=== PATIENT | male | born 1945 | race Caucasian/White ===

== ENCOUNTER 2022-07-20 19:42 | Emergency (ER) | payer MEDICARE, BC, SELFPAY ==
[2022-07-20] VITALS (23 sets, daily range): BP systolic 138–155; BP diastolic 66–116; PULSE 52–64; RESP 16; TEMP 36.7; O2SAT 92–97; BMI 25.5
--- NOTE | 2022-07-20 20:08 | CT_ITS ---
Patient: DAVID JOHNSON Facility:?[facility] Patient ID:?[id number] Site Patient ID:?[id number]. Site :?1945 Study:?CT-Head Angio W/ISOVUE 370 95CC-07/20/2022 8:40:13 PM Ordering Physician:Indio Bowser Final Report: INDICATION: Acute stroke, right arm pain. TECHNIQUE: CTA head with contrast bolus tracking and 3D MIP reconstruction. FINDINGS: There is normal opacification of the intracranial vasculature. There is no significant intracranial stenosis. There is no large vessel occlusion. No aneurysm is identified. IMPRESSION: Unremarkable head CTA. Please note that all CT scans at this facility use dose modulation, iterative reconstruction, and/or weight-based dosing when appropriate to reduce radiation dose to as low as reasonably achievable. Dictated by Geraldo Godfrey MD @ 07/21/2022 9:42:38 AM Signed by:?Geraldo Godfrey MD @07/21/2022 9:42:38 AM (Electronic Signature)
--- NOTE | 2022-07-20 20:09 | CT_ITS ---
Patient: DAVID JOHNSON Facility:?[facility] Patient ID:?[id number] Site Patient ID:?[id number]. Site :?1945 Study:?CT-Neck Angio Angio W/ISOVUE 370 95CC-07/20/2022 8:41:24 PM Ordering Physician:Indio Bowser Final Report: INDICATION: Acute stroke, right arm pain TECHNIQUE: CTA neck with contrast bolus tracking and 3D MIP reconstruction. FINDINGS: There is atherosclerotic plaque in the proximal internal carotid arteries bilaterally. There is no significant stenosis. There is no significant vertebral artery stenosis or dissection. The soft tissues of the neck are within normal limits. Degenerative changes are incidentally noted in the cervical spine. IMPRESSION: Carotid atherosclerotic disease without significant stenosis. Please note that all CT scans at this facility use dose modulation, iterative reconstruction, and/or weight-based dosing when appropriate to reduce radiation dose to as low as reasonably achievable. Dictated by Geraldo Godfrey MD @ 07/21/2022 9:44:09 AM Signed by:?Geraldo Godfrey MD @07/21/2022 9:44:09 AM (Electronic Signature)
--- NOTE | 2022-07-20 20:09 | CRLHL7_ITS ---
For Patients: As a result of the Century Cures Act, medical imaging exams and procedure reports are released immediately into your electronic medical record. You may view this report before your referring provider. If you have questions, please contact your health care provider. INDICATION: Right-sided arm pain. TECHNIQUE: CT head without contrast. COMPARISON: CT head dated 06/11/2017. FINDINGS: Cerebral parenchyma: No evidence of acute territorial infarct. No acute intraparenchymal hemorrhage. No significant mass effect/midline shift. Normal mckenzie-white matter differentiation. Extra-axial spaces: No extra-axial collection or hemorrhage. Ventricles: Unremarkable. Calvarium: Intact. Visualized paranasal sinuses/mastoid air cells: Mild mucosal thickening of the left ethmoid air cells. Posterior fossa: No cerebellar tonsillar herniation. Visualized orbits: Unremarkable. IMPRESSION: No acute intracranial abnormality. Please note that all CT scans at this facility use dose modulation, iterative reconstruction, and/or weight-based dosing when appropriate to reduce radiation dose to as low as reasonably achievable. Dictated by Bibi Agrawal MD @ 07/20/2022 9:03:16 PM (Electronically Signed)
--- NOTE | 2022-07-20 20:10 | CRLHL7_ITS ---
For Patients: As a result of the Century Cures Act, medical imaging exams and procedure reports are released immediately into your electronic medical record. You may view this report before your referring provider. If you have questions, please contact your health care provider. INDICATION: Arm pain. TECHNIQUE: Chest 1 views. COMPARISON: None. FINDINGS: Cardiovascular and mediastinum: Heart size and vasculature are normal in caliber and appearance. Lungs and pleural spaces: Lungs are clear. No sign of infiltrate or mass. No sign of pleural effusion. No pneumothorax. Bones and soft tissues: No significant findings. IMPRESSION: No acute or significant findings. Dictated by Moose Webster MD @ 07/20/2022 9:48:03 PM (Electronically Signed)
--- NOTE | 2022-07-20 20:21 | ED_ITS ---
HPI - General Adult General Chief complaint: Neuro Symptoms/Altered Deficit Stated complaint: Pain in right ear, jaw, and arm Time Seen by Provider: 07/20/22 20:03 History of Present Illness HPI narrative: Pt is a 77 year old man who was watching TV at rest tonight when he developed acute 8/10 pain in the left side of the neck with radiation down the right arm. Symptoms occured approximately 1 hour ago and resolved after 15 seconds. Pt has had no similar symptoms previously. No change in activity today. Pt had no weakness fever chills. Pt has no other recent symptoms and his NIH stroke scale is zero. Pt has taken no medications for his symptoms but did have an TN with stenting 6 years ago. Now feels perfectly fine. Related Data Home Medications Medication Instructions Recorded Confirmed Nitro 07/20/22 allopurinol 07/20/22 aspirin 07/20/22 atorvastatin 07/20/22 empagliflozin 07/20/22 lisinopril 07/20/22 metformin 07/20/22 metoprolol tartrate 07/20/22 Allergies Allergy/AdvReac Type Severity Reaction Status Date / Time No Known Drug Allergies Allergy Verified 07/20/22 19:54 Review of Systems 2 Status of ROS: Reports: 10 or more systems reviewed and unremarkable except as noted in History and below [facility] Medical History (Updated 07/20/22 @ 23:05 by Niels Caceres MD) Coronary artery disease Diabetes Hyperlipidemia Hypertension Surgical History (Updated 07/20/22 @ 20:26 by Niels Caceres MD) H/O knee surgery History of hip surgery Social History Smoking Status: Never smoker How often do you have a drink containing alcohol: monthly or less AUDIT-C Alcohol total score: 1 Non-prescribed substance use: denies use Exam Narrative: Exam Narrative: EXAM GENERAL: Patient appears comfortable and well. EYES: No scleral icterus. THYROID: no thyroid nodules or thyromegaly. LYMPH: No supraclavicular or cervical lymphadenopathy. SKIN: Visible skin seen during exam normal or with benign process only. EXT: No dependent lower extremity pedal edema. HEART: Regular rate and rhythm with no murmurs, rubs, or gallops. LUNGS: Clear to auscultation bilaterally with no crackles or wheezes. ABD: Soft, non tender, non distended. PSYCH: Good eye contact, speech is not pressured. Neurologic: Cranial nerves 2-12 grossly intact no for drip patient. Const: Vital Signs, click to edit/add: Vital Signs - 24 hr 07/20/22 19:51 07/20/22 20:51 07/20/22 20:52 Temperature 98.0 F Pulse Rate 57 L 56 L Pulse Rate [Left P ulse Oximeter] 54 L Respiratory Rate 16 Blood Pressure 152/116 H Blood Pressure [Ri ght Upper Arm] 155/70 H Pulse Oximetry 97 96 96 Oxygen Delivery Me thod Room Air 07/20/22 20:56 07/20/22 21:00 07/20/22 21:11 Temperature Pulse Rate 54 L 54 L 55 L Pulse Rate [Left P ulse Oximeter] Respiratory Rate Blood Pressure 147/66 H 138/73 Blood Pressure [Ri ght Upper Arm] Pulse Oximetry 92 97 96 Oxygen Delivery Me thod 07/20/22 21:15 07/20/22 21:16 07/20/22 21:21 Temperature Pulse Rate 64 55 L 54 L Pulse Rate [Left P ulse Oximeter] Respiratory Rate Blood Pressure 146/89 H 142/74 H Blood Pressure [Ri ght Upper Arm] Pulse Oximetry 94 96 95 Oxygen Delivery Me thod 07/20/22 21:33 07/20/22 21:46 07/20/22 21:47 Temperature Pulse Rate 52 L 52 L 55 L Pulse Rate [Left P ulse Oximeter] Respiratory Rate Blood Pressure 145/71 H Blood Pressure [Ri ght Upper Arm] Pulse Oximetry 95 95 94 Oxygen Delivery Me thod 07/20/22 22:02 07/20/22 22:03 07/20/22 22:15 Temperature Pulse Rate 56 L 56 L 54 L Pulse Rate [Left P ulse Oximeter] Respiratory Rate Blood Pressure 140/76 H Blood Pressure [Ri ght Upper Arm] Pulse Oximetry 95 95 96 Oxygen Delivery Me thod 07/20/22 22:16 Temperature Pulse Rate 56 L Pulse Rate [Left P ulse Oximeter] Respiratory Rate Blood Pressure 151/74 H Blood Pressure [Ri ght Upper Arm] Pulse Oximetry 94 Oxygen Delivery Me thod Course Course Hospital Course: Patient is in or immediately for CTA head and neck CT chest x-ray EKG troponin CBC basic metabolic panel. Patient currently asymptomatic Reevaluation(s) Reevaluation #1: Pt continues to feel fine. CT of the head, CT of the head and neck, troponin times 2, cbc, d dimer basic panel normal with the exception of hgb of 13. Time: 23:00 Vital Signs Vital signs: Initial Vital Signs Temperature 98.0 F 07/20/22 19:51 Temperature Source Temporal Artery Scan 07/20/22 19:51 Pulse Rate 54 L 07/20/22 19:51 Respiratory Rate 16 07/20/22 19:51 Blood Pressure 155/70 H 07/20/22 19:51 Blood Pressure Mean 98 07/20/22 19:51 Blood Pressure Position Sitting 07/20/22 19:51 Pulse Oximetry 97 07/20/22 19:51 Oxygen Delivery Method 07/20/22 19:51 Vital Signs Temperature 98.0 F 07/20/22 19:51 Pulse Rate 54 L 07/20/22 19:51 Respiratory Rate 16 07/20/22 19:51 Blood Pressure 155/70 H 07/20/22 19:51 Pulse Oximetry 97 07/20/22 19:51 Oxygen Delivery Method 07/20/22 19:51 Temperature 98.0 F 07/20/22 19:51 Pulse Rate 56 L 07/20/22 22:16 Respiratory Rate 16 07/20/22 19:51 Blood Pressure 151/74 H 07/20/22 22:16 Pulse Oximetry 94 07/20/22 22:16 Oxygen Delivery Method 07/20/22 19:51 Medical Decision Making MDM Narrative Medical decision making narrative: Pt has had a thorough workup for both CVA and TN. No findings and pt remains feeling quite well. Pt does take ASA 81 mg daily Differential Diagnosis Differential Diagnosis: CVA, TN, Angina, Muscle Strain, Neck Strain, Referred pain Lab Data Labs: Lab Results 07/20/22 07/20/22 07/20/22 Range/Units 20:18 20:18 20:18 WBC 3.29 L (4.50-11.00) K/uL RBC 3.73 L (4.30-5.90) m/uL Hgb 13.0 L (13.5-17.5) gm/dL Hct 37.2 (37.0-53.0) % MCV 100 (80-100) fL MCH 35 H (26-34) pg MCHC 35 (32-36) gm/dL RDW Coeff of Savanna 13.3 (11.5-15.5) % Plt Count 171 (140-440) K/uL Neut % (Auto) 51.4 (42.0-72.0) % Lymph % (Auto) 38.0 (20-44) % Owsley % (Auto) 6.4 (0.0-11.0) % Eos % (Auto) 3.3 (0.0-7.0) % Baso % (Auto) 0.9 (0.0-3.0) % Neut # (Auto) 1.70 (1.7-7.0) K/uL Lymph # (Auto) 1.30 (0.90-2.90) K/uL Owsley # (Auto) 0.20 (0.00-0.90) K/UL Eos # (Auto) 0.10 (0.00-0.50) K/uL Baso # (Auto) 0.00 (0.00-0.30) K/uL Abs Immat Gran (auto) 0.00 (0.00-0.30) K/uL D-Dimer Quant (PE/DVT) 0.42 (0.00-0.50) ug/ml Sodium 139 (135-149) mmol/L Potassium 4.0 (3.6-5.1) mmol/L Chloride 104 (96-114) mmol/L Carbon Dioxide 27 (20-32) mmol/L BUN 18 (7-30) mg/dL Creatinine 0.9 (0.5-1.5) mg/dL Estimated Creat Clear 58.76 Estimated GFR 89 ml/min Glucose 221 H (60-115) mg/dL Calcium 9.0 (8.4-10.6) mg/dL Troponin I < 0.01 L (0.01-0.04) ng/mL 07/20/22 Range/Units 22:13 WBC (4.50-11.00) K/uL RBC (4.30-5.90) m/uL Hgb (13.5-17.5) gm/dL Hct (37.0-53.0) % MCV (80-100) fL MCH (26-34) pg MCHC (32-36) gm/dL RDW Coeff of Savanna (11.5-15.5) % Plt Count (140-440) K/uL Neut % (Auto) (42.0-72.0) % Lymph % (Auto) (20-44) % Owsley % (Auto) (0.0-11.0) % Eos % (Auto) (0.0-7.0) % Baso % (Auto) (0.0-3.0) % Neut # (Auto) (1.7-7.0) K/uL Lymph # (Auto) (0.90-2.90) K/uL Owsley # (Auto) (0.00-0.90) K/UL Eos # (Auto) (0.00-0.50) K/uL Baso # (Auto) (0.00-0.30) K/uL Abs Immat Gran (auto) (0.00-0.30) K/uL D-Dimer Quant (PE/DVT) (0.00-0.50) ug/ml Sodium (135-149) mmol/L Potassium (3.6-5.1) mmol/L Chloride (96-114) mmol/L Carbon Dioxide (20-32) mmol/L BUN (7-30) mg/dL Creatinine (0.5-1.5) mg/dL Estimated Creat Clear Estimated GFR ml/min Glucose (60-115) mg/dL Calcium (8.4-10.6) mg/dL Troponin I < 0.01 L (0.01-0.04) ng/mL Discharge Plan Discharge Clinical Impression: Acute neck pain Condition: Stable Additional Instructions: Symptomatic Treatment Continue current medications Follow up with your doctor as needed Discharge Diet: Regular Prescriptions: No Action atorvastatin metoprolol tartrate allopurinol metformin empagliflozin aspirin lisinopril Nitro Follow Up/Referrals: Ijeoma Gutiérrez MD [Staff Physician] - Stand Alone Forms: [facility] Info Instructions
--- NOTE | 2022-07-20 20:23 | ED.NURSE ---
Pt to CT
[2022-07-20 20:27] LABS: Basophils Percent Auto 0.9 % (0.0-3.0); Eosinophils Percent Auto 3.3 % (0.0-7.0); Hematocrit 37.2 % (37.0-53.0); Mean Corpuscular HGB Conc 35 gm/dL (32-36); Mean Corpuscular Hemoglobin 35 pg (26-34); Mean Corpuscular Volume 100 fL (80-100); Monocytes Percent Auto 6.4 % (0.0-11.0); Neutrophils Percent Auto 51.4 % (42.0-72.0); Platelet Count* 171 K/uL (140-440); RDW Coefficient of Variation % 13.3 % (11.5-15.5); Red Blood Count 3.73 m/uL (4.30-5.90); White Blood Count* 3.29 K/uL (4.50-11.00)
[2022-07-20 20:35] LABS: Slide Review Reflex No
[2022-07-20 20:39] LABS: Chloride* 104 mmol/L (96-114); Sodium* 139 mmol/L (135-149)
[2022-07-20 20:42] LABS: Blood Urea Nitrogen* 18 mg/dL (7-30); Carbon Dioxide* 27 mmol/L (20-32); Creatinine* 0.9 mg/dL (0.5-1.5); Est. Creatinine Clearance* 58.76; Estimated Glomerular Filt Rate 89 ml/min
[2022-07-20 20:43] LABS: Glucose* 221 mg/dL (60-115)
[2022-07-20 20:44] LABS: D Dimer Quantitative* 0.42 ug/ml (0.00-0.50)
[2022-07-20 20:56] LABS: Troponin I* < 0.01 ng/mL (0.01-0.04)
--- OUTSIDE RECORDS SUMMARY | 2022-07-20 21:44 | XMS_ITS | Encounter Summary ---
:1945 Author Organization [facility] Address [address] [place] [address] Care Team Providers Name Role Phone [facility], [facility] Primary Care Provider [phone] Reason for Visit Auth/Cert Specialty Diagnoses / Procedures Referred By Contact Refer red To Contact Surgery Diagnoses Spinal stenosis Herniated disc, cervical Radiculopathy, cervical DDD (degenerative disc disease), cervical Weakness Spinal stenosis [M48.00] Herniated disc, cervical [M50.20] Radiculopathy, cervical [M54.12] [facility] DDD (degenerative disc disea se), cervical [M50.30] Weakness [R53.1] [address] Procedures Lumbar 4-5 Posterior Lumbar Instrumented Fusion With or Without Interbody Cage and With Lumbar 3-4 Laminectomy and Lumbar 4-5 [place] [address] Fax: Referral ID Status Reason Start Date Expiration Date Visits Requ ested Visits Authorized [id number] 1 1 Encounter Details Date Type Department Care Team Description 08/03/2021 - Hospital Encounter [facility] John Champion, S/P lumbar fusion 08/05/2021 [facility] (Primary Dx) [address] [place], [place] ORTHOPEDICS [address] [phone] [address] [place] [address] Social History Tobacco Use Types Packs/Day Years Used Date Never Smoker Smokeless Tobacco: Never Used Alcohol Use Standard Drinks/Week Comments No 0 (1 standard drink = 0.6 oz pure alcoho l) Sex Assigned at Date Recorded Not on file COVID-19 Exposure Response Date Recorded In the last month, have you been in contact with No / Unsure 08/03/2021 10:51 AM CDT someone who was confirmed or suspected to have Coronavirus / COVID-19? documented as of this encounter Last Filed Vital Signs Vital Sign Reading Time Taken Comments Blood Pressure 159/73 08/05/2021 7:27 AM CDT Pulse 62 08/05/2021 7:27 AM CDT Temperature 36.2 ??C (97.1 ??F) 08/05/2021 7:27 AM CDT Respiratory Rate 16 08/04/2021 4:07 PM CDT Oxygen Saturation 92% 08/05/2021 7:27 AM CDT Inhaled Oxygen Concentration - - Weight 77.1 kg (170 lb) 08/03/2021 9:57 AM CDT Height 170.2 cm (5' 7) 08/03/2021 9:57 AM CDT Body Mass Index 26.63 08/03/2021 9:57 AM CDT documented in this encounter Discharge Summaries Nikita Fuentes PA-C - 08/03/2021 9:36 AM CDT [facility] Discharge Summary Michael Johnson Age: [age] year old Date of : 1945 Date of Admission: 08/03/2021 Date of Discharge:: 08/05/2021 5:47 PM Admitting Physician: John Champion MD Discharge Physician: Nikita Fuentes PA-C Home clinic: [facility] Admission Diagnoses: Spinal stenosis [M48.00] Herniated disc, cervical [M50.20] Radiculopathy, cervical [M54.12] DDD (degenerative disc disease), cervical [M50.30] Weakness [R53.1] S/P lumbar fusion [Z98.1] Discharge Diagnosis: Patient Active Problem List Diagnosis ??? S/P lumbar fusion ??? S/P total knee arthroplasty Procedures: Procedure(s): L4-L5 TLIF Medications Prior to Admission: No medications prior to admission. Discharge Medications: Discharge Medication List as of 08/05/2021 4:35 PM START taking these medications Details calcium carbonate-vitamin D (OSCAL W/D) 500-200 MG-UNIT tablet Take 1 tablet by mouth 3 times daily (with meals), Disp-270 tablet, R-0, Local Print hydrOXYzine (ATARAX) 10 MG tablet Take 1 tablet (10 mg) by mouth every 6 hours as needed for itchingor anxiety (with pain, moderate pain), Disp-30 tablet, R-0, Local Print oxyCODONE (ROXICODONE) 5 MG tablet Take 1-2 tablets (5-10 mg) by mouth every 4 hours as needed for moderate to severe pain (Moderate to Severe), Disp-30 tablet, R-0, Local Print senna-docusate (SENOKOT-S/PERICOLACE) 8.6-50 MG tablet Take 1-2 tablets by mouth 2 times daily Take while on oral narcotics to prevent or treat constipation., Disp-30 tablet, R-0, Local PrintWhile taking narcotics CONTINUE these medications which have CHANGED Details acetaminophen (TYLENOL) 325 MG tablet Take 2 tablets (650 mg) by mouth every 4 hours as needed for other (mild pain), Disp-100 tablet, R-0, Local Print CONTINUE these medications which have NOT CHANGED Details ALLOPURINOL PO Take 300 mg by mouth every evening, Historical Ascorbic Acid (VITAMIN C PO) Take 500 mg by mouth every evening, Historical ATORVASTATIN CALCIUM PO Take 80 mg by mouth every evening, Historical Exoobjbdf-Cjdqommfkcb-Vuk D (OSTEO BI-FLEX ONE PER DAY) TABS Take 1 tablet by mouth daily, Historical CINNAMON PO Take 1,000 mg by mouth daily, Historical empagliflozin (JARDIANCE) 25 MG TABS tablet Take 12.5 mg by mouth daily, Historical Garlic 1000 MG CAPS Take 1 capsule by mouth daily, Historical lisinopril (ZESTRIL) 10 MG tablet Take 10 mg by mouth daily, Historical METFORMIN HCL PO Take 1,000 mg by mouth 2 times daily (with meals), Historical METOPROLOL TARTRATE PO Take 25 mg by mouth 2 times daily , Historical Nitroglycerin (NITROSTAT SL) Place 0.4 mg under the tongue every 5 minutes as needed for chest pain,Historical Quercetin 250 MG TABS Take 2 tablets by mouth daily, Historical vitamin D3 (CHOLECALCIFEROL) 50 mcg (2000 units) tablet Take 1 tablet by mouth daily, Historical STOP taking these medications aspirin 81 MG EC tablet Comments: Reason for Stopping: ibuprofen (ADVIL/MOTRIN) 200 MG tablet Comments: Reason for Stopping: magnesium 250 MG tablet Comments: Reason for Stopping: Misc Natural Products (NEURIVA PO) Comments: Reason for Stopping: Misc Natural Products (TART DENTON ADVANCED PO) Comments: Reason for Stopping: multivitamin, therapeutic with minerals (MULTI-VITAMIN) TABS tablet Comments: Reason for Stopping: UNABLE TO FIND Comments: Reason for Stopping: zinc gluconate 50 MG tablet Comments: Reason for Stopping: Consultations: PT, OT, Hospitalist Hospital Course: The patient's hospital course was unremarkable. He recovered as anticipated and experienced no post-operative complications. Discharge Instructions and Follow-Up: Discharge diet: Regular Discharge activity: Activity as tolerated Minimize bending, lifting, twisting. No lifting greater than 10 lbs. Remember, 1 gallon of milk is 8lbs. Discharge follow-up: Follow up with Nikita Fuentes PA-C in two weeks at [facility]. Please call [place] [phone] to schedule. Wound care: Your incision is covered with an Aquacel dressing. This is a waterproof dressing that you are able to shower with. Do not submerge your dressing in water. Do not remove dressing until you are seen in clinic for your two week post op visit. However, if you notice a significant amount of drainage on your dressing, or there is any concern for possible incision infection, remove to inspect the incision. If you do remove the dressing prior to your two week visit, please cover with simple dressing. We suggest a folded piece of gauze with a few pieces of tape to hold in place. This will allow the incision to remain protected. Please make sure to cover your dressing with plastic/waterproof dressing to keep it waterproof if you have removed the initial dressing while in the shower. We ask that you continue to waterproof it until you are seen at your two week post op appointment. Discharge Disposition: Discharged to home Attestation: I have reviewed today's vital signs, notes, medications, labs and imaging. Nikita Fuentes PA-C documented in this encounter Discharge Instructions Discharge InstructionsNikita Fuentes PA-C - 08/03/2021 3:32 PM CDT Incision Instructions Your incision is covered with an Aquacel dressing. This is a waterproof dressing that you are able to shower with. Do not submerge your dressing in water. Do not remove dressing until you are seen in clinic for your two week post op visit. However, if you notice a significant amount of drainage on your dressing, or there is any concern for possible incision infection, remove to inspect the incision. If you do remove the dressing prior to your two week visit, please cover with simple dressing. We suggest a folded piece of gauze with a few pieces of tape to hold in place. This will allow the incision to remain protected. Please make sure to cover your dressing with plastic/waterproof dressing to keep it waterproof if you have removed the initial dressing while in the shower. We ask that you continue to waterproof it until you are seen at your two week post op appointment. Activity Instructions Minimize bending, lifting, twisting. No lifting greater than 10 lbs. Remember, 1 gallon of milk is 8lbs. Please call our office at [phone] should you develop the following issues: 1.) Increased/persistent redness, bleeding, localized warmth, increased swelling, and/or drainage (yellow/clear/odorous) incision site. 2.) Increased pain not controlled with oral pain medications 3.) Persistent headache, dizziness, lightheaded 4.) Persistent constipation despite taking OTC stool softeners as directed 5.) Calf pain/swollen/hard/warm area, swelling chest pain or shortness of breath 6.) Increased/persistent numbness or tingling in arm or legs, weakness in extremities or falls 7.) Generalized feelings of illness 8.) Persistent fever, chills, sweats, Temp 101 or greater 9.) Trouble voiding, incontinence of bowel and/or bladder 10.) Too sleepy-could be amount of pain medication 11.) If unable to wake call 911 Other instructions: 1.) No heavy lifting, nothing more than 6-10lbs. Minimize your bending, lifting, and twisting. Attempt to avoid prolonged period of sitting. Follow physical therapy restrictions and exercises - slowly increase your activity. 2.) Avoid sitting or laying in one position too long, walk as tolerated, log roll 3.) Wear brace when up per physical therapy, inspect skin under brace daily and call md if sore areastarts 4.) Take an over the counter stool softener as directed while on narcotics to prevent constipation or to stay regular. Take a suppository or laxative if no bowel movement in 2 days despite taking softener Follow Up Follow up with Nikita Fuentes PA-C in two weeks at [facility]. Please call [facility] [phone] to schedule. documented in this encounter Medications at Time of Discharge Medication Sig Dispensed Refills Start Date End Date acetaminophen (TYLENOL) Take 2 tablets (650 100 tablet 0 325 MG tabletIndications: mg) by mouth every 4 S/P lumbar fusion hours as needed for other (mild pain) ALLOPURINOL PO Take 300 mg by mouth 0 every evening Ascorbic Acid (VITAMIN C Take 500 mg by mouth 0 PO) every evening ATORVASTATIN CALCIUM PO Take 80 mg by mouth 0 every evening Ikjfnnvey-Bphdyismstv-Dsf Take 1 tablet by 0 D (OSTEO BI-FLEX ONE PER mouth daily DAY) TABS calcium carbonate-vitamin Take 1 tablet by 270 tablet 0 07/13 D (OSCAL W/D) 500-200 mouth 3 times daily MG-UNIT (with meals) tabletIndications: S/P lumbar fusion CINNAMON PO Take 1,000 mg by 0 mouth daily empagliflozin (JARDIANCE) Take 12.5 mg by mouth 0 25 MG TABS tablet daily Garlic 1000 MG CAPS Take 1 capsule by 0 mouth daily hydrOXYzine (ATARAX) 10 Take 1 tablet (10 mg) 30 tablet 0 0 08/04/2021 MG tabletIndications: S/P by mouth every 6 lumbar fusion hours as needed for itching or anxiety (with pain, moderate pain) lisinopril (ZESTRIL) 10 Take 10 mg by mouth 0 MG tablet daily METFORMIN HCL PO Take 1,000 mg by 0 mouth 2 times daily (with meals) METOPROLOL TARTRATE PO Take 25 mg by mouth 2 0 times daily Nitroglycerin (NITROSTAT Place 0.4 mg under 0 SL) the tongue every 5 minutes as needed for chest pain oxyCODONE (ROXICODONE) 5 Take 1-2 tablets 30 tablet 0 08/04 MG tabletIndications: S/P (5-10 mg) by mouth lumbar fusion every 4 hours as needed for moderate to severe pain (Moderate to Severe) Quercetin 250 MG TABS Take 2 tablets by 0 mouth daily senna-docusate Take 1-2 tablets by 30 tablet 0 08/04/2021 (SENOKOT-S/PERICOLACE) mouth 2 times daily 8.6-50 MG Take while on oral tabletIndications: S/P narcotics to prevent lumbar fusion or treat constipation. vitamin D3 Take 1 tablet by 0 (CHOLECALCIFEROL) 50 mcg mouth daily (2000 units) tablet documented as of this encounter Progress Notes Mathew Santiago DO - 08/05/2021 10:37 AM CDT [facility] Hospitalist Progress Note Name: Michael Johnson Provider: Mathew Santiago DO, MPH Date of Service: 08/05/2021 Summary of Stay: Michael Johnson is a 76 year old male with a history of HTN, HLD, DM Type 2, CAD, Prostate CA, Gout, Cataract, COVID 19 (2019), Spinal Stenosis who was admitted s/p L4-5 Fusion.?? EBL 100ml.?? Internal Medicine service was asked to see for management of chronic medical problems.? Spinal Stenosis s/p??L4-5 TLIF with central laminectomy L3-L5??- POD #2. Doing well.? - will defer diet, activity, DVT ppx, and pain control to primary team. - PT/OT - Working on BM ?? CAD HTN - s/p caradiac stent x1 2015. - continue Metoprolol and Lisinopril HLD - continue Atorvastatin. 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 DM Type 2 - BS 119-228 - continue Metformin and Empagliflozin and ISS protocol ?? Gout - no recent flare. Continue Allopurinol ?? Hx Prostate Cancer - s/p radiation, in remission. ?? Chronic Anemia - hbg 12.5 at recent baseline DVT Prophylaxis: Defer to primary service Code Status: Full Code Diet: Advance Diet as Tolerated: Regular Diet Adult Discharge Instruction - Regular Diet Adult Rendon Catheter: Not present Disposition: Expected discharge in 0-1 days to home. Goals prior to discharge include BM, PT. Incidental Findings: None. Family updated today: Yes Interval History Assumed care from previous hospitalist. The history was fully reviewed. The patient reports doing well. No chest pain or shortness of breath. No nausea, vomiting, diarrhea but does have constipation. No fevers. No other specific complaints identified. -Data reviewed today: I personally reviewed all new labs and imaging results over the last 24 hours. Physical Exam Temp: 97.1 ??F (36.2 ??C) Temp src: Temporal BP: (!) 159/73 Pulse: 62 Resp: 16 SpO2: 92 % O2 Device:None (Room air) Vitals: 08/02/21 0900 08/03/21 0957 Weight: 77.6 kg (171 lb) 77.1 kg (170 lb) Vital Signs with Ranges Temp: [97.1 ??F (36.2 ??C)-98.1 ??F (36.7 ??C)] 97.1 ??F (36.2 ??C) Pulse: [57-67] 62 Resp: [16] 16 BP: (124-159)/(53-73) 159/73 SpO2: [92 %-96 %] 92 % I/O last 3 completed shifts: In: 120 [P.O.:120] Out: 940 [Urine:850; Drains:90] GENERAL: No apparent distress. Awake, alert, and fully oriented. HEENT: Normocephalic, atraumatic. Extraocular movements intact. CARDIOVASCULAR: Regular rate. PULMONARY: No respiratory distress. GASTROINTESTINAL: Non-distended. EXTREMITIES: No cyanosis or clubbing. No edema. NEUROLOGICAL: CN 2-12 grossly intact, no focal neurological deficits. DERMATOLOGICAL: No rash, ulcer, bruising, nor jaundice. Medications ??? sodium chloride 100 mL/hr at 08/04/21 0431 ??? acetaminophen 975 mg Oral Q8H ??? allopurinol 300 mg Oral QPM ??? atorvastatin 80 mg Oral QPM ??? calcium carbonate-vitamin D 1 tablet Oral TID AC ??? empagliflozin 10 mg Oral Daily ??? insulin aspart 1-7 Units Subcutaneous TID AC ??? insulin aspart 1-5 Units Subcutaneous At Bedtime ??? lisinopril 10 mg Oral Daily ??? metFORMIN 1,000 mg Oral BID w/meals ??? metoprolol tartrate 25 mg Oral BID ??? polyethylene glycol 17 g Oral Daily ??? senna-docusate 1 tablet Oral BID ??? sodium chloride (PF) 3 mL Intracatheter Q8H ??? cholecalciferol 25 mcg Oral BID Data Laboratory: Recent Labs Lab 08/05/21 0537 08/04/21 0645 HGB 12.2* 12.5* Recent Labs Lab 08/05/21 0732 08/05/21 0232 08/04/21 2206 08/04/21 0748 08/04/21 0645 GLC 155* 164* 155* < > 154* CR -- -- -- -- 0.80 GFRESTIMATED -- -- -- -- 87 < > = values in this interval not displayed. No results for input(s): CULT in the last 168 hours. Imaging: No results found for this or any previous visit (from the past 24 hour(s)). Mathew Santiago DO MPH [facility] Hospitalist Jennifer Kauffman [facility] [place] [address] 08/05/2021 Noemi Arellano PA-C - 08/05/2021 7:56 AM CDT Orthopedic Surgery 08/05/2021 POD 2 S: Patient voices no unexpected ortho complaints today. Denies chest pain or shortness of breath. Did well overnight with regard to his surgery. is very concerned about constipation due to his history of constipation after TKA a few years ago. [place] states he has not passed any gas. O: Blood pressure (!) 159/73, pulse 62, temperature 97.1 ??F (36.2 ??C), temperature source Temporal, resp. rate 16, height 1.702 m (5' 7), weight 77.1 kg (170 lb), SpO2 92 %. Lab Results Component Value Date HGB 12.2 08/05/2021 HGB 11.0 04/02/2018 No results found for: INR I/O last 3 completed shifts: In: 120 [P.O.:120] Out: 940 [Urine:850; Drains:90] Distal extremity CMSI bilaterally. Calves are negative bilaterally, both soft and nontender. The dressing is C/D/I. A: Mr. Johnson is doing well status post Procedure(s): L4 to L5 posterior lumbar interbody fusion with use of interbody cage. Gregory- Dee osteotomies L4to L5 by performing bilateral facetectomies. Posterior fusion L4 through L5. Posterior instrumentation with bilateral pedicle screw and shruthi construct spanning from L4 to L5. Revision central laminectomy of L3. Revision central laminectomy of L4. Revision central laminectomy of L5. Laminectomy lumbar posterior microscopic one level. P: Continue to mobilize. Keep aquacel in place. Drain is out. Discussed the role of stool softeners 2 in am and 2 in PM with lots of fluid, possibility of enema. Anticipate discharge to home today if is passing gas. Follow up with Dr Champion team as scheduled. Noemi Arellano PA-C [phone] Shelton Cowart RN - 08/05/2021 1:14 AM CDT Pt is alert amd oriented, lung sound clear, up with SBA gait and walker. Tolerating regular diet, -flatus, faint bowel sounds.MOM given for constipation. Pain controlled with prn Oxy and scheduled tylenol.Dressing is clean dry and intact, denies numbness and tingling. Saline lock. Voiding. Hemovac d/demetra.Plan to discharge to home today. Blood sugar monitoring. Danielle Noriega OT - 08/04/2021 3:29 PM CDT 08/04/21 1453 Quick Adds Type of Visit Initial Occupational Therapy Evaluation Living Environment People in home spouse Current Living Arrangements house Home Accessibility stairs to enter home;stairs within home Number of Stairs, Main Entrance 2 Stair Railings, Main Entrance railings safe and in good condition Number of Stairs, Within Home, Primary 5 Stair Railings, Within Home, Primary railings safe and in good condition Transportation Anticipated car, drives self;family or friend will provide Living Environment Comments Pt lives with spouse in split level house, stairs to enter/within, walk in shower w/ shower chair, standard height toilet. Self-Care Usual Activity Tolerance excellent Current Activity Tolerance good Regular Exercise Yes Activity/Exercise Type biking;walking (golfing) Exercise Amount/Frequency 3-5 times/wk Equipment Currently Used at Home none Disability/Function Fall history within last six months no Change in Functional Status Since Onset of Current Illness/Injury yes General Information Onset of Illness/Injury or Date of Surgery 08/03/21 Referring Physician Nikita Fuentes PA-C Patient/Family Therapy Goal Statement (OT) Pt's goal is to d/c home Additional Occupational Profile Info/Pertinent History of Current Problem Per chart: Pt is a 76 yearold male s/p L4-5 TLIF with central laminectomy L3-L5 Performance Patterns (Routines, Roles, Habits) Pt reports indep in all ADLs, IADls and mobility tasks with no AD at baseline. Pt is retired. Existing Precautions/Restrictions fall;spinal;lifting;brace worn when out of bed Pain Assessment Patient Currently in Pain Yes, see Vital Sign flowsheet (back pain ) Range of Motion Comprehensive Comment, General Range of Motion BUEs WFL Strength Comprehensive (MMT) Comment, General Manual Muscle Testing (MMT) Assessment [facility] WF Bed Mobility Supine-Sit [place] (Bed Mobility) contact guard Sit-Supine [place] (Bed Mobility) contact guard Transfers Transfers sit-stand transfer;toilet transfer Sit-Stand Transfer Sit-Stand [place] (Transfers) contact guard Assistive Device (Sit-Stand Transfers) walker, front-wheeled Toilet Transfer Valley Level (Toilet Transfer) contact guard Assistive Device (Toilet Transfer) walker, front-wheeled Balance Balance Comments CGA/SBA while in stance FWW level Activities of Daily Living BADL Assessment lower body dressing;upper body dressing Upper Body Dressing Assessment Valley Level (Upper Body Dressing) minimum assist (75% patient effort) Lower Body Dressing Assessment [place] Level (Lower Body Dressing) moderate assist (50% patient effort) Clinical Impression Criteria for Skilled Therapeutic Interventions Met (OT) yes;meets criteria;skilled treatment is necessary OT Diagnosis Impaired ADLs, IADLs and mobility tasks OT Problem List-Impairments impacting ADL problems related to;activity tolerance impaired;pain;post-surgical precautions ADL comments/analysis Pt below baseline level of functioning in daily tasks Assessment of Occupational Performance 5 or more Performance Deficits Identified Performance Deficits Bathing, dressing, grooming, toileting, homemaking, transfers Planned Therapy Interventions (OT) ADL retraining;IADL retraining;strengthening;transfer training Clinical Decision Making Complexity (OT) low complexity Therapy Frequency (OT) Daily Predicted Duration of Therapy 3 days Risk & Benefits of therapy have been explained evaluation/treatment results reviewed;care plan/treatment goals reviewed;risks/benefits reviewed;current/potential barriers reviewed;participants voiced agreement with care plan;participants included;patient OT Discharge Planning OT Discharge Recommendation (DC Rec) Home with assist OT Rationale for DC Rec Anticipate pt may require min A for LB dressing, supervision for bathing andassist for IADLs (homemaking, laundry, driving, etc). Spouse able to assist as needed in home environment. Total Evaluation Time (Minutes) Total Evaluation Time (Minutes) 8 Theresa Dawkins, PT - 08/04/2021 9:24 AM CDT 08/04/21 0845 Quick Adds Type of Visit Initial PT Evaluation Living Environment People in home spouse Current Living Arrangements house Home Accessibility stairs to enter home;stairs within home Number of Stairs, Main Entrance 2 Stair Railings, Main Entrance railings safe and in good condition Number of Stairs, Within Home, Primary 5 Stair Railings, Within Home, Primary railings safe and in good condition Transportation Anticipated family or friend will provide Living Environment Comments lives in split level house with bed/bath up 5 stairs, 2 [address] with rails. patient has FWW and cane at home. Hx of previous L CHIOMA and TKA, as well as previous spinal surgery Self-Care Usual Activity Tolerance excellent Current Activity Tolerance good Regular Exercise Yes Activity/Exercise Type biking;walking (golfing ) Exercise Amount/Frequency 3-5 times/wk Equipment Currently Used at Home none Activity/Exercise/Self-Care Comment independent with all self-cares, and ADLs/IADLs; supportive spouse available to help Disability/Function Fall history within last six months no General Information Onset of Illness/Injury or Date of Surgery 08/03/21 Referring Physician Nikita Fuentes PA-C Patient/Family Therapy Goals Statement (PT) return home Pertinent History of Current Problem (include personal factors and/or comorbidities that impact the POC) POD #1 s/p L4-5 TLIF with central laminectomy L3-L5 Existing Precautions/Restrictions spinal (has back brace corset, brace orders discontinued per RN ) Weight-Bearing Status - LLE (left sided sensation changes and mild weakness prior ) Cognition Orientation Status (Cognition) oriented x 4 Affect/Mental Status (Cognition) WFL Follows Commands (Cognition) WFL Pain Assessment Patient Currently in Pain Yes, see Vital Sign flowsheet (05/20 back pain ) Integumentary/Edema Integumentary/Edema Comments lumbar incision with hemovac drain, bandage intact - will keep bandage on for approx 1 month per pt Bed Mobility Comment (Bed Mobility) Mod A x 1 supine <> sit via log roll Transfers Transfer Safety Comments CGA sit <> stand with FWW Gait/Stairs (Locomotion) Valley Level (Gait) contact guard Assistive Device (Gait) walker, front-wheeled Distance in Feet (Required for LE Total Joints) 150' Sensory Examination Sensory Perception Comments partially impaired left leg sensation Clinical Impression Criteria for Skilled Therapeutic Intervention yes, treatment indicated PT Diagnosis (PT) impaired mobility Influenced by the following impairments pain, weakness, impaired balance Functional limitations due to impairments decreased activity tolerance Clinical Presentation Stable/Uncomplicated Clinical Presentation Rationale clinical judgement Clinical Decision Making (Complexity) low complexity Therapy Frequency (PT) 2x/day Predicted Duration of Therapy Intervention (days/wks) 3 days Planned Therapy Interventions (PT) balance training;bed mobility training;gait training;home exercise program;neuromuscular re-education;stair training;strengthening;transfer training Anticipated Equipment Needs at Discharge (PT) (FWW pending ) Risk & Benefits of therapy have been explained evaluation/treatment results reviewed;care plan/treatment goals reviewed;risks/benefits reviewed;current/potential barriers reviewed;participants voiced agreement with care plan;participants included;patient PT Discharge Planning PT Discharge Recommendation (DC Rec) home with assist PT Rationale for DC Rec Anticipatient with continued inpatient PT for bed mobility and gait trainingpatient will be able to safely ambulate independent and navigate 5 stairs with SBA by d/c with spouse assist at home. PT Brief overview of current status Mod A bed mob, CGA gait/transfers with FWW Total Evaluation Time Total Evaluation Time (Minutes) 10 Nikita Fuentes PA-C - 08/04/2021 7:45 AM CDT Ortho Rounding Note S: In bed, pain controlled, no LE radicular symptoms. Denies n/v/f/c, SOB, CP. No ortho concerns. O: Vital signs: Blood pressure (!) 157/80, pulse 57, temperature (!) 96.7 ??F (35.9 ??C), temperature source Temporal, resp. rate 14, height 1.702 m (5' 7), weight 77.1 kg (170 lb), SpO2 98 %. Estimated body mass index is 26.63 kg/m?? as calculated from the following: Height as of this encounter: 1.702 m (5' 7). Weight as of this encounter: 77.1 kg (170 lb). Intake/Output Summary (Last 24 hours) at 08/04/2021 0745 Last data filed at 08/04/2021 0531 Gross per 24 hour Intake 2560 ml Output 2010 ml Net 550 ml Drain intact Dressings c/d/i 5/5 motor and SPLT in BL UE and LE A: POD #1 s/p L4-5 TLIF with central laminectomy L3-L5 P: General: Doing very well this AM. No LE radicular symptoms reported. Has yet to be up with therapy. Pain: PO Act: up ad delvin, with therapy DVT: Mech only ID: routine postop abx to be completed 24 hours after surgery Dispo: Plan for discharge to home tomorrow. Appreciate Medicine consult for medical management Nikita Fuentes PA-C Riky Townsend - 08/03/2021 11:24 AM CDT SPIRITUAL HEALTH SERVICES Progress Note [facility] OR beds Pre-Surgical Visit Pt was with and mentioned that he was not in pain. This is not the first time having this surgery; pt mentioned he felt good and that his whole family was praying for him. Pt mentioned that he didn't need anything else, and I wished him well. Pt was made aware that Spiritual Health was available should be need it after the surgery. Belenatunsosa Townsend M.Div. Wood Patternmaker Apprentice Fat Pressroom Worker Associated attestation - Tashi Gonzales - 08/03/2021 2:12 PM CDT I, Tashi Gonzales, staff dip brazier have reviewed and agree with the following dip brazier student's note on 08/03/2021 at 2:12 PM. documented in this encounter H&P Notes Karen Pete MD - 08/03/2021 10:29 AM CDT I have reviewed the surgical (or preoperative) H&P that is linked to this encounter, and examined the patient. There are no significant changes Source Note - Leatha Provider - 08/01/2021 5:12 PM CDT documented in this encounter Consult Notes Grecia Bruner PA-C - 08/04/2021 7:32 AM CDTAssociated Order(s): HOSPITALIST IP CONSULT [facility] Hospitalist Consult Michael Johnson Date of : 1945 Age: [age] year old Date of Admission: 08/03/2021 PCP is Clinic, [facility] Date of Service: 08/04/2021 Referring MD & Reason for Visit: I was asked by John Champion MD, to manage chronic medical problems. Internal Medicine Physician Load Blocker: Grecia Bruner PA-C Assessment and Plan: Michael Johnson is a 76 year old male with a history of HTN, HLD, DM Type 2, CAD, Prostate CA, Gout, Cataract, COVID 19 (2019), Spinal Stenosis who was admitted s/p L4-5 Fusion.?? EBL 100ml.?? Internal Medicine service was asked to see for management of chronic medical problems.?? Spinal Stenosis s/p L4-5 TLIF with central laminectomy L3-L5 - POD #1. Doing well.? - will defer diet, activity, DVT ppx, and pain control to primary team. - PT/OT CAD HTN - s/p caradiac stent x1 2016. - continue Metoprolol and Lisinopril HLD - continue Atorvastatin. 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 DM Type 2 - BS 119-228 - continue Metformin and Empagliflozin and ISS protocol Gout - no recent flare. Continue Allopurinol Hx Prostate Cancer - s/p radiation, in remission. Chronic Anemia - hbg 12.5 at recent baseline CODE: full Diet/IVF: regular DVT ppx: scd Grecia VALERAC Internal Medicine Physician Load Blocker [facility] Pager: [phone] Chief Complaint: Back Pain HPI: History is obtained from the patient and medical record. This patient is a 76 year old male with a history of HTN, HLD, DM Type 2, CAD, Prostate CA, Gout, Cataract, COVID 19 (2019), Spinal Stenosis whowas admitted s/p L4-5 Fusion.?? EBL 100ml.?? Internal Medicine service was asked to see for management of chronic medical problems.?? Patient reports his low back pain is controlled. He denies BLE numbness or tingling. Denies chest pain, shortness of breath, abdominal pain, nausea. Tolerating po well. Planning to discharge home with family. He spends his [place] in [place]. Past Medical History: Past Medical History: Diagnosis Date ??? Coronary artery disease ??? Diabetes (H) Type 2 ??? Heart attack (H) 2015 ??? High cholesterol ??? Hypertension ??? Osteoarthritis ??? Renal stones ??? Stented coronary artery Stent x 1 Past Surgical History: Past Surgical History: Procedure Laterality Date ??? APPENDECTOMY ??? ARTHROPLASTY HIP Right ??? ARTHROPLASTY KNEE Left 03/31/2018 Procedure: ARTHROPLASTY KNEE; Left total knee arthroplasty; Surgeon: Fidel Hatfield MD; Location: [facility] OR ??? BACK SURGERY 1998 microdiscectomy ??? ENDOSCOPY ??? GERMAN FUNDOPLICATION 1994 Barretts Esophagus Social History: Social History Socioeconomic History ??? Marital status: Spouse name: Not on file ??? Number of children: Not on file ??? Years of education: Not on file ??? Highest education level: Not on file Occupational History ??? Not on file Tobacco Use ??? Smoking status: Never Smoker ??? Smokeless tobacco: Never Used Substance and Sexual Activity ??? Alcohol use: No ??? Drug use: No ??? Sexual activity: Not on file Other Topics Concern ??? Not on file Social History Narrative ??? Not on file Social Determinants of Health Financial Resource Strain: ??? Difficulty of Paying Living Expenses: Food Insecurity: ??? Worried About Running Out of Food in the Last Year: ??? Ran Out of Food in the Last Year: Transportation Needs: ??? Lack of Transportation (Medical): ??? Lack of Transportation (Non-Medical): Physical Activity: ??? Days of Exercise per Week: ??? Minutes of Exercise per Session: Stress: ??? Feeling of Stress : Social Connections: ??? Frequency of Communication with Friends and Family: ??? Frequency of Social Gatherings with Friends and Family: ??? Attends [employer] Services: ??? Active Member of Clubs or Organizations: ??? Attends Club or Organization Meetings: ??? Marital Status: Intimate Partner Violence: ??? Fear of Current or Ex-Partner: ??? Emotionally Abused: ??? Physically Abused: ??? Sexually Abused: Family History: History reviewed. No pertinent family history. Allergies: No Known Allergies Medications: Prior to Admission medications Medication Sig Last Dose Taking? Auth Provider acetaminophen (TYLENOL) 325 MG tablet Take 3 tablets (975 mg) by mouth every 8 hours More than a month at Unknown time Yes Noemi Arellano PA-C ALLOPURINOL PO Take 300 mg by mouth every evening 08/02/2021 at Unknown time Yes Reported, Patient Ascorbic Acid (VITAMIN C PO) Take 500 mg by mouth every evening Past Week at Unknown time Yes Reported, Patient aspirin 81 MG EC tablet Take 81 mg by mouth daily Past Month at Unknown time Yes Reported, Patient ATORVASTATIN CALCIUM PO Take 80 mg by mouth every evening 08/02/2021 at Unknown time Yes Reported, Patient Plqnxmdha-Whtnacyxqkz-Nto D (OSTEO BI-FLEX ONE PER DAY) TABS Take 1 tablet by mouth daily Past Monthat Unknown time Yes Reported, Patient CINNAMON PO Take 1,000 mg by mouth daily Past Week at Unknown time Yes Reported, Patient empagliflozin (JARDIANCE) 25 MG TABS tablet Take 12.5 mg by mouth daily 08/02/2021 at Unknown time Yes Reported, Patient Garlic 1000 MG CAPS Take 1 capsule by mouth daily Past Week at Unknown time Yes Reported, Patient ibuprofen (ADVIL/MOTRIN) 200 MG tablet Take 400 mg by mouth every 4 hours as needed for mild pain Past Month at Unknown time Yes Reported, Patient lisinopril (ZESTRIL) 10 MG tablet Take 10 mg by mouth daily 08/02/2021 at Unknown time Yes Reported, Patient magnesium 250 MG tablet Take 1 tablet by mouth daily Past Week at Unknown time Yes Reported, Patient METFORMIN HCL PO Take 1,000 mg by mouth 2 times daily (with meals) 08/02/2021 at Unknown time Yes Reported, Patient METOPROLOL TARTRATE PO Take 25 mg by mouth 2 times daily 08/03/2021 at Unknown time Yes Reported, Patient Misc Natural Products (NEURIVA PO) Take by mouth daily Past Week at Unknown time Yes Reported, Patient Misc Natural Products (TART DENTON ADVANCED PO) Take 1,200 mg by mouth every morning Past Week at Unknown time Yes Reported, Patient multivitamin, therapeutic with minerals (MULTI-VITAMIN) TABS tablet Take 1 tablet by mouth daily Past Week at Unknown time Yes Reported, Patient Nitroglycerin (NITROSTAT SL) Place 0.4 mg under the tongue every 5 minutes as needed for chest pain Unknown at Unknown time Yes Reported, Patient Quercetin 250 MG TABS Take 2 tablets by mouth daily Past Week at Unknown time Yes Reported, Patient UNABLE TO FIND 1 tablet by Oral or Feeding Tube route daily Beet Root Past Week at Unknown time Yes Reported, Patient vitamin D3 (CHOLECALCIFEROL) 50 mcg (2000 units) tablet Take 1 tablet by mouth daily Past Week at Unknown time Yes Reported, Patient zinc gluconate 50 MG tablet Take 50 mg by mouth daily Past Week at Unknown time Yes Reported, Patient Review of Systems: A complete ROS was performed and is negative other than what is stated in the HPI. Physical Exam: Blood pressure (!) 157/80, pulse 57, temperature (!) 96.7 ??F (35.9 ??C), temperature source Temporal, resp. rate 14, height 1.702 m (5' 7), weight 77.1 kg (170 lb), SpO2 98 %. General: Alert, interactive, NAD, sitting up in bed eating breakfast, pleasant and cooperative. HEENT: AT/NC, sclera anicteric, PERRL Chest/Resp: clear to auscultation bilaterally, no crackles or wheezes Heart/CV: regular rate and rhythm, no murmur Abdomen/GI: Soft, nontender, nondistended. +BS. No HSM or masses, no rebound or guarding. Extremities/MSK: No LE edema. Sensation intact to BLE. FROM testing not performed. Drain in place. Skin: Warm and dry Neuro: Alert & oriented x 3 Labs: ROUTINE ICU LABS (Last four results) CMP Recent Labs Lab 08/04/21 0222 08/03/21 2217 08/03/21 1716 08/03/21 1519 GLC 164* 228* 182* 172* Associated attestation - Mathew Santiago DO - 08/05/2021 7:51 AM CDT Physician Attestation I, Mathew Santiago, have reviewed and discussed with the advanced practice provider their history,physical and plan for Michael Johnson. I did not participate in a shared visit by interviewing or examining the patient and this should be billed as an advanced practice provider only visit. Mathew Santiago Date of Service (when I saw the patient): I did not personally see this patient today. documented in this encounter Miscellaneous Notes Plan of Care - Tabitha Hyde RN - 08/05/2021 2:37 PM CDT Pt a/o x4. VSS. Pain managed with PRN oxycodone. SBA. CMS intact. New Aquacel dressing applied. Enema given today with outcome of small BM. Plan to discharge home today with . Plan of Care - Brenda Geller, PT - 08/05/2021 11:49 AM CDT Physical Therapy Discharge Summary ?? Reason for therapy discharge: All goals and outcomes met, no further needs identified. ?? Progress towards therapy goal(s). See goals on Care Plan in [facility] electronic health record for goal details. Goals met ?? Therapy recommendation(s): Continue daily walking program ? Plan of Care - Jazzmine Troy OT - 08/05/2021 9:46 AM CDT Occupational Therapy Discharge Summary Reason for therapy discharge: All goals and outcomes met, no further needs identified. Progress towards therapy goal(s). See goals on Care Plan in [facility] electronic health record for goal details. Goals met Therapy recommendation(s): No further therapy is recommended. Plan of Care - Karma Carroll RN - 08/04/2021 5:35 PM CDT Pt up A1, BOOB. Voiding. Passing flatus. Would like to have a BM before discharge bc last time he was in hospital he went home and had an impaction. Please ask morning Md for enema or suppository. Painmanaged with oxy prn. VSS, RA. Plan to discharge home with spouse tomorrow. Plan of Care - Tabitha Hyde RN - 08/04/2021 4:11 PM CDT Pt a/o x4. VSS. Pain managed w/ PRN oxycodone. Assist of 1 w/ gait belt and walker. Dressing and drain clean dry and intact. Pt voided today. Continue to monitor. Plan of Care - Marcela Partida RN - 08/04/2021 4:26 AM CDT Patient vital signs are at baseline: No, Reason: Pt on 2 L via NC, O2 levels mid 90s/capno Patient able to ambulate as they were prior to admission or with assist devices provided by therapies during their stay: Yes, needs brace OOB Patient MUST void prior to discharge: No, Reason: Rendon removed at 0500, DTV Patient able to tolerate oral intake: Yes Pain has adequate pain control using Oral analgesics: Yes Pt A/O x4. Denies pain. Aquacel to back CDI. Baseline numbness to fingers and toes. NS infusing. Pt has not passed gas yet. BG at 0200 164. Plan to discharge home when medically stable. Plan of Care - Birdie Nava RN - 08/03/2021 11:46 PM CDT Patient vital signs are at baseline: No, Reason: 2L O2 Patient able to ambulate as they were prior to admission or with assist devices provided by therapies during their stay: Yes Patient MUST void prior to discharge: No, Reason: rendon Patient able to tolerate oral intake: Yes Pain has adequate pain control using Oral analgesics: Yes BP (!) 143/73 Pulse 67 Temp (!) 96.3 ??F (35.7 ??C) (Temporal) Resp 12 Ht 1.702 m (5' 7) Wt 77.1 kg (170 lb) SpO2 96% BMI 26.63 kg/m?? Orientation: A&Ox4 Resp: LS Clear, 2L/capno Cardio: bradycardia Pain: Managed with oxycodone CMS: intact Dressing: CDI Activity: A1, walker/gb/brace when OOB. Drains: hemovac Diet: tolerated regular Voiding: rendon patent Discharge Plan: TBD Op Note - John Champion MD - 08/03/2021 3:19 PM CDT Procedure Date: 08/03/2021 PREOPERATIVE DIAGNOSES: 1. Left lumbar radiculopathy in an L4 to L5 distribution. 2. Partial left leg weakness, predominantly related to ankle dorsiflexion with fatigue or weakness reported. 3. History of L3 to L5 decompression performed many years ago without specifics. 4. Central stenosis L3 to L4 as well as bilateral lateral recess stenosis at L3 to L4. 5. L4 to L5 advanced disk space collapse with bilateral severe foraminal stenosis and grade 1 degenerative spondylolisthesis. Moderate central stenosis with bilateral moderate lateral recess stenosis. 6. L4 to L5 degenerative disk disease. L3 to L4 degenerative disk disease. POSTOPERATIVE DIAGNOSES: 1. Left lumbar radiculopathy in an L4 to L5 distribution. 2. Partial left leg weakness, predominantly related to ankle dorsiflexion with fatigue or weakness reported. 3. History of L3 to L5 decompression performed many years ago without specifics. 4. Central stenosis L3 to L4 as well as bilateral lateral recess stenosis at L3 to L4. 5. L4 to L5 advanced disk space collapse with bilateral severe foraminal stenosis and grade 1 degenerative spondylolisthesis. Moderate central stenosis with bilateral moderate lateral recess stenosis. 6. L4 to L5 degenerative disk disease. L3 to L4 degenerative disk disease. PROCEDURES PERFORMED: 1. L4 to L5 posterior lumbar interbody fusion with use of interbody cage. 2. Gregory-Dee osteotomies L4 to L5 by performing bilateral facetectomies. 3. Posterior fusion L4 through L5. 4. Posterior instrumentation with bilateral pedicle screw and shruthi construct spanning from L4 to L5. 5. Revision central laminectomy of L3. 6. Revision central laminectomy of L4. 7. Revision central laminectomy of L5. 8. Local autograft bone used for both posterolateral and interbody fusion purposes. 9. Medtronic MagniFuse 1 x 5 packet, 1 packet p.o. gutter spanning from L4 to L5. 10. Fluoroscopy. 11. Microscopy. 12. In sum total, we performed revision decompression L3 to L5 along with performing an L4 to L5 transforaminal lumbar interbody fusion with bilateral L4 to L5 facetectomy (osteotomy). SURGEON: John Champion MD PEELER OPERATOR: Nikita Fuentes PA-C ANESTHESIA: General endotracheal anesthesia without complication. COMPLICATIONS: None. DRAINS: One Hemovac drain placed prior to closure. This was taken out a separate poke and tied to the skin with a nylon stitch to prevent backout. ESTIMATED BLOOD LOSS: 100 mL. FINDINGS: Full decompression L3 to L5 without complications. Solid instrumentation L4 to L5 TLIF. Counts were correct prior to closure. No apparent complication. INDICATIONS FOR PROCEDURE: Mr. Johnson is a 76-year-old male who is [facility]. He had a distant history of undergoing a lumbar decompression surgery. He was not quite sure what was done surgically; however, his incision suggested a 2-level procedure. Also, his preoperative MRI did not give any conclusive evidence of procedures; however, in hindsight, he likely hada right-sided decompression over L3 to L5 based on the scar tissue found intraoperatively. Otherwise, he presented with a longstanding history of left leg pain and dysfunction, which includedsome fatigue, weakness with ankle dorsiflexion. He did have a history of undergoing a left knee replacement with a very slow postoperative recovery. Please see clinic notes for further details. His imaging demonstrated degenerative disk disease spanning from L3 to L5. He had stenosis from L3 to L5 as well as significant disk space collapse with bilateral foraminal narrowing at L4 to L5. Furthermore, he had loss of lordosis through the L4 to L5 disk space. With that, grade 1 degenerative spondylolisthesis was present. Based on the above, we discussed the above-mentioned procedure as a possible meansto improve or alleviate his leg symptoms. He had failed conservative care over a significant amount of time including activity modifications, therapies, medications, and so forth. He was not interestedin undergoing any interventional pain management (injections). After discussing the above-mentioned procedure as well as the risks, benefits, and alternatives, he elected to proceed. He had been presented with a consent form, which was read, understood and signed.All questions answered. He was referred for preoperative H and P and COVID testing. DESCRIPTION OF PROCEDURE: On the day of the procedure, he was seen in the preop area. Questions wereanswered. Skin was marked. Consent was signed by both parties. After finding no contraindications toproceed with surgery in the preoperative anesthesia assessment, he was brought back to the operatingroom. Once in the OR, he was sedated and an ET tube was placed. Rendon catheter was placed under sterile conditions. He was then rolled prone onto a Ge table routinely. Eyes were free of compression. SCDs were in place. Shoulders and elbows were at 90 degrees, with the shoulders slightly flexed forward. The lumbar region was prepped and draped in standard fashion. Timeout was performed and IV antibiotics were administered. We had localized over his previous incision, which had been marked. This was extended somewhat proximally and distally. A midline incision was created. I dissected down through the scar tissue to the lumbar fascia, which was then split in the midline. We exposed spinous process and a lateral image was obtained. We then moved forward with that nomenclature in mind. I exposed from L2 through L5. L2 wasexposed for planned placement of our spinous process clamp for use of the O-arm. In any case, L2 to L5 exposure was completed. During this process, we encountered scar tissue from his previous lumbar decompression, which appeared to have taken place from right L3 to L5. Our planned fusion spanned onlyfrom L4 to L5, while our planned decompression spanned from L3 to L5. Therefore, we did continue ourdissection down to expose the L4 and L5 transverse processes bilaterally, with preservation of the L3 to L4 facet joint. Gelpi retractors were used for deep exposure. Spinous process clamp was placed on L2. Edenbase O-arm was brought into the room. A spin was completed and information was successfully transferred to the EasyProve system. We reentered the wound at that point. The capsules and osteophytes of L4 to L5 were removed. All bone that was taken down was saved on the back table and later processed and added to our bone graft material for interbody and posterolateral fusion purposes. We reentered the wound and we made our proposed pedicle screw transport pilot holes. This was guided by Stealth-guided drill. This was advanced into the pedicle and followed by a straight thoracic probe into thevertebral body. All cortices were intact. The bilateral gutters were then decorticated with placement of one 1 x 5 MagniFuse packet as a bone graft electric gas appliances demonstrator. We later did come back and backfill the gutters with autograft bone as well. With the bilateral gutters decorticated and bone graft placed, thiscompleted our posterior fusion as mentioned. We then moved on to our instrumentation. Using a Powerease drill, we then slowly advanced each of the pedicle screws into place without complications. Today, we used Globus CREO pedicle screws. Left L4, 6.5 x 45; right L4, 6.5 x 45; left L5, 6.5 x 40; and right L5, 7.5 x 40. These were titanium screws. We then moved on to our decompression. Leksell rongeur was used to remove the remaining spinous processes of L3 through L5. I then switched over to a high- speed bur and over a course of time, thinned the lamina. All bone shavings were collected with the suction trap device and later incorporated into our bone graft material. The lamina was thinned to expose the scar tissue on the right side and ligamentum flavum on the left side. We then switched over to Kerrisons and careful dissection and decompression was completed, with protection of the neurologic elements with cottonoids were per routine. Ultimately, we were able to perform a very nice wide decompression L3 to L5, with preservation of the brenden nt at L3 to L4 as planned (as we were not fusing the L3 to L4 level). I then continued my decompression laterally through the facet joints at the L4 to L5 level, in essence, performing a Gregory-Lauro osteotomy, with takedown of the bilateral L4 to L5 facet joints and complete decompression of the bilateral L4 to L5 foramen. With this completed, I then switched over to our planned interbody fusion at L4to L5. As I worked from the patient's left side, a D'Errico retractor was placed over the nerve sac.The nerves were protected proximally, distally and medially with cottonoids. The left L4 to L5 disk was directly visualized. I then performed a left-sided L4 to L5 annulotomy. A box type annulotomy wascreated with a 15 blade. I then entered the disk space and went through our common sequence of discectomy. I would say we used a combination as usual of pituitaries, linn and curettes to perform a full diskectomy at L4 to L5. This was taken down to the bleeding bony endplates. During this process, I was also able to proceed with trialing, assuring that our expandable interbody cage would be adequate. Following the diskectomy, we then packed bone graft material into the disk space itself and compacted this to the patient's right side. This was then followed by our final Globus Rise interbody cage10 x 30 expandable from 7-14 mm. Distractors had been in place across the pedicle screws, and I would point out that the distraction had been taken down prior to elevation of our interbody cage. The cage tapped out at its maximum torque and this completed our interbody fusion. We verified its locationwith passive planar probe. We then completed our final inspection. No complications were identified.I was able to palpate the pedicles with a Hurtado probe, and I did not identify any sort of pedicle breach. Two 45 mm lordotic rods were placed spanning from L4 to L5 with 4 end caps were applied and final tightened. We then placed the remaining bone graft material into the bilateral gutters to complete our posterolateral fusion process. Final x-rays were obtained. The wound was copiously irrigated and suctioned. A deep drain was placed onto the lumbar fascia, taken out a separate poke hole and tied to the skin with a nylon stitch to prevent backout. Counts were correct at this point with no apparent complications. This ended our procedure. We then moved on with our closure including the lumbar fascia, subcutaneous tissue and skin. The wound was cleaned and dried. Dermabond was applied. Sterile dressings were applied. Drapes were taken down and Mr. Johnson was rolled back into a supine position. He was successfully extubated and brought to the PACU in stable condition. Nikita Fuetnes PA-C, was present through the entire procedure. He was present from start to finish and was absolutely necessary. Today, we used fluoroscopy and a Medtronic O-arm. Furthermore, we used autograft, allograft (Medtronic MagniFuse), Globus CREO pedicle screws and Globus RISE interbody cage.No complications. Counts were correct prior to closure. John Champion MD MT: [id number] Name: MICHAEL JOHNSON MRN: [id number] Account: [id number] : 1945 Procedure Date: 08/03/2021 Document: [id number] Brief Op Note - John Champion MD - 08/03/2021 3:04 PM CDT [facility] Brief Operative Note Pre-operative diagnosis: L3-L5 Spinal stenosis [M48.00] L45 Degenertive Spondylolisthesis L45 left Herniated Disc Lumbar Left leg Lumbar Radiculopathy Lumbar DDD (degenerative disc disease) Left leg Weakness [R53.1] History of L3-L5 lumbar decompression in distant past Post-operative diagnosis * No post-op diagnosis entered * Same Procedure: L4-L5 Posterior Lumbar Instrumented Fusion with interbody cage L4-L5 Gregory-Stevens Osteotomy with bilateral facetectomy Revision Lumbar 3-4 laminectomies Revision lumbar L45 laminectomies Autograft Allograft Fluoro O arm Surgeon(s): Surgeon(s) and Role: * John Champion MD - Primary * Nikita Fuentes PA-C - Assisting Estimated blood loss: 100ml Specimens: * No specimens in log * Findings: No complications. 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 Auth Provider acetaminophen (TYLENOL) 325 MG tablet Take 3 tablets (975 mg) by mouth every 8 hours Yes Noemi Arellano PA-C ALLOPURINOL PO Take 300 mg by mouth every evening Yes Reported, Patient Ascorbic Acid (VITAMIN C PO) Take 500 mg by mouth every evening Yes Reported, Patient aspirin 81 MG EC tablet Take 81 mg by mouth daily Yes Reported, Patient ATORVASTATIN CALCIUM PO Take 80 mg by mouth every evening Yes Reported, Patient Ghkitqjld-Equblwzpfim-Grh D (OSTEO BI-FLEX ONE PER DAY) TABS Take 1 tablet by mouth daily Yes Reported, Patient CINNAMON PO Take 1,000 mg by mouth daily Yes Reported, Patient empagliflozin (JARDIANCE) 25 MG TABS tablet Take 12.5 mg by mouth daily Yes Reported, Patient Garlic 1000 MG CAPS Take 1 capsule by mouth daily Yes Reported, Patient ibuprofen (ADVIL/MOTRIN) 200 MG tablet Take 400 mg by mouth every 4 hours as needed for mild pain Yes Reported, Patient lisinopril (ZESTRIL) 10 MG tablet Take 10 mg by mouth daily Yes Reported, Patient magnesium 250 MG tablet Take 1 tablet by mouth daily Yes Reported, Patient METFORMIN HCL PO Take 1,000 mg by mouth 2 times daily (with meals) Yes Reported, Patient METOPROLOL TARTRATE PO Take 25 mg by mouth 2 times daily Yes Reported, Patient Misc Natural Products (NEURIVA PO) Take by mouth daily Yes Reported, Patient Misc Natural Products (TART DENTON ADVANCED PO) Take 1,200 mg by mouth every morning Yes Reported, Patient multivitamin, therapeutic with minerals (MULTI-VITAMIN) TABS tablet Take 1 tablet by mouth daily YesReported, Patient Nitroglycerin (NITROSTAT SL) Place 0.4 mg under the tongue every 5 minutes as needed for chest pain Yes Reported, Patient Quercetin 250 MG TABS Take 2 tablets by mouth daily Yes Reported, Patient UNABLE TO FIND 1 tablet by Oral or Feeding Tube route daily Beet Root Yes Reported, Patient vitamin D3 (CHOLECALCIFEROL) 50 mcg (2000 units) tablet Take 1 tablet by mouth daily Yes Reported, Patient zinc gluconate 50 MG tablet Take 50 mg by mouth daily Yes Reported, Patient documented in this encounter Plan of Treatment Not on filedocumented as of this encounter Procedures Procedure Name Priority Date/Time Associated Comments Diagnosis GLUCOSE BY METER Routine 08/05/2021 1:59 PM Resul ts for this CDT procedure are i n the results section. GLUCOSE BY METER Routine 08/05/2021 7:32 AM Resul ts for this CDT procedure are i n the results section. HEMOGLOBIN Routine 08/05/2021 5:37 AM Results f or this CDT procedure are i n the results section. GLUCOSE BY METER Routine 08/05/2021 2:32 AM Resul ts for this CDT procedure are i n the results section. GLUCOSE BY METER Routine 08/04/2021 10:06 PM Resu lts for this CDT procedure are i n the results section. GLUCOSE BY METER Routine 08/04/2021 5:12 PM Resul ts for this CDT procedure are i n the results section. GLUCOSE BY METER Routine 08/04/2021 11:58 AM Resu lts for this CDT procedure are i n the results section. GLUCOSE BY METER Routine 08/04/2021 7:48 AM Resul ts for this CDT procedure are i n the results section. HEMOGLOBIN Routine 08/04/2021 6:45 AM Results f or this CDT procedure are i n the results section. CREATININE Routine 08/04/2021 6:45 AM Results f or this CDT procedure are i n the results section. GLUCOSE Routine 08/04/2021 6:45 AM Results f or this CDT procedure are i n the results section. GLUCOSE BY METER Routine 08/04/2021 2:22 AM Resul ts for this CDT procedure are i n the results section. GLUCOSE BY METER Routine 08/03/2021 10:17 PM Resu lts for this CDT procedure are i n the results section. GLUCOSE BY METER Routine 08/03/2021 5:16 PM Resul ts for this CDT procedure are i n the results section. GLUCOSE BY METER Routine 08/03/2021 3:19 PM Resul ts for this CDT procedure are i n the results section. XR SURGERY DEMI Routine 08/03/2021 2:34 PM Result s for this FLUORO LESS THAN 5 CDT procedure are in MIN W STILLS the results section. XR SURGERY DEMI Routine 08/03/2021 12:45 PM Resul ts for this FLUORO LESS THAN 5 CDT procedure are in MIN W STILLS the results section. LAMINECTOMY, SPINE, 08/03/2021 11:08 AM Spinal s tenosis LUMBAR, 1 LEVEL, CDT Herniated disc, POSTERIOR APPROACH, cervical USING MICROSCOPE Radiculopathy, cervical DDD (degenerative disc disease), cervical Weakness Special Needs Ht 5'7.5 wt 161COVID FV 9/2 0Antisepsis day of surgery FUSION, SPINE, LUMBAR, 08/03/2021 11:08 AM CDT S geri stenosis 1 LEVEL, POSTERIOR Herniated dis c, cervical APPROACH, USING Radiculopathy, c ervical OPTICAL TRACKING DDD (degenerative disc d isease), SYSTEM cervical Weakness Special Needs Ht 5'7.5 wt 161COVID FV 9/2 0Antisepsis day of surgery TYPE AND SCREEN, ADULT STAT 08/03/2021 10:51 AM CDT Results for this procedure are in the resu lts section. HEMOGLOBIN A1C STAT 08/03/2021 10:51 AM CDT Re sults for this procedure are in the resu lts section. ABO/RH TYPE AND SCREEN STAT 08/03/2021 10:51 AM CDT Results for this procedure are in the resu lts section. GLUCOSE BY METER Routine 08/03/2021 9:58 AM CDT R esults for this procedure are in the resu lts section. LAB RESULT - HIM SCAN 07/20/2021 12:00 AM CDT EKG CARDIAC - HIM SCAN 07/20/2021 12:00 AM CDT documented in this encounter Results (ABNORMAL) Glucose by meter (08/05/2021 1:59 PM CDT) P athologist Signature GLUCOSE BY 131 (H) 70 - 99 08/05/2021 [facility] METER POCT mg/dL 2:05 PM CDT POC Specimen Anatomical Collection Method Collection Time Receive d Time (Source) Location / / Volume Laterality Blood BLOOD SPECIMEN / 08/05/2021 1:59 PM 08/05 2:05 Unknown CDT PM CDT John Champion MD LAB - BEAKER POCT Performing Organization Address City/[facility]/ZIP Code Phon [place] [address] Care Lab [address] Lab (1st floor, no room number) (ABNORMAL) Glucose by meter (08/05/2021 7:32 AM CDT) P athologist Signature GLUCOSE BY 155 (H) 70 - 99 08/05/2021 [facility] METER POCT mg/dL 7:39 AM CDT POC Specimen Anatomical Collection Method Collection Time Receive d Time (Source) Location / / Volume Laterality Blood BLOOD SPECIMEN / 08/05/2021 7:32 AM 08/05 7:39 Unknown CDT AM CDT John Champion MD LAB - BEAKER POCT Performing Organization Address City/[facility]/ZIP Code Phon [place] [address] Care Lab [address] Lab (1st floor, no room number) (ABNORMAL) Hemoglobin (08/05/2021 5:37 AM CDT) P athologist Signature Hemoglobin 12.2 (L) 13.3 - 17.7 08/05/2021 [facility] g/dL 6:17 AM CDT Specimen Anatomical Collection Method / Collection Time Recei faviola Time (Source) Location / Volume Laterality Blood STRUCTURE OF RIGHT Venipuncture / 08/05/2021 5:37 07/13 6:07 UPPER LIMB / Unknown AM CDT AM CDT Unknown Nikita Fuentes PA-C LAB - BLOOD ORDERABLES Performing Organization Address City/State/ZIP Code [place] [address] Care [address] Lab (1st floor, no room number) (ABNORMAL) Glucose by meter (08/05/2021 2:32 AM CDT) athologist Signature GLUCOSE BY 164 (H) 70 - 99 08/05/2021 [facility] METER POCT mg/dL 2:39 AM CDT POC Specimen Anatomical Collection Method Collection Time Receive d Time (Source) Location / / Volume Laterality Blood BLOOD SPECIMEN / 08/05/2021 2:32 AM 08/05 2:39 Unknown CDT AM CDT John SERRANO - BERIVERA POCT Performing Organization Address City/State/ZIP Code Phon e Number [place] [address] Care Lab [address] Lab (1st floor, no room number) (ABNORMAL) Glucose by meter (08/04/2021 10:06 PM CDT) athologist Signature GLUCOSE BY 155 (H) 70 - 99 08/04/2021 [facility] METER POCT mg/dL 10:12 PM CDT POC Specimen Anatomical Collection Method Collection Time Receive d Time (Source) Location / / Volume Laterality Blood BLOOD SPECIMEN / 08/04/2021 10:06 021 Unknown PM CDT 10:12 PM CDT John M Deal MD LAB - BEAKER POCT Performing Organization Address [facility]/ZIP Code Phon e Number [place] [address] Care Lab [address] Lab (1st floor, no room number) (ABNORMAL) Glucose by meter (08/04/2021 5:12 PM CDT) P athologist Signature GLUCOSE BY 219 (H) 70 - 99 08/04/2021 [facility] METER POCT mg/dL 5:19 PM CDT POC Specimen Anatomical Collection Method Collection Time Receive d Time (Source) Location / / Volume Laterality Blood BLOOD SPECIMEN / 08/04/2021 5:12 PM 08/04 5:19 Unknown CDT PM CDT John SERRANO - CHRIS POCT Performing Organization Address [facility]/ZIP Code Phon [place] [address] Care Lab [address] Lab (1st floor, no room number) (ABNORMAL) Glucose by meter (08/04/2021 11:58 AM CDT) P athologist Signature GLUCOSE BY 188 (H) 08/04/2021 [facility] METER POCT mg/dL 12:09 PM CDT POC Specimen Anatomical Collection Method Collection Time Receive d Time (Source) Location / / Volume Laterality Blood BLOOD SPECIMEN / 08/04/2021 11:58 08/04/2 021 Unknown AM CDT 12:09 PM CDT John SERRANO - CHRIS POCT Performing Organization Address City/[facility]/ZIP Code Phon [place] [address] Care Lab [address] Lab (1st floor, no room number) (ABNORMAL) Glucose by meter (08/04/2021 7:48 AM CDT) P athologist Signature GLUCOSE BY 119 (H) 70 - 99 08/04/2021 [facility] METER POCT mg/dL 7:54 AM CDT POC Specimen Anatomical Collection Method Collection Time Receive d Time (Source) Location / / Volume Laterality Blood BLOOD SPECIMEN / 08/04/2021 7:48 AM 08/04 7:54 Unknown CDT AM CDT John Champion MD LAB - BEAKER POCT Performing Organization Address City/[facility]/ZIP Code Phon e Number [place] [address] Care Lab [address] Lab (1st floor, no room number) Creatinine (08/04/2021 6:45 AM CDT) athologist Signature Creatinine 0.80 0.66 - 1.25 08/04/2021 [facility] mg/dL 11:37 AM CDT GFR Estimate 87 >60 08/04/2021 LABORATORY mL/min/1.73 11:37 AM CDT m2 Comment: As of May 21, 2021, eGFR is ca lculated by the CKD-EPI creatinine equation, without race adjustment. eGFR can be inf luenced by muscle mass, exercise, and diet. The reported eGFR is an estimation only and is only applicable if the renal function is stable. Specimen Anatomical Collection Method / Collection Time Recei faviola Time (Source) Location / Volume Laterality Blood STRUCTURE OF RIGHT Venipuncture / 08/04/2021 6:45 09/2 02/2021 7:16 UPPER LIMB / Unknown AM CDT AM CDT Unknown John Champion MD LAB - BLOOD ORDERABLES Performing Organization Address [facility]/ZIP Code [place] [address] Care Lab [address] Lab (1st floor, no room number) (ABNORMAL) Glucose (08/04/2021 6:45 AM CDT) P athologist Signature Glucose 154 (H) 70 - 99 08/04/2021 [facility] mg/dL 7:35 AM CDT Specimen Anatomical Collection Method / Collection Time Recei faviola Time (Source) Location / Volume Laterality Blood STRUCTURE OF RIGHT Venipuncture / 08/04/2021 6:45 09/2 02/2021 7:16 UPPER LIMB / Unknown AM CDT AM CDT Unknown John Champion MD LAB - BLOOD ORDERABLES Performing Organization Address City/[facility]/ZIP Code [place] [address] Care Lab [address] Lab (1st floor, no room number) (ABNORMAL) Hemoglobin (08/04/2021 6:45 AM CDT) athologist Signature Hemoglobin 12.5 (L) 13.3 - 17.7 08/04/2021 [facility] g/dL 7:49 AM CDT Specimen Anatomical Collection Method / Collection Time Recei faviola Time (Source) Location / Volume Laterality Blood STRUCTURE OF RIGHT Venipuncture / 08/04/2021 6:45 07/13 7:16 UPPER LIMB / Unknown AM CDT AM CDT Unknown Nikita Fuentes PA-C LAB - BLOOD ORDERABLES Performing Organization Address [facility]/ZIP Code [place] [address] Care Lab [address] Lab (1st floor, no room number) (ABNORMAL) Glucose by meter (08/04/2021 2:22 AM CDT) athologist Signature GLUCOSE BY 164 (H) 70 - 99 08/04/2021 [facility] METER POCT mg/dL 2:29 AM CDT POC Specimen Anatomical Collection Method Collection Time Receive d Time (Source) Location / / Volume Laterality Blood BLOOD SPECIMEN / 08/04/2021 2:22 AM 08/04 2:29 Unknown CDT AM CDT John Champion MD LAB - BEAKER POCT Performing Organization Address City/[facility]/ZIP Code Phon e Number [place] [address] Care Lab [address] Lab (1st floor, no room number) (ABNORMAL) Glucose by meter (08/03/2021 10:17 PM CDT) P athologist Signature GLUCOSE BY 228 (H) 70 - 99 08/03/2021 [facility] METER POCT mg/dL 10:24 PM CDT POC Specimen Anatomical Collection Method Collection Time Receive d Time (Source) Location / / Volume Laterality Blood BLOOD SPECIMEN / 08/03/2021 10:17 021 Unknown PM CDT 10:24 PM CDT John SERRANO - CHRIS POCT Performing Organization Address [facility]/ZIP Code [place] [address] Care Lab [address] Lab (1st floor, no room number) (ABNORMAL) Glucose by meter (08/03/2021 5:16 PM CDT) P athologist Signature GLUCOSE BY 182 (H) 70 - 99 08/03/2021 [facility] METER POCT mg/dL 5:23 PM CDT POC Specimen Anatomical Collection Method Collection Time Receive d Time (Source) Location / / Volume Laterality Blood BLOOD SPECIMEN / 08/03/2021 5:16 PM 08/03 5:23 Unknown CDT PM CDT John SERRANO - CHRIS POCT Performing Organization Address [facility]/ZIP Code [place] [address] Care Lab [address] Lab (1st floor, no room number) (ABNORMAL) Glucose by meter (08/03/2021 3:19 PM CDT) P athologist Signature GLUCOSE BY 172 (H) 70 - 99 08/03/2021 [facility] METER POCT mg/dL 3:26 PM CDT POC Specimen Anatomical Collection Method Collection Time Receive d Time (Source) Location / / Volume Laterality Blood BLOOD SPECIMEN / 08/03/2021 3:19 PM 08/03 3:26 Unknown CDT PM CDT John PEREZ POCT Performing Organization Address [facility]/ZIP Code [place] [address] Care Lab [address] Lab (1st floor, no room number) XR Surgery DEMI L/T 5 Min Fluoro w Stills (08/03/2021 2:34 PM CDT) Specimen (Source) Anatomical Location Collection Method / Collectio n Time Received Time / Laterality Volume Narrative RADIANT - 08/03/2021 2:35 PM CDT This exam was marked as non-reportable because it will not be read by a radiologist or a [place] non-radiologis t provider. John Champion MD [facility] DIAGNOSTIC IMAGING ORDER ANASTACIO Performing Organization Address City/State/ZIP Code Phon e Number RADIANT XR Surgery DEMI L/T 5 Min Fluoro w Stills (08/03/2021 12:45 PM CDT) Specimen (Source) Anatomical Location Collection Method / Collectio n Time Received Time / Laterality Volume Narrative RADIANT - 08/03/2021 12:47 PM CDT This exam was marked as non-reportable because it will not be read by a radiologist or a [place] non-radiologis t provider. John Champion MD [facility] DIAGNOSTIC IMAGING ORDER ANASTACIO Performing Organization Address City/[facility]/ZIP Code Phon e Number RADIANT Adult Type and Screen (08/03/2021 10:51 AM CDT) Patholo gist Method Time Signature ABO/RH(D) A POS 08/03/2021 RH BLOOD 10:45 AM BANK CDT Antibody Negative Negative 08/03/2021 RH BLOOD Screen 10:45 AM BANK CDT SPECIMEN [id number] 08/03/2021 RH BLOOD EXPIRATION 10:45 AM BANK DATE CDT Specimen Anatomical Collection Method / Collection Time Recei faviola Time (Source) Location / Volume Laterality Blood STRUCTURE OF RIGHT Venipuncture / 08/03/2021 10:51 HAND / Unknown Unknown AM CDT 10:58 AM CDT Sury Gibbs MD LAB - BLOOD BANK TEST ORDER Performing Organization Address City/State/ZIP Code Phon e Number RH BLOOD BANK [address] [place] [address] (ABNORMAL) Hemoglobin A1c (08/03/2021 10:51 AM CDT) Analysis Performed At Patho logist Time Signature Hemoglobin A1C 6.7 (H) 0.0 - 5.6 08/03/2021 [facility] % 12:02 PM CDT Comment: Normal <5.7% Prediabetes 5.7-6.4% ?? Diabetes 6.5% or higher Note: Adopted from ADA consensus guideli anurag. Specimen Anatomical Collection Method / Collection Time Recei faviola Time (Source) Location / Volume Laterality Blood STRUCTURE OF RIGHT Venipuncture / 08/03/2021 10:51 HAND / Unknown Unknown AM CDT 10:58 AM CDT Sury Gibbs MD LAB - BLOOD ORDERABLES Performing Organization Address City/State/ZIP Code [place] [address] Care Lab [address] Lab (1st floor, no room number) (ABNORMAL) Glucose by meter (08/03/2021 9:58 AM CDT) P athologist Signature GLUCOSE BY 169 (H) 70 - 99 08/03/2021 [facility] METER POCT mg/dL 10:05 AM CDT POC Specimen Anatomical Collection Method Collection Time Receive d Time (Source) Location / / Volume Laterality Blood BLOOD SPECIMEN / 08/03/2021 9:58 AM 08/03 Unknown CDT 10:05 AM CDT John Champion MD LAB - BEAKER POCT Performing Organization Address City/[facility]/ZIP Code Phon [place] [address] Care Lab [address] Lab (1st floor, no room number) LAB RESULT - HIM SCAN (07/20/2021 12:00 AM CDT) Specimen (Source) Anatomical Location Collection Method / Collectio n Time Received Time / Laterality Volume 07/20/2021 Narrative This result has an attachment that is no t available. Provider Scan [facility] NON-BEAKER LAB TESTING EKG CARDIAC - HIM SCAN (07/20/2021 12:00 AM CDT) Specimen (Source) Anatomical Location Collection Method / Collectio n Time Received Time / Laterality Volume 07/20/2021 Narrative This result has an attachment that is no t available. Provider Scan ECG ORDERABLES documented in this encounter Visit Diagnoses Diagnosis S/P lumbar fusion - Primary Arthrodesis status documented in this encounter Admitting Diagnoses Diagnosis S/P lumbar fusion Arthrodesis status documented in this encounter Administered Medications Inactive Administered Medications - up to 3 most recent administrations Medication Order MAR Action Action Date Dose Rate Site acetaminophen (TYLENOL) tablet 975 Given 08/05/2021 5:21 PM CDT 975 mg mg 975 mg, Oral, EVERY 8 HOURS, First dose on Patience 08/03/21 at 1700, For 3 days, Administer for multimodal surgical pain management. Maximum acetaminophen dose from all sources = 75 mg/kg/day not to exceed 4 grams/day. Given 08/05/2021 9:00 AM CDT 975 mg Given 08/05/2021 1:03 AM CDT 975 mg allopurinol (ZYLOPRIM) tablet 300 mg Given 08/04/2021 8:23 PM CDT 300 mg 300 mg, Oral, EVERY EVENING, First dose on Sat08/04/21 at 1999 atorvastatin (LIPITOR) tablet 80 mg Given 08/04/2021 8:26 PM CDT 80 mg 80 mg, Oral, EVERY EVENING, First dose on Sat08/04/21 at 1999 calcium carbonate-vitamin D (OSCAL w/D) Given 08/05/2021 11:36 A M CDT 1 tablet per tablet 1 tablet 1 tablet, Oral, 3 TIMES DAILY BEFORE MEALS, First dose on Patience 08/03/21 at 1700 Given 08/05/2021 9:01 AM CDT 1 tablet Given 08/04/2021 4:15 PM CDT 1 tablet ceFAZolin (ANCEF) intermittent infusion 1 g New Bag 08/04/2021 2:23 AM CDT 1 g Routine, 1 g, Intravenous, EVERY 8 HOURS, First dose on Patience 08/03/21 at 1900, For 2 doses, First post-op dose to be given 8 hours after last intra-op dose, see MAR., Indications: Perioperative Pharmacoprophylaxis New Bag 08/03/2021 6:48 PM CDT 1 g dextrose 50 % injection 25-50 mL 25-50 mL, Intravenous, EVERY 15 MIN PRN, low blood sug ar, Administer over 1-5 Minutes, Starting on Patience 08/03/21 at 1734 , Use if have IV access, BG less than 70 mg/dL and meet dose criteria below: Dose if conscious and alert (or disorientated) and NPO = 25 mL Dose if unconscious / no t alert = 50 mL Give first dose for initial blood glucose less than 70 mg/dL. If blood glucose at 15 minute recheck is less than or equal to 100 mg/dL continue to a dminister carbohydrate treatment every 15 minutes, as needed, based on blood gluco se and assessment parameters until blood glucose level is above 100 mg/dL. Vesicant. empagliflozin (JARDIANCE) tablet 10 mg Given 08/05/2021 9:13 AM CDT 10 mg 10 mg, Oral, DAILY, First dose on Sat08/04/21 at 1100, Alt to empagliflozin 12.5mg daily per SONG Bruner. Given 08/04/2021 11:59 AM CDT 10 mg fentaNYL (PF) (SUBLIMAZE) injection 25-5 0 mcg Given 08/03/2021 3:45 PM CDT 25 mcg 25-50 mcg, Intravenous, EVERY 5 MIN PRN, moderate to severe pain, Starting on Patience 08/03/21 at 1540, Up to a total of 200 mcg. Use fentaNYL (SUBLIMAZE) first, as a short acting agent for acute pain control. If insufficient, or a longer acting agent is needed, begin HYDROmorphone (DILAUDID) if ordered. Use in the following preferential sequence: 1) fentanyl (SUBLIMAZE) 2) HYDROmorphone (DILAUDID). Postop Anesthesia Phase I only. Notify Provider to assess for uncontrolled pain or analgesic side effects. Do NOT revert back to fentanyl (SUBLIMAZE) after moving to HYDROmorphone (DILAUDID)., PACU gabapentin (NEURONTIN) capsule 100 mg Given 08/03/2021 11:16 AM CDT 100 mg 100 mg, Oral, PRE-OP/PRE-PROCEDURE, Starting on Patience 08/03/21 at 1033, For 1 dose, Indications: Neuropathic Pain, Do not administer for Stage 2 spine procedures., Pre-procedure glucagon injection 1 mg 1 mg, Subcutaneous, EVERY 15 MIN PRN, low blood sugar, May repeat x 1 only, Starting on Patience 08/03/21 at 1734, May giv e SQ or IM. ONLY use glucagon IF patient has NO IV access AND is UNABLE to swallo w AND blood glucose is LESS than or EQUAL to 50 mg/dL. glucose gel 15-30 g 15-30 g, Oral, EVERY 15 MIN PRN, low blo od sugar, Starting on Patience 08/03/21 at 1734, Give first dose for initial blood glucose less than 70 mg/dL per the dosing instructions below. If blood glucose at 15 minute rechecks is still less than or equal to 100 mg/dL, continue to administ er doses per blood glucose parameters every 15 minutes, as needed, until blood glucose level is ab ove 100 mg/dL. Dosing Instructions: ~If patient is conscious a nd able to swallow and NO enteral tube For initial BG 51-69mg/dL OR 15 minute reche ck BG 51- 100 mg/dL - give 15 g For BG less than or equal to 50 mg/dL - give 30 g ~ If Enteral tube For initial BG 51-69mg/dL OR 15 minute recheck BG 51- 100 mg/dL - give apple juice 120 mL (4 oz or 15 g of CHO) via enteral tube For BG less than o r equal to 50 mg/dL - Give apple juice 240 mL (8 oz or 30 g of CHO) via enteral tub e ~Oral gel is preferable for conscious and able to swallow patient. ~IF gel unavail able or patient refuses may provide apple juice per Enteral tube dosing instructio ns. Document juice on I and O flowsheet. HYDROmorphone (DILAUDID) injection 0.2 m g 0.2 mg, Intravenous, EVERY 2 HOURS PRN, other, moderate pain (pain rating 4-6) IF patient unable to take oral pain medication or pain no t controlled with oral analgesics, Starting on Patience 08/03/21 at 1 644, Hold IV PRN opioid dose for analgesic side effects. Notify provider to assess for uncontroll ed pain or analgesic side effects. HYDROmorphone (DILAUDID) injection 0.4 m g 0.4 mg, Intravenous, EVERY 2 HOURS PRN, other, severe pain (pain rating 7-10) IF patient unable to take oral pain medication or pain no t controlled with oral analgesics, Starting on Patience 08/03/21 at 1 644, Hold IV PRN opioid dose for analgesic side effects. Notify provider to assess for uncontroll ed pain or analgesic side effects. insulin aspart (NovoLOG) injection (RAPID Given 08/05/2021 9:09 AM CDT 1 Units ACTING) 1-7 Units, Subcutaneous, 3 TIMES DAILY BEFORE MEALS, First dose on Sat08/03/21 at 1800, Correction Scale - MEDIUM INSULIN RESISTANCE DOSING Do Not give Correction Insulin if Pre-Meal BG less than 140. For Pre-Meal BG 140 - 189 give 1 unit. For Pre-Meal BG 190 - 239 give 2 units. For Pre-Meal BG 240 - 289 give 3 units. For Pre-Meal BG 290 - 339 give 4 units. For Pre-Meal BG 340- 399 give 5 units. For Pre-Meal BG 400-449 give 6 units For Pre-Meal BG greater than or equal to 450 give 7 units. To be given with prandial insulin, and based on pre-meal blood glucose. Notify provider if glucose greater than or equal to 350 mg/dL after administration of correction dose. If given at mealtime, administer within 30 minutes of start of meal Given 08/04/2021 5:30 PM CDT 2 Units Given 08/04/2021 12:03 PM CDT 1 Units insulin aspart (NovoLOG) injection (RAPID Given 08/03/2021 1 1:00 PM CDT 1 Units ACTING) 1-5 Units, Subcutaneous, AT BEDTIME, First dose on Sat08/03/21 at 2200, MEDIUM INSULIN RESISTANCE DOSING Do Not give Bedtime Correction Insulin if BG less than 200. For BG 200 - 249 give 1 units. For BG 250 - 299 give 2 units. For BG 300 - 349 give 3 units. For BG 350 -399 give 4 units. For BG greater than or equal to 400 give 5 units. Notify provider if glucose greater than or equal to 350 mg/dL after administration of correction dose. If given at mealtime, administer within 30 minutes of start of meal lisinopril (ZESTRIL) tablet 10 mg Given 08/05/2021 9:02 AM CDT 10 mg 10 mg, Oral, DAILY, First dose on Sat08/04/21 at 1000, Hold for sbp<120 Given 08/04/2021 11:59 AM CDT 10 mg magnesium hydroxide (MILK OF MAGNESIA) Given 08/05/2021 1:02 AM CDT 30 mLs suspension 30 mL 30 mL, Oral, DAILY PRN, constipation, Use if preventive measures (senna-docusate, docusate, and polyethylene glycol) are not effective., Starting on Sat08/03/21 at 1644, Shake well. Hold for loose stools. metFORMIN (GLUCOPHAGE) tablet 1,000 mg Given 08/05/2021 9:01 AM CDT 1,000 mg 1,000 mg, Oral, 2 TIMES DAILY WITH MEALS, First dose on Sat08/04/21 at 0930 Given 08/04/2021 5:30 PM CDT 1,000 mg Given 08/04/2021 10:04 AM CDT 1,000 mg metoprolol tartrate (LOPRESSOR) tablet 2 5 mg Given 08/05/2021 9:02 AM CDT 25 mg 25 mg, Oral, 2 TIMES DAILY, First dose on Sat08/04/21 at 1000, Hold for sbp<120. HR<60 Given 08/04/2021 10:04 AM CDT 25 mg naloxone (NARCAN) injection 0.2 mg 0.2 mg, Intravenous, EVERY 2 MIN PRN, op ioid reversal, Starting on Patience 08/03/21 at 1654, Administer intravenous route when available and notify provider when administered. For unintended sedation or respiratory depression if all of the below criteria are met: ~ respiratory rate LES S than or EQUAL to 8. ~SaO2 less than 92% and or/end-tidal CO2 is greater than 50. ~ the patient is receiving an opioid, has unintended sedations assessed as RASS (-3), and is cur rently not on mechanical ventilation. RASS scale moderate (-3) is movement or eye opening to voice but no eye contact. Patient Monitoring Once the patient has demonstrated a response to the naloxone, continue to monitor respiratory rate, depth, oxygen saturation and end-tidal CO2 (if available) every 15 mi nutes x 2, then every 30 minutes x 2, then every 1 hour x 1 after each naloxone dose. Consider tr ansfer to ICU if patient respiratory parameters have not improved after 4 nalox one doses. naloxone (NARCAN) injection 0.2 mg 0.2 mg, Intramuscular, EVERY 2 MIN PRN, opioid reversal, Starting on Patience 08/03/21 at 1654, Administer intramuscular if an int ravenous route is not available and notify provider when administered. For unintend ed sedation or respiratory depression if all of the below criteria are met: ~ respiratory rate LESS than or EQUAL to 8. ~SaO2 less than 92% and or/end-tidal CO2 is greater th an 50. ~ the patient is receiving an opioid, has unintended sedations assessed as RASS (-3), and is currently not on mechanical ventilation. RASS scale moderate (-3) is movement or eye opening to voice but no eye contact. Patient Monitoring Once the patient has demonstrated a response to the naloxone, continue to m onitor respiratory rate, depth, oxygen saturation and end-tidal CO2 (if availab le) every 15 minutes x 2, then every 30 minutes x 2, then every 1 hour x 1 after each naloxone dose. Consider transfer to ICU if patient respiratory parameters have not improved after 4 naloxone doses. naloxone (NARCAN) injection 0.4 mg 0.4 mg, Intravenous, EVERY 2 MIN PRN, op ioid reversal, Starting on Patience 08/03/21 at 1654, Administer intravenous route when available and notify provider when administered. For unintended sedation or respiratory depression if all of the below criteria are met: ~ respiratory rate LES S than or EQUAL to 8. ~ SaO2 less than 92% and or/end-tidal CO2 is greater than 50. ~ the patient is receiving an opioid, has unintended sedation assessed as RASS (-4 ) or (-5) and patient is currently not on mechanical ventilation. RASS scale (-4) is deep sedation with no response to voice but movement or eye opening to physical stimulation. R ASS scale (-5) is unarousable. Patient Monitoring Once the patient has demonstrated a response to the naloxone, continue to monitor respiratory rate, depth, oxygen saturation and end-tidal CO2 (if available) every 15 mi nutes x 2, then every 30 minutes x 2, then every 1 hour x 1 after each naloxone dose. Consider tr ansfer to ICU if patient respiratory parameters have not improved after 4 nalox one doses. naloxone (NARCAN) injection 0.4 mg 0.4 mg, Intramuscular, EVERY 2 MIN PRN, opioid reversal, Starting on Patience 08/03/21 at 1654, Administer intramuscular if an int ravenous route is not available and notify provider when administered. For unintend ed sedation or respiratory depression if all of the below criteria are met: ~ res piratory rate LESS than or EQUAL to 8. ~ SaO2 less than 92% and or/end-tidal CO2 is greater chioma n 50. ~ the patient is receiving an opioid, has unintended sedation assessed as RASS (-4) or (-5) and patient is currently not on mechanical ventilation. RA SS scale (-4) is deep sedation with no response to voice but movement or eye opening to physical stimulation. RASS scale (-5) is unarousa ble. Patient Monitoring Once the patient has demonstrated a response to the nalox one, continue to monitor respiratory rate, depth, oxygen saturation and end-tidal CO2 (if availab le) every 15 minutes x 2, then every 30 minutes x 2, then every 1 hour x 1 after each naloxone dose. Consider transfer to ICU if patient respiratory parameters have not improved after 4 naloxone doses. ondansetron (ZOFRAN) injection 4 mg 4 mg, Intravenous, EVERY 6 HOURS PRN, nausea, vomiting , Administer over 2-5 Minutes, Starting on Patience 08/03/21 at 1644, This is Step 1 of nausea and vomiting management. If nausea not resolved in 15 minutes, go t o Step 2 prochlorperazine (COMPAZINE). Irritant. ondansetron (ZOFRAN-ODT) ODT tab 4 mg 4 mg, Oral, EVERY 6 HOURS PRN, nausea, v omiting, Starting on Patience 08/03/21 at 1644, This is Step 1 of nausea and vomiting management. If n ausea not resolved in 15 minutes, go to Step 2 prochlorperazine (COMPAZINE). Do not push through foil backing. Peel back foil and gently remove. Place on to ngue immediately. Administration with liquid unnecessary W ith dry hands, peel back foil backing and gently remove tablet. Do not push oral d isintegrating tablet through foil backing. Administer immediately on tongue and oral disintegrati ng tablet dissolves in seconds, then swallow with saliva. Liquid not required . oxyCODONE (ROXICODONE) tablet 10 mg Given 08/05/2021 11:35 AM CDT 10 mg 10 mg, Oral, EVERY 4 HOURS PRN, severe pain, (pain rating 7-10), Starting on Patience 08/03/21 at 1644, Hold oral PRN dose for analgesic side effects. Notify provider to assess for uncontrolled pain or analgesic side effects. 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 Given 08/05/2021 7:10 AM CDT 10 mg Given 08/04/2021 8:23 PM CDT 10 mg oxyCODONE (ROXICODONE) tablet 5 mg 5 mg, Oral, EVERY 4 HOURS PRN, other, mo derate pain (pain rating 4-6), Starting on Patience 08/03/21 at 1644, Hold oral PRN dose for analgesic side effects. Notify provider to assess for uncontrolled pain or analg esic side effects. 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 polyethylene glycol (MIRALAX) Packet 17 g Given 08/05/2021 9:02 AM CDT 17 g 17 g, Oral, DAILY, First dose on Sat08/04/21 at 0800, To prevent constipation. Mixed prescribed dose in 8 ounces of water, juice or soda. Administer daily starting at 0900 on POD 1. Hold for loose stools. 1 Packet = 17 grams. Mix each gram with at least 1/2 ounce (15 mL) of water - 8 ounces for 17 g dose, 4 ounces for 8.5 g dose, 2 ounces for 4 g dose. Follow with the same volume of water. Hold for loose stools. Given 08/04/2021 8:26 AM CDT 17 g prochlorperazine (COMPAZINE) injection 5 mg 5 mg, Intravenous, EVERY 6 HOURS PRN, nausea, vomiting , Administer over 1-2 Minutes, Starting on Patience 08/03/21 at 1644, This is Step 2 of nausea and vomiting management. If nausea not resolved in 15-30 minutes, N otify provider. prochlorperazine (COMPAZINE) tablet 5 mg 5 mg, Oral, EVERY 6 HOURS PRN, nausea, v omiting, Starting on Patience 08/03/21 at 1644, This is Step 2 of nausea and vomiting ma nagement. If nausea not resolved in 15-30 minutes, Notify provider. senna-docusate (SENOKOT-S/PERICOLACE) Given 08/05/2021 9:00 AM C DT 1 tablet 8.6-50 MG per tablet 1 tablet 1 tablet, Oral, 2 TIMES DAILY, First dose on Sat08/03/21 at 2000, To prevent constipation. Hold for loose stools Hold for loose stools. Given 08/04/2021 8:23 PM CDT 1 tablet Given 08/04/2021 8:25 AM CDT 1 tablet sodium chloride (PF) 0.9% PF flush 3 mL Given 08/05/2021 10:57 AM CDT 3 mLs 3 mL, Intracatheter, EVERY 8 HOURS, First dose on Patience 08/03/21 at 1700, And Q1H PRN, to lock peripheral IV dormant line. Given 08/05/2021 1:04 AM CDT 3 mLs Given 08/04/2021 5:32 PM CDT 3 mLs sodium chloride 0.9% infusion New Bag 08/04/2021 4:31 AM CDT 100 mL/hr at 100 mL/hr, Intravenous, CONTINUOUS, Change to saline lock when PO well tolerated., Starting on Patience 08/03/21 at 1700, Until 08/05/21 at 1947 New Bag 08/03/2021 5:22 PM CDT 100 mL/hr sodium phosphate (FLEET ENEMA) 1 enema Given 08/05/2021 12:57 PM CDT 1 enema 1 enema, Rectal, ONCE PRN, constipation, Starting on 08/05/21 at 0819, For 1 dose, For children greater than or equal to 12 years Hold for loose stools unless being administered as part of a bowel prep regimen prior to a procedure. Vitamin D3 (CHOLECALCIFEROL) tablet 25 m cg Given 08/05/2021 9:02 AM CDT 25 mcg 25 mcg, Oral, 2 TIMES DAILY, First dose on Patience 08/03/21 at 2000, Note: 25 mcg = 1000 units Given 08/04/2021 8:23 PM CDT 25 mcg Given 08/04/2021 8:25 AM CDT 25 mcg documented in this encounter Active and Recently Administered Medications Times are shown in CDT. Scheduled Medication Order 08/03/2021 08/04/2021 08/05/2021 acetaminophen (TYLENOL) tablet 975 mg 1722 (Given - Provider : Birdie Nava RN) 0034 (Given - Provider: Marcela Partida RN)0824 (Given - Provider: Tabitha Hyde, BETO)1615 (Given - Provider: Karma Carroll RN) 0103 (Given - Provider: Shelton Cowart RN)0900 (Given - Provider: Tabitha Hyde RN)1721 (Given - Provider: Mohini Jack RN) 975 mg, Oral, EVERY 8 HOURS, First dose on Patience 08/03/21 at 1700, For 3 days, Administer for multimodal surgical pain management. Maximum acetaminophen dose from all sources = 75 mg/kg/day not to exceed 4 grams/day. allopurinol (ZYLOPRIM) tablet 300 mg 202 (Given - Provider: Shelton Cowart RN) 300 mg, Oral, EVERY EVENING, First dose on Sat08/04/21 at 1999 atorvastatin (LIPITOR) tablet 80 mg 2025 (Given - Provider: Shelton Cowart RN) 80 mg, Oral, EVERY EVENING, First dose on Sat08/04/21 at 1999 calcium carbonate-vitamin D (OSCAL w/D) per tablet 1 t ablet 1721 (Given - Provider: Birdie Nava RN) 0825 (Given - Provider: Tabitha michel RN)1159 (Given - Provider: Tabitha Hyde RN)1615 (Given - Provider: Karma Carroll RN) 0901 (Given - Provider: Tabitha michel RN)1136 (Given - Provider: Tabitha Hyde RN)1700 (Canceled Entry - Provider: Orders Generic Provider - Comment: Automatically canceled at discontinue of medication order) 1 tablet, Oral, 3 TIMES DAILY BEFORE MEALS, First dose on Patience at 1700 ceFAZolin (ANCEF) intermittent infusion 1 g (COMPLETED ) 1848 (New Bag - Provider: Birdie Nava RN) 0223 (New Bag - Provider: Marcela Partida RN) Routine, 1 g, Intravenous, EVERY 8 HOURS , First dose on Patience 08/03/21 at 1900, For 2 doses, First post-op dose to be given 8 hours after last intra-op dose, see MAR., Indications: Perioperative Pharmacoprophylaxis ceFAZolin Sodium (ANCEF) injection 2 g (COMPLETED) 114 0 (Given - Provider: Yelena Flores APRN CRNA) Routine, 2 g, Intravenous, PRE-OP/PRE-VT OCEDURE, Starting on Patience 08/03/21 at 1033, For 1 dose, Give first dose within 1 hour PRIOR to incision. If patient weight is greater than or equal to 120 kg increa se dose to 3 g., Indications: Perioperative Pharmacoprophyla xis, Pre-procedure empagliflozin (JARDIANCE) tablet 10 mg 1 159 (Given - Provider: Tabitha Hyde, BETO) 0913 (Given - Provider: Tabitha michel, RN) 10 mg, Oral, DAILY, First dose on Sat at 1100, Alt to empagliflozin 12.5mg daily per SONG Bruner. gabapentin (NEURONTIN) capsule 100 mg (COMPLETED) 1116 (Given - Provider: Sally Díaz, BETO) 100 mg, Oral, PRE-OP/PRE-PROCEDURE, Star ting on Sat08/03/21 at 1033, For 1 dose, Indications: Neuropathic Pain, Do not administer for Stage 2 spine procedures., Pre-procedure insulin aspart (NovoLOG) injection (RAPID ACTING) 1816 (Given - Provider: Birdie Nava RN) 0829 (Not Given - Provider: Tabitha kruse RN - Reason: Order parameters not met - Comment: BS: [phone] (Given - Provider: Tabitha Hyde RN - Comment: BS: [phone] (Given - Provider: Karma Carroll RN) 0909 (Given - Provider: Tabitha michel RN - Comment: BS: [phone] (Not Given - Provider: Tabitha Hyde RN - Reason: Other - Comment: Did not eat lunch.) 1-7 Units, Subcutaneous, 3 TIMES DAILY B EFORE MEALS, First dose on Sat08/03/21 at 1800, Correction Scale - MEDIUM INSULIN RESISTANCE DOSING Do Not give Correction Insulin if Pre-Meal BG less than 140. F 1700 (Canceled Entry - Provider: Orders Generic Provider - Comment: Automatically canceled at discontinue of medication order) or Pre-Meal BG 140 - 189 give 1 unit. Fo r Pre-Meal BG 190 - 239 give 2 units. For Pre-Meal BG 240 - 289 give 3 units. For Pre-Meal BG 290 - 339 give 4 units. For Pre-Meal BG 340- 399 give 5 units. For P re-Meal BG 400-449 give 6 units For Pre- Meal BG greater than or equal to 450 give 7 units. To be given with prandial insulin, and based on pre-meal blood glucose. Notify provider if glucose greater than or equal to 350 mg/dL after administrat ion of correction dose. If given at mealtime, administer within 30 minutes of start of meal insulin aspart (NovoLOG) injection (RAPID ACTING) 2300 (Given - Provider: Birdie Nava RN) 2229 (Not Given - Provider: Shelton Stevenson i, RN - Reason: Order parameters not met) 1-5 Units, Subcutaneous, AT BEDTIME, Fir st dose on Sat08/03/21 at 2200, MEDIUM INSULIN RESISTANCE DOSING Do Not give Bedtime Correction Insulin if BG less than 200. For BG 200 - 249 give 1 units. For BG 250 - 299 give 2 units. For BG 300 - 34 9 give 3 units. For BG 350 -399 give 4 units. For BG greater than or equal to 400 give 5 units. Notify provider if glucose greater than or equal to 350 mg/dL afte r administration of correction dose. If given at mealtime, administer within 30 minutes of start of meal lisinopril (ZESTRIL) tablet 10 mg 1005 ( Hold - Provider: Tabitha Hyde RN - Reason: Patient/family refused)1159 (Given - Provider: Tabitha Hyde RN) 0902 (Given - Provider: Tabitha michel RN) 10 mg, Oral, DAILY, First dose on Sat08/04/21 at 1000, Hold for sbp<120 metFORMIN (GLUCOPHAGE) tablet 1,000 mg 1 004 (Given - Provider: Tabitha Hyde RN)1730 (Given - Provider: Karma Carroll RN) 0901 (Given - Provider: Tabitha Hyde RN)1800 (Canceled Entry - Provider: Orders Generic Provider - Comment: Automatically canceled at discontinue of medication order) 1,000 mg, Oral, 2 TIMES DAILY WITH MEALS, First dose on 08/04 at 0930 metoprolol tartrate (LOPRESSOR) tablet 25 mg 1004 (Given - Provider: Tabitha Hyde RN)2026 (Not Given - Provider: Shelton Cowart RN - Reason: Order parameters not met) 0902 (Given - Provider: Tabitha michel, BETO) 25 mg, Oral, 2 TIMES DAILY, First dose o n Sat08/04/21 at 1000, Hold for sbp<120. HR<60 polyethylene glycol (MIRALAX) Packet 17 g 08 (Given - Provider: Tabitha Hyde, BETO) 901 (Given - Provider: Tabitha michel, RN) 17 g, Oral, DAILY, First dose on 07/13 at 0800, To prevent constipation. Mixed prescribed dose in 8 ounces of water, juice or soda. Administer daily starting at 0900 on POD 1. Hold for loose stool s. 1 Packet = 17 grams. Mix each gram wi th at least 1/2 ounce (15 mL) of water - 8 ounces for 17 g dose, 4 ounces for 8.5 g dose, 2 ounces for 4 g dose. Follow with the same volume of water. Hold for loose stools. senna-docusate (SENOKOT-S/PERICOLACE) 8.6-50 MG per ta blet 1 tablet 2128 (Given - Provider: Birdie Nava, RN) 08 (Given - Provider: Tabitha michel RN)2022 (Given - Provider: Shelton Cowart RN) 09 (Given - Provider: Tabitha Hyde RN) 1 tablet, Oral, 2 TIMES DAILY, First dos e on Patience 08/03/21 at 2000, To prevent constipation. Hold for loose stools Hold for loose stools. sodium chloride (PF) 0.9% PF flush 3 mL 1725 (Not Give n - Provider: Birdie Nava RN - Reason: IV Infusing) 0048 (Not Given - Provider: Marcela patton RN - Reason: IV Infusing)0830 (Not Given - Provider: Tabitha Hyde RN - Reason: IV Infusing)1732 (Given - Provider: Karma Carroll RN) 0104 (Given - Provider: Shelton Cowart RN)1057 (Given - Provider: Tabitha Hyde RN)1700 (Canceled Entry - Provider: Orders Generic Provider - Comment: Automatically canceled at discontinue of medication order) 3 mL, Intracatheter, EVERY 8 HOURS, Firs t dose on Patience 08/03/21 at 1700, And Q1H PRN, to lock peripheral IV dormant line. tranexamic acid 1 g in 100 mL 0.7% NaCl IV bag (premix ) (COMPLETED) 1144 (Given - Provider: Yelena Flores APRN CRNA) 1 g, Intravenous, ONCE, On Patience 08/03/21 a t 1100, For 1 dose, Prior to incision., Pre-procedure Vitamin D3 (CHOLECALCIFEROL) tablet 25 mcg 2128 (Given - Provider: Birdie Nava, BETO) 824 (Given - Provider: Tabitha michel, RN)2022 (Given - Provider: Shelton Cowart RN) 901 (Given - Provider: Tabitha michel RN) 25 mcg, Oral, 2 TIMES DAILY, First dose on Patience 08/03/21 at 2000, Note: 25 mcg = 1000 units Continuous Medication Order 08/03/2021 08/04/2021 08/05/2021 lactated ringers infusion (CANCELED) 1128 (New Bag - P rovider: Yelena Flores APRN CRNA)1227 (New Bag - Provider: Negra Phoenix APRN CRNA)1257 (Canceled Entry - Provider: Theresa Rush APRN CRNA)1512 (Anesthesia Volume Adjustment - P rovider: Theresa Rush APRN CRNA) at 25 mL/hr, Intravenous, CONTINUOUS, IF patient NOT on dialysis., Pre- procedure, Starting on Patience 08/03/21 at 1100, Until Patience 08/03/21 at 1513 sodium chloride 0.9% infusion 1722 (New Bag - Provider: Gisel Nava RN) 0431 (New Bag - Provider: Marcela Partida RN) at 100 mL/hr, Intravenous, CONTINUOUS, C hange to saline lock when PO well tolerated., Starting on Patience 08/03/21 at 1700, Until 08/05/21 at 1947 PRN Medication Order 08/03/2021 08/04/2021 08/05/2021 acetaminophen (TYLENOL) tablet 650 mg 650 mg, Oral, EVERY 4 HOURS PRN, other, For optimal non-opioid multimodal pain management to improve pain control., Starting on 08/06/21 at 0000, May give first dose 4 hours after last scheduled dose of acetaminophen (TYLENOL). Maximum luis f taminophen dose from all sources = 75 mg/kg/day not to exceed 4 grams/day. benzocaine-menthol (CHLORASEPTIC) 6-10 MG lozenge 1 lozenge 1 lozenge, Buccal, EVERY 1 HOUR PRN, sor e throat, Starting on Patience 08/03/21 at 1644, For sore throat without fever. bisacodyl (DULCOLAX) Suppository 10 mg 10 mg, Rectal, DAILY PRN, constipation, Use if Magnesium hydroxide (MILK of MAGNESIA) not effective after 24 hours. May discontinue if patient having bowel movement., Starting on Patience 08/03/21 at 1644, Hold for loose stools. bupivacaine 0.25 % - EPINEPHrine 1:200,000 (PF) inject ion (CANCELED) 1439 (Given - Provider: John Champion MD) PRN, Starting on Patience 08/03/21 at 1439, Intra-procedure dextrose 50 % injection 25-50 mL(Linked Group 1) 25-50 mL, Intravenous, EVERY 15 MIN PRN, low blood sugar, Administer over 1-5 Minutes, Starting on Patience 08/03/21 at 1734, Use if have IV access, BG less than 70 mg/dL and meet dose criteria below: Dose if conscious and alert (or disorientated) and NPO = 25 mL Dose if unconscious / not alert = 50 mL Give first dose for initial blood glucose less than 70 mg/dL. If blood glucose at 15 minute recheck is les s than or equal to 100 mg/dL continue to administer carbohydrate treatment every 15 minutes, as needed, based on blood glucose and assessment parameters until blood glucose level is above 100 mg/dL. Vesicant. fentaNYL (PF) (SUBLIMAZE) injection 25-50 mcg (CANCELE D) 1545 (Given - Provider: Rubi Choudhary RN) 25-50 mcg, Intravenous, EVERY 5 MIN PRN, moderate to severe pain, Starting on Patience 08/03/21 at 1540, Up to a total of 200 mcg. Use fentaNYL (SUBLIMAZE) first, as a short acting agent for acute pain contro l. If insufficient, or a longer acting a gent is needed, begin HYDROmorphone (DILAUDID) if ordered. Use in the following preferential sequence: 1) fentanyl (SUBLIMAZE) 2) HYDROmorphone (DILAUDID). Postop Anesthesia Phase I only. Notify Provide r to assess for uncontrolled pain or analgesic side effects. Do NOT revert back to fentanyl (SUBLIMAZE) after moving to HYDROmorphone (DILAUDID)., PACU glucagon injection 1 mg(Linked Group 1) 1 mg, Subcutaneous, EVERY 15 MIN PRN, lo w blood sugar, May repeat x 1 only, Starting on Patience 08/03/21 at 1734, May give SQ or IM. ONLY use glucagon IF patient has NO IV access AND is UNABLE to swallow AND blood glucose is LESS than or EQUAL to 50 mg/dL. glucose gel 15-30 g(Linked Group 1) 15-30 g, Oral, EVERY 15 MIN PRN, low blo od sugar, Starting on Patience 08/03/21 at 1734, Give first dose for initial blood glucose less than 70 mg/dL per the dosing instructions below. If blood glucose at 15 minute rechecks is still less than or eq ual to 100 mg/dL, continue to administer doses per blood glucose parameters every 15 minutes, as needed, until blood glucose level is above 100 mg/dL. Dosing Inst ructions: ~If patient is conscious and a ble to swallow and NO enteral tube For initial BG 51-69mg/dL OR 15 minute recheck BG 51- 100 mg/dL - give 15 g For BG less than or equal to 50 mg/dL - give 30 g ~ If Enteral tube For initial BG 51-69mg/ dL OR 15 minute recheck BG 51- 100 mg/dL - give apple juice 120 mL (4 oz or 15 g of CHO) via enteral tube For BG less than or equal to 50 mg/dL - Give apple juice 240 mL (8 oz or 30 g of CHO) via entera l tube ~Oral gel is preferable for conscious and able to swallow patient. ~IF gel unavailable or patient refuses may provide apple juice per Enteral tube dosing i nstructions. Document juice on I and O flowsheet. HYDROmorphone (DILAUDID) injection 0.2 mg(Linked Group 2) 0.2 mg, Intravenous, EVERY 2 HOURS PRN, other, moderate pain (pain rating 4-6) IF patient unable to take oral pain medication or pain not controlled with oral analgesics, Starting on Patience 08/03/21 at 1644 , Hold IV PRN opioid dose for analgesic side effects. Notify provider to assess for uncontrolled pain or analgesic side effects. HYDROmorphone (DILAUDID) injection 0.4 mg(Linked Group 2) 0.4 mg, Intravenous, EVERY 2 HOURS PRN, other, severe pain (pain rating 7-10) IF patient unable to take oral pain medication or pain not controlled with oral analgesics, Starting on Patience 08/03/21 at 1644, Hold IV PRN opioid dose for analgesic s nayely effects. Notify provider to assess for uncontrolled pain or analgesic side effects. hydrOXYzine (ATARAX) tablet 10 mg 10 mg, Oral, EVERY 6 HOURS PRN, itching, Starting on Patience 08/03/21 at 1644, Caution to be used when administering multiple PYROTECHNICIAN depressing meds within a short time frame. lidocaine (LMX4) cream Topical, EVERY 1 HOUR PRN, pain, with VA D insertion or accessing implanted port., Starting on Patience 08/03/21 at 1644, Do NOT give if patient has a history of allergy to any local anesthetic or any odalis product. Apply at least 30 minutes prior to VAD insertion or port access. In divided doses as needed for size of site for insertion with MAX Dose: 2.5 g (?? of 5 g tube) lidocaine 1 % 0.1-1 mL (CANCELED) 1132 (Given - Provid er: Yelena Flores APRN [facility]) 0.1-1 mL, Other, EVERY 1 HOUR PRN, mild pain with VAD insertion, Starting on Patience 08/03/21 at 1033, MAX dose 1 mL subcutaneous OR intradermal along the side of the vein in divided doses as needed for VAD insertion. Do NOT give if patient has a history of allergy to any local anesthetic or any odalis product. Do NOT use both lidocaine intradermal/subcutaneous injection and the lidocaine cream on the same site., Pre-procedure lidocaine 1 % 0.1-1 mL 0.1-1 mL, Other, EVERY 1 HOUR PRN, mild pain with VAD insertion., Starting on Patience 08/03/21 at 1644, Do NOT give if patient has a history of allergy to any local anesthetic or any odalis product. MAX dos e 1 mL subcutaneous OR intradermal in di vided doses as needed for VAD insertion. magnesium hydroxide (MILK OF MAGNESIA) suspension 30 mL 0102 (Given - Provider: Shelton Cowart, RN) 30 mL, Oral, DAILY PRN, constipation, Us e if preventive measures (senna- docusate, docusate, and polyethylene glycol) are not effective., Starting on Patience 08/03/21 at 1644, Shake well. Hold for loose stools. naloxone (NARCAN) injection 0.2 mg(Linked Group 3) 0.2 mg, Intravenous, EVERY 2 MIN PRN, op ioid reversal, Starting on Patience 08/03/21 at 1654, Administer intravenous route when available and notify provider when administered. For unintended sedation or resp iratory depression if all of the below c riteria are met: ~ respiratory rate LESS than or EQUAL to 8. ~SaO2 less than 92% and or/end-tidal CO2 is greater than 50. ~ the patient is receiving an opioid, breaux s unintended sedations assessed as RASS (-3), and is currently not on mechanical ventilation. RASS scale moderate (-3) is movement or eye opening to voice but no eye contact. Patient Monitoring Once the patient has demonstrated a response to the naloxone, continue to monitor respiratory rate, depth, oxygen saturation and end-tidal CO2 (if available) every 15 minutes x 2, then every 30 minutes x 2, the n every 1 hour x 1 after each naloxone d ose. Consider transfer to ICU if patient respiratory parameters have not improved after 4 naloxone doses. naloxone (NARCAN) injection 0.2 mg(Linked Group 3) 0.2 mg, Intramuscular, EVERY 2 MIN PRN, opioid reversal, Starting on Patience 08/03/21 at 1654, Administer intramuscular if an intravenous route is not available and notify provider when administered. For uni ntended sedation or respiratory depressi on if all of the below criteria are met: ~ respiratory rate LESS than or EQUAL to 8. ~SaO2 less than 92% and or/end- tidal CO2 is greater than 50. ~ the patient is receiving an opioid, has unintended sed ations assessed as RASS (-3), and is currently not on mechanical ventilation. RASS scale moderate (-3) is movement or eye opening to voice but no eye contact. Pat ient Monitoring Once the patient has dem onstrated a response to the naloxone, continue to monitor respiratory rate, depth, oxygen saturation and end-tidal CO2 (if available) every 15 minutes x 2, then e very 30 minutes x 2, then every 1 hour x 1 after each naloxone dose. Consider transfer to ICU if patient respiratory parameters have not improved after 4 naloxone doses. naloxone (NARCAN) injection 0.4 mg(Linked Group 3) 0.4 mg, Intravenous, EVERY 2 MIN PRN, op ioid reversal, Starting on Patience 08/03/21 at 1654, Administer intravenous route when available and notify provider when administered. For unintended sedation or resp iratory depression if all of the below c riteria are met: ~ respiratory rate LESS than or EQUAL to 8. ~ SaO2 less than 92% and or/end-tidal CO2 is greater than 50. ~ the patient is receiving an opioid, h as unintended sedation assessed as RASS (-4) or (-5) and patient is currently not on mechanical ventilation. RASS scale (-4) is deep sedation with no response to voice but movement or eye opening to phy sical stimulation. RASS scale (-5) is un arousable. Patient Monitoring Once the patient has demonstrated a response to the naloxone, continue to monitor respiratory rate, depth, oxygen saturation and end -tidal CO2 (if available) every 15 minut es x 2, then every 30 minutes x 2, then every 1 hour x 1 after each naloxone dose. Consider transfer to ICU if patient respiratory parameters have not improved after 4 naloxone doses. naloxone (NARCAN) injection 0.4 mg(Linked Group 3) 0.4 mg, Intramuscular, EVERY 2 MIN PRN, opioid reversal, Starting on Patience 08/03/21 at 1654, Administer intramuscular if an intravenous route is not available and notify provider when administered. For uni ntended sedation or respiratory depressi on if all of the below criteria are met: ~ respiratory rate LESS than or EQUAL to 8. ~ SaO2 less than 92% and or/end- tidal CO2 is greater than 50. ~ the patient i s receiving an opioid, has unintended se dation assessed as RASS (-4) or (-5) and patient is currently not on mechanical ventilation. RASS scale (-4) is deep sedation with no response to voice but moveme nt or eye opening to physical stimulatio n. RASS scale (-5) is unarousable. Patient Monitoring Once the patient has demonstrated a response to the naloxone, continue to monitor respiratory rate, depth, o xygen saturation and end-tidal CO2 (if a vailable) every 15 minutes x 2, then every 30 minutes x 2, then every 1 hour x 1 after each naloxone dose. Consider transfer to ICU if patient respiratory parameters have not improved after 4 naloxone doses. ondansetron (ZOFRAN) injection 4 mg(Linked Group 4) 4 mg, Intravenous, EVERY 6 HOURS PRN, na usea, vomiting, Administer over 2-5 Minutes, Starting on Patience 08/03/21 at 1644, This is Step 1 of nausea and vomiting management. If nausea not resolved in 15 minut es, go to Step 2 prochlorperazine (COMPAZINE). Irritant. ondansetron (ZOFRAN-ODT) ODT tab 4 mg(Linked Group 4) 4 mg, Oral, EVERY 6 HOURS PRN, nausea, v omiting, Starting on Patience 08/03/21 at 1644, This is Step 1 of nausea and vomiting management. If nausea not resolved in 15 minutes, go to Step 2 prochlorperazine (C OMPAZINE). Do not push through foil back ing. Peel back foil and gently remove. Place on tongue immediately. Administration with liquid unnecessary With dry hands, peel back foil backing and gently remov e tablet. Do not push oral disintegratin g tablet through foil backing. Administer immediately on tongue and oral disintegrating tablet dissolves in seconds, then swallow with saliva. Liquid not required. oxyCODONE (ROXICODONE) tablet 10 mg(Linked Group 5) 17 22 (Given - Provider: Birdie Nava RN)2128 (Given - Provider: Birdie Nava RN) 0824 (Given - Provider: Tabitha Hyde RN)161 (Given - Provider: Karma Carroll RN)202 (Given - Provider: Shelton Cowart RN) 0710 (Given - Provider: Shelton Cowart, BETO)1135 (Given - Provider: Tabitha Hyde RN) 10 mg, Oral, EVERY 4 HOURS PRN, severe p ain, (pain rating 7-10), Starting on Patience 08/03/21 at 1644, Hold oral PRN dose for analgesic side effects. Notify provider to assess for uncontrolled pain or analge sic side effects. 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 oxyCODONE (ROXICODONE) tablet 5 mg(Linked Group 5) 172 2 (See Alternative - Provider: Birdie Nava, RN)2129 (See Alternative - Provider: Birdie Nava, RN) 0824 (See Alternative - Provider: Tabitha Hyde, BETO)1615 (See Alternative - Provider: Karma Carroll, BETO)2023 (See Alternative - Provider: Shelton Cowart, BETO) 0710 (See Alternative - Provider: Shelton Cowart, BETO)1135 (See Alternative - Provider: Tabitha Hyde, BETO) 5 mg, Oral, EVERY 4 HOURS PRN, other, mo derate pain (pain rating 4-6), Starting on Patience 08/03/21 at 1644, Hold oral PRN dose for analgesic side effects. Notify provider to assess for uncontrolled pain or analgesic side effects. 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 prochlorperazine (COMPAZINE) injection 5 mg(Linked Group 6) 5 mg, Intravenous, EVERY 6 HOURS PRN, na usea, vomiting, Administer over 1-2 Minutes, Starting on Patience 08/03/21 at 1644, This is Step 2 of nausea and vomiting management. If nausea not resolved in 15-30 minutes, Notify provider. prochlorperazine (COMPAZINE) tablet 5 mg(Linked Group 6) 5 mg, Oral, EVERY 6 HOURS PRN, nausea, v omiting, Starting on Patience 08/03/21 at 1644, This is Step 2 of nausea and vomiting management. If nausea not resolved in 15-30 minutes, Notify provider. sodium chloride (PF) 0.9% PF flush 3 mL 3 mL, Intracatheter, EVERY 1 MIN PRN, li ne flush, for peripheral IV flush post IV meds, Starting on Patience 08/03/21 at 1644 sodium chloride 0.9% (bottle) irrigation (CANCELED) 14 38 (Given - Provider: John Champion MD) PRN, Starting on Patience 08/03/21 at 1438, Intra-procedure sodium phosphate (FLEET ENEMA) 1 enema (COMPLETED) 1257 (Given - Provider: Tabitha Hyde RN) 1 enema, Rectal, ONCE PRN, constipation, Starting on 08/05/21 at 0819, For 1 dose, For children greater than or equal to 12 years Hold for loose stools unless being administered as part of a bowel prep regimen prior to a procedure. thrombin 5000 units vial (CANCELED) 1438 (Given - Provider: John Champion MD) PRN, Starting on Patience 08/03/21 at 1438, Intra-procedure Linked Groups Order Group 1: glucose gel 15-30 gJump to med 15-30 g, Oral, EVERY 15 MIN PRN, low blo od sugar, Starting on Patience 08/03/21 at 1734
Give first dose for initial blood glucose less than 70 mg/dL per the dosing instructions below. If bl ood glucose at 15 minute rechecks is sti ll less than or equal to 100 mg/dL, continue to administer doses per blood glucose parameters every 15 minutes, as needed, until blood glucose level is above 100 mg/dL. Dosing Instructions:&n bsp;~If patient is conscious and able to swallow and NO enteral tube For initial BG 51-69mg/dL OR 15 minute recheck BG 51- 100 mg/dL - give 1 5 g For BG less than or equal to 50 mg/dL - give 30 g ~ If Enteral tube For initial BG 51-69mg/dL OR 15 minute recheck BG 51- 100 mg/dL - give apple juice 120 mL (4 oz or 15 g of CHO) via enteral tube For BG le ss than or equal to 50 mg/dL - Give apple juice 240 mL (8 oz or 30 g of CHO) via enteral tube ~Oral gel is preferable for conscious and able to swall ow patient. ~IF gel unavailable or patient refuses may provide apple juice per Enteral tube dosing instructions. Document juice on I and O flowsheet.
Or dextrose 50 % injection 25-50 mLJump to med 25-50 mL, Intravenous, EVERY 15 MIN PRN, low blood sugar, Administer over 1-5 Minutes, Starting on Patience 08/03/21 at 1734
Use if have IV access, BG less than 70 mg/dL and meet dose criteria below: Dose if conscious and alert (or di sorientated) and NPO = 25 mL Dose if unconscious / not alert = 50 mL Give first dose for initial blood glucose less than 70&nb sp; mg/dL. If blood gluc ose at 15 minute recheck is less than or equal to 100 mg/dL continue to administer carbohydrate treatment every 15 minutes, as needed, based on blood glucose and assessment parameters until blood glucose level is above 100 mg/dL. Vesicant.
Or glucagon injection 1 mgJump to med 1 mg, Subcutaneous, EVERY 15 MIN PRN, lo w blood sugar, May repeat x 1 only, Starting on Patience 08/03/21 at 1734
May give SQ or IM. ONLY use glucagon IF patient has NO IV access AND is UNABLE to swa llow AND blood glucose is LESS than or E QUAL to 50 mg/dL.
Group 2: HYDROmorphone (DILAUDID) injection 0.2 mgJump to med 0.2 mg, Intravenous, EVERY 2 HOURS PRN, other, moderate pain (pain rating 4-6) IF patient unable to take oral pain medication or pain not controlled with oral analgesics, Starting on Patience 08/03/21 at 1644
Hold IV PRN opioid dose for analgesi c side effects. Notify provider to assess for uncontrolled pain or analgesic side effects.
Or HYDROmorphone (DILAUDID) injection 0.4 mgJump to med 0.4 mg, Intravenous, EVERY 2 HOURS PRN, other, severe pain (pain rating 7-10) IF patient unable to take oral pain medication or pain not controlled with oral analgesics, Starting on Patience 08/03/21 at 1644& lt;br>Hold IV PRN opioid dose for analge sic side effects. Notify provider to assess for uncontrolled pain or analgesic side effects.
Group 3: naloxone (NARCAN) injection 0.2 mgJump to med 0.2 mg, Intravenous, EVERY 2 MIN PRN, op ioid reversal, Starting on Patience 08/03/21 at 1654
Administer intravenous route when available and notify provider when administered. For unintended sedation or respiratory depression if a ll of the below criteria are met: ~ respiratory rate LESS than or EQUAL to 8. ~SaO2 less than 92% and or/end- tidal CO2 is greater than 50.& nbsp;~ the patient is receiving an opioi d, has unintended sedations assessed as RASS (-3), and is currently not on mechanical ventilation. RASS scale moderate (-3) is movement or eye opening to voice but no eye contact.&nbs p; Patient Monitoring Once the patient has demonstrated a response to the naloxone, continue to monitor respiratory rate, depth, oxygen satu ration and end-tidal CO2 (if available) every 15 minutes x 2, then every 30 minutes x 2, then every 1 hour x 1 after each naloxone dose. Consider transfer to ICU if patient respirator y parameters have not improved after 4 n aloxone doses.
Or naloxone (NARCAN) injection 0.4 mgJump to med 0.4 mg, Intravenous, EVERY 2 MIN PRN, op ioid reversal, Starting on Patience 08/03/21 at 1654
Administer intravenous route when available and notify provider when administered. For unintended sedation or respiratory depression if a ll of the below criteria are met: ~ respiratory rate LESS than or EQUAL to 8. ~ SaO2 less than 92% and or/end- tidal CO2 is greater than 50.& nbsp;~ the patient is receiving an opioi d, has unintended sedation assessed as RASS (-4) or (-5) and patient is currently not on mechanical ventilation. RASS scale (-4) is deep sedati on with no response to voice but movemen t or eye opening to physical stimulation. RASS scale (-5) is unarousable. Patient Monitoring On ce the patient has demonstrated a respon se to the naloxone, continue to monitor respiratory rate, depth, oxygen saturation and end-tidal CO2 (if available) every 15 minutes x 2, then every 30 minutes x 2, then every 1 hour x 1 after each nalo xone dose. Consider transfer to ICU if patient respiratory parameters have not improved after 4 naloxone doses.
Or naloxone (NARCAN) injection 0.2 mgJump to med 0.2 mg, Intramuscular, EVERY 2 MIN PRN, opioid reversal, Starting on Patience 08/03/21 at 1654
Administer intramuscular if an intravenous route is not available and notify provider when administered. For unintended sedation or respira tory depression if all of the below criteria are met: ~ respiratory rate LESS than or EQUAL to 8. ~SaO2 less than 92% and or/end-tidal CO2 is greater than 50. ~ the patient i s receiving an opioid, has unintended sedations assessed as RASS (-3), and is currently not on mechanical ventilation. RASS scale moderate (-3) is movement or eye opening to voice but no eye contact. Patient Monitoring Once the patient has demonstrated a response to the naloxone, continue to monitor respiratory rate, depth, oxygen saturation and end-t idal CO2 (if available) every 15 minutes x 2, then every 30 minutes x 2, then every 1 hour x 1 after each naloxone dose. Consider transfer to [facility] if patient respiratory parameters hav e not improved after 4 naloxone doses.
Or naloxone (NARCAN) injection 0.4 mgJump to med 0.4 mg, Intramuscular, EVERY 2 MIN PRN, opioid reversal, Starting on Patience 08/03/21 at 1654
Administer intramuscular if an intravenous route is not available and notify provider when administered. For unintended sedation or respira tory depression if all of the below criteria are met: ~ respiratory rate LESS than or EQUAL to 8. ~ SaO2 less than 92% and or/end-tidal CO2 is greater than 50. ~ the patient i s receiving an opioid, has unintended sedation assessed as RASS (-4) or (-5) and patient is currently not on mechanical ventilation. RASS s ernestina (-4) is deep sedation with no respo nse to voice but movement or eye opening to physical stimulation. RASS scale (-5) is unarousable. Patien t Monitoring Once the patient has d emonstrated a response to the naloxone, continue to monitor respiratory rate, depth, oxygen saturation and end-tidal CO2 (if available) every 15 minutes x 2, then every 30 minutes x 2, then every 1 hour x 1 after each naloxone dose. Consider transfer to ICU if patient respiratory parameters have not improved after 4 naloxone doses.
Group 4: ondansetron (ZOFRAN-ODT) ODT tab 4 mgJump to med 4 mg, Oral, EVERY 6 HOURS PRN, nausea, v omiting, Starting on Patience 08/03/21 at 1644
This is Step 1 of nausea and vomiting management. If nausea not resolved in 15 minutes, go to Step 2 prochlorperazine (COMPAZINE). Do not push through foil backing. Peel back foil and gently remove. Place on tongue immediately. Administration with liquid unnecessary With dry hands, pee l back foil backing and gently remove ta blet. Do not push oral disintegrating tablet through foil backing. Administer immediately on tongue and oral disintegrating tablet dissolves in seconds, then swallow with saliva. Liquid not required.
Or ondansetron (ZOFRAN) injection 4 mgJump to med 4 mg, Intravenous, EVERY 6 HOURS PRN, na usea, vomiting, Administer over 2-5 Minutes, Starting on Patience 08/03/21 at 1644
This is Step 1 of nausea and vomiting management. If naus ea not resolved in 15 minutes, go to [place] p 2 prochlorperazine (COMPAZINE). Irritant.
Group 5: oxyCODONE (ROXICODONE) tablet 5 mgJump to med 5 mg, Oral, EVERY 4 HOURS PRN, other, mo derate pain (pain rating 4-6), Starting on Patience 08/03/21 at 1644
Hold oral PRN dose for analgesic side effects. Notify provider to assess for uncontrolled pain or analgesic side effects. Ho ld while on IV EVENT MARKETING REPRESENTATIVE or with regular IV opioid dosing.
Or oxyCODONE (ROXICODONE) tablet 10 mgJump to med 10 mg, Oral, EVERY 4 HOURS PRN, severe p ain, (pain rating 7-10), Starting on Patience 08/03/21 at 1644
Hold oral PRN dose for analgesic side effects. Notify provider to assess for uncontrolled pain o r analgesic side effects. Hold whi le on IV EVENT MARKETING REPRESENTATIVE or with regular IV opioid dosing.
Group 6: prochlorperazine (COMPAZINE) injection 5 mgJump to med 5 mg, Intravenous, EVERY 6 HOURS PRN, na usea, vomiting, Administer over 1-2 Minutes, Starting on Patience 08/03/21 at 1644
This is Step 2 of nausea and vomiting management. If nausea not resolved in 15-30 minutes, Notify provider.
Or prochlorperazine (COMPAZINE) tablet 5 mgJump to med 5 mg, Oral, EVERY 6 HOURS PRN, nausea, v omiting, Starting on Patience 08/03/21 at 1644
This is Step 2 of nausea and vomiting management. If nausea not resolved in 15-30 minutes, Notify provider.
documented in this encounter Care Teams Diagnostic Tech Relationship Specialty Start Date End Date [facility], [facility] PCP - General 07/06/21 [place], [place] documented as of this encounter
--- OUTSIDE RECORDS SUMMARY | 2022-07-20 21:44 | XMS_ITS | Encounter Summary ---
:1945 Author Organization [facility] Address [address] [facility] [place] [address] Care Team Providers Name Role Phone [facility], [facility] Primary Care Provider [phone] Reason for Visit Auth/Cert Specialty Diagnoses / Procedures Referred By Contact Refer red To Contact Surgery Diagnoses Spinal stenosis Herniated disc, cervical Radiculopathy, cervical DDD (degenerative disc disease), cervical Weakness Spinal stenosis [M48.00] Herniated disc, cervical [M50.20] Radiculopathy, cervical [M54.12] [facility] DDD (degenerative disc disea se), cervical [M50.30] Weakness [R53.1] [address] Procedures Lumbar 4-5 Posterior Lumbar Instrumented Fusion With or Without Interbody Cage and With Lumbar 3-4 Laminectomy and Lumbar 4-5 [place] [address] Fax: Referral ID Status Reason Start Date Expiration Date Visits Requ ested Visits Authorized [id number] 1 1 Encounter Details Date Type Department Care Team Description 08/03/2021 Surgery [facility] John Champion MD L4 to L5 posterior lumbar [facility] interbody fusion with use [address] ORTHOPEDICS of interbody cage. [place], [place] [address] Gregory-Lauro rsen osteotomies [id number] [address] [address] L4 to L5 by performing [place], [place] bilateral fac etectomies. [address] Posterior fusion L4 through L5. Pos terior (Work) instrumentation with bilateral pedicle screw and shruthi constru ct spanning from L4 to L5. Revision central laminec gagan of L3. Revision centra l laminectomy of L4. Revision centra l laminectomy of L5. Surgery Details Date/Time Status Location OR Service Patient Case Case Traum a Class Class Type Case? 08/03/21 12:00 Posted [facility] OR OR 09 Orthopedics Surgery PM Admit Panel 1 Procedure LRB Anes Op Region Wound Class Commen ts L4 to L5 posterior lumbar interbody fusion N/A General Spin e I-Clean with use of interbody cage. Gregory-Dee osteotomies L4 to L5 by performing bilateral facetectomies. Posterior fusion L4 through L5. Posterior instrumentation with bilateral pedicle screw and shruthi construct spanning from L4 to L5. Revision central laminectomy of L3. Revision central laminectomy of L4. Revision central laminectomy of L5. Laminectomy lumbar posterior microscopic General Spine I-Clean one level Surgeon Surgeon Role Service Panel John Champion MD Primary Orthopedics 1 Nikita Fuentes PA-C Assisting 1 Special Needs Ht 5'7.5 wt 161COVID FV 07/31Antisepsis day of surgery documented in this encounter Social History Tobacco Use Types Packs/Day Years [...] Sign Reading Time Taken Comments Blood Pressure 152/81 08/03/2021 4:15 PM CDT Pulse 45 08/03/2021 4:15 PM CDT Temperature 36.2 ??C (97.1 ??F) 08/03/2021 4:00 PM CDT Respiratory Rate 13 08/03/2021 4:15 PM CDT Oxygen Saturation 96% 08/03/2021 4:15 PM CDT Inhaled Oxygen Concentration - - Weight 77.1 kg (170 lb) 08/03/2021 9:57 AM CDT Height 170.2 cm (5' 7) 08/03/2021 9:57 AM CDT Body Mass Index 26.63 08/03/2021 9:57 AM CDT documented in this encounter Discharge Summaries Nikita Fuentes PA-C - 08/03/2021 9:36 AM CDT [facility] Discharge Summary Michael Johnson Age: [age] year old Date of : 1945 Date of Admission: 08/03/2021 Date of Discharge:: 08/05/2021 5:47 PM Admitting Physician: John Champion MD Discharge Physician: Nikita Fuentes PA-C Home clinic: [facility] Admission Diagnoses: Spinal stenosis [M48.00] Herniated [...] 80 mg by mouth every evening, Historical Kgdzhifjf-Caaocwibtqj-Xqr D (OSTEO BI-FLEX ONE PER DAY) TABS [...] Nikita Fuentes PA-C in two weeks at [facility]. Please call Regina [phone] to schedule. Wound care: Your incision is [...] is 8lbs. Please call our office at [phone] should you develop the following issues: 1.) [...] Nikita Fuentes PA-C in two weeks at [facility]. Please call Clif [phone] to schedule. documented in this encounter Medications [...] 80 mg by mouth 0 every evening Fznyzgdkm-Cxzjiwpqloh-Xmc Take 1 tablet by 0 D (OSTEO [...] Santiago DO - 08/05/2021 10:[address] [facility] Hospitalist Progress Note Name: Michael Johnson Provider: [...] and Lisinopril HLD - continue Atorvastatin. 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 DM [...] past 24 hour(s)). Mathew Santiago DO [facility] Hospitalist [place] [address] 08/05/2021 Noemi Arellano PA-C - 08/05/2021 7:56 AM CDT Orthopedic Surgery 08/05/2021 POD 2 S: Patient voices no unexpected ortho complaints today. Denies chest pain or shortness of breath. Did well overnight with regard to his surgery. is very concerned about constipation due to his history of constipation after TKA a few years ago. [place] states he has not passed any gas. [...] Champion team as scheduled. Noemi Arellano PA-C [phone] Shelton Cowart RN - 08/05/2021 1:14 AM [...] Comment, General Manual Muscle Testing (MMT) Assessment BUEs WFL Bed Mobility Supine-Sit Whitman (Bed Mobility) contact guard Sit-Supine Whitman (Bed Mobility) contact guard Transfers Transfers sit-stand transfer;toilet transfer Sit-Stand Transfer Sit-Stand Whitman (Transfers) contact guard Assistive Device (Sit-Stand Transfers) walker, front-wheeled Toilet Transfer Whitman Level (Toilet Transfer) contact guard Assistive Device (Toilet Transfer) walker, front-wheeled Balance Balance Comments CGA/SBA while in stance FWW level Activities of Daily Living BADL Assessment lower body dressing;upper body dressing Upper Body Dressing Assessment Whitman Level (Upper Body Dressing) minimum assist (75% patient effort) Lower Body Dressing Assessment Whitman Level (Lower Body Dressing) moderate assist (50% [...] sit <> stand with FWW Gait/Stairs (Locomotion) Whitman Level (Gait) contact guard Assistive Device (Gait) [...] should be need it after the surgery. Riky ShoreDivJitendra Housekeeping Aide Fire Safety Inspector Associated attestation - Tashi Gonzales - 08/03/2021 2:12 PM CDT Tashi Wang, staff equine dentist have reviewed and agree with the following equine dentist student's note on 08/03/2021 at 2:12 PM. documented in this encounter H&P Notes Karen Pete MD - 08/03/2021 10:29 AM CDT I have reviewed the surgical (or preoperative) H&P that is linked to this encounter, and examined the patient. There are no significant changes Source Note - Scan, Provider - 08/01/2021 5:12 PM CDT documented in this encounter Consult Notes Grecia Bruner PA-C - 08/04/2021 7:32 AM CDTAssociated Order(s): HOSPITALIST IP CONSULT [facility] Hospitalist Consult Michael Johnson Date of : 1945 Age: [age] year old Date of Admission: 08/03/2021 PCP is [facility] Date of Service: 08/04/2021 Referring MD & Reason for Visit: I was asked by John Champion MD, to manage chronic medical problems. Internal Medicine Physician Landscape Specialist: Grecia Bruner PA-C Assessment and Plan: Michael [...] and Lisinopril HLD - continue Atorvastatin. 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 DM Type 2 - BS 119-228 - continue Metformin and Empagliflozin and ISS protocol Gout - no recent flare. Continue Allopurinol Hx Prostate Cancer - s/p radiation, in remission. Chronic Anemia - hbg 12.5 at recent baseline CODE: full Diet/IVF: regular DVT ppx: scd Grecia VALERAC Internal Medicine Physician Landscape Specialist [facility] Pager: [phone] Chief Complaint: Back Pain HPI: History is obtained from the patient and medical record. This patient is a 76 year old male with a history of HTN, HLD, DM Type 2, CAD, Prostate CA, Gout, Cataract, COVID 19 (2020), Spinal Stenosis whowas admitted s/p L4-5 Fusion.?? EBL 100ml.?? Internal Medicine service was asked to see for management of chronic medical problems.?? Patient reports his low back pain is controlled. He denies BLE numbness or tingling. Denies chest pain, shortness of breath, abdominal pain, nausea. Tolerating po well. Planning to discharge home with family. He spends his [place] in [place]. Past Medical History: Past Medical History: Diagnosis Date ??? Coronary artery disease ??? Diabetes (H) Type 2 ??? Heart attack (H) 2016 ??? High cholesterol ??? Hypertension ??? Osteoarthritis ??? Renal stones ??? Stented coronary artery Stent x 1 Past Surgical History: Past Surgical History: Procedure Laterality Date ??? APPENDECTOMY ??? ARTHROPLASTY HIP Right ??? ARTHROPLASTY KNEE Left 03/31/2018 Procedure: ARTHROPLASTY KNEE; Left total knee arthroplasty; Surgeon: Fidel Hatfield MD; Location: OR ??? BACK SURGERY 1998 microdiscectomy ??? ENDOSCOPY ??? GERMAN FUNDOPLICATION 1993 Barretts Esophagus Social History: Social History Socioeconomic [...] Gatherings with Friends and Family: ??? Attends [employer] Services: ??? Active Member of Clubs or [...] 08/02/2021 at Unknown time Yes Reported, Patient Seelvypoo-Cofywgfgmsy-Kuo D (OSTEO BI-FLEX ONE PER DAY) TABS [...] 0222 08/03/21 2217 08/03/21 1716 08/03/21 1519 [facility] 164* 228* 182* 172* Associated attestation - [...] Miscellaneous Notes Plan of Care - Tabitha Hyde, RN - 08/05/2021 2:37 PM CDT Pt [...] goal(s). See [facility] for goal details. Goals met ?? Therapy recommendation(s): Continue daily walking program ? Plan of Care - Jazzmine Troy OT - 08/05/2021 9:46 AM CDT Occupational Therapy Discharge Summary Reason for therapy discharge: All goals and outcomes met, no further needs identified. Progress towards therapy goal(s). See goals on [facility] Plan [facility] for goal details. Goals [...] Posterior instrumentation with bilateral pedicle screw and shrutih construct spanning from L4 to L5. 5. [...] L5 facetectomy (osteotomy). SURGEON: John Champion MD ENGRAVING SUPERVISOR: Nikita Fuentes PA-C ANESTHESIA: General endotracheal anesthesia [...] Spinous process clamp was placed on L2. [employer] O-arm was brought into the room. A spin was completed and information was successfully transferred to the [employer] system. We reentered the wound at that point. The capsules and osteophytes of L4 to L5 were removed. All bone that was taken down was saved on the back table and later processed and added to our bone graft material for interbody and posterolateral fusion purposes. We reentered the wound and we made our proposed pedicle screw helicopter pilot holes. This was guided by Stealth-guided drill. This was advanced into the pedicle and followed by a straight thoracic probe into thevertebral body. All cortices were intact. The bilateral gutters were then decorticated with placement of one 1 x 5 MagniFuse packet as a bone graft harnessmaker. We later did come back and backfill [...] to the PACU in stable condition. Nikita Fuentes PA-C, was present through the entire procedure. He was present from start to finish and was absolutely necessary. Today, we used fluoroscopy and a Medtronic O-arm. Furthermore, we used autograft, allograft (Medtronic MagniFuse), Globus CREO pedicle screws and Globus RISE interbody cage.No complications. Counts were correct prior to closure. John Champion MD MT: [id number] Name: MICHAEL JOHNSON Account: [id number] : 1945 Procedure Date: 08/03/2021 Document: [id number] Brief Op Note - John Champion MD - 08/03/2021 3:04 PM CDT [facility] Brief Operative Note Pre-operative diagnosis: L3-L5 [...] John Champion MD Pharmacy-Admission Medication History - Carol Fox, [facility] - 07/30/2021 8:29 PM CDT PHYSICIAN PRACTICE ADMINISTRATOR meds completed by pre-admitting nurse, Shelia Lizarraga, [...] by mouth every evening Yes Reported, Patient Nfeswsxzx-Hqigrbjlwze-Wdw D (OSTEO BI-FLEX ONE PER DAY) TABS [...] LAB - BEAKER POCT Performing Organization Address City/State/ZIP Code [place] [address] Lab (1st floor, no room number) (ABNORMAL) Glucose by meter (08/05/2021 7:32 AM CDT) athologist Signature GLUCOSE BY 155 (H) 70 - 99 08/05/2021 [facility] LABORATORY METER POCT mg/dL 7:39 AM CDT POC Specimen Anatomical Collection Method Collection Time Receive d Time (Source) Location / / Volume Laterality Blood BLOOD SPECIMEN / 08/05/2021 7:32 AM 08/05 7:39 Unknown CDT AM CDT John Champion MD LAB - BEAKER POCT Performing Organization Address City/[facility]/ZIP Code [place] [address] [address] Lab (1st floor, no room number) (ABNORMAL) Hemoglobin (08/05/2021 5:37 AM CDT) athologist Signature Hemoglobin 12.2 (L) 13.3 - 17.7 08/05/2021 [facility] LABORATORY g/dL 6:17 AM CDT Specimen Anatomical Collection Method / Collection Time Recei faviola Time (Source) Location / Volume Laterality Blood STRUCTURE OF RIGHT Venipuncture / 08/05/2021 5:37 07/13 6:07 UPPER LIMB / Unknown AM CDT AM CDT Unknown Nikita Fuentes PA-C LAB - BLOOD ORDERABLES Performing Organization Address City/[facility]/ZIP Code [place] [address] Lab (1st floor, no room number) (ABNORMAL) Glucose by meter (08/05/2021 2:32 AM CDT) athologist Signature GLUCOSE BY 164 (H) 70 - 99 08/05/2021 [facility] LABORATORY METER POCT mg/dL 2:39 AM CDT POC Specimen Anatomical Collection Method Collection Time Receive d Time (Source) Location / / Volume Laterality Blood BLOOD SPECIMEN / 08/05/2021 2:32 AM 08/05 2:39 Unknown CDT AM CDT John Champion MD LAB - BEAKER POCT Performing Organization Address City/[facility]/ZIP Code Ph[place] [address] [address] Lab (1st floor, no room number) (ABNORMAL) Glucose by meter (08/04/2021 10:06 PM CDT) P athologist Signature GLUCOSE BY 155 (H) 08/04/2021 [facility] LABORATORY METER POCT mg/dL 10:12 PM CDT POC Specimen Anatomical Collection Method Collection Time Receive d Time (Source) Location / / Volume Laterality Blood BLOOD SPECIMEN / 08/04/2021 10:06 021 Unknown PM CDT 10:12 PM CDT John Champion MD LAB - BEAKER POCT Performing Organization Address City/[facility]/ZIP Code [place] [address] Lab (1st floor, no room number) (ABNORMAL) Glucose by meter (08/04/2021 5:12 PM CDT) P athologist Signature GLUCOSE BY 219 (H) 08/04/2021 [facility] LABORATORY METER POCT mg/dL 5:19 PM CDT POC Specimen Anatomical Collection Method Collection Time Receive d Time (Source) Location / / Volume Laterality Blood BLOOD SPECIMEN / 08/04/2021 5:12 PM 08/04 5:19 Unknown CDT PM CDT John Champion MD LAB - BEAKER POCT Performing Organization Address City/[facility]/ZIP Code Ph[place] [address] Lab (1st floor, no room number) (ABNORMAL) Glucose by meter (08/04/2021 11:58 AM CDT) P athologist Signature GLUCOSE BY 188 (H) 70 - 99 08/04/2021 [facility] LABORATORY METER POCT mg/dL 12:09 PM CDT POC Specimen Anatomical Collection Method Collection Time Receive d Time (Source) Location / / Volume Laterality Blood BLOOD SPECIMEN / 08/04/2021 11:58 2 021 Unknown AM CDT 12:09 PM CDT John Champion MD LAB - BEAKER POCT Performing Organization Address City/State/ZIP Code Phon e Number [facility] [place] [address] Care [address] Lab (1st floor, no room number) (ABNORMAL) Glucose by meter (08/04/2021 7:48 AM CDT) athologist Signature GLUCOSE BY 119 (H) 70 - 99 08/04/2021 [facility] LABORATORY METER POCT mg/dL 7:54 AM CDT POC Specimen Anatomical Collection Method Collection Time Receive d Time (Source) Location / / Volume Laterality Blood BLOOD SPECIMEN / 08/04/2021 7:48 AM 08/04 7:54 Unknown CDT AM CDT John Champion MD LAB - BEAKER POCT Performing Organization Address City/State/ZIP Code Phon e Number [place] [address] Lab (1st floor, no room number) Creatinine (08/04/2021 6:45 AM CDT) athologist Signature Creatinine 0.80 0.66 - 1.25 08/04/2021 LABORATORY mg/dL 11:37 AM CDT GFR Estimate [...] LAB - BLOOD ORDERABLES Performing Organization Address City/[facility]/ZIP [facility] [place] [phone] Lab (1st floor, no room number) (ABNORMAL) Glucose (08/04/2021 6:45 AM CDT) P athologist Signature Glucose 154 (H) 70 - 99 08/04/2021 [facility] LABORATORY mg/dL 7:35 AM CDT Specimen Anatomical Collection Method / Collection Time Recei faviola Time (Source) Location / Volume Laterality Blood STRUCTURE OF RIGHT Venipuncture / 08/04/2021 6:45 /2 02/2021 7:16 UPPER LIMB / Unknown AM CDT AM CDT Unknown John Champion MD LAB - BLOOD ORDERABLES Performing Organization Address City/[facility]/ZIP [place] [phone] [address] Lab (1st floor, no room number) (ABNORMAL) Hemoglobin (08/04/2021 6:45 AM CDT) P athologist Signature Hemoglobin 12.5 (L) 13.3 - 17.7 08/04/2021 [facility] LABORATORY g/dL 7:49 AM CDT Specimen Anatomical Collection Method / Collection Time Recei faviola Time (Source) Location / Volume Laterality Blood STRUCTURE OF RIGHT Venipuncture / 08/04/2021 6:45 09/2 02/2021 7:16 UPPER LIMB / Unknown AM CDT AM CDT Unknown Nikita Fuentes PA-C LAB - BLOOD ORDERABLES Performing Organization Address City/[facility]/ZIP [place] [address] Lab (1st floor, no room number) (ABNORMAL) Glucose by meter (08/04/2021 2:22 AM CDT) P athologist Signature GLUCOSE BY 164 (H) 70 - 08/04/2021 [facility] LABORATORY METER POCT mg/dL 2:29 AM CDT POC Specimen Anatomical Collection Method Collection Time Receive d Time (Source) Location / / Volume Laterality Blood BLOOD SPECIMEN / 08/04/2021 2:22 AM 08/04 2:29 Unknown CDT AM CDT John Champion MD LAB - BEAKER POCT Performing Organization Address City/[facility]/ZIP Code [place] [address] Care Lab [address] Lab (1st floor, no room number) (ABNORMAL) Glucose by meter (08/03/2021 10:17 PM CDT) P athologist Signature GLUCOSE BY 228 (H) 08/03/2021 [facility] LABORATORY METER POCT mg/dL 10:24 PM CDT POC Specimen Anatomical Collection Method Collection Time Receive d Time (Source) Location / / Volume Laterality Blood BLOOD SPECIMEN / 08/03/2021 10:17 021 Unknown PM CDT 10:24 PM CDT John Champion MD LAB - BEAKER POCT Performing Organization Address City/[facility]/ZIP Code [place] [address] Lab (1st floor, no room number) (ABNORMAL) Glucose by meter (08/03/2021 5:16 PM CDT) P athologist Signature GLUCOSE BY 182 (H) 70 08/03/2021 [facility] LABORATORY METER POCT mg/dL 5:23 PM CDT POC Specimen Anatomical Collection Method Collection Time Receive d Time (Source) Location / / Volume Laterality Blood BLOOD SPECIMEN / 08/03/2021 5:16 PM 08/03 5:23 Unknown CDT PM CDT John Champion MD LAB - BEAKER POCT Performing Organization Address [facility]/ZIP Code Phon e Number [place] [address] Lab (1st floor, no room number) [...] 08/03 3:26 Unknown CDT PM CDT John Champion MD LAB - BEAKER POCT Performing Organization Address [facility] Phon e Number [place] [address] Lab (1st floor, no room number) XR Surgery DEMI L/T 5 Min Fluoro w Stills (08/03/2021 2:34 PM CDT) Specimen (Source) Anatomical Location Collection Method / Collectio n Time Received Time / Laterality Volume Narrative [facility]IANT - 08/03/2021 2:35 PM CDT This exam was marked as non-reportable because it will not be read by a radiologist or a [facility] non-radiologis t provider. John Champion MD IMG DIAGNOSTIC IMAGING ORDER ANASTACIO Performing Organization Address [facility]/ZIP Code Phon e Number RAD[facility] XR Surgery DEMI L/T 5 Min Fluoro w Stills (08/03/2021 12:45 PM CDT) Specimen (Source) Anatomical Location Collection Method / Collectio n Time Received Time / Laterality Volume Narrative RADIANT - 08/03/2021 12:47 PM CDT This exam was marked as non-reportable because it will not be read by a radiologist or a [facility] non-radiologis t provider. John Champion MD IMG DIAGNOSTIC IMAGING ORDER ANASTACIO Performing Organization Address [facility]/ZIP Code Phon e Number RAD[facility] Adult Type and Screen (08/03/2021 10:51 AM CDT) Patholo gist Method Time Signature ABO/RH(D) A POS 08/03/2021 RH BLOOD 10:45 AM BANK CDT Antibody Negative Negative 08/03/2021 RH BLOOD Screen 10:45 AM BANK CDT SPECIMEN [id number] 08/03/2021 RH BLOOD EXPIRATION 10:45 AM BANK DATE CDT Specimen Anatomical Collection Method / Collection Time Recei faviola Time (Source) Location / Volume Laterality Blood STRUCTURE OF RIGHT Venipuncture / 08/03/2021 10:51 HAND / Unknown Unknown AM CDT 10:58 AM CDT Sury Gibbs MD LAB - BLOOD BANK TEST ORDER Performing Organization Address City/State/ZIP Code Phon e Number [facility] BLOOD BANK [address] [address] (ABNORMAL) Hemoglobin A1c (08/03/2021 10:51 AM CDT) [...] City/State/ZIP Code Phon [place] [phone] Care Lab [address] Lab (1st floor, no room number) (ABNORMAL) [...] LAB - BEAKER POCT Performing Organization Address City/State/ZIP Code Phon e Number [place] [address] Lab (1st floor, no room number) LAB RESULT - HIM SCAN (07/20/2021 12:00 AM CDT) Specimen (Source) Anatomical Location Collection Method / Collectio n Time Received Time / Laterality Volume 07/20/2021 Narrative This result has an attachment that is no t available. Provider Scan NON-BEAKER LAB TESTING EKG CARDIAC - HIM SCAN (07/20/2021 12:00 AM CDT) Specimen (Source) Anatomical Location Collection Method / Collectio n Time Received Time / Laterality Volume 07/20/2021 Narrative This result has an attachment that is no t available. Provider Scan ECG ORDERABLES documented in this encounter Visit Diagnoses Diagnosis S/P lumbar fusion - Primary Arthrodesis status Spinal stenosis Spinal stenosis, unspecified region othe r than cervical Herniated disc, cervical Displacement of cervical intervertebral disc without myelopathy Radiculopathy, cervical Brachial neuritis or radiculitis nos DDD (degenerative disc disease), cervica l Degeneration of cervical intervertebral disc Weakness Other malaise and fatigue documented in this encounter Admitting Diagnoses Diagnosis [...] EVERY EVENING, First dose on Sat08/04/21 at 2000 atorvastatin (LIPITOR) tablet 80 mg Given 08/04/2021 8:26 PM CDT 80 mg 80 mg, Oral, EVERY EVENING, First dose on Sat08/04/21 at 2000 bupivacaine 0.25 % - Given 08/03/2021 2:39 PM 30 mLs Operative Site/Surgical EPINEPHrine 1:200,000 (PF) CDT Site injection PRN, Starting on Sat08/03/21 at 1439, Intra-procedure calcium carbonate-vitamin D (OSCAL w/D) Given 08/05/2021 11:36 A M CDT 1 tablet per tablet 1 tablet 1 tablet, Oral, 3 TIMES DAILY BEFORE MEALS, First dose on Sat08/03/21 at 1700 Given 08/05/2021 9:01 AM CDT 1 tablet Given 08/04/2021 4:15 PM CDT 1 tablet dextrose 50 % injection 25-50 mL 25-50 mL, Intravenous, EVERY 15 MIN PRN, low blood sug ar, Administer over 1-5 Minutes, Starting on Sat08/03/21 at 1734 , Use if have IV [...] Given 08/04/2021 11:59 AM CDT 10 mg glucagon injection 1 mg 1 mg, Subcutaneous, EVERY 15 MIN PRN, low blood sugar, May repeat x 1 only, Starting on Sat08/03/21 at 1734, May giv e SQ or [...] t controlled with oral analgesics, Starting on Sat08/03/21 at 1 644, Hold IV PRN opioid [...] analgesic side effects. Hold while on IV PROFESSOR OF ARCHAEOLOGY or with regular IV opioid dosing. Given [...] esic side effects. Hold while on IV PROFESSOR OF ARCHAEOLOGY or with regular IV opioid dosing. polyethylene [...] First dose on Patience 08/03/21 at 2000, To prevent [...] PM CDT 3 mLs sodium chloride 0.9% Given 08/03/2021 2:38 PM 800 mLs Operative Site/Surgical (bottle) irrigation CDT Site PRN, Starting on Patience 08/03/21 at 1438, Intra-procedure sodium chloride 0.9% infusion New Bag 08/04/2021 4:31 AM CDT 100 mL/hr at 100 mL/hr, Intravenous, CONTINUOUS, Change to saline lock when PO well tolerated., Starting on Patience 08/03/21 at 1700, Until 08/05/21 at 1947 New Bag 08/03/2021 5:22 PM CDT 100 mL/hr thrombin 5000 units vial Given 08/03/2021 2:38 PM 5,000 Units Operative PRN, Starting on Patience CDT Site /Surgical Site 08/03/21 at 1438, Intra-procedure Vitamin D3 (CHOLECALCIFEROL) tablet 25 m cg [...] 08/04/2021 08/05/2021 acetaminophen (TYLENOL) tablet 975 mg 6420 (Given - Provider : Birdie Nava RN) 0034 (Given - Provider: Marcela Partida RN)0824 (Given - Provider: Tabitha Hyde RN)1615 (Given - Provider: Karma Carroll RN) 0103 (Given - Provider: Shelton Cowart RN)0900 (Given - Provider: Tabitha Hyde, BETO)1721 (Given - Provider: Mohini Jack RN) 975 [...] Tabitha michel RN)1159 (Given - Provider: Tabitha Hyde, BETO)1615 (Given - Provider: Karma Carroll RN) 0901 [...] 0 (Given - Provider: Yelena Flores APRN CONSULTING SERVICES PROJECT MANAGER) Routine, 2 g, Intravenous, PRE-OP/PRE-NE OCEDURE, Starting on Sat08/03/21 at 1033, For 1 dose, Give first dose within 1 hour PRIOR to incision. If patient weight is greater than or equal to 120 kg increa se dose to 3 g., Indications: Perioperative Pharmacoprophyla xis, Pre-procedure empagliflozin (JARDIANCE) tablet 10 mg 1 159 (Given - Provider: Tabitha Hyde RN) 0913 (Given - Provider: Tabitha michel RN) 10 mg, Oral, DAILY, First dose on Sat at 1100, Alt to empagliflozin 12.5mg daily per SONG Bruner. gabapentin (NEURONTIN) capsule 100 mg (COMPLETED) 1116 (Given - Provider: Sally Díaz RN) 100 mg, Oral, PRE-OP/PRE-PROCEDURE, Star ting on Patience 08/03/21 at 1033, For 1 [...] 2229 (Not Given - Provider: Shelton Stevenson i RN - Reason: Order parameters not met) [...] mg 1004 (Given - Provider: Tabitha Hyde RN)2025 (Not Given - Provider: Shelton Cowart RN - Reason: Order parameters not met) 09 (Given - Provider: Tabitha michel RN) 25 mg, Oral, 2 TIMES DAILY, First dose o n Sat08/04/21 at 1000, Hold for sbp<120. HR<60 polyethylene glycol (MIRALAX) Packet 17 g 08 (Given - Provider: Tabitha Hyde RN) 901 (Given - Provider: Tabitha michel RN) 17 g, Oral, DAILY, First dose [...] 1 tablet 2128 (Given - Provider: Birdie Nava RN) 08 (Given - Provider: Tabitha michel RN)2022 (Given - Provider: Shelton Cowart RN) 0900 (Given - Provider: Tabitha Hyde RN) 1 tablet, Oral, 2 TIMES DAILY, First dos e on Sat08/03/21 at 2000, To prevent constipation. [...] Tabitha Hyde RN)1700 (Canceled Entry - Provider: Maura Generic Provider - Comment: Automatically canceled at [...] 25 mcg 2128 (Given - Provider: Birdie Nava RN) 08 (Given - Provider: Tabitha michel RN)2022 (Given - Provider: Shelton Cowart RN) 09 (Given - Provider: Tabitha michel RN) 25 [...] management to improve pain control., Starting on [place] 08/06/21 at 0000, May give first dose [...] Caution to be used when administering multiple FOREIGN LANGUAGE PROFESSOR depressing meds within a short time frame. [...] (Given - Provid er: Yelena Flores APRN CRNA) 0.1-1 mL, Other, EVERY 1 HOUR PRN, [...] 30 mL 0102 (Given - Provider: Shelton Cowart RN) 30 mL, Oral, DAILY PRN, constipation, [...] (ROXICODONE) tablet 10 mg(Linked Group 5) 17 (Given - Provider: Birdie Nava RN)2128 (Given - Provider: Birdie Nava RN) 823 (Given - Provider: Tabitha Hyde RN)1614 (Given - Provider: Karma Carroll RN)2022 (Given - Provider: Shelton Cowart RN) 07 (Given - Provider: Shelton Cowart RN)1135 (Given - Provider: Tabitha Hyde, BETO) 10 mg, Oral, EVERY 4 HOURS PRN, severe p ain, (pain rating 7-10), Starting on Patience 08/03/21 at 1644, Hold oral PRN dose for analgesic side effects. Notify provider to assess for uncontrolled pain or analge sic side effects. Hold while on IV PROFESSOR OF ARCHAEOLOGY or with regular IV opioid dosing. oxyCODONE (ROXICODONE) tablet 5 mg(Linked Group 5) 172 2 (See Alternative - Provider: Birdie Nava, RN)2129 (See Alternative - Provider: Birdie Nava, RN) 0824 (See Alternative - Provider: Tabitha Hyde, BETO)1615 (See Alternative - Provider: Karma Carroll RN)2023 (See Alternative - Provider: Shelton Cowart RN) 0710 (See Alternative - Provider: Shelton Cowart, BETO)1135 (See Alternative - Provider: Tabitha Hyde, BETO) 5 mg, Oral, EVERY 4 HOURS PRN, other, mo derate pain (pain rating 4-6), Starting on Patience 08/03/21 at 1644, Hold oral PRN dose for analgesic side effects. Notify provider to assess for uncontrolled pain or analgesic side effects. Hold while on IV PROFESSOR OF ARCHAEOLOGY or with regular IV opioid dosing. prochlorperazine [...] enema (COMPLETED) 1257 (Given - Provider: Tabitha Hyde, RN) 1 enema, Rectal, ONCE PRN, constipation, [...] after each naloxone dose. Consider transfer to [facility] if patient respiratory parameters hav [...] side effects. Ho ld while on IV PROFESSOR OF ARCHAEOLOGY or with regular IV opioid dosing.
Or oxyCODONE (ROXICODONE) tablet 10 mgJump to med 10 mg, Oral, EVERY 4 HOURS PRN, severe p ain, (pain rating 7-10), Starting on Patience 08/03/21 at 1644
Hold oral PRN dose for analgesic side effects. Notify provider to assess for uncontrolled pain o r analgesic side effects. Hold whi le on IV PROFESSOR OF ARCHAEOLOGY or with regular IV opioid dosing.
Group [...] provider.
documented in this encounter Care Teams Workforce Planner Relationship Specialty Start Date End Date Clinic, [facility] PCP - General 07/06/21 [place], [place] documented as of this encounter
--- OUTSIDE RECORDS SUMMARY | 2022-07-20 21:44 | XMS_ITS | Encounter Summary ---
:1945 Author Organization [facility] Address [address] [place] [address] Care Team Providers Name Role Phone [employer], [facility] Primary Care Provider [phone] Reason for Visit Auth/Cert Specialty Diagnoses / [...] 3-4 Laminectomy and Lumbar 4-[place] [address] Fax: Referral ID Status Reason Start Date Expiration Date Visits Requ ested Visits Authorized [id number] 1 1 Encounter Details Date Type Department Care Team Description 08/03/2021 Anesthesia Event M [facility] Karen Pete MD [facility] [place] [address] [place], [place] [id number] PeriOp Services Yelena Flores, DEMOGRAPHIC ANALYST [facility] ANESTHESIA [address] [place], [place] [address] [address] [place] [address] Anesthesia Record Procedure Summary Procedure Name Responsible Anesthesia Start Anesthesia Stop Anesthesiologist Time Time L4 to L5 posterior Karen Pete MD 08/03/21 1128 08/03/21 1 516 lumbar interbody fusion with use of interbody cage. Gregory-Dee osteotomies L4 to L5 by performing bilateral facetectomies. Posterior fusion L4 through L5. Posterior instrumentation with bilateral pedicle screw and shruthi construct spanning from L4 to L5. Revision central laminectomy of L3. Revision central laminectomy of L4. Revision central laminectomy of L5. (N/A Spine) Events Date Time Event Comment 08/03/2021 1032 1103 WANT AD SUPERVISOR Ready for Procedure 1128 An Start 1128 AN REASSESS I attest that I have identified and re-evaluated the patient immediately before the induction of anesthesia and I am satisfied that t he anesthetic plan is suitable for the patient's condition and procedure. The f irst vital signs recorded are pre- inducti on. Yelena Flores APRN WANT AD SUPERVISOR 1128 An Start Data 1131 MD Present 1132 An Induction 1136 An Intubation 1136 MD Present 1247 MD Present 1433 MD Present 1512 AN Extubation All extubation c riteria met prior to removal. 1512 an stop data 1516 An Stop Electronically s igned by Theresa Rush APRN WANT AD SUPERVISOR on Jul 3:21 PM Name Total fentaNYL (SUBLIMAZE) injection 150 mcg propofol (DIPRIVAN) injection 10 mg/mL vial 810.05 mg rocuronium 10mg/mL 70 mg glycopyrrolate 0.2mg/mL 0.8 mg neostigmine 1mg/mL 4 mg dexamethasone 4mg/mL 10 mg ondansetron 2mg/mL 4 mg HYDROmorphone 1 mg ePHEDrine 50mg/mL 15 mg lidocaine 1 % 0.1-1 mL 80 mg ceFAZolin Sodium (ANCEF) injection 2 g 2 g tranexamic acid 1 g in 100 mL 0.7% NaCl IV bag (premix ) 1 g dexmedetomidine (PRECEDEX) 4 mcg/mL in sodium chloride 0.9 % 100 mL 50.24 mcg infusion lactated ringers infusion 1,600 mL Agents Name NO HELIOX O2 N2O Air Exp Sevoflurane Exp Isoflurane Exp Desflurane Exp N2O Ins Sevoflurane Ins Isoflurane Ins Desflurane O2 Auxiliary Blood No blood administrations on file. Lines, Drains, and Airways Type Details Placement Removal Incision/Surgical Site 03/31/18; 0813; Left; 03/31/18 0813 by Radha Encinas RN Incision/Surgical Site 08/03/21; 1440; Back; 08/03/21 1440 by mack on Karen Rush, drain RN Peripheral IV 08/03/21; 1108; 08/03/21 1108 by 08/05/21 1754 b y Distal, Left, Dorsal; Sally Díaz RN Spie l, Allissa, RN Lower forearm Urethral Catheter 08/03/21; 1133; No; 08/03/21 1133 by 08/04/21 0532 by Anesthesia; 16 fr Karen Rush Woltz, Hal ey A, RN RN ETT Placement Date: 08/03/21 1207 by 08/03/21 1512 b y 08/03/21; Placement Yelena Flores Wood, Sara h Ann, Time: 1207 (created DEMOGRAPHIC ANALYST WANT AD SUPERVISOR DEMOGRAPHIC ANALYST WANT AD SUPERVISOR via procedure documentation); Mask Ventilation: 1; Ease of Intubation: Easy; Technique: Direct laryngoscopy; ETT Type: Single; Tube Size: 8 mm; DL Blade Size: Zee 3; Grade View: 1; Adjucts: Stylet; Placement Person: WANT AD SUPERVISOR; Attempts: 1; Depth: 23 cm Closed/Suction Drain 08/03/21; 1430; Left; 08/03/21 1430 by 07/13 03/31 1847 by Back; Accordion; 10 Karen Rush Inpatien t, Nurse Marco PÉREZ documented in this encounter Social History Tobacco [...] / COVID-19? documented as of this encounter OR Notes Anesthesia Postprocedure Evaluation - Karen Pete MD - 08/03/2021 3:30 PM CDT Patient: Michael Summers Procedure(s): Lumbar 4-5 Posterior Lumbar Instrumented Fusion With Interbody Cage and With Lumbar 3-4 Laminectomy and Lumbar 4-5 Revision Laminectomy Diagnosis:Spinal stenosis [M48.00] Herniated disc, cervical [M50.20] Radiculopathy, cervical [M54.12] DDD (degenerative disc disease), cervical [M50.30] Weakness [R53.1] Diagnosis Additional Information: No value filed. Anesthesia Type: General Note: Disposition: Admission Postop Pain Control: Uneventful Sign Out: Well controlled pain PONV: No Neuro/Psych: Uneventful Sign Out: Acceptable/Baseline neuro status Airway/Respiratory: Uneventful Sign Out: Acceptable/Baseline resp. status CV/Hemodynamics: Uneventful Sign Out: Acceptable CV status; No obvious hypovolemia; No obvious fluid overload Other NRE: NONE DID A NON-ROUTINE EVENT OCCUR? No Last vitals: Vitals Value Taken Time BP 149/78 08/03/21 1525 Temp 97.8 ??F (36.6 ??C) 08/03/21 1514 Pulse 52 08/03/21 1528 Resp 10 08/03/21 1528 SpO2 99 % 08/03/21 1528 Vitals shown include unvalidated device data. Electronically Signed By: Karen Pete MD August 03, 2021 3:30 PM Anesthesia Procedure Notes - Yelena Flores APRN WANT AD SUPERVISOR - 08/03/2021 12:05 PM CDTAssociated Order(s): Airway Airway Procedure Start/Stop Times: 08/03/2021 11:36 AM and 08/03/2021 11:40 AM Staff - Performed By: WANT AD SUPERVISOR Consent for Airway Urgency: elective Indications and Patient Condition Indications for airway management: rajeev-procedural Mask difficulty assessment: 1 - vent by mask Final Airway Details Final airway type: endotracheal airway Successful airway: ETT - single Endotracheal Airway Details ETT size (mm): 8.0 Successful intubation technique: direct laryngoscopy DL Blade Type: Zee 3 Grade View of Cords: 1 Adjucts: stylet Position: Right Measured from: gums/teeth Secured at (cm): 23 Bite block used: Soft Post intubation assessment Placement verified by: capnometry and equal breath sounds Number of attempts at approach: 1 Secured with: plastic tape Ease of procedure: easy Dentition: Intact and Unchanged Anesthesia Preprocedure Evaluation - Karen Pete MD - 08/03/2021 10:31 AM CDT Anesthesia Pre-Procedure Evaluation Patient: Michael Summers : 1945 Preoperative Diagnosis: Spinal stenosis [M48.00] Herniated disc, cervical [M50.20] Radiculopathy, cervical [M54.12] DDD (degenerative disc disease), cervical [M50.30] Weakness [R53.1] Procedure : Procedure(s): Lumbar 4-5 Posterior Lumbar Instrumented Fusion With or Without Interbody Cage and With Lumbar 3-4 Laminectomy and Lumbar 4-5 Revision Laminectomy Past Medical History: Diagnosis Date ??? Coronary artery disease ??? Diabetes (H) Type 2 ??? Heart attack (H) 2015 ??? High cholesterol ??? Hypertension ??? Osteoarthritis ??? Renal stones ??? Stented coronary artery Stent x 1 Past Surgical History: Procedure Laterality Date ??? APPENDECTOMY ??? ARTHROPLASTY HIP Right ??? ARTHROPLASTY KNEE Left 03/31/2018 Procedure: ARTHROPLASTY KNEE; Left total knee arthroplasty; Surgeon: Fidel Hatfield MD; Location: OR ??? BACK SURGERY 1997 microdiscectomy ??? ENDOSCOPY ??? GERMAN FUNDOPLICATION 1993 [place] Esophagus No Known Allergies Social History Tobacco Use ??? Smoking status: Never Smoker ??? Smokeless tobacco: Never Used Substance Use Topics ??? Alcohol use: No Wt Readings from Last 1 Encounters: 08/03/21 77.1 kg (170 lb) Anesthesia Evaluation ROS/MED HX ENT/Pulmonary: - neg pulmonary ROS Neurologic: Cardiovascular: (+) hypertension-----CHF (EF 40-45% Echo 2018) METS/Exercise Tolerance: Hematologic: Musculoskeletal: GI/Hepatic: Renal/Genitourinary: Endo: (+) type II DM, Psychiatric/Substance Use: Infectious Disease: Malignancy: Other: Physical Exam Airway Mallampati: II TM distance: > 3 FB Neck ROM: full Respiratory Devices and Support Dental Cardiovascular cardiovascular exam normal Pulmonary pulmonary exam normal OUTSIDE LABS: CBC: Lab Results Component Value Date WBC 5.2 04/19/2006 HGB 11.0 (L) 04/02/2018 HGB 12.1 (L) 04/01/2018 HCT 44.8 04/19/2006 PLT 158 04/19/2006 BMP: Lab Results Component Value Date NA 142 04/19/2006 POTASSIUM 4.0 11/26/2015 POTASSIUM 3.9 04/19/2006 CHLORIDE 102 04/19/2006 CO2 30 04/19/2006 BUN 14 04/19/2006 CR 0.69 04/01/2018 CR 0.88 11/26/2015 GLC 169 (H) 08/03/2021 GLC 163 (H) 11/26/2015 COAGS: No results found for: PTT, INR, FIBR POC: Lab Results Component Value Date BGM 154 (H) 04/02/2018 HEPATIC: No results found for: ALBUMIN, PROTTOTAL, ALT, AST, GGT, ALKPHOS, BILITOTAL, BILIDIRECT, DIANE OTHER: Lab Results Component Value Date A1C 6.2 (H) 03/31/2018 TYSON 8.9 04/19/2006 TSH 1.61 11/25/2015 CRP 3.8 04/29/2019 SED 8 04/29/2019 Anesthesia Plan ASA Status: 3 Anesthesia Type: General. - Airway: ETT Induction: Intravenous. Maintenance: Balanced. Consents Anesthesia Plan(s) and associated risks, benefits, and realistic alternatives discussed. Questions answered and patient/customer operations representative(s) expressed understanding. - Discussed with: Patient Postoperative Care PONV prophylaxis: Ondansetron (or other 5HT-3), Dexamethasone or Solumedrol Comments: Karen Pete MD documented in this encounter Miscellaneous Notes Addendum Note - Sury Gibbs MD - 08/03/2021 3:41 PM CDT Addendum created 08/03/211540 by Sury Gibbs MD Order list changed Anesthesia Care Transfer Note - Theresa Rush APRN WANT AD SUPERVISOR - 08/03/2021 3:20 PM CDT Patient: Michael Summers Procedure(s): Lumbar 4-5 Posterior Lumbar Instrumented Fusion With Interbody Cage and With Lumbar 3-4 Laminectomy and Lumbar 4-5 Revision Laminectomy Diagnosis: Spinal stenosis [M48.00] Herniated disc, cervical [M50.20] Radiculopathy, cervical [M54.12] DDD (degenerative disc disease), cervical [M50.30] Weakness [R53.1] Diagnosis Additional Information: No value filed. Anesthesia Type: General Note: Oropharynx: oral airway in place Level of Consciousness: drowsy Oxygen Supplementation: face mask Level of Supplemental Oxygen (L/min / FiO2): 6 Independent Airway: airway patency satisfactory and stable Dentition: dentition unchanged Vital Signs Stable: post-procedure vital signs reviewed and stable Report to RN Given: handoff report given Patient transferred to: PACU Handoff Report: Identifed the Patient, Identified the Reponsible Provider, Reviewed the pertinent medical history, Discussed the surgical course, Reviewed Intra-OP anesthesia mangement and issues during anesthesia, Set expectations for post-procedure period and Allowed opportunity for questions and acknowledgement of understanding Vitals: Vitals Value Taken Time BP 146/79 08/03/21 1515 Temp 97.8 ??F (36.6 ??C) 08/03/21 1514 Pulse 45 08/03/21 1519 Resp 14 08/03/21 1519 SpO2 99 % 08/03/21 1519 Vitals shown include unvalidated device data. Electronically Signed By: Theresa Rush APRN CRNA August 03, 2021 3:20 PM documented in this encounter Plan of Treatment Not on filedocumented as of this encounter Procedures Procedure Name Priority Date/Time Associated Comments Diagnosis ANE AIRWAY ETT Routine 08/03/2021 12:05 Results f or this PERFORMABLE PM CDT procedure are i n the results section. documented in this encounter Results ANE AIRWAY ETT PERFORMABLE (08/03/2021 12:05 PM CDT) Narrative Yelena Flores APRN WANT AD SUPERVISOR - 08/03/2021 12:05 PM CDT Yelena Flores APRN CRNA ? 08/03/2021 12:07 PM Airway ? Procedure Start/Stop Times: 2020 11:36 AM and 08/03/2021 11:40 AM Staff - ? Performed By: WANT AD SUPERVISOR Consent for Airway ? Urgency: elective Indications and Patient Condition ? Indications for airway management : rajeev-procedural ? Mask difficulty assessment: 1 - v ent by mask Final Airway Details ? Final airway type: endotracheal a irway ? Successful airway: ETT - single Endotracheal Airway Details ? ETT size (mm): 8.0 ? Successful intubation technique: direct laryngoscopy ? DL Blade Type: Zee 3 ? Grade View of Cords: 1 ? Adjucts: stylet ? Position: Right ? Measured from: gums/teeth ? Secured at (cm): 23 ? Bite block used: Soft Post intubation assessment ? Placement verified by: capnometry and equal breath sounds ? Number of attempts at approach: 1 ? Secured with: plastic tape ? Ease of procedure: easy ? Dentition: Intact and Unchanged Karen Pete MD [place] [facility] documented in this encounter Visit Diagnoses Not on filedocumented in this encounter Administered Medications Inactive Administered Medications - up to 3 most recent administrations Medication Order MAR Action Action Date Dose Rate Site ceFAZolin Sodium (ANCEF) injection Given 08/03/2021 11:40 AM CDT 2 g 2 g Routine, 2 g, Intravenous, PRE-OP/PRE-PROCEDURE, Starting on [place] 08/03/21 at 1033, For 1 dose, Give first dose within 1 hour PRIOR to incision. If patient weight is greater than or equal to 120 kg increase dose to 3 g., Indications: Perioperative Pharmacoprophylaxis, Pre-procedure dexamethasone (DECADRON) injection Given 08/03/2021 11:40 AM CDT 10 mg Intravenous, PRN, Administer over 1 Minutes, Starting on [place] 08/03/21 at 1140, Anesthesia Intra-op dexmedetomidine (PRECEDEX) 4 Rate/Dose 08/03/2021 12:45 0.2 mcg/kg/h r 3.855 mcg/mL in sodium chloride Change PM CDT mL/hr 0.9 % 100 mL infusion Intravenous, CONTINUOUS PRN, Starting on [place] 08/03/21 at 1139, Anesthesia Intra-op Rate/Dose Change 08/03/2021 12:20 PM CDT 0.3 mcg/kg/hr 5.783 mL/hr New Bag 08/03/2021 11:39 AM CDT 0.2 mcg/kg/hr 3.855 mL/hr ePHEDrine injection Given 08/03/2021 1:12 PM CDT 5 mg Intravenous, PRN, Starting on [place] 08/03/21 at 1206, Anesthesia Intra-op Given 08/03/2021 12:47 PM CDT 5 mg Given 08/03/2021 12:06 PM CDT 5 mg fentaNYL (PF) (SUBLIMAZE) injection Given 08/03/2021 12:19 PM CDT 50 mcg Intravenous, PRN, Administer over 3-5 Minutes, Starting on [place] 08/03/21 at 1132, Anesthesia Intra-op Given 08/03/2021 11:32 AM CDT 100 mcg glycopyrrolate (ROBINUL) injection Given 08/03/2021 2:46 PM CDT 0.6 mg Intravenous, PRN, Administer over 1-2 Minutes, Starting on [place]ience 08/03/21 at 1202, Anesthesia Intra-op Given 08/03/2021 12:02 PM CDT 0.2 mg HYDROmorphone (DILAUDID) injection Given 08/03/2021 12:11 PM CDT 0.5 mg Intravenous, PRN, Starting on [place] 08/03/21 at 1153, Anesthesia Intra-op Given 08/03/2021 11:53 AM CDT 0.5 mg lactated ringers infusion New Bag 08/03/2021 12:27 PM CDT at 25 mL/hr, Intravenous, CONTINUOUS, IF patient NOT on dialysis., Pre-procedure, Starting on [place] 08/03/21 at 1100, Until Patience 08/03/21 at 1513 New Bag 08/03/2021 11:28 AM CDT lidocaine 1 % 0.1-1 mL Given 08/03/2021 11:32 AM CDT 80 mg 0.1-1 mL, Other, EVERY 1 HOUR PRN, [...] lidocaine cream on the same site., Pre-procedure neostigmine (PROSTIGMINE) injection Given 08/03/2021 2:46 PM CDT 4 mg Intravenous, PRN, Starting on [place] 08/03/21 at 1446, Anesthesia Intra-op ondansetron (ZOFRAN) injection Given 08/03/2021 12:48 PM CDT 4 mg Intravenous, PRN, Administer over 2-5 Minutes, Starting on [place] 08/03/21 at 1248, Anesthesia Intra-op propofol (DIPRIVAN) injection New Bag 08/03/2021 11:38 AM 50 m cg/kg/min 23.13 mL/hr 10 mg/mL vial CDT Intravenous, PRN, Starting on [place] 08/03/21 at 1132, Anesthesia Intra-op Given 08/03/2021 11:32 AM CDT 120 mg rocuronium injection Given 08/03/2021 12:16 PM CDT 20 mg Intravenous, PRN, Starting on [place] 08/03/21 at 1132, Anesthesia Intra-op Given 08/03/2021 11:32 AM CDT 50 mg tranexamic acid 1 g in 100 mL 0.7% NaCl IV bag Given 0 08/03/2021 11:44 AM CDT 1 g (premix) 1 g, Intravenous, ONCE, On [place] 08/03/21 at 1100, For 1 dose, Prior to incision., Pre-procedure documented in this encounter Care Teams Adoption Coordinator Relationship Specialty Start Date End Date [facility] PCP - General 07/06/21 [place], [place] documented as of this encounter
--- OUTSIDE RECORDS SUMMARY | 2022-07-20 21:44 | XMS_ITS | Encounter Summary ---
:1945 Author Organization [facility] Address [address] [place] [address] Care Team Providers Name Role Phone [facility] Primary Care Provider [phone] Encounter Details Date Type Department Care Team Description 08/03/2021 Travel Social History Tobacco Use Types Packs/Day Years [...] / COVID-19? documented as of this encounter Plan of Treatment Not on filedocumented as of this encounter Visit Diagnoses Not on filedocumented in this encounter Care Teams Cigar Roller Relationship Specialty Start Date End Date [facility] PCP - General 07/06/21 [place], [place] documented as of this encounter
--- OUTSIDE RECORDS SUMMARY | 2022-07-20 21:44 | XMS_ITS | Clinical Summary ---
:1945 Author Organization [place] Address [address] [facility] [place] [address] Care Team Providers Name Role Phone [facility], [facility] Primary Care Provider [phone] Allergies No known active allergies Medications Medication Sig Dispensed Refills Start Date End Date Status ATORVASTATIN CALCIUM Take 80 mg by 0 Active PO mouth every evening METOPROLOL TARTRATE PO Take 25 mg by 0 Active mouth 2 times daily ALLOPURINOL PO Take 300 mg by 0 Active mouth every evening METFORMIN HCL PO Take 1,000 mg by 0 Active mouth 2 times daily (with meals) Nitroglycerin Place 0.4 mg 0 Act anupam (NITROSTAT SL) under the tongue every 5 minutes as needed for chest pain Ascorbic Acid (VITAMIN Take 500 mg by 0 Active C PO) mouth every evening empagliflozin Take 12.5 mg by 0 Active (JARDIANCE) 25 MG TABS mouth daily tablet lisinopril (ZESTRIL) Take 10 mg by 0 Active 10 MG tablet mouth daily Garlic 1000 MG CAPS Take 1 capsule by 0 Active mouth daily CINNAMON PO Take 1,000 mg by 0 A ctive mouth daily Boswellia-Glucosamine- Take 1 tablet by 0 Active Vit D (OSTEO BI-FLEX mouth daily ONE PER DAY) TABS vitamin D3 Take 1 tablet by 0 Ac tive (CHOLECALCIFEROL) 50 mouth daily mcg (2000 units) tablet Quercetin 250 MG TABS Take 2 tablets by 0 Active mouth daily calcium Take 1 tablet by 270 tablet 0 08/04/2021 A ctive carbonate-vitamin D mouth 3 times (OSCAL W/D) 500-200 daily (with MG-UNIT meals) tabletIndications: S/P lumbar fusion senna-docusate Take 1-2 tablets 30 tablet 0 08/04/2021 Active (SENOKOT-S/PERICOLACE) by mouth 2 times 8.6-50 MG daily Take while tabletIndications: S/P on oral narcotics lumbar fusion to prevent or treat constipation. acetaminophen Take 2 tablets 100 tablet 0 08/04/2021 Active (TYLENOL) 325 MG (650 mg) by mouth tabletIndications: S/P every 4 hours as lumbar fusion needed for other (mild pain) hydrOXYzine (ATARAX) Take 1 tablet (10 30 tablet 0 08/04/2021 Active 10 MG mg) by mouth tabletIndications: S/P every 6 hours as lumbar fusion needed for itching or anxiety (with pain, moderate pain) oxyCODONE (ROXICODONE) Take 1-2 tablets 30 tablet 0 08/04/2021 Active 5 MG (5-10 mg) by tabletIndications: S/P mouth every 4 lumbar fusion hours as needed for moderate to severe pain (Moderate to Severe) Active Problems Problem Noted Date S/P lumbar fusion 08/03/2021 S/P total knee arthroplasty 03/31/2018 Social History Tobacco Use Types Packs/Day Years Used Date Never Smoker Smokeless Tobacco: Never Used Alcohol Use Standard Drinks/Week Comments No 0 (1 standard drink = 0.6 oz pure alcoho l) Sex Assigned at Date Recorded Not on file Last Filed Vital Signs Vital Sign Reading [...] Mass Index 26.63 08/03/2021 9:57 AM CDT Plan of Treatment Health Maintenance Due Date Last Done Comments ADVANCE CARE PLANNING 1945 ANNUAL REVIEW OF HM ORDERS 1945 COVID-19 Vaccine (#1) 1945 HEPATITIS C SCREENING 1964 ZOSTER IMMUNIZATION (2 of 09/24/2007 07/30/2007, 07/12/2007 3) FALL RISK ASSESSMENT 2011 MEDICARE ANNUAL WELLNESS 2011 VISIT Pneumococcal Vaccine: 65+ 08/16/2016 08/16/2015, 04/12/2015 , Years (2 - PPSV23 or PCV20) 05/05/2013, Addition al history exists DTAP/TDAP/TD IMMUNIZATION 05/28/2017 05/28/2007, 05/11/2007 , (3 - Td or Tdap) 05/17/2001 LIPID 11/26/2020 11/26/2015 PHQ-2 (once per calendar 11/11/2021 year) INFLUENZA VACCINE (#1) 2022 07/21/2020, 08/21/2019, 08/15/2017, Additional history exists HEPATITIS B IMMUNIZATION Aged Out No long er eligible based on patient 's age to complete this topic IPV IMMUNIZATION Aged Out No longer eligi ble based on patient 's age to complete this topic MENINGITIS IMMUNIZATION Aged Out No longe r eligible based on patient 's age to complete this topic Medical Devices Implanted Type Area Director Non Profit Device Shelf Model / Identifier Expiration Serial / Date Lot Graft Bone Magnifuse [id number] Bone/Tissue N/A: [employer] 06/08/2023 [id number] / Implanted: Qty: 1 on 08/03/2021 by John Champion MD at [facility] /Biologic Spine [id number] / Lumbar Bone Cement Simplex Full Dose [id number] Cement, Left: BERNICE 06/10/2020 [id number] / Implanted: Qty: 1 on 03/31/2018 by Fidel Hatfield MD at [facility] Bone Knee ORTHOPEDICS / [id number] Imp Plate Tibial Zim Nexgen Size 5 Metallic Left: [employer] 11/10/2027 [id number] / Implanted: Qty: 1 on 03/31/2018 by Fidel Hatfield MD at [facility] Hardware/An Knee / chor [id number] Imp Comp Patella Zim Nexgen 9.0x35mm Total Joint Left: [employer] 02/08/2026 [id number] / Implanted: Qty: 1 on 03/31/2018 by Fidel Hatfield MD at [facility] Component/I Knee / nsert [id number] Rise Spacer [id number], 7-14 N/A: [employer] [id number] / Implanted: Qty: 1 on 08/03/2021 by John Champion MD at [facility] Spine / Lumbar [id number] 2020 Insurance Payer Benefit Plan / Subscriber ID Effective Phone Address T ype Group Dates COMMERCIAL GENERIC [id number] 2006-Prese [phone] [place] [phone] [place] [address] MEDICARE MEDICARE FOR HB [id number] 2011-Prese [phone] ATTN CLAIMS Medicare SUPPLEMENT nt [address] [place] [address] BCBS BCBS [place] [id number] 2016-Prese [phone] [address] [place] [phone] [place] [address] Michael Summers Third Republican Self 1945 [phone] [id number] [facility] [place] (Home) [facility] [phone] [place], [place] (Work) [id number] Advance Directives For more information, please contact: [phone] Documents on File Type Date Recorded 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
--- OUTSIDE RECORDS SUMMARY | 2022-07-20 21:45 | XMS_ITS | Encounter Summary ---
:1945 Author Organization [place] Address [address] [place] [address] Care Team Providers Name Role Phone [facility], [facility] Primary Care Provider [phone] Encounter Details Date Type Department Care Team Description 07/09/2021 Orders Only [facility] John Champion MD Encounter for [facility] [address] [facility] [place], [place] [address] [id number] [address] [place] [address] Social History Tobacco Use Types Packs/Day Years Used Date Never Smoker Smokeless Tobacco: Never Used Alcohol Use Standard Drinks/Week Comments No 0 (1 standard drink = 0.6 oz pure alcoho l) Sex Assigned at Date Recorded Not on file documented as of this encounter Plan of Treatment Not on filedocumented as of this encounter Results Asymptomatic COVID-19 Virus (Coronavirus) by PCR Nose (07/31/2021 3:13 PM CDT) Analysis Performed At Patho logist Time Signature SARS CoV2 PCR Negative Negative 08/01/2021 [facility] 3:55 PM CDT LABORATORY Comment: NEGATIVE: SARS-CoV-2 (COVID-19) RNA not detected, presumed negative. Specimen Anatomical Collection Method Collection Time Receive d Time (Source) Location / / Volume Laterality Swab NASAL STRUCTURE / Non-blood 07/31/2021 3:13 PM 07/13 3:13 Unknown Collection / CDT PM CDT Unknown Narrative [facility] - 08/01/2021 3:55 PM C DT Testing was performed using the Aptima SARS-CoV-2 Assay on the [employer] Instrument System. Additional in formation about this Emergency Use Authorization (EUA) assay can be found via the Lab Guide. This test should be ordered for t he detection of SARS-CoV-2 in individuals who meet SARS-CoV-2 clinical and/or epidemiological criteria. Test performance is unknown in asymptomatic patients. This test is for in vitro diagnostic use unde r the FDA EUA for laboratories certified under CLIA to per form high complexity testing. This test has not been FDA cleared or ap proved. A negative result does not rule out the presence of PCR in hibitors in the specimen or target RNA in concentration below the li [place] of detection for the assay. The possibility of a false negati ve should be considered if the patient's recent exposure or clinica l presentation suggests COVID-19. This test was validated by the [facility] Infectious Diseases Diagnostic [facility]. This lab oratory is certified under the Clinical Laboratory Improvement Amen dments of 1987 (CLIA-88) as qualified to perform high complexity lab oratory testing. John Champion MD LAB - MICRO GENERAL ORDERABL ES Performing Organization Address City/State/ZIP Code Phon e Number [facility] [place] [id number] Diag. Lab [address] [facility] [facility] Infectious [place], [place] [phone] Diseases Diagnostic [id number], [facility] Lab ([facility]) [address] [facility] documented in this encounter Visit Diagnoses Diagnosis Encounter for screening for other viral diseases documented in this encounter Care Teams Tube Splicer Relationship Specialty Start Date End Date Clinic, [facility] PCP - General 07/06/21 [place], [place] documented as of this encounter
--- OUTSIDE RECORDS SUMMARY | 2022-07-20 21:45 | XMS_ITS | Encounter Summary ---
:1945 Author Organization [facility] Address [address] [facility] [place] [address] Care Team Providers Name Role Phone Dk Baird Primary Care Provider Reason for Referral Rehab Therapy Physical Therapy Specialty Diagnoses / Procedures Referred By Contact Refer red To Contact Noemi Arellano PA-C [facility] [address] [place] [address] Referral ID Status Reason Start Date Expiration Date Visits Requ ested Visits Authorized Reason for Visit Auth/Cert Specialty Diagnoses / Procedures Referred By Contact Refer red To Contact Surgery Diagnoses DJD Rh Periop Services Procedures ARTHROPLASTY KNEE [address] [place], [place] [phone] Fax: Referral ID Status Reason Start Date Expiration Date Visits Requ ested Visits Authorized [id number] 1 1 Encounter Details Date Type Department Care Team Description 03/31/2018 - Hospital Encounter [facility] Ion Baig atus post total 04/02/2018 [facility] Ortho Spine MD Yan left knee [address] [facility] replacement [place], [place] ORTHOPEDICS (Primary Dx) [phone] [phone] [address] [place] [phone] Social History Tobacco Use Types Packs/Day Years Used Date Never Smoker Smokeless Tobacco: Never Used Alcohol Use Standard Drinks/Week Comments No 0 (1 standard drink = 0.6 oz pure alcoho l) Sex Assigned at Date Recorded Not on file documented as of this encounter Last Filed Vital Signs Vital Sign Reading Time Taken Comments Blood Pressure 165/71 04/02/2018 9:45 AM CDT Pulse 62 04/01/2018 11:53 PM CDT Temperature 36.8 ??C (98.2 ??F) 04/02/2018 7:38 AM CDT Respiratory Rate 18 04/02/2018 4:48 AM CDT Oxygen Saturation 96% 04/01/2018 3:00 PM CDT Inhaled Oxygen Concentration - - Weight 83.9 kg (185 lb) 03/31/2018 5:40 AM CDT Height 170.2 cm (5' 7) 03/31/2018 5:40 AM CDT Body Mass Index 28.98 03/31/2018 5:40 AM CDT documented in this encounter Discharge Summaries Noemi Arellano PA-C - 04/02/2018 6:48 AM CDT Diagnosis: left DJD knee Procedure: left Cemented total knee replacement Surgeon: Ion Baig MD Patient underwent total knee replacement without complication. Patient had typical transient post-opanemia. Patient's hospital stay included physical therapy and DVT prophylaxis. After discussion withpatient regarding no history of DVT and current high mobility, patient is discharged with ASA for home DVT pphx. Patient will follow -up in the office 10-14days post-op for wound check. Please refer tochart for any other specifics of this hospital stay. Noemi Arellano PA-C documented in this encounter Discharge Instructions Discharge InstructionsTeagan Moore RN - 04/02/2018 12:14 PM CDT Return to clinic in 10-14 days. Call [phone] to schedule or if you experience any problems before your scheduled appointment. 1. Do exercises at home as instructed by therapist twice a day. Continue outpatient therapy as ordered by your doctor. 2. Ice knee after exercises and therapy. 3. Examine dressing daily for problems. 4. May shower, can get dressing wet, no soaking (no bathtubs, pools or hot tubs) 5. Notify your dentist or physician of your implant so you can get antibiotics before any dental work or before any invasive procedure (ie: colonoscopy) 6. Remove anti-embolism stockings (Luis Enrique hose) at bedtime and wear during the day. Aquacel dressing: DO NOT CHANGE DRESSING DAILY. Leave this dressing on until follow-up appointment with Orthopedic Surgeon. Dressing is waterproof, can shower with it on, pat dry when done. No soaking such as in tub baths, pools or hot tubs While on narcotic pain medication, to prevent constipation: 1. Drink plenty of water to keep well hydrated 2. May take over the counter Colace or Senna (follow instructions on label) Call your physician if: ([phone]) 1. Persistent fever greater than 101 degrees with body chills or excessive sweating. 2. Increased/persistent redness, localized warmth, tenderness, drainage or swelling at dressing site. Greater than 50% drainage on dressing. 3. Persistent pain not controlled with oral pain medications, ice and rest. 4. No bowel movement in 3 days (may use Milk of Magnesia or other over the counter remedy). 5. Chest pain, shortness of breath, and/or calf pain with excessive swelling. 6. Generalized feeling of illness such as nausea/vomiting and/or lightheaded/dizziness . 7. Any other questions or concerns related to your surgery/recovery. Thank you for allowing [facility] to participate in your cares!! documented in this encounter Medications at Time of Discharge Medication Sig Dispensed Refills Start Date End Date ALLOPURINOL PO Take 300 mg by mouth 0 every evening Ascorbic Acid (VITAMIN Take 500 mg by mouth 0 C PO) every evening ATORVASTATIN CALCIUM PO Take 80 mg by mouth 0 every evening METFORMIN HCL PO Take 1,000 mg by 0 mouth 2 times daily (with meals) METOPROLOL TARTRATE PO Take 25 mg by mouth 2 [address] 0.4 mg under 0 (NITROSTAT SL) the tongue every 5 minutes as needed for chest pain aspirin 325 MG EC Take 1 tablet (325 60 tablet 0 04/02/2018 05/03/2018 tabletIndications: mg) by mouth 2 times Status post total left daily knee replacement acetaminophen (TYLENOL) Take 3 tablets (975 200 tablet 0 08/04/2021 325 MG mg) by mouth every 8 tabletIndications: hours Status post total left knee replacement GABAPENTIN PO Take 300 mg by mouth 0 0 07/21/2021 2 times daily as needed GLIPIZIDE PO Take 5 mg by mouth 2 0 times daily (before meals) Misc Natural Products Take 1,200 mg by 0 08/04/2021 (TART DENTON ADVANCED mouth every morning PO) multivitamin, Take 1 tablet by 0 08/04 therapeutic with mouth daily minerals (MULTI-VITAMIN) TABS tablet naproxen (NAPROSYN) 500 Take 1 tablet (500 60 tablet 1 03/1207/21/2021 MG tabletIndications: mg) by mouth 2 times Status post total left daily (with meals) knee replacement Aspirin is to be taken a minimum of 2 hours prior to taking Naproxen. oxyCODONE IR 1 tab po q 4 hrs prn pain scale 3-6, 60 tablet 0 04/02/2018 07/21/2021 (ROXICODONE) 5 MG 2 tabs po q 4hrs prn pain scale 7-10 tabletIndications: Status post total left knee replacement senna-docusate Take 1-2 tablets by 60 tablet 1 04/02/2018 0 07/21/2021 (SENOKOT-S;PERICOLACE) mouth 2 times daily 8.6-50 MG per as needed for tabletIndications: constipation Status post total left knee replacement documented as of this encounter Progress Notes Theresa Martin, OT - 04/02/2018 8:41 AM CDT 04/02/18 0750 Quick Adds Type of Visit Initial Occupational Therapy Evaluation Living Environment Lives With spouse Living Arrangements house (split level home) Number of Stairs to Enter Home 2 Number of Stairs Within Home 5 Transportation Available car;family or friend will provide Living Environment Comment pt lives with in split level home, plans to spend most time on one floor Self-Care Usual Activity Tolerance good Current Activity Tolerance moderate Regular Exercise (tennis and pickle ball) Equipment Currently Used at Home none Activity/Exercise/Self-Care Comment pt has shower chair and RTS w/arms from prior R hip surgery ~20 yrs ago Functional Level Prior Ambulation 0-->independent Transferring 0-->independent Toileting 0-->independent (standard height toilet) Bathing 0-->independent (walk-in shower, handheld showerhead, shower chair) Dressing 0-->independent Fall history within last six months yes Number of times patient has fallen within last six months 1 Prior Functional Level Comment independent at baseline, had recently used shower chair in shower prior to surgery General Information Onset of Illness/Injury or Date of Surgery - Date 03/31/18 Referring Physician Liu BOWEN Patient/Family Goals Statement return home Additional Occupational Profile Info/Pertinent History of Current Problem POD#2 L TKA, no KI needed;PMHx R CHIOMA ~20yrs ago Precautions/Limitations fall precautions Weight-Bearing Status - LLE weight-bearing as tolerated Cognitive Status Examination Orientation orientation to person, place and time Level of Consciousness alert Able to Follow Commands WNL/WFL Personal Safety (Cognitive) WNL/WFL Cognitive Comment appropriate cognition throughout session Pain Assessment Patient Currently in Pain Yes, see Vital Sign flowsheet Mobility Bed Mobility Comments SBA Transfer Skills Transfer Comments walker, SBA Transfer Skill: Bed to Chair/Chair to Bed Level of [place]: Bed to Chair stand-by assist Physical Assist/Nonphysical Assist: Bed to Chair verbal cues Weight-Bearing Restrictions weight-bearing as tolerated Assistive Device - Transfer Skill Bed to Chair Chair to Bed Rehab Eval standard walker Transfer Skill: Sit to Stand Level of [place]: Sit/Stand stand-by assist Physical Assist/Nonphysical Assist: Sit/Stand verbal cues Transfer Skill: Sit to Stand weight-bearing as tolerated Assistive Device for Transfer: Sit/Stand standard walker Balance Balance Comments impaired post-op, using walker currently Lower Body Dressing Level of [place]: Dress Lower Body minimum assist (75% patients effort) Physical Assist/Nonphysical Assist: Dress Lower Body verbal cues Toileting Level of [place]: Toilet stand-by assist Physical Assist/Nonphysical Assist: Toilet verbal cues Grooming Level of [place]: Grooming stand-by assist Physical Assist/Nonphysical Assist: Grooming verbal cues Instrumental Activities of Daily Living (IADL) Previous Responsibilities medication management;finances;driving IADL Comments pt and share IADLs, pt has no concerns with being able to assist him as needed during recovery Activities of Daily Living Analysis Impairments Contributing to Impaired Activities of Daily Living balance impaired;pain;strength decreased General Therapy Interventions Planned Therapy Interventions ADL retraining;IADL retraining;transfer training Clinical Impression Criteria for Skilled Therapeutic Interventions Met yes, treatment indicated OT Diagnosis impaired ability to manage ADL/IADLs independently Influenced by the following impairments post-op pain, fatigue, impaired balance and strength Assessment of Occupational Performance 1-3 Performance Deficits Identified Performance Deficits impaired ability to manage bathing, dressing, and standing self cares Clinical Decision Making (Complexity) Low complexity Therapy Frequency (one time eval/treat) Predicted Duration of Therapy Intervention (days/wks) 1 day Anticipated Discharge Disposition Home with Assist Risks and Benefits of Treatment have been explained. Yes Patient, Family & other staff in agreement with plan of care Yes Clinical Impression Comments pt demonstrates ability to benefit from skilled OT services to improve level of safety and independence [facility] TM 6 Clicks ?? 2016, Trustees of [facility], under license to [email or web address]. All rights reserved. 6 Clicks Short Forms Daily Activity Inpatient Short Form [facility]??? 6 Clicks Daily Activity Inpatient Short Form 1. Putting on and taking off regular lower body clothing? 3 - A Little 2. Bathing (including washing, rinsing, drying)? 3 - A Little 3. Toileting, which includes using toilet, bedpan or urinal? 4 - None 4. Putting on and taking off regular upper body clothing? 4 - None 5. Taking care of personal grooming such as brushing teeth? 4 - None 6. Eating meals? 4 - None Daily Activity Raw Score (Score out of 24.Lower scores equate to lower levels of function) 22 Total Evaluation Time Total Evaluation Time (Minutes) 8 IST Yao Elmore MD - 04/02/2018 7:55 AM CDT [facility] Hospitalist consult progress Note Yao Elmore MD 04/02/18 Reason for Stay (Diagnosis): Total knee arthroplasty Assessment and Plan: Summary of Stay: Michael Johnson is a 72 year old male with medical history including hypertension, CAD, gout, type 2 diabetes and osteoarthritis who was hospitalized for left total knee arthroplasty by Dr. Baig on 03/31. He is doing well postoperatively I have asked that he follow his blood pressure moving forward. ?? 1. DJD s/p left total knee arthroplasty on 03/31: The patient is doing well, currently has well controlled pain and is hemodynamically stable. Will defer diet, activity, DVT prophylaxis, and pain control to the primary team. Continue physical and occupational therapy. Social work consulted for possibleplacement needs. Continue incentive spirometry and check hemoglobin to evaluate for surgical blood loss and potential need for transfusion. ?? 2. Hypertension: Resume metoprolol. He is intermittently been somewhat hypertensive though this may be in part related to the stress of surgery/postop pain. He and his note he hasn't really been hypertensive in the past and his metoprolol is more for CAD as below. Monitor, may need to consider inc reasing metoprolol but I suspect his current intermittently high bp is more related to the stress/pain of surgery and recovery. I have relayed my concerns to he and his and they plan to follow-up closely in clinic to recheck blood pressure when he is not in pain. He denies any cardiopulmonary complaints at this time. ?? 3. Type 2 diabetes: Resume glipizide and metformin, will also have medium scale sliding scale insulin available while here. A1c is just 6.2 indicating excellent control. ?? 4. Gout: No current sign of a flare. Resume allopurinol ?? 5. Hx of CAD w/ GREGORIA placed in [place] in 11/2015. Resume BB, statin. Resume ASA. No recent anginal symptoms or cardiopulmonary complaints. --it appears to be on an increased dose of aspirin for DVT prophylaxis following surgery, discussed that he should go back to his usual dosing of aspirin once he is done with increased dose. ?? # Pain Assessment: Per primary surgical team Interval History (Subjective): No acute events Somewhat hypertensive, discussed management as above He is hoping to discharge home this evening which should be okay pending blood pressure control and progress with therapy looks quite well today, no confusion. He denies any cardiopulmonary complaints I did update his at the bedside as well. Physical Exam: Last Vital Signs: BP 179/79 (BP Location: Right arm) Pulse 62 Temp 98.2 ??F (36.8 ??C) (Oral) Resp 18 Ht 1.702m (5' 7) Wt 83.9 kg (185 lb) SpO2 96% BMI 28.98 kg/m2 Intake/Output Summary (Last 24 hours) at 04/02/18 0757 Last data filed at 04/02/18 0443 Gross per 24 hour Intake 360 ml Output 1225 ml Net -865 ml General: Alert, awake, no acute distress. HEENT: NC/AT, eyes anicteric, external occular movements intact, face symmetric. Dentition WNL, MM moist. Cardiac: RRR, S1, S2. No murmurs appreciated. Pulmonary: Normal chest rise, normal work of breathing. Lungs CTA BL Abdomen: soft, non-tender, non-distended. Bowel Sounds Present. No guarding. Extremities: no deformities. Warm, well perfused. Skin: no rashes or lesions noted. Warm and Dry. Neuro: No focal deficits noted. Speech clear. Coordination and strength grossly normal. Psych: Appropriate affect. Medications: All current medications were reviewed with changes reflected in problem list. Data: All new lab and imaging data was reviewed. Labs: Recent Labs Lab 04/01/18 0703 CR 0.69 GFRESTIMATED >90 GFRESTBLACK >90 Recent Labs Lab 04/02/18 0626 HGB 11.0* Imaging: Recent Results (from the past 48 hour(s)) XR Knee Port Left 1/2 Views Narrative XR KNEE PORT LT 1/2 VW 03/31/2018 9:25 AM HISTORY: Knee replacement. COMPARISON: None. Impression IMPRESSION: 2 views of the left knee show a knee arthroplasty in place. Hardware appears well seated. A surgical drain is in place. MD Yao RUBIN MD. Noemi Arellano PA-C - 04/02/2018 6:42 AM CDT Orthopedic Surgery 04/02/2018 POD 2 S: Patient voices no unexpected ortho complaints today. Denies chest pain or shortness of breath. Wants to go home this julia. O: Blood pressure 175/77, pulse 62, temperature 98.7 ??F (37.1 ??C), temperature source Oral, resp. rate 18, height 1.702 m (5' 7), weight 83.9 kg (185 lb), SpO2 96 %. Lab Results Component Value Date HGB 11.0 04/02/2018 No results found for: INR I/O last 3 completed shifts: In: 1220 [P.O.:360; I.V.:860] Out: 1255 [Urine:1225; Drains:30] Distal extremity CMSI bilaterally. Calves are negative bilaterally, both soft and nontender. The dressing is C/D/I. A: Mr. Johnson is doing well status post Procedure(s): ARTHROPLASTY KNEE. P: Continue physical therapy. Continue DVT pphx with ASA due to high mobility and low risk factors for DVT. Anticipate discharge to home later today. Noemi Arellano PA-C [phone] Noemi Arellano PA-C - 04/01/2018 6:40 AM CDT Orthopedic Surgery 04/01/2018 POD 1 S: Patient voices no unexpected ortho complaints today. Denies chest pain or shortness of breath. Had a lot of pain over night. O: Blood pressure 148/75, temperature 97.7 ??F (36.5 ??C), temperature source Oral, resp. rate 13, height 1.702 m (5' 7), weight 83.9 kg (185 lb), SpO2 95 %. Lab Results Component Value Date HGB 16.5 04/19/2006 No results found for: INR I/O last 3 completed shifts: In: 3252 [P.O.:540; I.V.:2712] Out: 1170 [Urine:1015; Drains:150; Blood:5] Distal extremity CMSI bilaterally. Calves are negative bilaterally, both soft and nontender. The dressing is C/D/I. Justin wrap removed. A: Mr. Johnson is doing well status post Procedure(s): ARTHROPLASTY KNEE. P: Continue physical therapy. Continue DVT pphx with ASA due to high mobility and low risk factors for DVT. Anticipate discharge to home on POD 2 julia or pOD 3 am. Noemi Arellano PA-C [phone] Calixto Cierra Aryan, PT - 03/31/2018 9:42 PM CDT 03/31/182025 Quick Adds Type of Visit Initial PT Evaluation Living Environment Lives With spouse Living Arrangements house Number of Stairs to Enter Home 2 Number of Stairs Within Home 5 Living Environment Comment split level home; can stay on one level once up or down. spouse will be around to help Self-Care Usual Activity Tolerance good Current Activity Tolerance fair Activity/Exercise/Self-Care Comment was limited with activity prior to surgery due to knee pain. Functional Level Prior Ambulation 0-->independent Transferring 0-->independent Toileting 0-->independent Bathing 0-->independent Dressing 0-->independent Eating 0-->independent Communication 0-->understands/communicates without difficulty Swallowing 0-->swallows foods/liquids without difficulty Cognition 0 - no cognition issues reported Fall history within last six months yes Number of times patient has fallen within last six months 1 Prior Functional Level Comment in at baseline prior to admit. General Information Onset of Illness/Injury or Date of Surgery - Date 03/31/[address] Jayy Baig Patient/Family Goals Statement to go home or Pertinent History of Current Problem (include personal factors and/or comorbidities that impact the POC) s/p L TKA Weight-Bearing Status - LLE weight-bearing as tolerated General Observations in bed on arrival Cognitive Status Examination Level of Consciousness alert Follows Commands and Answers Questions 100% of the time Pain Assessment Patient Currently in Pain Yes, see Vital Sign flowsheet Range of Motion (ROM) ROM Comment knee flex to 35-40 degrees; ext lacking less than 10 degrees Strength Strength Comments fair quad set; indep with SLR with slight lag after 5+ reps. Bed Mobility Bed Mobility Comments Raul with bed mobility Transfer Skills Transfer Comments Raul with sit to stand Gait Gait Comments amb 5' forward/back with ww and Raul; no buckling noted Balance Balance Comments SBA sitting EOB; standing with CGA and Raul General Therapy Interventions Planned Therapy Interventions bed mobility training;gait training;ROM;strengthening;stretching;transfer training;home program guidelines Clinical Impression Criteria for Skilled Therapeutic Intervention yes, treatment indicated PT Diagnosis s/p L TKA Influenced by the following impairments decreased strength and ROM; pain Functional limitations due to impairments decreased indep with mobility Clinical Presentation Stable/Uncomplicated Clinical Presentation Rationale based on status with mobility Clinical Decision Making (Complexity) Moderate complexity Therapy Frequency` 2 times/day Predicted Duration of Therapy Intervention (days/wks) 3 days Anticipated Equipment Needs at Discharge (has ww, crutches and cane) Anticipated Discharge Disposition Home with Outpatient Therapy Risk & Benefits of therapy have been explained Yes Patient, Family & other staff in agreement with plan of care Yes [facility] TM 6 Clicks ?? 2016, Trustees of [facility], under license to [email or web address]. All rights reserved. 6 Clicks Short Forms Basic Mobility Inpatient Short Form [facility]??? 6 Clicks V.2 Basic Mobility Inpatient Short Form 1. Turning from your back to your side while in a flat bed without using bedrails? 3 - A Little 2. Moving from lying on your back to sitting on the side of a flat bed without using bedrails? 3 - ALittle 3. Moving to and from a bed to a chair (including a wheelchair)? 3 - A Little 4. Standing up from a chair using your arms (e.g., wheelchair, or bedside chair)? 3 - A Little 5. To walk in hospital room? 3 - A Little 6. Climbing 3-5 steps with a railing? 3 - A Little Basic Mobility Raw Score (Score out of 24.Lower scores equate to lower levels of function) 18 Total Evaluation Time Total Evaluation Time (Minutes) 15 Adriana Lanier RN - 03/31/2018 11:08 AM CDT Pt arrived from surgery to room 625 at around 1030am, Pt is alert and oriented, surgery side dressing is intact, no bleeding noticed. Pt VS stable except Heart rate which is on low 40s. Hospitalised paged for low heart rate.Pt denies pain.Pt feet feels numb and can hardly move them. Unable to lift either leg off bed. Unable to dorsi or planter flexion. Capnography on. Bed alarm on. Rendon. Hemovac. Lungs clear. Orientated to room . documented in this encounter Consult Notes Yao Elmore MD - 04/01/2018 8:18 AM CDTAssociated Order(s): HOSPITALIST IP CONSULT [facility] Hospitalist Consult Note Name: Michael Johnson Date of : 1945 Age: [age] year old Date of admission: 03/31/2018 Primary care provider: Dk Baird Requesting Physician: Dr. Baig Reason for consult: Post-operative medical management Assessment and Plan: Michael Johnson is a 72 year old male with medical history including hypertension, CAD, gout, type 2 diabetes and osteoarthritis who was hospitalized for left total knee arthroplasty by Dr. Baig on 03/31. 1. DJD s/p left total knee arthroplasty on 03/31: The patient is doing well, currently has well controlled pain and is hemodynamically stable. Will defer diet, activity, DVT prophylaxis, and pain control to the primary team. Continue physical and occupational therapy. Social work consulted for possibleplacement needs. Continue incentive spirometry and check hemoglobin to evaluate for surgical blood loss and potential need for transfusion. 2. Hypertension: Resume metoprolol, hold parameters added. He is intermittently been somewhat hypertensive so will have IV hydralazine available as well though this may be in part related to the stressof surgery/postop pain. 3. Type 2 diabetes: Resume glipizide and metformin, will also have medium scale sliding scale insulin available. A1c is just 6.2 indicating excellent control. If he has prolonged nausea or vomiting develop I would hold his metformin and glipizide. He is somewhat hyperglycemic now however, so should beokay to continue these. 4. Gout: No current sign of a flare. Resume allopurinol 5. Hx of CAD w/ GREGORIA placed in [place] in 11/2015. Resume BB, statin. Resume ASA. No recent anginal symptoms or cardiopulmonary complaints. Thank you for the consultation, we will continue to follow along during the hospitalization. Please page with any questions or concerns. History of Present Illness: Michael Johnson is a 72 year old male with medical history including hypertension, CAD, gout, type 2 diabetes and osteoarthritis who was hospitalized for left total knee arthroplasty by Dr. Baig on 03/31. He overall feels well. The patient had no complications related to the procedure and has had an unremarkable post-operativecourse to this point. Currently pain is adequately controlled at rest but worse when working w/ PT. No nausea, vomiting, diarrhea or constipation. No fevers, chills, diaphoresis. No chest pain, palpitations, dyspnea. Tolerating oral intake. No excessive somnolence and patient is fully alert and oriented. The patient has no other complaints at this time. Left knee drain in place. Past Medical History: Past Medical History: Diagnosis Date ??? Diabetes (H) Type 2 ??? High cholesterol ??? Hypertension ??? Osteoarthritis Past Surgical History: Past Surgical History: Procedure Laterality Date ??? APPENDECTOMY ??? ARTHROPLASTY HIP Right ??? ENDOSCOPY Social History: Social History Substance Use Topics ??? Smoking status: Never Smoker ??? Smokeless tobacco: Never Used ??? Alcohol use No Family History: Family history was fully reviewed and non-contributory in this case. Allergies: No Known Allergies Medications: Prior to Admission medications Medication Sig Last Dose Taking? Auth Provider ALLOPURINOL PO Take 300 mg by mouth every evening 03/30/2018 at Unknown time Yes Reported, Patient Ascorbic Acid (VITAMIN C PO) Take 500 mg by mouth every evening 03/29/2018 Yes Reported, Patient ASPIRIN PO Take 81 mg by mouth daily 03/24/2018 Yes Reported, Patient ATORVASTATIN CALCIUM PO Take 80 mg by mouth every evening 03/30/2018 at Unknown time Yes Reported, Patient GABAPENTIN PO Take 300 mg by mouth 2 times daily as needed 03/29/2018 Yes Reported, Patient GLIPIZIDE PO Take 5 mg by mouth 2 times daily (before meals) 03/30/2018 at pm Yes Reported, Patient METFORMIN HCL PO Take 1,000 mg by mouth 2 times daily (with meals) 03/28/2018 Yes Reported, Patient METOPROLOL TARTRATE PO Take 12.5 mg by mouth 2 times daily 03/31/2018 at Unknown time Yes Reported, Patient Misc [...] 5 minutes as needed for chest pain never used Yes Reported, Patient Current hospital administered medication list (MAR) also reviewed. Review of Systems: A comprehensive greater than 10 system review of systems was carried out. Pertinent positives and negatives are noted above. Otherwise negative for contributory info. Physical Exam: Blood pressure 160/69, temperature 98.8 ??F (37.1 ??C), resp. rate 17, height 1.702 m (5' 7), weight 83.9 kg (185 lb), SpO2 96 %. Exam: GENERAL: No apparent distress. Awake, alert, and fully oriented. HEENT: Normocephalic, atraumatic. Extraocular movements intact. CARDIOVASCULAR: Regular rate and rhythm without murmurs or rubs. No S3. PULMONARY: Clear bilaterally. ABDOMINAL: Soft, non-tender, non-distended. Bowel sounds normoactive. No hepatosplenomegaly. EXTREMITIES: left knee wrapped, drain in place w/ sanguinous output. No cyanosis or clubbing. No edema. NEUROLOGICAL: CN 2-12 grossly intact, no focal neurological deficits. DERMATOLOGICAL: No rash, ulcer, ecchymoses, jaundice. Data: Imaging: Reviewed. EKG/Telemetry: Reviewed. Labs: Reviewed. Recent Labs Lab 04/01/18 0703 HGB 12.1* Lab Results Component Value Date NA 142 04/19/2006 Lab Results Component Value Date CHLORIDE 102 04/19/2006 Lab Results Component Value Date BUN 14 04/19/2006 Lab Results Component Value Date POTASSIUM 3.9 04/19/2006 Lab Results Component Value Date CO2 30 04/19/2006 Lab Results Component Value Date CR 0.69 04/01/2018 CR 1.05 04/19/2006 Yao Elmore MD [facility] Hospitalist April 01, 2018 documented in this encounter Miscellaneous Notes Plan of Care - Theresa Martin OT - 04/02/2018 2:30 PM CDT Problem: Patient Care Overview Goal: Plan of Care/Patient Progress Review OT: Evaluation and treatment completed POD#2 L TKA, no KI needed during session; pt doing well, anticipating discharge home today Supervisor Money Room OT Patient plan for discharge: home with assist Current status: Pt reports having AE of or director and sock aid at home that he used after a previous hip surgery ~20 yrs ago; pt able to review and use AE to don sock, SBA; required Min A to tie laces onshoe; pt completed sit<>stand transfers and functional mobility in room with FWW, SBA; pt receptive to recommendations for safety with FWW at toilet for both standing and sitting tasks; pt demonstrated safety and able to complete transfer with comfort height toilet, FWW, SBA, simulated home set up as pt has RTS to improve ease of task at home; pt receptive to shower transfer instructions, able to follow demo and cues in order to complete transfer with FWW, grab bar, shower chair, CGA and FWW st abilization; pt in agreement to recommendations for supervision/assist at home as well as additional practice with home set-up prior to completing bathing task Barriers to return to prior living situation: none anticipated Recommendations for discharge: home with assist for IADLs/ADLs as needed; pt has a or director and sock aid at home from previous hip surgery Rationale for recommendations: pt able to demonstrate safety with ADLs Entered by: Theresa Martin 04/02/2018 3:08 PM Occupational Therapy Discharge Summary Reason for therapy discharge: Discharged to home. All goals and outcomes met, no further needs identified. Progress towards therapy goal(s). See goals on Care Plan in [facility] electronic health record for goal details. Goals met Therapy recommendation(s): No further therapy is recommended. Plan of Care - Shelton Cowart RN - 04/02/2018 1:40 PM CDT Problem: Patient Care Overview Goal: Plan of Care/Patient Progress Review Outcome: Adequate for Discharge Date Met: 04/02/18 Pt is being discharged to home with spouse. All assessments within normal limits. Passed therapy. Plan of Care - Araceli Winters PTA - 04/02/2018 11:37 AM CDT Problem: Patient Care Overview Goal: Plan of Care/Patient Progress Review Supervisor Money Room PT Patient plan for discharge: home after PM session Current status: stairs with S as needed for home will need SEC will buy himself. Gait with walker to150'x2 Barriers to return to prior living situation: none Recommendations for discharge: PT- Per plan established by the Physical Therapist, the discharge recommendation is home with OP PT Rationale for recommendations: will met goals after PM session Entered by: Araceli Winters 04/02/2018 11:36 AM PT- goals are met currently recommend to PT for discharge bought SEC for use on stairs. Associated attestation - Eileen Pulido PT - 04/02/2018 2:13 PM CDT Physical Therapy Discharge Summary Reason for therapy discharge: Discharged to home. Progress towards therapy goal(s). See goals on Care Plan in Epic electronic health record for goal details. Goals met Therapy recommendation(s): Continued therapy is recommended. Rationale/Recommendations: OPPT to maximize outcomes. Note: Pt not seen by documenting PT on this date. Information obtained from chart review and discussion with SOLAR DESIGN ENGINEER. Plan of Care - Liz Pan RN - 04/02/2018 6:55 AM CDT Problem: Patient Care Overview Goal: Plan of Care/Patient Progress Review A/Ox4, Vss: stable, up with x1,gbelt and walker, Justin wrap on per pt. Request. cms intact, drsg: c/d/i.PO pain meds managing pain, voiding in good amts, plans to dc to home today. Plan of Care - Zaida Godoy RN - 04/01/2018 9:54 PM CDT Problem: Knee Arthroplasty (Total, Partial) (Adult) Goal: Signs and Symptoms of Listed Potential Problems Will be Absent, Minimized or Managed (Knee Arthroplasty) Signs and symptoms of listed potential problems will be absent, minimized or managed by discharge/transition of care (reference Knee Arthroplasty (Total, Partial) (Adult) CPG). A&Ox4. VSS ex elevated BP (baseline HTN). A1 with gb and walker. Voiding ok. Tolerating a regular diet ok. Dressing CDI. Passing gas. Blood sugars monitored. Taking oxy 10mg for pain management which is effective with sched tylenol. Plan to D/C home Sat/. Plan of Care - Nisha Huang, PT - 04/01/2018 3:08 PM CDT Problem: Patient Care Overview Goal: Plan of Care/Patient Progress Review Supervisor Money Room PT Patient plan for discharge: Home with OP PT POD#2 pm if able Current status: Pain L knee and L ankle 7/10 down to 5/10. Pt still not able to SLR or SAQ due to pain, but no knee buckling , so no KI needed. Min A with transfers, walking with his std walker 150' with CGA, reciprocal gait pattern. Barriers to return to prior living situation: none, will try stairs tomorrow. Recommendations for discharge: home with OP PT Rationale for recommendations: skilled PT needed for progressing ROM and strength in OP setting upondc. Entered by: Nisha Huang 04/01/2018 3:05 PM Plan of Care - Shelton Cowart RN - 04/01/2018 3:01 PM CDT Problem: Patient Care Overview Goal: Plan of Care/Patient Progress Review Pt VSS, alert and oriented. Pt complain of ankle pain as much as knee pain. Pt received iv dilaudid for break through pain. Voiding post rendon. Hemovac removed. Pt glucose was high 232, hospitalists restarted his metformin. Pt plans to go home at discharge. Plan of Care - Shelton Cowart RN - 04/01/2018 1:45 PM CDT Problem: Knee Arthroplasty (Total, Partial) (Adult) Goal: Signs and Symptoms of Listed Potential Problems Will be Absent, Minimized or Managed (Knee Arthroplasty) Signs and symptoms of listed potential problems will be absent, minimized or managed by discharge/transition of care (reference Knee Arthroplasty (Total, Partial) (Adult) CPG). Outcome: Improving VSS, PT alert and oriented,Pt pain controlled with poain medication and ice irvero, got up twice to sit on the chair Plan of Care - Nisha Huang, PT - 04/01/2018 10:04 AM CDT Problem: Patient Care Overview Goal: Plan of Care/Patient Progress Review Supervisor Money Room PT Patient plan for discharge: Home w/ spouse OP PT Current status: Pain high last night, little sleep per pt report. Pain this am 7/10 L knee and ankleis sore feels sprained after surgery. Pt cannot SLR indep this am, appears more due to pain inhibited than true weakness. ROM to approx 35-40, pain limited. gil ex, min A at most bed mob. CGA/cues transfers, no signs of buckling with stability assessment in standing, ambulated in room approx 35' with fww, no buckling noted. Up to chair x 1 hr as gil, ice and elevation LLE. Barriers to return to prior living situation: none, will practice stairs, do not anticipate any difficulties Recommendations for discharge: Home w/OP PT. Pt has a std walker Rationale for recommendations: Pt moving as expected POD#1, motivated, good support system. OP PT for advancement of knee ROM/strength will be neededed Entered by: Nisha Hunag 04/01/2018 10:00 AM Plan of Care - Liz Pan RN - 04/01/2018 7:27 AM CDT Problem: Patient Care Overview Goal: Plan of Care/Patient Progress Review A/Ox4, vss: stable, c/o: intolerable pain r/t Justin wrap, justin-wrap removed with relief. CMS intact, Drsg: intact. Hemovac patent. PO pain meds managing pain, rendon d/c'd, due to void. Passing flatus. Nursing continue to monitor. Plan of Care - Kesha Fermin RN - 03/31/2018 9:37 PM CDT Problem: Patient Care Overview Goal: Plan of Care/Patient Progress Review Outcome: Improving Pt A&O. VS stable; bradycardic (upper 50's), states this is baseline. Afebrile. 2L O2. Capnography on. PO pain meds managing pain. CMS: L leg tingling, improving throughout shift. Dressing CDI; acewrap on. Up w/ A1, gait belt, and walker. Rendon patent and draining; hemovac in place. Tolerating regular diet. Will continue to monitor. Plan of Care - Cierra De Luna, PT - 03/31/2018 8:26 PM CDT Problem: Patient Care Overview Goal: Plan of Care/Patient Progress Review PT eval complete. INdep with SLR, no KI needed. Pain 6/10 at rest, increases with mobility. Vitals stable during session. Knee flex to approx 35-40 degrees. Encouraged pt to work on knee flex/heel slides as able while laying in bed. Also educ on knee flex stretches while sitting EOB. Supervisor Money Room PT Patient plan for discharge: home with OP PT; with . Current status: Raul with bed mobility, sit to stand,amb in room with ww. No buckling noted. Barriers to return to prior living situation: stairs with railing (split level). Pt is able to stay on one level with needed once up or dn. Recommendations for discharge: Home with OP PT. Pt has a ww, cane and crutches. Rationale for recommendations: Anticipate pt will progress well with mobility. Entered by: Cierra De Luna 03/31/2018 8:24 PM ACP (Advance Care Planning) - Dk Butcher - 03/31/2018 1:45 PM CDT [facility] Progress Note [facility] Ortho 6th floor Received and reviewed ACP documents from pt. Copies made and forwarded to HIM to be validated and scanned into EMR. Silviano Perera. Staff Readiness Paraprofessional Pager #[phone] Plan of Care - Sheltno Cowart, RN - 03/31/2018 1:08 PM CDT Problem: Knee Arthroplasty (Total, Partial) (Adult) Goal: Signs and Symptoms of Listed Potential Problems Will be Absent, Minimized or Managed (Knee Arthroplasty) Signs and symptoms of listed potential problems will be absent, minimized or managed by discharge/transition of care (reference Knee Arthroplasty (Total, Partial) (Adult) CPG). Outcome: No Change Pt following plan of care. Still has numbness to his bilateral legs.Able to lift right leg off bed now. Moderate strength now bilateral ankles. HR remains 45-50. Ate light lunch. Denies pain. Planning to go home with at d/c. Op Note - Ion Baig MD - 03/31/2018 8:34 AM CDT Procedure Date: 03/31/2018 DATE OF PROCEDURE: 03/31/2018 PREOPERATIVE DIAGNOSIS: Osteoarthritis, left knee. POSTOPERATIVE DIAGNOSIS: Osteoarthritis, left knee. PROCEDURE PERFORMED: Left total knee arthroplasty. SURGEON: Ion Baig MD JITNEY DRIVER: Noemi Arellano PA-C ANESTHESIA: Spinal with adductor canal block. ESTIMATED BLOOD LOSS: 25 mL. TOURNIQUET TIME: Approximately 70 minutes. COMPLICATIONS: None. DESCRIPTION OF PROCEDURE: The patient was taken to the operating room where after successful administration of spinal anesthetic, adductor canal block, antibiotic prophylaxis, tranexamic acid and sterile prep and drape, the leg was exsanguinated and an anterior incision was made followed by medial arthrotomy with a moderate anteromedial soft tissue release. An intramedullary 5-degree guide was used with anterior referencing at 3 degrees of external rotation which did appear to match the epicondylar axis and a box cut was made for PCL substitution. Retractors were carefully placed about the proximaltibia and a cut was made perpendicular to the mechanical axis of the tibia, removing approximately 2mm of medial bone. Tibial rotation was matched to the femur and within the medial third of the tibial tubercle. Posterior osteophytes were removed under direct vision, and with the knee in hyperflexiona capsular injection was performed for postoperative pain control, carefully protecting the neurovascular structures. Ten millimeters was resected from the undersurface of a 27 mm patella and sized appropriately. After copious lavage and drying, single stage simplex cementing was performed for a Zenaida NexGen cruciate substituting size G femur, size 5 tibia, 10 mm polyethylene insert, and a 35 mm patellar button. There was excellent stability with no laxity at 0, 30 or 90 degrees. There was easy gravity flexion. There was full extension with no recurvatum. Copious antibiotic and Betadine irrigation was performed followed by layered closure over a deep drain. There were no complications. ION BAIG MD MT: CC Name: MICHAEL JOHNSON MRN: [id number] Account: [id number] : 1945 Procedure Date: 03/31/2018 Document: [id number] Brief Op Note - Ion Baig MD - 03/31/2018 6:51 AM CDT [facility] Brief Operative Note Pre-operative diagnosis: DJD Post-operative diagnosis same Procedure: Procedure(s): Left total knee arthroplasty Spinal with adductor block - Wound Class: I-Clean Surgeon(s): Surgeon(s) and Role: * Ion Baig MD - Primary Estimated blood loss: * No values recorded between 03/31/2018 12:00 AM and 03/31/2018 6:51 AM * Specimens: * No specimens in log * Findings: No anticipated complications Pharmacy-Admission Medication History - Tabitha Babb RPH - 03/26/2018 9:17 PM CDT Medication reconciliation interview completed by pre-admitting nurse Shelia Lizarraga, reviewed by pharmacy. No further clarifications needed. Prior to Admission medications Medication Sig Last Dose Taking? Auth Provider ALLOPURINOL PO Take 300 mg by mouth every evening Yes Reported, Patient Ascorbic Acid (VITAMIN C PO) Take 500 mg by mouth every evening Yes Reported, Patient ASPIRIN PO Take 81 mg by mouth daily Yes Reported, Patient ATORVASTATIN CALCIUM PO Take 80 mg by mouth every evening Yes Reported, Patient GABAPENTIN PO Take 300 mg by mouth 2 times daily as needed Yes Reported, Patient GLIPIZIDE PO Take 5 mg by mouth 2 times daily (before meals) Yes Reported, Patient METFORMIN HCL PO Take 1,000 mg by mouth 2 times daily (with meals) Yes Reported, Patient METOPROLOL TARTRATE PO Take 12.5 mg by mouth 2 times daily Yes Reported, Patient Misc Natural Products (TART DENTON ADVANCED PO) Take 1,200 mg by mouth every morning Yes Reported, Patient multivitamin, therapeutic with minerals (MULTI-VITAMIN) TABS tablet Take 1 tablet by mouth daily YesReported, Patient Nitroglycerin (NITROSTAT SL) Place 0.4 mg under the tongue every 5 minutes as needed for chest pain Yes Reported, Patient documented in this encounter Plan of Treatment Scheduled Referrals Name Type Priority Associated Diagnoses Order S chedule Physical Therapy Referral Routine Status post total left O rdered: 04/02/2018 Referral knee replacement documented as of this encounter Procedures Procedure Name Priority Date/Time Associated Diagnosis Comme nts GLUCOSE BY METER Routine 04/02/2018 11:46 Status post total Re sults for this AM CDT left knee procedure are i n replacement the results section. GLUCOSE BY METER Routine 04/02/2018 7:26 AM Status post total Results for this CDT left knee procedure are i n replacement the results section. HEMOGLOBIN Routine 04/02/2018 6:26 AM Results f or this CDT procedure are i n the results section. GLUCOSE BY METER Routine 04/02/2018 1:56 AM Resul ts for this CDT procedure are i n the results section. GLUCOSE BY METER Routine 04/01/2018 9:48 PM Resul ts for this CDT procedure are i n the results section. GLUCOSE BY METER Routine 04/01/2018 3:27 PM Resul ts for this CDT procedure are i n the results section. GLUCOSE BY METER Routine 04/01/2018 12:14 Results for this PM CDT procedure are i n the results section. HEMOGLOBIN Routine 04/01/2018 7:03 AM Results f or this CDT procedure are i n the results section. CREATININE Routine 04/01/2018 7:03 AM Results f or this CDT procedure are i n the results section. GLUCOSE BY METER Routine 04/01/2018 1:49 AM Resul ts for this CDT procedure are i n the results section. GLUCOSE BY METER Routine 03/31/2018 9:29 PM Resul ts for this CDT procedure are i n the results section. GLUCOSE BY METER Routine 03/31/2018 5:18 PM Resul ts for this CDT procedure are i n the results section. HEMOGLOBIN A1C Routine 03/31/2018 11:14 Results f or this AM CDT procedure are i n the results section. XR KNEE PORT LEFT STAT 03/31/2018 9:25 AM Resu lts for this 1/2 VIEWS CDT procedure are i n the results section. GLUCOSE BY METER Routine 03/31/2018 8:58 AM Resul ts for this CDT procedure are i n the results section. ARTHROPLASTY, KNEE, 03/31/2018 7:06 AM DJD TOTAL CDT Special Needs # stated. Nasal sc reen at [facility] on 03/17/18. Joint class on 03/20/18.BMI 28.78 GLUCOSE BY METER Routine 03/31/2018 5:46 AM CDT R esults for this procedure are in the resu lts section. LAB RESULT - HIM SCAN 03/17/2018 12:00 AM CDT EKG CARDIAC - HIM SCAN 03/17/2018 12:00 AM CDT EKG CARDIAC - HIM SCAN 11/25/2015 12:00 AM HEAD OF HISTORY ECHO CARDIAC - HIM SCAN 11/25/2015 12:00 AM HEAD OF HISTORY documented in this encounter Results (ABNORMAL) Glucose by meter (04/02/2018 11:46 AM CDT) P athologist Signature Glucose 154 (H) 70 - 99 04/02/2018 POINT OF CARE mg/dL 12:01 PM CDT TEST, GLUCOSE Specimen Anatomical Collection Method Collection Time Receive d Time (Source) Location / / Volume Laterality 04/02/2018 11:46 04/02/2018 AM CDT 12:01 PM CDT Ion Baig MD LAB - BEAKER POCT Performing Organization Address City/State/ZIP Code Phon e Number F[facility] POINT OF CARE TEST, GLUCOSE POINT OF CARE TEST, GLUCOSE (ABNORMAL) Glucose by meter (04/02/2018 7:26 AM CDT) P athologist Signature Glucose 156 (H) 70 - 99 04/02/2018 POINT OF CARE mg/dL 7:47 AM CDT TEST, GLUCOSE Specimen Anatomical Collection Method Collection Time Receive d Time (Source) Location / / Volume Laterality 04/02/2018 7:26 AM 8 7:47 CDT AM CDT Ion SERRANO - BEAKER POCT Performing Organization Address City/State/ZIP Code Phon e Number [facility] POINT OF CARE TEST, GLUCOSE POINT OF CARE TEST, GLUCOSE (ABNORMAL) Hemoglobin (04/02/2018 6:26 AM CDT) P athologist Signature Hemoglobin 11.0 (L) 13.3 - 17.7 04/02/2018 [place] g/dL 6:42 AM CDT [facility] Specimen Anatomical Collection Method Collection Time Receive d Time (Source) Location / / Volume Laterality Blood specimen 04/02/2018 6:26 AM 018 6:27 (specimen) CDT AM CDT Ion Baig MD LAB - BLOOD ORDERABLES Performing Organization Address City/[facility]/ZIP Code Phon e Number M [facility] [address] [place], [place] [address] [facility] [address] [place], [place] [address] [address] [phone] (ABNORMAL) Glucose by meter (04/02/2018 1:56 AM CDT) P athologist Signature Glucose 164 (H) 70 - 99 04/02/2018 POINT OF CARE mg/dL 2:08 AM CDT TEST, GLUCOSE Specimen Anatomical Collection Method Collection Time Receive d Time (Source) Location / / Volume Laterality 04/02/2018 1:56 AM 8 2:08 CDT AM CDT Ion Baig MD LAB - [place] POCT Performing Organization Address City/State/ZIP Code Phon e Number F[facility] POINT OF CARE TEST, GLUCOSE POINT OF CARE TEST, GLUCOSE (ABNORMAL) Glucose by meter (04/01/2018 9:48 PM CDT) athologist Signature Glucose 178 (H) 70 - 99 04/01/2018 POINT OF CARE mg/dL 10:02 PM CDT TEST, GLUCOSE Specimen Anatomical Collection Method Collection Time Receive d Time (Source) Location / / Volume Laterality 04/01/2018 9:48 PM 8 CDT 10:02 PM CDT Ion SERRANO - [employer] POCT Performing Organization Address City/[facility]/ZIP Code Phon e Number [facility] POINT OF CARE TEST, GLUCOSE POINT OF CARE TEST, GLUCOSE (ABNORMAL) Glucose by meter (04/01/2018 3:27 PM CDT) athologist Signature Glucose 167 (H) 70 - 99 04/01/2018 POINT OF CARE mg/dL 3:46 PM CDT TEST, GLUCOSE Specimen Anatomical Collection Method Collection Time Receive d Time (Source) Location / / Volume Laterality 04/01/2018 3:27 PM 8 3:46 CDT PM CDT Ion Baig MD LAB - [employer] POCT Performing Organization Address City/[facility]/ZIP Code Phon e Number FV POINT OF CARE TEST, GLUCOSE POINT OF CARE TEST, GLUCOSE (ABNORMAL) Glucose by meter (04/01/2018 12:14 PM CDT) athologist Signature Glucose 232 (H) 70 - 99 04/01/2018 POINT OF CARE mg/dL 12:45 PM CDT TEST, GLUCOSE Specimen Anatomical Collection Method Collection Time Receive d Time (Source) Location / / Volume Laterality 04/01/2018 12:14 04/01/2018 PM CDT 12:45 PM CDT Ion Baig MD LAB - BEAKER POCT Performing Organization Address City/State/ZIP Code Phon e Number FV POINT OF CARE TEST, GLUCOSE POINT OF CARE TEST, GLUCOSE Creatinine (04/01/2018 7:03 AM CDT) P athologist Signature Creatinine 0.69 0.66 - 1.25 04/01/2018 [place] mg/dL 8:06 AM [facility] GFR Estimate >90 >60 04/01/2018 [place] mL/min/1.7m 8:[address] Comment: Non GFR Calc GFR Estimate If >90 >60 mL/min/1.7m2 04/01/2018 8:[address] [facility] Comment: GFR Calc Specimen Anatomical Collection Method Collection Time Receive d Time (Source) Location / / Volume Laterality Blood specimen 04/01/2018 7:03 AM 018 7:04 (specimen) CDT AM CDT Ion Baig MD LAB - BLOOD ORDERABLES Performing Organization Address City/State/ZIP Code Phon e Number [facility] [address] [phone] [facility] [address] [address], [place] [phone] (ABNORMAL) Hemoglobin (04/01/2018 7:03 AM CDT) athologist Signature Hemoglobin 12.1 (L) 13.3 - 17.7 04/01/2018 [place] g/dL 7:38 AM [facility] Specimen Anatomical Collection Method Collection Time Receive d Time (Source) Location / / Volume Laterality Blood specimen 04/01/2018 7:03 AM 018 7:04 (specimen) CDT AM CDT Ion Baig MD LAB - BLOOD ORDERABLES Performing Organization Address City/State/ZIP Code Phon e Number M [facility] [address] [place], [place] [address] [facility] [address] [phone] (ABNORMAL) Glucose by meter (04/01/2018 1:49 AM CDT) athologist Signature Glucose 165 (H) 70 - 99 04/01/2018 [facility] mg/dL 2:02 AM CDT TEST, GLUCOSE Specimen Anatomical Collection Method Collection Time Receive d Time (Source) Location / / Volume Laterality 04/01/2018 1:49 AM 8 2:02 CDT AM CDT Ion SERRANO - CHRIS POCT Performing Organization Address City/State/ZIP Code Phon e Number FV POINT OF CARE TEST, GLUCOSE POINT OF CARE TEST, GLUCOSE (ABNORMAL) Glucose by meter (03/31/2018 9:29 PM CDT) athologist Signature Glucose 194 (H) 70 - 99 03/31/2018 POINT [facility] CARE mg/dL 9:44 PM CDT TEST, GLUCOSE Specimen Anatomical Collection Method Collection Time Receive d Time (Source) Location / / Volume Laterality 03/31/2018 9:29 PM 8 9:43 CDT PM CDT Ion SERRANO - CHRIS POCT Performing Organization Address City/State/ZIP Code Phon e Number FV POINT OF CARE TEST, GLUCOSE POINT OF CARE TEST, GLUCOSE (ABNORMAL) Glucose by meter (03/31/2018 5:18 PM CDT) athologist Signature Glucose 163 (H) 70 - 99 03/31/2018 POINT OF CARE mg/dL 5:37 PM CDT TEST, GLUCOSE Specimen Anatomical Collection Method Collection Time Receive d Time (Source) Location / / Volume Laterality 03/31/2018 5:18 PM 8 5:37 CDT PM CDT Ion SERRANO - CHRIS POCT Performing Organization Address City/State/ZIP Code Phon e Number FV POINT OF CARE TEST, GLUCOSE POINT OF CARE TEST, GLUCOSE (ABNORMAL) Hemoglobin A1c (03/31/2018 11:14 AM CDT) athologist Signature Hemoglobin A1C 6.2 (H) 0 - 5.6 % 03/31/2018 [place] 2:03 PM CDT [facility] Comment: Normal <5.7% Prediabetes 5.7-6.4% ??Diab etes 6.5% or higher - adopted from ADA consensus guidelines. Specimen Anatomical Collection Method Collection Time Receive d Time (Source) Location / / Volume Laterality Blood specimen 03/31/2018 11:14 8 (specimen) AM CDT 11:15 AM CDT Mai Hodge PA-C LAB - BLOOD ORDERABLES Performing Organization Address City/State/ZIP Code Phon e Number M [place] [address] [address] [place], [place] [address] [facility] [address] [phone] XR Knee Port Left 1/2 Views (03/31/2018 9:25 AM CDT) Anatomical Region Laterality Modality Left Knee Left Digital Radiography Specimen (Source) Anatomical Location Collection Method / Collectio n Time Received Time / Laterality Volume Impressions 03/31/2018 9:27 AM CDT IMPRESSION: 2 views of the left knee show a knee arthroplasty in place. Hardware appears well seated. A s urgical drain is in place. TRISTIAN CORONADO MD Narrative 03/31/2018 9:27 AM CDT XR KNEE PORT LT 1/2 VW 03/31/2018 9:25 AM HISTORY: Knee replacement. COMPARISON: None. Procedure Note Tristian Coronado MD - 03/31/2018For matting of this note might be different from the original. XR KNEE PORT LT 1/2 VW 03/31/2018 9:25 AM HISTORY: Knee replacement. COMPARISON: None. IMPRESSION: 2 views of the left knee keith w a knee arthroplasty in place. Hardware appears well seated. A s urgical drain is in place. TRISTIAN CORONADO MD Ion Baig MD IMG DIAGNOSTIC IMAGING ORDER ANASTACIO (ABNORMAL) Glucose by meter (03/31/2018 8:58 AM CDT) P athologist Signature Glucose 148 (H) 70 - 99 03/31/2018 [facility]ARE mg/dL 9:10 AM CDT TEST, GLUCOSE Specimen Anatomical Collection Method Collection Time Receive d Time (Source) Location / / Volume Laterality 03/31/2018 8:58 AM 8 9:10 CDT AM CDT Ion Baig MD LAB - BEAKER POCT Performing Organization Address City/State/ZIP Code Phon e Number FV POINT OF CARE TEST, GLUCOSE POINT OF CARE TEST, GLUCOSE (ABNORMAL) Glucose by meter (03/31/2018 5:46 AM CDT) P athologist Signature Glucose 167 (H) 70 - 99 03/31/2018 [facility] CARE mg/dL 10:38 PM CDT TEST, GLUCOSE Specimen Anatomical Collection Method Collection Time Receive d Time (Source) Location / / Volume Laterality 03/31/2018 5:46 AM 8 CDT 10:38 PM CDT Ion Baig MD LAB - BEAKER POCT Performing Organization Address City/State/ZIP Code Phon e Number FV POINT OF CARE TEST, GLUCOSE POINT OF CARE TEST, GLUCOSE LAB RESULT - HIM SCAN (03/17/2018 12:00 AM CDT) Specimen (Source) Anatomical Location Collection Method / Collectio n Time Received Time / Laterality Volume 03/17/2018 Narrative This result has an attachment that is no t available. Provider Outside MH NON-BEAKER LAB TESTING EKG CARDIAC - HIM SCAN (03/17/2018 12:00 AM CDT) Specimen (Source) Anatomical Location Collection Method / Collectio n Time Received Time / Laterality Volume 03/17/2018 Narrative This result has an attachment that is no t available. Provider Outside ECG ORDERABLES ECHO CARDIAC - HIM SCAN (11/25/2015 12:00 AM HEAD OF [place]ORY) Specimen (Source) Anatomical Location Collection Method / Collectio n Time Received Time / Laterality Volume 11/25/2015 Narrative This result has an attachment that is no t available. Provider Outside CV ECHO ORDERABLES EKG CARDIAC - HIM SCAN (11/25/2015 12:00 AM HEAD OF HISTORY) Specimen (Source) Anatomical Location Collection Method / Collectio n Time Received Time / Laterality Volume 11/25/2015 Narrative This result has an attachment that is no t available. Provider Outside ECG ORDERABLES documented in this encounter Visit Diagnoses Diagnosis Status post total left knee replacement - Primary documented in this encounter Administered Medications Inactive Administered Medications - up to 3 most recent administrations Medication Order MAR Action Action Date Dose Rate Site acetaminophen (TYLENOL) tablet 975 Given 04/02/2018 1:03 PM CDT 975 mg mg 975 mg, Oral, EVERY 8 HOURS, First dose on Sat03/31/18 at 1400, For 3 days, Do not use if patient has an active opioid/acetaminophen combined analgesic product ordered for pain. Maximum acetaminophen dose from all sources = 75 mg/kg/day not to exceed 4 grams/day., Post-procedure Given 04/02/2018 5:31 AM CDT 975 mg Given 04/01/2018 9:49 PM CDT 975 mg allopurinol (ZYLOPRIM) tablet 300 mg Given 04/01/2018 8:06 PM CDT 300 mg 300 mg, Oral, EVERY EVENING, First dose on Sat03/31/18 at 2000 Given 03/31/2018 8:32 PM CDT 300 mg aspirin EC tablet 325 mg Given 04/02/2018 8:52 AM CDT 325 mg 325 mg, Oral, 2 TIMES DAILY, First dose on Sat04/01/18 at 0800, Post-procedure Given 04/01/2018 8:07 PM CDT 325 mg Given 04/01/2018 8:31 AM CDT 325 mg atorvastatin (LIPITOR) tablet 80 mg Given 04/01/2018 8:06 PM CDT 80 mg 80 mg, Oral, EVERY EVENING, First dose on Sat03/31/18 at 2000 Given 03/31/2018 8:32 PM CDT 80 mg ceFAZolin (ANCEF) intermittent infusion 2 g in Given 0 03/31/2018 10:52 PM CDT 2 g 100 mL dextrose PRE-MIX Routine, 2 g, Intravenous, EVERY 8 HOURS, First dose on Sat03/31/18 at 1500, For 2 doses, First post-op dose due 8 hours after intra-op dose, see eMAR. , Indications: Perioperative Pharmacoprophylaxis, Post-procedure Given 03/31/2018 2:42 PM CDT 2 g celecoxib (celeBREX) capsule 200 mg Given 04/02/2018 8:50 AM CDT 200 mg 200 mg, Oral, DAILY, First dose on Sat04/01/18 at 0800, For 3 days, Post-procedure Given 04/01/2018 8:30 AM CDT 200 mg celecoxib (celeBREX) capsule 400 mg Given 03/31/2018 6:04 AM CDT 400 mg 400 mg, Oral, ONCE, On Sat03/31/18 at 0600, For 1 dose, Pre-procedure dextrose 50 % injection 25-50 mL 25-50 mL, Intravenous, EVERY 15 MIN PRN, low blood sug ar, Administer over 1-5 Minutes, Starting on Sat03/31/18 at 1103 , Use if have IV access, BG less than 70 mg/dL and meet dose criteria below: Dose if conscious and alert (or disorientated) and NPO = 25 mL Dose if unconscious / no t alert = 50 mL Vesicant. For ordered doses up to 25 g, give IV Push undiluted. Give each 5g over 1 minute. diphenhydrAMINE (BENADRYL) injection 12. 5 mg 12.5 mg, Intravenous, EVERY 6 HOURS PRN, itching, Only give if patient unable to take PO., Administer over 1-2 Minutes, S tarting on Sat03/31/18 at 1043, Caution to be used when administering multiple MAPPING SPECIALIST depressing meds within a short time frame. For ordered doses up to 50 mg, give IV Push undiluted. Give each 25mg over a minimum of 1 minute. Extend in non-emergency, Post-pro cedure diphenhydrAMINE (BENADRYL) solution 12.5 mg 12.5 mg, Oral, EVERY 6 HOURS PRN, itchin g, Starting on Sat03/31/18 at 1043, Caution to be used when administering multiple MAPPING SPECIALIST depressing meds within a short time frame., Post-procedure ferrous gluconate (FERGON) tablet 324 mg Given 04/02/2018 8:51 AM CDT 324 mg 324 mg, Oral, DAILY, First dose on Sat03/31/18 at 1045, DO NOT CRUSH. Absorbed best on an empty stomach. If stomach upset occurs, can take with meals., Post-procedure Given 04/01/2018 8:30 AM CDT 324 mg glipiZIDE (GLUCOTROL) tablet 5 mg Given 04/02/2018 7:49 AM CDT 5 mg 5 mg, Oral, 2 TIMES DAILY BEFORE MEALS, First dose on Sat04/01/18 at 0830 Given 04/01/2018 3:40 PM CDT 5 mg Given 04/01/2018 8:35 AM CDT 5 mg glucagon injection 1 mg 1 mg, Subcutaneous, EVERY 15 MIN PRN, low blood sugar, May repeat x 1 only, Starting on Sat03/31/18 at 1103, May giv e SQ or IM. ONLY use glucagon IF patient has NO IV access AND is UNABLE to swallo w AND blood glucose is LESS than or EQUAL to 50 mg/dL. If ordered IV, give IV Push over 1 minute . Reconstitute with 1mL sterile water. glucose gel 15-30 g 15-30 g, Oral, EVERY 15 MIN PRN, low blo od sugar, Starting on Sat03/31/18 at 1103, Give 15 g for BG 51 to 69 mg/dL IF patie nt is conscious and able to swallow. Give 30 g for BG less than or equal to 50 mg/dL IF patient is conscious and able to swallow. Do NOT give glucose gel via enteral tube. IF patient has enteral tube: give apple juice 120 mL (4 oz or 15 g of CHO) via ente ral tube for BG 51 to 69 mg/dL. Give apple juice 240 mL (8 oz or 30 g of CHO) via enteral tube for BG less than or equal to 50 mg/dL. ~Oral gel is preferable for conscious and able to swallow patient. ~IF gel unavailable or patient refuses may provide apple juice 120 mL (4 oz or 15 g of CHO). Document juice on I and O fl owsheet. hydrALAZINE (APRESOLINE) injection 10 mg 10 mg, Intravenous, EVERY 4 HOURS PRN, high blood pres sure, give for SBP > 180, Starting on Sat04/01/18 at 0823, For ordered doses up to 40 mg, give IV Push undiluted over 1 minute. HYDROmorphone (PF) (DILAUDID) injection Given 04/01/2018 1:34 PM CDT 0.5 mg 0.3-0.5 mg 0.3-0.5 mg, Intravenous, EVERY 2 HOURS PRN, other, pain control or improvement in physical function. Hold dose for analgesic side effects., Starting on Sat03/31/18 at 1043, Start at the lowest dose. May adjust dose by 0.1 mg every 2 hours as needed. Notify provider to assess for uncontrolled pain or analgesic side effects. Hold while on IV FOOD SAFETY COORDINATOR or with regular IV opioid dosing. For ordered doses up to 4 mg give IV Push undiluted. Administer each 2mg over 2-5 minutes., Post-procedure Given 04/01/2018 3:37 AM CDT 0.5 mg hydrOXYzine (ATARAX) tablet 25 mg Given 04/01/2018 9:59 AM CDT 25 mg 25 mg, Oral, EVERY 6 HOURS PRN, other, adjuvant pain, Starting on Sat04/01/18 at 0641 hydrOXYzine (ATARAX) tablet 50 mg 50 mg, Oral, EVERY 6 HOURS PRN, other, a djuvant pain, Starting on Sat04/01/18 at 0641 insulin aspart (NovoLOG) inj (RAPID ACTI NG) Given 04/02/2018 11:58 AM CDT 1 Units 1-7 Units, Subcutaneous, 3 TIMES DAILY BEFORE MEALS, First dose on Sat03/31/18 at 1200, Correction Scale - MEDIUM INSULIN RESISTANCE DOSING [...] of correction dose. If given at mealtime, must be administered 5 min before meal or immediately after. Given 04/02/2018 7:43 AM CDT 1 Units Given 04/01/2018 3:32 PM CDT 1 Units insulin aspart (NovoLOG) inj (RAPID ACTI NG) 1-5 Units, Subcutaneous, AT BEDTIME, First dose on Sat03/31/18 at 2200, MEDIUM INSULIN RESISTANCE DOSING Do Not give Be dtime Correction Insulin if BG less than 200. For BG 200 - 249 give 1 units. For BG 250 - 299 give 2 units. For BG 300 - 349 give 3 units. For BG 350 -399 give 4 units. For BG gre ater than or equal to 400 give 5 units. Notify provider if glucose greater than or equal to 350 mg/dL after administration of correction dose. If gi tavo at mealtime, must be administered 5 min before meal or immediately after. lactated ringers infusion Rate/Dose Verify 04/01/2018 7:34 AM CDT 100 mL/hr at 100 mL/hr, Intravenous, CONTINUOUS, Change to saline lock when PO well tolerated., Post-procedure, Starting on Sat03/31/18 at 1045, Until Sat04/02/18 at 0750 New Bag 03/31/2018 9:44 PM CDT 100 mL/hr New Bag 03/31/2018 11:05 AM CDT 100 mL/hr metFORMIN (GLUCOPHAGE) tablet 1,000 mg Given 04/02/2018 8:52 AM CDT 1,000 mg 1,000 mg, Oral, 2 TIMES DAILY WITH MEALS, First dose on Sat03/31/18 at 1800 Given 04/01/2018 8:06 PM CDT 1,000 mg Given 04/01/2018 8:31 AM CDT 1,000 mg metoprolol tartrate (LOPRESSOR) half-tab Given 04/02/2018 8:52 A M CDT 12.5 mg 12.5 mg 12.5 mg, Oral, 2 TIMES DAILY, First dose on Sat03/31/18 at 2000, Hold for HR <45 Given 04/01/2018 8:07 PM CDT 12.5 mg Given 04/01/2018 8:31 AM CDT 12.5 mg ondansetron (ZOFRAN) injection 4 mg 4 mg, Intravenous, EVERY 6 HOURS PRN, nausea, vomiting , Administer over 2-5 Minutes, Starting on Sat03/31/18 at 1043, This is Step 1 of nausea and vomiting management. If nausea not resolved in 15 minutes, go t o Step 2 prochlorperazine (COMPAZINE). Irritant. For ordered doses up to 4 mg, give IV Push undiluted over 2-5 minutes., Post-procedure ondansetron (ZOFRAN-ODT) ODT tab 4 mg 4 mg, Oral, EVERY 6 HOURS PRN, nausea, v omiting, Starting on Sat03/31/18 at 1043, This is Step 1 of nausea and vomiting management. If n ausea not resolved in 15 minutes, go to Step 2 prochlorperazine (COMPAZINE). Do not push through foil backing. Peel back foil and gently remove. Place on to ngue immediately. Administration with liquid unnecessary W ith dry hands, peel back foil backing and gently remove tablet; do not push oral d isintegrating tablet through foil backing; administer immediately on tongue and oral disintegrati ng tablet dissolves in seconds; then swallow with saliva; liquid not required ., Post-procedure oxyCODONE (OxyCONTIN) 12 hr tablet 10 mg Given 03/31/2018 6:04 AM CDT 10 mg 10 mg, Oral, ONCE, On Sat03/31/18 at 0600, For 1 dose, DO NOT CRUSH., Pre-procedure oxyCODONE IR (ROXICODONE) tablet 5-10 mg Given 04/02/2018 1:03 PM CDT 10 mg 5-10 mg, Oral, EVERY 4 HOURS PRN, other, pain control or improvement in physical function. Hold dose for analgesic side effects., Starting on Sat03/31/18 at 1043, Start with the lowest dose. May adjust dose by 5 mg every 4 hours as needed. Notify provider to assess for uncontrolled pain or analgesic side effects. Hold while on FOOD SAFETY COORDINATOR or with regular IV opioid dosing. Maximum total is 60 mg in 24 hours., Post-procedure Given 04/02/2018 8:52 AM CDT 10 mg Given 04/02/2018 4:48 AM CDT 5 mg prochlorperazine (COMPAZINE) injection 5 mg 5 mg, Intravenous, EVERY 6 HOURS PRN, nausea, vomiting , Administer over 1-2 Minutes, Starting on Sat03/31/18 at 1043, This is Step 2 of nausea and vomiting management. If nausea not resolved in 15 minutes, give metoclopramide (REGLAN) if ordered (step 3 of nausea and vomiting m anagement) For ordered doses up to 10 mg, give IV Push undiluted. Each 5mg over 1 minute., Post- procedure prochlorperazine (COMPAZINE) tablet 5 mg 5 mg, Oral, EVERY 6 HOURS PRN, nausea, v omiting, Starting on Sat03/31/18 at 1043, This is Step 2 of nausea and vomiting management. If n ausea not resolved in 15 minutes, give metoclopramide (REGLAN) if ordered (step 3 of nausea and vomiting management), Post-procedure senna-docusate (SENOKOT-S;PERICOLACE) Given 04/02/2018 8:56 AM C DT 1 tablet 8.6-50 MG per tablet 1 tablet 1 tablet, Oral, 2 TIMES DAILY, First dose on Sat03/31/18 at 2000, If no bowel movement in 24 hours, increase to 2 tablets PO. Hold for loose stools., Post-procedure Given 04/01/2018 8:06 PM CDT 1 tablet Given 04/01/2018 8:30 AM CDT 1 tablet senna-docusate (SENOKOT-S;PERICOLACE) 8. 6-50 MG per tablet 2 tablet 2 tablet, Oral, 2 TIMES DAILY, First dos e on Sat03/31/18 at 2000, Hold for loose stools., Post-procedure documented in this encounter Active and Recently Administered Medications Times are shown in CDT. Scheduled Medication Order 03/31/2018 04/01/2018 04/02/2018 acetaminophen (TYLENOL) tablet 975 mg 1332 (Given - Pr ovider: Shelton Cowart RN)2126 (Given - Provider: Ade Alexander LPN) 0530 (Given - Provider: Liz Pan RN)1333 (Given - Provider: Shelton Cowart RN)2149 (Given - Provider: Zaida Godoy RN) 0531 (Given - Provider: Liz Pan RN)1303 (Given - Provider: Teagan Moore RN) 975 mg, Oral, EVERY 8 HOURS, First dose on Sat03/31/18 at 1400, For 3 days, Do not use if patient has an active opioid/acetaminophen combined analgesic product ordered for pain. Maximum acetaminophen do se from all sources = 75 mg/kg/day not to exceed 4 grams/day., P ost-procedure allopurinol (ZYLOPRIM) tablet 300 mg 2031 (Given - Pro vider: Kesha Fermin RN) 2005 (Given - Provider: Zaida Godoy RN) 300 mg, Oral, EVERY EVENING, First dose on Sat03/31/18 at 2000 aspirin EC tablet 325 mg 31 (Given - P rovider: Shelton Cowart RN)2006 (Given - Provider: Zaida Godoy RN) 08 (Given - Provider: Jayy Jack) 325 mg, Oral, 2 TIMES DAILY, First dose on Sat04/01/18 at 08 00, Post-procedure atorvastatin (LIPITOR) tablet 80 mg 2031 (Given - Provider: Kesha Fermin, BETO) 2005 (Given - Provider: Zaida Godoy RN) 80 mg, Oral, EVERY EVENING, First dose on Sat03/31/18 at 2000 ceFAZolin (ANCEF) intermittent infusion 2 g in 100 mL dextrose PRE-MIX (COMPLETED) 07 (Given - Provider: Theresa Rush, ELIZABET VEST FRONT PRESSER) Routine, 2 g, Intravenous, PRE-OP/PRE-PA OCEDURE, Starting Sat03/31/18 at 0546, For 1 dose, Give first dose within 1 hour PRIOR to incision. If patient weight is greater than or equal to 120 kg increase dose to 3 g., Indications: Perioperative Pharmacoprophylaxis, Pr e-procedure ceFAZolin (ANCEF) intermittent infusion 2 g in 100 mL dextrose PRE-MIX (COMPLETED) 144 (Given - Provider: Jayy Jack)2251 (Given - Provider: Kesha Fermin RN) Routine, 2 g, Intravenous, EVERY 8 HOURS , First dose on Sat03/31/18 at 1500, For 2 doses, First post-op dose due 8 hours after intra-op dose, see eMAR. , Indications: Perioperative Pharmacoprophylaxis, Post-procedure celecoxib (celeBREX) capsule 200 mg 0830 (Given - Provider: Shelton Cowart RN) 0850 (Given - Provider: Shelton Cowart RN) 200 mg, Oral, DAILY, First dose on Sat at 0800, For 3 days, Post-procedure celecoxib (celeBREX) capsule 400 mg (COMPLETED) 06 ( Given - Provider: Milly Montalvo, BETO) 400 mg, Oral, ONCE, Sat03/31/18 at 0600, For 1 dose, Pre-procedu re ferrous gluconate (FERGON) tablet 324 mg 1133 (Not Giv en - Provider: Adriana Lanier RN - Reason: Other - Comment: no food yet) 0830 (Given - Provider: Shelton Cowart RN) 0851 (Given - Provider: Jayy Jack N) 324 mg, Oral, DAILY, First dose on Sat at 1045, DO NOT CRUSH. Absorbed best on an empty stomach. If stomach upset occurs, can take with meals., Post-procedure glipiZIDE (GLUCOTROL) tablet 5 mg 0835 ( Given - Provider: Shelton Cowart RN)1540 (Given - Provider: Zaida Godoy, BETO) 0749 (Given - Provider: Shelton Cowart RN) 5 mg, Oral, 2 TIMES DAILY BEFORE MEALS, First dose on Sat 8 at 0830 insulin aspart (NovoLOG) inj (RAPID ACTING) 1258 (Not Given - Provider: Adriana Lanier RN - Reason: Other - Comment: just had 2 jellos. will recheck prior to supper)1720 (Given - Provider: Kesha Fermin RN - Comment: BS 163) 0835 (Not Given - Provider: Shelton Cowart RN - Reason: Other - Comment: ate before b/s was checked)1217 (Given - Provider: Shelton Cowart RN)1532 (Given - Provider: Zaida Godoy RN - Comment: 167) 0743 (Given - Provider: Shelton Cowart RN)1158 (Given - Provider: Shelton Cowart RN) 1-7 Units, Subcutaneous, 3 TIMES DAILY B EFORE MEALS, First dose on Sat03/31/18 at 1200, Correction Scale - MEDIUM INSULIN RESISTANCE DOSING Do Not give Correction Insulin if Pre-Meal BG less than 140. F or Pre-Meal BG 140 - 189 give [...] of correction dose. If given at mealtime, must be administered 5 min before meal or immediately after. insulin aspart (NovoLOG) inj (RAPID ACTING) 2129 (Not Given - Provider: Ade Alexander LPN - Reason: Order parameters not met) 2147 (Not Given - Provider: Zaida Godoy RN - Reason: Order parameters not met - Comment: 178) 1-5 Units, Subcutaneous, AT BEDTIME, Fir st dose on Sat03/31/18 at 2200, MEDIUM INSULIN RESISTANCE DOSING Do [...] of correction dose. If given at mealtime, must be administered 5 min before meal or immediately after. metFORMIN (GLUCOPHAGE) tablet 1,000 mg 1718 (Given - P rovider: Kesha Fermin RN) 0831 (Given - Provider: Jayy Jack)2005 (Given - Provider: Zaida Godoy RN) 0852 (Given - Provider: Jayy Jack) 1,000 mg, Oral, 2 TIMES DAILY WITH MEALS, First dose on 03/31 at 1800 metoprolol tartrate (LOPRESSOR) half-tab 12.5 mg 2031 (Given - Provider: Kesha Fermin RN) 0831 (Given - Provider: Jayy Jack)2006 (Given - Provider: Zaida Godoy RN) 0852 (Given - Provider: Jayy Jack) 12.5 mg, Oral, 2 TIMES DAILY, First dose on Sat03/31/18 at 2000, Hold for HR <45 oxyCODONE (OxyCONTIN) 12 hr tablet 10 mg (COMPLETED) 0 604 (Given - Provider: Milly Montalvo RN) 10 mg, Oral, ONCE, Sat03/31/18 at 0600, For 1 dose, DO NOT CRUSH., Pre-procedure senna-docusate (SENOKOT-S;PERICOLACE) 8. 6-50 MG per tablet 1 tablet(Linked Group 1) 2032 (Given - Provider: Kesha Fermin RN) 0830 (Give n - Provider: Shelton Cowart RN)2005 (Given - Provider: Zaida Godoy, BETO) 0856 (Given - Provider: Shelton Cowart RN) 1 tablet, Oral, 2 TIMES DAILY, First dos e on 03/31/18 at 2000, If no bowel movement in 24 hours, increase to 2 tablets PO. Hold for loose stools., Post-procedure senna-docusate (SENOKOT-S;PERICOLACE) 8. 6-50 MG per tablet 2 tablet(Linked Group 1) 2032 (See Alternative - Provider: Kesha Fermin RN) 0830 (See Alternative - Provider: Shelton Cowart RN)2005 (See Alternative - Provider: Zaida Godoy RN) 0856 (See Alternative - Provider: Shelton Cowart RN) 2 tablet, Oral, 2 TIMES DAILY, First dos e on Sat03/31/18 at 2000, Hold for loose stools., Post-procedure tranexamic acid (CYKLOKAPRON) infusion 1 g (COMPLETED) 07 (Given - Provider: Theresa Rush APRN VEST FRONT PRESSER) 1 g, Intravenous, ONCE, Sat03/31/18 at 0600, For 1 dose, Pre-pro cedure tranexamic acid (CYKLOKAPRON) infusion 1 g (COMPLETED) 08 (Given - Provider: Theresa Rush APRN VEST FRONT PRESSER) 1 g, Intravenous, ONCE, Sat03/31/18 at 0 600, For 1 dose, Send to pre op area to be given just prior to antibiotic., Pre-procedure Continuous Medication Order 03/31/2018 04/01/2018 04/02/2018 bacitracin 100,000 Units, gentamicin (GA RAMYCIN) 200 mg, ceFAZolin (ANCEF) 2 g in sodium chloride 0.9% (bag) 2,000 mL Bag for irrigation (CANCELED) 0200 (Canceled Entry - Provider: Orders Generic Provider - Comment: Automatically canceled at discontinue of medication order)0805 (Given - Provider: Ion Baig MD) Irrigation, CONTINUOUS, Starting 03/12 at 0200, *For Irrigation use ONLY*., Intra-procedure lactated ringers infusion (CANCELED) 0714 (New Bag - P david: Theresa Rush APRN VEST FRONT PRESSER)0810 (New Bag - Provider: Theresa Rush APRN CRNA)0846 (Anesthesia Volume Adjustment - Provider: Theresa Rush APRN CRNA) at 25 mL/hr, Intravenous, CONTINUOUS, IF patient NOT on dialysis., Pre- procedure, Starting 03/31/18 at 0600, Until 03/31/18 at 0850 lactated ringers infusion (CANCELED) 1105 (New Bag - P rovider: Shelton Cowart RN)2144 (New Bag - Provider: Kesha Fermin RN) 0734 (Rate/Dose Verify - Provider: Teagan Moore RN) at 100 mL/hr, Intravenous, CONTINUOUS, C hange to saline lock when PO well tolerated., Post-procedure, Starting 03/31/18 at 1045, Until 04/02/18 at 0750 PRN Medication Order 03/31/2018 04/01/2018 04/02/2018 acetaminophen (TYLENOL) tablet 650 mg 650 mg, Oral, EVERY 4 HOURS PRN, other, multimodal surgical pain management along with NSAIDS and opioid medication as indicated based on pain control and physical function., Starting Patience 04/03/18 at 000 0, May give first dose 4 hours after las t scheduled dose of acetaminophen. Maximum acetaminophen dose from all sources = 75 mg/kg/day not to exceed 4 grams/day., Post-procedure benzocaine-menthol (CHLORASEPTIC) 6-10 MG lozenge 1-2 lozenge 1-2 lozenge, Buccal, EVERY 1 HOUR PRN, s ore throat, sore throat without fever, Starting 03/31/18 at 1043, Post-procedure bupivacaine 0.25% w/EPI 1:200,000 (29mL) + ketorolac 3 0 mg (1mL) (CANCELED) 0748 (Given - Provider: Ion Baig MD) PRN, Starting 03/31/18 at 0748, Intra-procedure dextrose 50 % injection 25-50 mL(Linked Group 2) 25-50 mL, Intravenous, EVERY 15 MIN PRN, low blood sugar, Administer over 1-5 Minutes, Starting 03/31/18 at 1103, Use if have IV access, BG less than 70 mg/dL and meet dose criteria below: Dose if co nscious and alert (or disorientated) and NPO = 25 mL Dose if unconscious / not alert = 50 mL Vesicant. For ordered doses up to 25 g, give IV Push undiluted. Give each 5g over 1 minute. diphenhydrAMINE (BENADRYL) injection 12.5 mg(Linked Group 3) 12.5 mg, Intravenous, EVERY 6 HOURS PRN, itching, Only give if patient unable to take PO., Administer over 1-2 Minutes, Starting 03/31/18 at 1043, Caution to be used when administering multiple MAPPING SPECIALIST d epressing meds within a short time frame . For ordered doses up to 50 mg, give IV Push undiluted. Give each 25mg over a minimum of 1 minute. Extend in non- emergency, Post-procedure diphenhydrAMINE (BENADRYL) solution 12.5 mg(Linked Group 3) 12.5 mg, Oral, EVERY 6 HOURS PRN, itchin g, Starting 03/31/18 at 1043, Caution to be used when administering multiple MAPPING SPECIALIST depressing meds within a short time frame., Post-procedure gabapentin (NEURONTIN) capsule 300 mg 300 mg, Oral, 2 TIMES DAILY PRN, Starting 03/31/18 at 1100, r adicular pain glucagon injection 1 mg(Linked Group 2) 1 mg, Subcutaneous, EVERY 15 MIN PRN, lo w blood sugar, May repeat x 1 only, Starting 03/31/18 at 1103, May give SQ or IM. ONLY use glucagon IF patient has NO IV access AND is UNABLE to swallow AND bl ood glucose is LESS than or EQUAL to 50 mg/dL. If ordered IV, give IV Push over 1 minute. Reconstitute with 1mL sterile water. glucose gel 15-30 g(Linked Group 2) 15-30 g, Oral, EVERY 15 MIN PRN, low blo od sugar, Starting 03/31/18 at 1103, Give 15 g for BG 51 to 69 mg/dL IF patient is conscious and able to swallow. Give 30 g for BG less than or equal to 50 mg/ dL IF patient is conscious and able to s wallow. Do NOT give glucose gel via enteral tube. IF patient has enteral tube: give apple juice 120 mL (4 oz or 15 g of CHO) via enteral tube for BG 51 to 69 mg/d L. Give apple juice 240 mL (8 oz or 30 g of CHO) via enteral tube for BG less than or equal to 50 mg/dL. ~Oral gel is preferable for conscious and able to swallow patient. ~IF gel unavailable or patient refuses may provide apple juice 120 mL (4 oz or 15 g of CHO). Document juice on I and O flowsheet. hydrALAZINE (APRESOLINE) injection 10 mg 10 mg, Intravenous, EVERY 4 HOURS PRN, h igh blood pressure, give for SBP > 180, Starting Sat04/01/18 at 0823, For ordered doses up to 40 mg, give IV Push undiluted over 1 minute. HYDROmorphone (PF) (DILAUDID) injection 0.3-0.5 mg 0337 (Given - Provider: Liz Pan RN)1334 (Given - Provider: Shelton Cowart RN) 0.3-0.5 mg, Intravenous, EVERY 2 HOURS P RN, other, pain control or improvement in physical function. Hold dose for analgesic side effects., Starting Sat03/31/18 at 1043, Start at the lowest dose. May ad just dose by 0.1 mg every 2 hours as nee ded. Notify provider to assess for uncontrolled pain or analgesic side effects. Hold while on IV FOOD SAFETY COORDINATOR or with regular IV opioid dosing. For ordered doses up to 4 m g give IV Push undiluted. Administer each 2mg over 2-5 minutes., Post-procedure hydrOXYzine (ATARAX) tablet 25 mg(Linked Group 4) 0959 (Given - Provider: Shelton Cowart RN) 25 mg, Oral, EVERY 6 HOURS PRN, other, a djuvant pain, Starting Sat04/01/18 at 0641 hydrOXYzine (ATARAX) tablet 50 mg(Linked Group 4) 0959 (See Alternative - Provider: Shelton Cowart RN) 50 mg, Oral, EVERY 6 HOURS PRN, other, a djuvant pain, Starting Sat04/01/18 at 0641 melatonin tablet 3-5 mg 3-5 mg, Oral, AT BEDTIME PRN, sleep, Sta rting Sat04/01/18 at 2000, POD 1. Do not give unless at least 6 hours of uninterrupted sleep is expected., Post-procedure naloxone (NARCAN) injection 0.1-0.4 mg 0.1-0.4 mg, Intravenous, EVERY 2 MIN PRN , opioid reversal, Starting 03/31/18 at 1043, For respiratory rate LESS than or EQUAL to 8. Partial reversal dose: 0.1 mg titrated q 2 minutes for Analgesia Si de Effects Monitoring Sedation Level of 3 (frequently drowsy, arousable, drifts to sleep during conversation).Full reversal dose: 0.4 mg bolus for Analgesia Side Effects Monitoring Sedation Level of 4 ( somnolent, minimal or no response to sti mulation). For ordered doses up to 2mg give IVP. Give each 0.4mg over 15 seconds in emergency situations. For non- emergent situations further dilute in 9mL of NS to facilitate titration of response., Post-procedure ondansetron (ZOFRAN) injection 4 mg(Linked Group 5) 4 mg, Intravenous, EVERY 6 HOURS PRN, na usea, vomiting, Administer over 2-5 Minutes, Starting 03/31/18 at 1043, This is Step 1 of nausea and vomiting management. If nausea not resolved in 15 minutes, go to Step 2 prochlorperazine (COMPAZIN E). Irritant. For ordered doses up to 4 mg, give IV Push undiluted over 2-5 minutes., Post-procedure ondansetron (ZOFRAN-ODT) ODT tab 4 mg(Linked Group 5) 4 mg, Oral, EVERY 6 HOURS PRN, nausea, v omiting, Starting 03/31/18 at 1043, This is Step 1 of nausea and vomiting management. If nausea not resolved in 15 minutes, go to Step 2 prochlorperazine (COMP AZINE). Do not push through foil backing . Peel back foil and gently remove. Place on tongue immediately. Administration with liquid unnecessary With dry hands, peel back foil backing and gently remove t ablet; do not push oral disintegrating t ablet through foil backing; administer immediately on tongue and oral disintegrating tablet dissolves in seconds; then swallow with saliva; liquid not required., Post-procedure oxyCODONE IR (ROXICODONE) tablet 5-10 mg 1824 (Given - Provider: Kesha Fermin RN)2032 (Given - Provider: Kesha Fermin RN) 0048 (Given - Provider: Liz Pan, BETO)0829 (Given - Provider: Shelton Cowart, BETO)1135 (Given - Provider: Shelton Cowart RN)1540 (Given - Provider: Zaida Godoy, RN)2006 (Given - Provider: Zaida Godoy, RN) 0448 (Given - Provider: Liz Pan , BETO)0852 (Given - Provider: Shelton Cowart RN)1303 (Given - Provider: Teagan Moore RN) 5-10 mg, Oral, EVERY 4 HOURS PRN, other, pain control or improvement in physical function. Hold dose for analgesic side effects., Starting 03/31/18 at 1043, Start with the lowest dose. May adjust dos e by 5 mg every 4 hours as needed. Notif y provider to assess for uncontrolled pain or analgesic side effects. Hold while on FOOD SAFETY COORDINATOR or with regular IV opioid dosing. Maximum total is 60 mg in 24 hours., Post-procedure povidone-iodine (BETADINE) 10% soln 7 mL + 0.9% NaCl 2 50 mL (CANCELED) 0805 (Given - Provider: Ion Baig MD) PRN, Starting 03/31/18 at 0805, Intra-procedure prochlorperazine (COMPAZINE) injection 5 mg(Linked Group 6) 5 mg, Intravenous, EVERY 6 HOURS PRN, na usea, vomiting, Administer over 1-2 Minutes, Starting 03/31/18 at 1043, This is Step 2 of nausea and vomiting management. If nausea not resolved in 15 minutes, give metoclopramide (REGLAN) if ordered (step 3 of nausea and vomiting management) For ordered doses up to 10 mg, give IV Push undiluted. Each 5mg over 1 minute., Post-procedure prochlorperazine (COMPAZINE) tablet 5 mg(Linked Group 6) 5 mg, Oral, EVERY 6 HOURS PRN, nausea, v omiting, Starting 03/31/18 at 1043, This is Step 2 of nausea and vomiting management. If nausea not resolved in 15 minutes, give metoclopramide (REGLAN) if ord ered (step 3 of nausea and vomiting management), Post-procedure Linked Groups Order Group 1: senna-docusate (SENOKOT-S;PERICOLACE) 8.6-50 MG per tablet 1 tabletJump to med 1 tablet, Oral, 2 TIMES DAILY, First dos e on Sat03/31/18 at 2000
If no bowel movement in 24 hours, increase to 2 tablets PO. Hold for loose stools.
Post-procedure Or senna-docusate (SENOKOT-S;PERICOLACE) 8.6-50 MG per tablet 2 tabletJump to med 2 tablet, Oral, 2 TIMES DAILY, First dos e on 03/31/18 at 2000
Hold for loose stools.
Post-procedure Group 2: glucose gel 15-30 gJump to med 15-30 g, Oral, EVERY 15 MIN PRN, low blo od sugar, Starting Sat03/31/18 at 1103
Give 15 g for BG 51 to 69 mg/dL IF patient is conscious and able to swallow. Give 30 g for BG less than or equal t o 50 mg/dL IF patient is conscious and a ble to swallow. Do NOT give glucose gel via enteral tube. IF patient has enteral tube: give apple juice 120 mL (4 oz or 15 g of CHO) via entera l tube for BG 51 to 69 mg/dL. &nbsp ;Give apple juice 240 mL (8 oz or 30 g of CHO) via enteral tube for BG less than or equal to 50 mg/dL. ~Oral gel is preferable for cons cious and able to swallow patient. &nbsp ;~IF gel unavailable or patient refuses may provide apple juice 120 mL (4 oz or 15 g of CHO). Document juice on I and O flowsheet.
Or dextrose 50 % injection 25-50 mLJump to med 25-50 mL, Intravenous, EVERY 15 MIN PRN, low blood sugar, Administer over 1-5 Minutes, Starting Sat03/31/18 at 1103
Use if have IV access, BG less than 70 mg/dL and meet dose criteria below:&am p;nbsp;Dose if conscious and alert (or d isorientated) and NPO = 25 mL Dose if unconscious / not alert = 50 mL Vesicant. For ordered doses up to 25 g, give IV Push undiluted. Give each 5g over 1 minute.
Or glucagon injection 1 mgJump to med 1 mg, Subcutaneous, EVERY 15 MIN PRN, lo w blood sugar, May repeat x 1 only, Starting 03/31/18 at 1103
May give SQ or IM. ONLY use glucagon IF patient has NO IV access AND is UNABLE to swallo w AND blood glucose is LESS than or EQUA L to 50 mg/dL. If ordered IV, give IV Push over 1 minute. Reconstitute with 1mL sterile water.
Group 3: diphenhydrAMINE (BENADRYL) solution 12.5 mgJump to med 12.5 mg, Oral, EVERY 6 HOURS PRN, itchin g, Starting 03/31/18 at 1043
Caution to be used when administering multiple MAPPING SPECIALIST depressing meds within a short time frame.
Post-procedure Or diphenhydrAMINE (BENADRYL) injection 12.5 mgJump to med 12.5 mg, Intravenous, EVERY 6 HOURS PRN, itching, Only give if patient unable to take PO., Administer over 1-2 Minutes, Starting 03/31/18 at 1043
Caution to be used when administering multip le MAPPING SPECIALIST depressing meds within a short ti me frame. For ordered doses up to 50 mg, give IV Push undiluted. Give each 25mg over a minimum of 1 minute. Extend in non-emergency
Post-procedure Group 4: hydrOXYzine (ATARAX) tablet 25 mgJump to med 25 mg, Oral, EVERY 6 HOURS PRN, other, a djuvant pain, Starting 04/01/18 at 0641 Or hydrOXYzine (ATARAX) tablet 50 mgJump to med 50 mg, Oral, EVERY 6 HOURS PRN, other, a djuvant pain, Starting Sat04/01/18 at 0641 Group 5: ondansetron (ZOFRAN-ODT) ODT tab 4 mgJump to med 4 mg, Oral, EVERY 6 HOURS PRN, nausea, v omiting, Starting 5/21/18 at 1043
This is Step 1 of nausea and vomiting management. If nausea not resolved in 15 minutes, go to St ep 2 prochlorperazine (COMPAZINE). Do no t push through foil backing. Peel back foil and gently remove. Place on tongue immediately. Administration with liquid unnecessary With dry hands, peel b ack foil backing and gently remove table t; do not push oral disintegrating tablet through foil backing; administer immediately on tongue and oral disintegrating tablet dissolves in seconds; then swallow with saliva; liquid not required.
Po st-procedure Or ondansetron (ZOFRAN) injection 4 mgJump to med 4 mg, Intravenous, EVERY 6 HOURS PRN, na usea, vomiting, Administer over 2-5 Minutes, Starting 03/31/18 at 1043
This is Step 1 of nausea and vomiting management. If nausea not resolved in 15 minutes, go to Step 2 prochlorperazine (COMPAZINE). Irritant. For ordered doses up to 4 mg, give IV Push undiluted over 2-5 minutes.
Post-procedure Group 6: prochlorperazine (COMPAZINE) injection 5 mgJump to med 5 mg, Intravenous, EVERY 6 HOURS PRN, na usea, vomiting, Administer over 1-2 Minutes, Starting 03/31/18 at 1043
This is Step 2 of nausea and vomiting management. If nausea not resol faviola in 15 minutes, give metoclopramide ( REGLAN) if ordered (step 3 of nausea and vomiting management) For ordered doses up to 10 mg, give IV Push undiluted. Each 5mg over 1 minute.
Post-procedure Or prochlorperazine (COMPAZINE) tablet 5 mgJump to med 5 mg, Oral, EVERY 6 HOURS PRN, nausea, v omiting, Starting 03/31/18 at 1043
This is Step 2 of nausea and vomiting management. If nausea not resolved in 15 minutes, give metocloprami de (REGLAN) if ordered (step 3 of nausea and vomiting management)
Post-procedure documented in this encounter Care Teams Hereditary Cancer Program Coordinator Relationship Specialty Start Date End Date Dk Baird PCP - General Internal Medicine 03/25/18 07/05/[address] [place] [address] documented as of this encounter
--- OUTSIDE RECORDS SUMMARY | 2022-07-20 21:45 | XMS_ITS | Encounter Summary ---
:1945 Author Organization [facility] Address [address] [place] [address] Care Team Providers Name Role Phone Dk Baird Primary Care Provider Reason for Visit Reason Onset Date Comments Medication Question 08/29/2019 Encounter Details Date Type Department Care Team Description 08/29/2019 Telephone [facility] Nurse Danial Rodriguez, Medication Question Advisors RN [address] [place] [address] Social History Tobacco Use Types Packs/Day Years Used Date Never Smoker Smokeless Tobacco: Never Used Alcohol Use Standard Drinks/Week Comments No 0 (1 standard drink = 0.6 oz pure alcoho l) Sex Assigned at Date Recorded Not on file documented as of this encounter Miscellaneous Notes Telephone Encounter - Josy Rodriguez RN - 08/29/2019 2:53 PM CDT Patient's calling regarding upcoming colonoscopy And when to stop his metformin. Advised to call PCP on Friday 08/31 when open. No triage was needed. Josy Rodriguez RN [facility] documented in this encounter Plan of Treatment Not on filedocumented as of this encounter Visit Diagnoses Not on filedocumented in this encounter Care Teams Residential Child Care Counselor Relationship Specialty Start Date End Date Dk Baird PCP - General Internal Medicine 03/25/18 07/05/[address] [id number] documented as of this encounter
--- OUTSIDE RECORDS SUMMARY | 2022-07-20 21:45 | XMS_ITS | Encounter Summary ---
:1945 Author Organization [place] Address [address] [facility] [place] [address] Care Team Providers Name Role Phone Brie Dk Bo Primary Care Provider Reason for Visit Auth/Cert Specialty Diagnoses / Procedures Referred By Contact Refer red To Contact Surgery Diagnoses DJD Rh Periop Services Procedures ARTHROPLASTY KNEE [address] [place], [place] [address] Fax: Referral ID Status Reason Start Date Expiration Date Visits Requ ested Visits Authorized [id number] 1 1 Encounter Details Date Type Department Care Team Description 03/31/2018 Anesthesia Event [facility] Mario Mario PeriOp Services MD Alirio [address] [place] [address] ANESTH [place] [id number] [place], [place] [address] (Wo rk) Anesthesia Record Procedure Summary Procedure Name Responsible Anesthesia Start Anesthesia Stop Anesthesiologist Time Time Left total knee Patt Mario MD 03/31/18 0714 8 0853 arthroplasty (Left Knee) Events Date Time Event Comment 03/31/2018 0650 Non-OR Block Start Patt armas 0700 Non-OR Block Stop Patt alonso 0714 An Start 0715 Present 0716 An Start Data 0716 An Induction 0718 MD Present 0729 An Tourn Inflated 0730 AN INCISION 0800 MD Present 0841 Present 0845 An Tourn Deflated 0849 an stop data 0853 An Stop Electronically s igned by Theresa Rush on March 31, 2018 8:54 AM Name Total midazolam 1mg/mL 4 mg fentaNYL (SUBLIMAZE) injection 100 mcg propofol infusion (mcg/kg/min) 279.39 mg ropivacaine 0.75% 20 mL lidocaine 2% with EPINEPHrine 1:200,000 10 mL bupivacaine 0.5% PF 12.5 mg ceFAZolin (ANCEF) intermittent infusion 2 g in 100 mL dextrose PRE-MIX 2 g tranexamic acid (CYKLOKAPRON) infusion 1 g 1 g tranexamic acid (CYKLOKAPRON) infusion 1 g 1 g lactated ringers infusion 1,400 mL Agents Name NO HELIOX O2 N2O Air Exp Sevoflurane Exp Isoflurane Exp Desflurane Exp N2O O2 Delivery Device Ins Sevoflurane Ins Isoflurane Ins Desflurane O2 Auxiliary Blood No blood administrations on file. Lines, Drains, and Airways Type Details Placement Removal Incision/Surgical Site 03/31/18; 0813; Left; 03/31/18 0813 by Knee Radha Gregory RN Peripheral IV 03/31/18; 0625; 18 G; 03/31/18 0625 by 04/02/18 1145 by Left; Lower forearm; Patt Mario Obwog i, Shelton Dsouza, RN Alcohol; Injectable; MD Tolerated well Urethral Catheter 03/31/18; 0735; No; 03/31/18 0735 by 04/01/18 0633 by Anesthesia; 16 fr Radha Gregory RN Ts[place], Kals ang Closed/Suction Drain 03/31/18; 0800; 1; 03/31/18 0800 by 8 1205 by Left; Knee; Accordion; Radha Gregory RN Obwogi, Duke O, RN 10 Y[place]ut documented in this encounter Social History Tobacco Use Types Packs/Day Years Used Date Never Smoker Smokeless Tobacco: Never Used Alcohol Use Standard Drinks/Week Comments No 0 (1 standard drink = 0.6 oz pure alcoho l) Sex Assigned at Date Recorded Not on file documented as of this encounter OR Notes Anesthesia Postprocedure Evaluation - Patt Mario MD - 03/31/2018 11:39 AM CDT Patient: Michael Summers Procedure(s): LEFT TOTAL KNEE WITH PREMA INSTRUMENTATION - Wound Class: I-Clean Diagnosis:DJD Diagnosis Additional Information: ? DATE OF PROCEDURE: 03/31/2018 ? PREOPERATIVE DIAGNOSIS: Osteoarthritis, left knee. ? POSTOPERATIVE DIAGNOSIS: Osteoarthritis, left knee. ? PROCEDURE PERFORMED: Left total knee arthroplasty. ? Anesthesia Type: Spinal Note: Anesthesia Post Evaluation Patient location during evaluation: PACU Patient participation: Able to participate in evaluation but full recovery from regional anesthesia has not yet ocurrred but is anticipated to occur within 48 hours Level of consciousness: awake Pain management: adequate Airway patency: patent Cardiovascular status: acceptable Respiratory status: acceptable Hydration status: euvolemic PONV: controlled Anesthetic complications: None Last vitals: Vitals: 03/31/18 1030 03/31/18 1059 03/31/18 1131 BP: 134/77 141/79 143/75 Resp: 16 16 15 Temp: 97.7 ??F (36.5 ??C) SpO2: 98% 97% 98% Electronically Signed By: Patt Mario MD March 31, 2018 11:39 AM Anesthesia Procedure Notes - Patt Mario MD - 03/31/2018 7:10 AM CDT Associated Order(s): ANE SPINAL BLOCK FORM Peripheral nerve/Neuraxial procedure note : intrathecal Pre-Procedure Performed by PATT MARIO Referred by JOVANNI Location: pre-op Pre-Anesthestic Checklist: patient identified, IV checked, site marked, risks and benefits discussed, informed consent, monitors and equipment checked, pre-op evaluation, at physician/surgeon's requestand post-op pain management Timeout Correct Patient: Yes Correct Procedure: Yes Correct Site: Yes Correct Laterality: Yes Correct Position: Yes Site Marked: Yes . Procedure Documentation ASA 3 . Procedure: Intrathecal. Insertion Site:L2-3 Patient Prep;mask, sterile gloves, povidone-iodine 7.5% surgical scrub, patient draped. . Needle: Imelda tip Spinal Needle (gauge): 25 Spinal/LP Needle Length (inches): 3 # of attempts: 1 and # of redirects: Introducer used Introducer: 20 G . Assessment/Narrative Paresthesias: No. . . 0.5 mL of clear CSF fluid removed . Anesthesia Procedure Notes - Patt Mario MD - 03/31/2018 7:09 AM CDT Associated Order(s): ANE PERIPHERAL/PARAVETEBRAL BLOCK Peripheral nerve/Neuraxial procedure note : Saphenous (Adductor approach) Pre-Procedure Performed by PATT MARIO Referred by JOVANNI Location: pre-op Pre-Anesthestic Checklist: patient identified, IV checked, site marked, risks and benefits discussed, informed consent, monitors and equipment checked, pre-op evaluation, at physician/surgeon's requestand post-op pain management Timeout Correct Patient: Yes Correct Procedure: Yes Correct Site: Yes Correct Laterality: Yes Correct Position: Yes Site Marked: Yes . Procedure Documentation . Procedure: left Saphenous (Adductor approach). Ultrasound used to identify targeted nerve, plexus, or vascular marker and placed a needle adjacentto it., Ultrasound was used to visualize the spread of the anesthetic in close proximity to the above stated nerve. Patient Prep;mask, sterile gloves, povidone-iodine 7.5% surgical scrub. . Needle: insulated, short bevel Needle Gauge: 20. Needle Length (Inches) 2 Insertion Method: Single Shot. Assessment/Narrative Paresthesias: No. Injection made incrementally with aspirations every 5 mL.. The placement was negative for: blood aspirated, painful injection and site bleeding. Bolus given via needle.. Secured via. Complications: none. Test dose of mL at. Test dose negative for signs of intravascular, subdural or intrathecal injection. Comments: The surgeon has given a verbal order transferring care of this patient to me for the performance of a regional analgesia block for post-op pain control. It is requested of me because I am uniquely trained and qualified to perform this block and the surgeon is neither trained nor qualified to perform this procedure. Anesthesia Preprocedure Evaluation - Patt Mario MD - 03/31/2018 6:22 AM CDT Anesthesia Evaluation . ROS/MED HX ENT/Pulmonary: (-) tobacco use, sleep apnea and Other pulmonary disease Neurologic: (-) Multiple Sclerosis, Other neuro hx and Neuropathy Cardiovascular: (+) Dyslipidemia, hypertension----. : . . . :. valvular problems/murmurs type: MR mild:. Previous cardiac testing Echodate:2016results:EF 40-45%, mild MRdate: results: date: results: date: results: (-) CAD, CHF, arrhythmias and pulmonary hypertension METS/Exercise Tolerance: Hematologic: (-) anemia Musculoskeletal: (+) arthritis, , , - GI/Hepatic: (-) GERD, hiatal hernia and hepatitis Renal/Genitourinary: (-) renal disease Endo: (+) type II DM Not using insulin - not using insulin pump . (-) Type I DM, thyroid disease, chronic steroid usage, other endocrine disorder and obesity Psychiatric: (-) psychiatric history Infectious Disease: - neg infectious disease ROS Malignancy: - no malignancy Other: - neg other ROS Physical Exam Airway Mallampati: II TM distance: >3 FB Neck ROM: full Dental Cardiovascular Rhythm and rate: regular and normal (-) no murmur Pulmonary breath sounds clear to auscultation Other findings: No lab results found. No lab results found. Anesthesia Plan History & Physical Review History and physical reviewed and following examination; no interval change. ASA Status: 3 . NPO Status: > 8 hours Plan for Spinal with Propofol induction. PONV prophylaxis: Ondansetron (or other 5HT-3) Postoperative Care Postoperative pain management: IV analgesics and Oral pain medications. Consents Anesthetic plan, risks, benefits and alternatives discussed with: Patient. Use of blood products discussed: Yes. Use of blood products discussed with Patient. Consented to blood products. . . documented in this encounter Miscellaneous Notes Anesthesia Care Transfer Note - Theresa Rush APRN SALAD CHEF - 03/31/2018 8:53 AM CDT Patient: Michael Summers Procedure(s): LEFT TOTAL KNEE WITH PREMA INSTRUMENTATION - Wound Class: I-Clean Diagnosis: DJD Diagnosis Additional Information: No value filed. Anesthesia Type: Spinal Note: Airway :Room Air Patient transferred to:PACU Comments: VSS. Spontaneously breathing room air. Report given to RN.Handoff Report: Identifed the Patient, Identified the Reponsible Provider, Reviewed the pertinent medical history, Discussed the surgical course, Reviewed Intra-OP anesthesia mangement and issues during anesthesia, Set expectations for post- procedure period and Allowed opportunity for questions and acknowledgement of understanding Vitals: (Last set prior to Anesthesia Care Transfer) SALAD CHEF VITALS 03/31/2018 0819 - 03/31/2018 0853 03/31/2018 Pulse: 60 SpO2: 98 % Electronically Signed By: Theresa Rush APRN CRNA March 31, 2018 8:53 AM documented in this encounter Plan of Treatment Not on filedocumented as of this encounter Procedures Procedure Name Priority Date/Time Associated Diagnosis Comme nts ANE Routine 03/31/2018 8:47 AM CDT PERIPHERAL/PARAVETEBRAL BLOCK Procedure Note - Kecia Mario MD - 03/31/2018 7:09 AM CDTThis note is in progress. Formatting of this note migh t be different from the original. Peripheral nerve/Neuraxial p rocedure note : Saphenous (Adductor approach) Pre-Procedure Performed by PATT MARIO Referred by JOVANNI Location: pre-op Pre-Anesthestic Checklist: p atient identified, IV checked, site marked, risks and benefits discussed, informed consent, monitors and equipment checked, pre-op evaluation, at physician/surgeon's request and post-op pain management Timeout Correct Patient: Yes Correct Procedure: Yes Correct Site: Yes Correct Laterality: Yes Correct Position: Yes Site Marked: Yes . Procedure Documentation . Procedure: left Saphenous (A dductor approach). Ultrasound used to identify targeted nerve, plexus, or vascular marker and placed a needle adjacent to it., Ultrasound was used to visualize the spread of the anesthetic in close proximity to the above stated nerve. Patient Prep;mask, sterile g loves, povidone-iodine 7.5% surgical scrub. . Needle: insulated, short bevel Needle Gauge: 20. Needle Length (Inches) 2 Insertion Method: Single Shot. Assessment/Narrative Paresthesias: No. Injection made incrementally with aspirations every 5 mL.. The placement was negative for: blood aspirated, painful injection and site bleeding. Bolus given via needle.. Secured via. Complications: none. Test do se of mL at. Test dose negative for signs of intravascular, subdural or intrathecal injection. Comments: The surgeon has given a verbal order transferring care of this patient to me for the performance of a regional an algesia block for post-op pain control. It is requested of me because I am uniquely trained and qualified to perform this block and the surgeon is neither trained nor qualified to perform this procedure. ANE SPINAL BLOCK FORM Routine 03/31/2018 7:11 AM CDT Procedure Note - Kecia Mario MD - 03/31/2018 7:10 AM CDTThis note is in progress. Formatting of this note migh t be different from the original. Peripheral nerve/Neuraxial p rocedure note : intrathecal Pre-Procedure Performed by PATT MARIO Referred by JOVANNI Location: pre-op Pre-Anesthestic Checklist: p atient identified, IV checked, site marked, risks and benefits discussed, informed consent, monitors and equipment checked, pre-op evaluation, at physician/surgeon's request and post-op pain management Timeout Correct Patient: Yes Correct Procedure: Yes Correct Site: Yes Correct Laterality: Yes Correct Position: Yes Site Marked: Yes . Procedure Documentation ASA 3 . Procedure: Intrathecal. Inse rtion Site:L2-3 Patient Prep;mask, sterile g loves, povidone-iodine 7.5% surgical scrub, patient draped. . Needle: Imelda tip Spinal Needle (gauge): 25 Spinal/LP Needle Length (inches): 3 # of attempts: 1 and # of redirects: Introducer used Introducer: 20 G . Assessment/Narrative Paresthesias: No. . . 0.5 mL of clear CSF fluid removed . documented in this encounter Visit Diagnoses Not on filedocumented in this encounter Administered Medications Inactive Administered Medications - up to 3 most recent administrations Medication Order MAR Action Action Date Dose Rate Site bupivacaine 0.5% PF Given 03/31/2018 7:10 AM CDT 12.5 mg PRN, Starting on Sat03/31/18 at 0710, Anesthesia Intra-op ceFAZolin (ANCEF) intermittent infusion 2 g in Given 018 7:20 AM CDT 2 g 100 mL dextrose PRE-MIX Routine, 2 g, Intravenous, PRE-OP/PRE-PROCEDURE, Starting on Sat03/31/18 at 0546, For 1 dose, Give first dose within 1 hour PRIOR to incision. If patient weight is greater than or equal to 120 kg increase dose to 3 g., Indications: Perioperative Pharmacoprophylaxis, Pre-procedure fentaNYL (PF) (SUBLIMAZE) injection Given 03/31/2018 6:50 AM CDT 100 mcg PRN, moderate to severe pain, Administer over 3-5 Minutes, Starting on Sat03/31/18 at 0650, Anesthesia Intra-op lactated ringers infusion New Bag 03/31/2018 8:10 AM CDT at 25 mL/hr, Intravenous, CONTINUOUS, IF patient NOT on dialysis., Pre-procedure, Starting on Sat03/31/18 at 0600, Until Sat03/31/18 at 0850 New Bag 03/31/2018 7:14 AM CDT lidocaine 2%-EPINEPHrine 1:200,000 injec tion Given 03/31/2018 6:55 AM CDT 10 mLs PRN, Starting on Sat03/31/18 at 0655, Anesthesia Intra-op midazolam (VERSED) injection Given 03/31/2018 7:20 AM CDT 2 mg Administer over 2 Minutes, PRN, anxiety, Starting on Sat03/31/18 at 0650, Anesthesia Intra-op Given 03/31/2018 6:50 AM CDT 2 mg propofol (DIPRIVAN) infusion Rate/Dose 03/31/2018 7:25 40 mcg/kg/min 20.1 mL/hr Intravenous, CONTINUOUS PRN, Change AM CDT Starting on Sat03/31/18 at 0720, Anesthesia Intra-op New Bag 03/31/2018 7:20 AM CDT 50 mcg/kg/min 25.2 mL/hr ropivacaine (NAROPIN) injection Given 03/31/2018 6:55 AM CDT 20 mLs PRN, Starting on Sat03/31/18 at 0655, Anesthesia Intra-op tranexamic acid (CYKLOKAPRON) infusion 1 g Given 03/31/2018 7:28 AM CDT 1 g 1 g, Intravenous, ONCE, On Sat03/31/18 at 0600, For 1 dose, Pre-procedure tranexamic acid (CYKLOKAPRON) infusion 1 g Given 03/31/2018 8:42 AM CDT 1 g 1 g, Intravenous, ONCE, On 03/31/18 at 0600, For 1 dose, Send to pre op area to be given just prior to antibiotic., Pre-procedure documented in this encounter Care Teams Retread Supervisor Relationship Specialty Start Date End Date Dk Baird PCP - General Internal Medicine 03/25/18 07/05/[address] [address] documented as of this encounter
--- OUTSIDE RECORDS SUMMARY | 2022-07-20 21:45 | XMS_ITS | Encounter Summary ---
:1945 Author Organization [facility] Address [address] [place] [address] Care Team Providers Name Role Phone Dk Baird Primary Care Provider Reason for Visit Auth/Cert Specialty Diagnoses / Procedures Referred By Contact Refer red To Contact Surgery Diagnoses DJD Rh Periop Services Procedures ARTHROPLASTY KNEE [address], [place] [phone] Fax: Referral ID Status Reason Start Date Expiration Date Visits Requ ested Visits Authorized [id number] 1 1 Encounter Details Date Type Department Care Team Description 03/31/2018 Surgery [facility] Ion Baig Left tot al knee [facility] Heredia MD arthroplasty [address] [place], [place] ORTHOPEDICS [phone] [place] [address] [place] [phone] (Wo rk) Surgery Details Date/Time Status Location OR Service Patient Case Case Traum a Class Class Type Case? 03/31/18 7:10 Posted OR OR 02 Orthopedics Surgery AM Admit Panel 1 Procedure LRB Anes Op Region Wound Class Commen ts Left total knee Left Spinal Knee I-Clean Left tota l knee arthroplasty arthroplasty Surgeon Surgeon Role Service Panel Ion Baig MD Primary Orthopedics 1 Noemi Arellano PA-C Test Eng Authorizat ion 1 Special Needs # stated. Nasal screen at [facility] on 03/17/18. Joint class on 03/20/18.BMI 28.78 documented in this encounter Social History Tobacco Use Types Packs/Day Years Used Date Never Smoker Smokeless Tobacco: Never Used Alcohol Use Standard Drinks/Week Comments No 0 (1 standard drink = 0.6 oz pure alcoho l) Sex Assigned at Date Recorded Not on file documented as of this encounter Last Filed Vital Signs Vital Sign Reading Time Taken Comments Blood Pressure 125/76 03/31/2018 9:00 AM CDT Pulse - - Temperature 36.6 ??C (97.9 ??F) 03/31/2018 8:50 AM CDT Respiratory Rate 10 03/31/2018 9:00 AM CDT Oxygen Saturation 96% 03/31/2018 9:00 AM CDT Inhaled Oxygen Concentration - - [...] Return to clinic in 10-14 days. Call [phone] to schedule or if you experience any [...] instructions on label) Call your physician if: ([phone]) 1. Persistent fever greater than 101 degrees [...] to your surgery/recovery. Thank you for allowing [facility] to participate in your cares!! documented in [...] Bed to Chair/Chair to Bed Level of Haakon: Bed to Chair stand-by assist Physical Assist/Nonphysical Assist: Bed to Chair verbal cues Weight-Bearing Restrictions weight-bearing as tolerated Assistive Device - Transfer Skill Bed to Chair Chair to Bed Rehab Eval standard walker Transfer Skill: Sit to Stand Level of Haakon: Sit/Stand stand-by assist Physical Assist/Nonphysical Assist: Sit/Stand verbal cues Transfer Skill: Sit to Stand weight-bearing as tolerated Assistive Device for Transfer: Sit/Stand standard walker Balance Balance Comments impaired post-op, using walker currently Lower Body Dressing Level of Haakon: Dress Lower Body minimum assist (75% patients effort) Physical Assist/Nonphysical Assist: Dress Lower Body verbal cues Toileting Level of Haakon: Toilet stand-by assist Physical Assist/Nonphysical Assist: Toilet verbal cues Grooming Level of Haakon: Grooming stand-by assist Physical Assist/Nonphysical Assist: Grooming [...] to improve level of safety and independence [facility] TM 6 Clicks ?? 2016, Trustees of [facility], under license to [employer]. All rights reserved. 6 Clicks Short Forms Daily Activity Inpatient Short Form [facility]??? 6 Clicks Daily Activity Inpatient Short Form [...] Evaluation Time Total Evaluation Time (Minutes) 8 Yao Elmore MD - 04/02/2018 7:55 AM CDT [facility] Hospitalist consult progress Note Yao Elmore MD [...] Hx of CAD w/ GREGORIA placed in [place] in 11/2015. Resume BB, statin. Resume ASA. [...] Intake/Output Summary (Last 24 hours) at 04/02/18 0752 Last data filed at 04/02/18 0443 Gross [...] to home later today. Noemi Arellano PA-C [phone] Noemi Arellano PA-C - 04/01/2018 6:40 AM [...] or pOD 3 am. Noemi Arellano PA-C [phone] Calixto, Cierra L, PT - 03/31/2018 9:42 PM CDT 03/31/182025 [...] in agreement with plan of care Yes [facility] TM 6 Clicks ?? 2016, Trustees of [facility], under license to [employer]. All rights reserved. 6 Clicks Short Forms Basic Mobility Inpatient Short Form [facility]??? 6 Clicks V.2 Basic Mobility Inpatient Short [...] 8:18 AM CDTAssociated Order(s): HOSPITALIST IP CONSULT [facility] Hospitalist Consult Note Name: Michael Johnson Date [...] Hx of CAD w/ GREGORIA placed in [place] in 11/2015. Resume BB, statin. Resume ASA. [...] 04/01/2018 CR 1.05 04/19/2006 Yao Elmore MD [facility] Hospitalist April 01, 2018 documented in this encounter Miscellaneous Notes Plan of Care - Theresa Martin, OT - 04/02/2018 2:30 PM CDT Problem: Patient Care Overview Goal: Plan of Care/Patient Progress Review OT: Evaluation and treatment completed POD#2 L TKA, no KI needed during session; pt doing well, anticipating discharge home today Geoscience Professor OT Patient plan for discharge: home with assist Current status: Pt reports having AE of recruiter account manager and sock aid at home that he [...] for IADLs/ADLs as needed; pt has a recruiter account manager and sock aid at home from previous hip surgery Rationale for recommendations: pt able to demonstrate safety with ADLs Entered by: Theresa Martin 04/02/2018 3:08 PM Occupational Therapy Discharge Summary Reason for therapy discharge: Discharged to home. All goals and outcomes met, no further needs identified. Progress towards therapy goal(s). See goals on Care Plan in [facility] electronic health record for goal details. [...] Overview Goal: Plan of Care/Patient Progress Review Geoscience Professor PT Patient plan for discharge: home after [...] obtained from chart review and discussion with TRIPE FINISHER. Plan of Care - Liz Pan RN [...] Overview Goal: Plan of Care/Patient Progress Review Geoscience Professor PT Patient plan for discharge: Home with [...] pain controlled with poain medication and ice rivero, got up twice to sit on the chair Plan of Care - Nisha Huang, PT - 04/01/2018 10:04 AM CDT Problem: Patient Care Overview Goal: Plan of Care/Patient Progress Review Geoscience Professor PT Patient plan for discharge: Home w/ [...] ROM/strength will be neededed Entered by: Nisha Huang 04/01/2018 10:00 AM Plan of Care - [...] on knee flex stretches while sitting EOB. Geoscience Professor PT Patient plan for discharge: home with [...] Dk Butcher - 03/31/2018 1:45 PM CDT [facility] Progress Note [facility] Ortho 6th floor Received and reviewed ACP documents from pt. Copies made and forwarded to HIM to be validated and scanned into EMR. Silviano Perera. Staff Director Export Pager #[phone] Plan of Care - Shelton Cowart RN - 03/31/2018 1:08 PM CDT Problem: [...] total knee arthroplasty. SURGEON: Ion Baig MD REPACKER: Noemi Arellano PA-C ANESTHESIA: Spinal with adductor [...] BAIG MD MT: CC Name: MICHAEL JOHNSON Account: [id number] : 1945 Procedure Date: 03/31/2018 Document: [id number] Brief Op Note - Ion Baig MD - 03/31/2018 6:51 AM CDT [facility] Brief Operative Note Pre-operative diagnosis: DJD [...] Needs # stated. Nasal sc reen at [facility] on 03/17/18. Joint class on 03/20/18.BMI 28.78 GLUCOSE BY METER Routine 03/31/2018 5:46 AM CDT R esults for this procedure are in the resu lts section. LAB RESULT - HIM SCAN 03/17/2018 12:00 AM CDT EKG CARDIAC - HIM SCAN 03/17/2018 12:00 AM CDT EKG CARDIAC - HIM SCAN 11/25/2015 12:00 AM SECURITY SERVICES MANAGER ECHO CARDIAC - HIM SCAN 11/25/2015 12:00 AM SECURITY SERVICES MANAGER documented in this encounter Results (ABNORMAL) Glucose by meter (04/02/2018 11:46 AM CDT) P athologist Signature Glucose 154 (H) 70 - 99 04/02/2018 POINT OF CARE mg/dL 12:01 PM CDT TEST, GLUCOSE Specimen Anatomical Collection Method Collection Time Receive d Time (Source) Location / / Volume Laterality 04/02/2018 11:46 04/02/2018 AM CDT 12:01 PM CDT Ion SERRANO - BEAKER POCT Performing Organization Address City/[facility]/ZIP Code Phon e Number FV POINT OF [...] SERRANO - BEAKER POCT Performing Organization Address City/[facility]/ZIP Code Phon e Number FV POINT OF CARE TEST, GLUCOSE POINT OF CARE TEST, GLUCOSE (ABNORMAL) Hemoglobin (04/02/2018 6:26 AM CDT) P athologist Signature Hemoglobin 11.0 (L) 13.3 - 17.7 04/02/2018 [facility] g/dL 6:42 AM CDT [facility] Specimen Anatomical Collection Method Collection Time Receive d Time (Source) Location / / Volume Laterality Blood specimen 04/02/2018 6:26 AM 018 6:27 (specimen) CDT AM CDT Ion Baig MD LAB - BLOOD ORDERABLES Performing Organization Address City/[facility]/ZIP [facility] Phon e Number [facility] [address] [place], [place] [address] [facility] [address] [place] [address] [facility] [phone] (ABNORMAL) Glucose by meter (04/02/2018 1:56 AM CDT) P athologist Signature Glucose 164 (H) 70 - 99 04/02/2018 POINT OF CARE mg/dL 2:08 AM CDT TEST, GLUCOSE Specimen Anatomical Collection Method Collection Time Receive d Time (Source) Location / / Volume Laterality 04/02/2018 1:56 AM 8 2:08 CDT AM CDT Ion Baig MD LAB - [place] POCT Performing Organization Address City/State/ZIP Code Phon e Number FV POINT OF CARE TEST, GLUCOSE POINT OF CARE TEST, GLUCOSE (ABNORMAL) Glucose by meter (04/01/2018 9:48 PM CDT) P athologist Signature Glucose 178 (H) 70 - 99 04/01/2018 POINT OF CARE mg/dL 10:02 PM CDT TEST, GLUCOSE Specimen Anatomical Collection Method Collection Time Receive d Time (Source) Location / / Volume Laterality 04/01/2018 9:48 PM 8 CDT 10:02 PM CDT Ion SERRANO - [facility] POCT Performing Organization Address City/State/ZIP Code Phon e Number FV POINT OF CARE TEST, GLUCOSE POINT OF CARE TEST, GLUCOSE (ABNORMAL) Glucose by meter (04/01/2018 3:27 PM CDT) P athologist Signature Glucose 167 (H) 70 - 99 04/01/2018 POINT OF CARE mg/dL 3:46 PM CDT TEST, GLUCOSE Specimen Anatomical Collection Method Collection Time Receive d Time (Source) Location / / Volume Laterality 04/01/2018 3:27 PM 8 3:46 CDT PM CDT Ion Baig MD LAB - [facility] POCT Performing Organization Address City/State/ZIP Code Phon e Number FV POINT OF CARE TEST, GLUCOSE POINT OF CARE TEST, GLUCOSE (ABNORMAL) Glucose by meter (04/01/2018 12:14 PM CDT) P athologist Signature Glucose 232 (H) 70 - [...] TEST, GLUCOSE Creatinine (04/01/2018 7:03 AM CDT) athologist Signature Creatinine 0.69 0.66 - 1.25 04/01/2018 [place] mg/dL 8:06 AM [facility] GFR Estimate >90 >60 04/01/2018 [place] mL/min/1.7m 8:[address] Comment: Non GFR Calc GFR Estimate If >90 >60 mL/min/1.7m2 04/01/2018 8:06 A [facility] Comment: GFR Calc Specimen Anatomical Collection Method Collection Time Receive d Time (Source) Location / / Volume Laterality Blood specimen 04/01/2018 7:03 AM 018 7:04 (specimen) CDT AM CDT Ion Baig MD LAB - BLOOD ORDERABLES Performing Organization Address City/State/ZIP Code Phon e Number [facility] [address] [phone] [facility] [address] [id number], [facility] [phone] (ABNORMAL) Hemoglobin (04/01/2018 7:03 AM CDT) athologist Signature Hemoglobin 12.1 (L) 13.3 - 17.7 04/01/2018 [place] g/dL 7:38 AM [facility] Specimen Anatomical Collection Method Collection Time Receive d Time (Source) Location / / Volume Laterality Blood specimen 04/01/2018 7:03 AM 018 7:04 (specimen) CDT AM CDT Ion Baig MD LAB - BLOOD ORDERABLES Performing Organization Address City/State/ZIP Code Phon e Number [facility] [address] [place], [place] [address] [facility] [address] [place] [id number] [facility] [phone] (ABNORMAL) Glucose by meter (04/01/2018 1:49 AM CDT) athologist Signature Glucose 165 (H) 70 - 99 04/01/2018 POINT OF CARE mg/dL 2:02 AM CDT TEST, GLUCOSE Specimen Anatomical Collection Method Collection Time Receive d Time (Source) Location / / Volume Laterality 04/01/2018 1:49 AM 8 2:02 CDT AM CDT Ion SERRANO - [place] POCT Performing Organization Address [...] PM 8 5:37 CDT PM CDT Ion Baig MD LAB - [place]IVER[place] POCT Performing Organization Address City/State/ZIP Code Phon e Number FV POINT OF CARE TEST, GLUCOSE POINT OF CARE TEST, GLUCOSE (ABNORMAL) Hemoglobin A1c (03/31/2018 11:14 AM CDT) athologist Signature Hemoglobin A1C 6.2 (H) 0 - 5.6 % 03/31/2018 [place] 2:03 PM CDT [facility] Comment: Normal <5.7% Prediabetes 5.7-6.4% ??Diab etes 6.5% or higher - adopted from ADA consensus guidelines. Specimen Anatomical Collection Method Collection Time Receive d Time (Source) Location / / Volume Laterality Blood specimen 03/31/2018 11:14 8 (specimen) AM CDT 11:15 AM CDT Mai Hodge PA-C LAB - BLOOD ORDERABLES Performing Organization Address City/State/ZIP Code Phon e Number [place] [address] [place], [place] [address] [facility] [address] [place], [place] [address] [phone] XR Knee Port Left 1/2 Views (03/31/2018 [...] CARDIAC - HIM SCAN (11/25/2015 12:00 AM SECURITY SERVICES MANAGER) Specimen (Source) Anatomical Location Collection Method / Collectio n Time Received Time / Laterality Volume 11/25/2015 Narrative This result has an attachment that is no t available. Provider Outside CV ECHO ORDERABLES EKG CARDIAC - HIM SCAN (11/25/2015 12:00 AM SECURITY SERVICES MANAGER) Specimen (Source) Anatomical Location Collection Method / Collectio n Time Received Time / Laterality Volume 11/25/2015 Narrative This result has an attachment that is no t available. Provider Outside ECG ORDERABLES documented in this encounter Visit Diagnoses Not [...] Given 03/31/2018 8:32 PM CDT 80 mg bacitracin 100,000 Units, Given 03/31/2018 8:05 1,250 mLs Operative gentamicin (GARAMYCIN) 200 mg, AM CDT Site/Surgical Site ceFAZolin (ANCEF) 2 g in sodium chloride 0.9% (bag) 2,000 mL Bag for irrigation Irrigation, CONTINUOUS, Starting on Sat03/31/18 at 0200, *For Irrigation use ONLY*., Intra-procedure bupivacaine 0.25% w/EPI Given 03/31/2018 7:48 AM 31 ml given Operative 1:200,000 (29mL) + CDT Site/S urgical Site ketorolac 30 mg (1mL) PRN, Starting on Sat03/31/18 at 0748, Intra-procedure celecoxib (celeBREX) capsule 200 mg Given 04/02/2018 8:50 AM CDT 200 mg 200 mg, Oral, DAILY, First dose on Sat04/01/18 at 0800, For 3 days, Post-procedure Given 04/01/2018 8:30 AM CDT 200 mg dextrose 50 % injection 25-50 mL 25-50 [...] Caution to be used when administering multiple BOILER TENDER depressing meds within a short time frame. For ordered doses up to 50 mg, give IV Push undiluted. Give each 25mg over a minimum of 1 minute. Extend in non-emergency, Post-pro cedure diphenhydrAMINE (BENADRYL) solution 12.5 mg 12.5 mg, Oral, EVERY 6 HOURS PRN, itchin g, Starting on Sat03/31/18 at 1043, Caution to be used when administering multiple BOILER TENDER depressing meds within a short time frame., [...] analgesic side effects. Hold while on IV HAND KNITTER or with regular IV opioid dosing. For [...] immediately after. metFORMIN (GLUCOPHAGE) tablet 1,000 mg Given 04/02/2018 [...] saliva; liquid not required ., Post-procedure oxyCODONE IR (ROXICODONE) tablet 5-10 mg Given [...] or analgesic side effects. Hold while on HAND KNITTER or with regular IV opioid dosing. Maximum total is 60 mg in 24 hours., Post-procedure Given 04/02/2018 8:52 AM CDT 10 mg Given 04/02/2018 4:48 AM CDT 5 mg povidone-iodine Given 03/31/2018 8:05 AM 200 ml given Operative (BETADINE) 10% soln 7 mL CDT Site/Surgical Site + 0.9% NaCl 250 mL PRN, Starting on Sat03/31/18 at 0805, Intra-procedure prochlorperazine (COMPAZINE) injection 5 mg 5 mg, [...] Pan RN)1333 (Given - Provider: Shelton Cowart RN)214 (Given - Provider: Zaida Godoy RN) 0531 (Given - Provider: Liz Pan , BETO)1303 (Given - Provider: Teagan Moore RN) 975 [...] at 2000 aspirin EC tablet 325 mg 830 (Given - P rovider: Shelton Cowart RN)2006 (Given - Provider: Zaida Godoy RN) 08 (Given - Provider: Jayy Jack) 325 mg, Oral, 2 TIMES DAILY, First dose on Sat04/01/18 at 08 00, Post-procedure atorvastatin (LIPITOR) tablet 80 mg 2031 (Given - Provider: Kesha Fermin RN) 2005 (Given - Provider: Zaida Godoy RN) 80 mg, Oral, EVERY EVENING, First dose on Sat03/31/18 at 2000 ceFAZolin (ANCEF) intermittent infusion 2 g in 100 mL dextrose PRE-MIX (COMPLETED) 0720 (Given - Provider: Theresa Rush APRN CRNA) Routine, 2 g, Intravenous, PRE-OP/PRE-HI OCEDURE, Starting Sat03/31/18 at 0546, For 1 dose, Give first dose within 1 hour PRIOR to incision. If patient weight is greater than or equal to 120 kg increase dose to 3 g., Indications: Perioperative Pharmacoprophylaxis, Pr e-procedure ceFAZolin (ANCEF) intermittent infusion 2 g in 100 mL dextrose PRE-MIX (COMPLETED) 1442 (Given - Provider: Jayy Jack)2252 (Given - Provider: Kesha Fermin RN) Routine, [...] Post-procedure celecoxib (celeBREX) capsule 400 mg (COMPLETED) 0604 ( Given - Provider: Milly Montalvo RN) 400 mg, Oral, ONCE, Sat03/31/18 at 0600, For 1 dose, Pre-procedu re ferrous gluconate (FERGON) tablet 324 mg 1133 (Not Giv en - Provider: Adriana Lanier RN - Reason: Other - Comment: no food yet) 0830 (Given - Provider: Shelton Cowart RN) 0851 (Given - Provider: Jayy Jack) 324 mg, Oral, DAILY, First dose on Sat at 1045, DO NOT CRUSH. Absorbed best on an empty stomach. If stomach upset occurs, can take with meals., Post-procedure glipiZIDE (GLUCOTROL) tablet 5 mg 0835 ( Given - Provider: Shelton Cowart RN)1540 (Given - Provider: Zaida Godoy RN) 0749 (Given - Provider: Shelton Cowart RN) [...] b/s was checked)1217 (Given - Provider: Shelton Cowart, RN)1532 (Given - Provider: Zaida Godoy RN [...] Provider: Jayy Jack)2005 (Given - Provider: Zaida Godoy, BETO) 0852 (Given - Provider: Jayy Jack) 1,000 mg, Oral, 2 TIMES DAILY WITH MEALS, First dose on 03/31 at 1800 metoprolol tartrate (LOPRESSOR) half-tab 12.5 mg 2031 (Given - Provider: Kesha Fermin RN) 08 (Given - Provider: Jayy Jack)2006 (Given - [...] 2032 (Given - Provider: Kesha Fermin RN) 08 (Give n - Provider: Shelton Cowart RN)2005 (Given - Provider: Zaida Godoy RN) 0856 (Given - Provider: Shelton Cowart RN) 1 tablet, Oral, 2 TIMES DAILY, First dos e on Sat03/31/18 at 2000, If no bowel movement in 24 hours, increase to 2 tablets PO. Hold for loose stools., Post-procedure senna-docusate (SENOKOT-S;PERICOLACE) 8. 6-50 MG per tablet 2 tablet(Linked Group 1) 2032 (See Alternative - Provider: Kesha Fermin RN) 08 (See Alternative - Provider: Shelton Cowart, BETO)2005 (See Alternative - Provider: Zaida Godoy, BETO) 0856 (See Alternative - Provider: Shelton Cowart, BETO) 2 tablet, Oral, 2 TIMES DAILY, First dos e on Sat03/31/18 at 2000, Hold for loose stools., Post-procedure tranexamic acid (CYKLOKAPRON) infusion 1 g (COMPLETED) 727 (Given - Provider: Theresa Rush APRN CRNA) 1 g, Intravenous, ONCE, Sat03/31/18 at 0600, For 1 dose, Pre-pro cedure tranexamic acid (CYKLOKAPRON) infusion 1 g (COMPLETED) 08 (Given - Provider: Theresa Rush APRN CRNA) 1 g, Intravenous, ONCE, Sat03/31/18 at 0 [...] infusion (CANCELED) 0714 (New Bag - P rovider: Theresa Rush APRN CRNA)0810 (New Bag - Provider: Theresa Rush APRN CRNA)0846 (Anesthesia Volume Adjustment - Provider: Theresa Rush APRN CRNA) at 25 mL/hr, Intravenous, CONTINUOUS, IF patient NOT on dialysis., Pre- procedure, Starting Sat03/31/18 at 0600, Until Sat03/31/18 at 0850 lactated ringers infusion (CANCELED) 1105 (New Bag - P rovider: Shelton Cowart, RN)2144 (New Bag - Provider: Kesha Fermin [...] Caution to be used when administering multiple BOILER TENDER d epressing meds within a short time frame . For ordered doses up to 50 mg, give IV Push undiluted. Give each 25mg over a minimum of 1 minute. Extend in non- emergency, Post-procedure diphenhydrAMINE (BENADRYL) solution 12.5 mg(Linked Group 3) 12.5 mg, Oral, EVERY 6 HOURS PRN, itchin g, Starting 03/31/18 at 1043, Caution to be used when administering multiple BOILER TENDER depressing meds within a short time frame., [...] analgesic side effects. Hold while on IV HAND KNITTER or with regular IV opioid dosing. For [...] 2 MIN PRN , opioid reversal, Starting Sat03/31/18 at 1043, For respiratory rate LESS than [...] Post-procedure oxyCODONE IR (ROXICODONE) tablet 5-10 mg 1825 (Given - Provider: Kesha Fermin RN)203 (Given - Provider: Kesha Fermin RN) 0048 (Given - Provider: Liz Pan RN)0829 (Given - Provider: Shelton Cowart RN)1135 (Given - Provider: Shelton Cowart RN)1540 (Given - Provider: Zaida Godoy, BETO)2006 (Given - Provider: Zaida Godoy RN) 0448 (Given - Provider: Liz Pan RN)0852 (Given - Provider: Shelton Cowart, RN)1303 (Given - Provider: Teagan Moore, BETO) 5-10 mg, Oral, EVERY 4 HOURS PRN, other, pain control or improvement in physical function. Hold dose for analgesic side effects., Starting Sat03/31/18 at 1043, Start with the lowest dose. May adjust dos e by 5 mg every 4 hours as needed. Notif y provider to assess for uncontrolled pain or analgesic side effects. Hold while on HAND KNITTER or with regular IV opioid dosing. Maximum total is 60 mg in 24 hours., Post-procedure povidone-iodine (BETADINE) 10% soln 7 mL + 0.9% NaCl 2 50 mL (CANCELED) 0805 (Given - Provider: Ion Baig MD) PRN, Starting Sat03/31/18 at 0805, Intra-procedure prochlorperazine (COMPAZINE) injection 5 [...] First dos e on Sat03/31/18 at 2000
Hold for loose stools.
Post-procedure [...] sugar, May repeat x 1 only, Starting Sat03/31/18 at 1103
May give SQ or IM. [...]
Caution to be used when administering multiple BOILER TENDER depressing meds within a short time frame.
Post-procedure Or diphenhydrAMINE (BENADRYL) injection 12.5 mgJump to med 12.5 mg, Intravenous, EVERY 6 HOURS PRN, itching, Only give if patient unable to take PO., Administer over 1-2 Minutes, Starting 03/31/18 at 1043
Caution to be used when administering multip le BOILER TENDER depressing meds within a short ti me frame. For ordered doses up to 50 mg, give IV Push undiluted. Give each 25mg over a minimum of 1 minute. Extend in non-emergency
Post-procedure Group 4: hydrOXYzine (ATARAX) tablet 25 mgJump to med 25 mg, Oral, EVERY 6 HOURS PRN, other, a djuvant pain, Starting Tu04/01/18 at 0641 Or hydrOXYzine (ATARAX) tablet 50 [...]
Post-procedure documented in this encounter Care Teams Airplane Refueler Relationship Specialty Start Date End Date Dk Baird PCP - General Internal Medicine 03/25/18 07/05/[address] [address] documented as of this encounter
--- OUTSIDE RECORDS SUMMARY | 2022-07-20 21:45 | XMS_ITS | Clinical Summary ---
:1945 Author Organization [employer] [facility] [place] [address] Care Team Providers Name Role Phone Dk Baird MD Primary Care Provider [phone] Allergies No known active allergies Medications Medication Sig Dispensed Refills Start Date End Date Status atorvastatin (LIPITOR) Take 80 mg by 0 Active 80 mg tablet mouth once daily. metoprolol tartrate Take 12.5 mg by 0 Active 12.5 mg as half tablet mouth 2 times daily. aspirin (ECOTRIN) 81 mg Take 81 mg by 0 Active enteric coated tablet mouth once daily with a meal. allopurinol (ZYLOPRIM) Take 300 mg by 0 Active 300 mg tablet mouth once daily. metFORMIN (FORTAMET) Take 1,000 mg by 0 Active 1,000 mg mouth 2 times Controlled-Release daily. tablet glipiZIDE (GLUCOTROL) 5 Take 5 mg by 0 Active mg tablet mouth 2 times daily before meals. gabapentin (NEURONTIN) Take 300 mg by 0 Active 300 mg capsule mouth [address] 0.4 mg 0 Act anupam (NITROSTAT) 0.4 mg under the tongue sublingual tablet every 5 minutes if needed for Chest Pain. acetaminophen/diphenhyd Take by mouth. 0 Active ramine (TYLENOL PM ORAL) Active Problems Not on file Social History Tobacco Use Types Packs/Day Years Used Date Never Smoker Smokeless Tobacco: Never Used Alcohol Use Standard Drinks/Week Comments Yes 0 (1 standard drink = 0.6 oz pure alcoho l) twice a month Sex Assigned at Date Recorded Not on file Obstetrics History Last Filed Vital Signs Vital Sign Reading Time Taken Comments Blood Pressure 119/69 05/28/2018 2:30 PM CDT Pulse 85 05/28/2018 2:30 PM CDT Temperature 36.7 ??C (98 ??F) 05/28/2018 1:06 PM CDT Respiratory Rate 23 05/28/2018 2:30 PM CDT Oxygen Saturation 97% 05/28/2018 2:30 PM CDT Inhaled Oxygen Concentration - - Weight 80.3 kg (177 lb 0.5 oz) 05/28/2018 1:06 PM CDT Height 170.2 cm (5' 7) 05/28/2018 1:06 PM CDT Body Mass Index 27.73 05/28/2018 1:06 PM CDT Plan of Treatment Health Maintenance Due Date Last Done Comments COVID-19 vaccine series (#1) 1945 Tdap 1957 Depression screening for age 12+ 1958 BMI (ht and wt on same day) for age 18+ 1964 Hepatitis C screening for age 18-79 1964 Tetanus booster 1966 Zoster (shingles) series for age 50+ (1 of 2) 1996 Pneumococcal series for age 65+ (1 - PCV) 2011 Influenza for age 65+ 07/12/2022 Results Not on filefrom Last 3 Months Insurance Payer Benefit Plan / Subscriber ID Effective Dates Phone Addre ss Type Group MEDICARE PART B MEDICARE PART B [id number] 2011-Presen ATTN: CLAIMS - HB USE ONLY HB ONLY t [address] [place] [address] [place] BL[employer] [place]OSS [id number] 2016-Presen [address] [address] [place], [place] [id number] [employer] BL[place] [id number] 2016-Presen [address] [address] [place] [address], [place] ONLY [id number] Care Teams Reiki Practitioner Relationship Specialty Start Date End Date Dk Baird MD PCP - General Internal Medicine 07/09/17
--- OUTSIDE RECORDS SUMMARY | 2022-07-20 21:45 | XMS_ITS | Encounter Summary ---
:1945 Author Organization [place] Address [facility] [place] [address] Care Team Providers Name Role Phone Unavailable Primary Care Provider Unavailable Encounter Details Date Type Department Care Team Description 04/19/2006 Hospital Laboratory [facility] Social History Tobacco Use Types Packs/Day Years Used Date Never Assessed Sex Assigned at Date Recorded Not on file documented as of this encounter Plan of Treatment Not on filedocumented as of this encounter Procedures Procedure Name Priority Date/Time Associated Diagnosis Comme nts HCL UA MICRO IF Routine 04/19/2006 10:03 AM Resul ts for this POSITIVE CDT procedure are i n the results section. CL AFF MICRO Routine 04/19/2006 10:03 AM Results for this EXAM-URINE CDT procedure are i n the results section. CL AFF CBC WITH Routine 04/19/2006 8:39 AM Result s for this PLATELETS, DIFF CDT procedure ar e in the results section. HCL BASIC METABOLIC Routine 04/19/2006 8:39 AM Re sults for this PANEL CDT procedure are i n the results section. documented in this encounter Results (ABNORMAL) Hospital - MICRO EXAM-URINE (04/19/2006 10:03 AM CDT) P athologist Signature WBC Urine 2-5 (A) 0 - 2 /HPF [facility] RBC Urine O - 2 0 - 2 /HPF [facility] Squamous EPI Few FEW /LPF [facility] Specimen Anatomical Collection Method Collection Time Receive d Time (Source) Location / / Volume Laterality 04/19/2006 10:03 04/19/2006 AM CDT 10:06 AM CDT Provider Abstract LABORATORY Performing Organization Address City/State/ZIP Code Phon e Number M [facility] [address] [place] [address] [facility] (ABNORMAL) Hospital - UA MICRO IF POSITIVE (04/19/2006 10:03 AM CDT) Component Value Ref Test Analysis Performed At Patholo gist Range Method Time Signature Color Urine Yellow [facility] Appearance Urine Clear [facility] Glucose Urine 250 (A) NEG [place] mg/dL [facility] Bilirubin Urine Negative NEG [facility] Ketones Urine Negative NEG [place] mg/dL [facility] Specific [place] >1.030 1.003 - [place] Urine 1.035 [facility] Blood Urine Trace (A) NEG [facility] pH Urine 5.5 5.0 - [place] 7.0 pH [facility] Protein Albumin Trace (A) NEG [place] Urine mg/dL [facility] Urobilinogen 0.2 0.2 - [place] Urine 1.0 [facility] EU/dL [facility] Nitrite Urine Negative NEG [facility] Leukocyte Negative NEG [place] Esterase Urine [facility] Source Unspecified [place] Urine [facility] Specimen Anatomical Collection Method Collection Time Receive d Time (Source) Location / / Volume Laterality 04/19/2006 10:03 04/19/2006 AM CDT 10:06 AM CDT Provider Abstract LABORATORY Performing Organization Address City/State/ZIP Code Phon e Number M [place] [id number] [facility] JASMIN Goss [address] [facility] (ABNORMAL) Hospital - A.M.A. BASIC METABOLIC PANEL (04/19/2006 8:39 AM CDT) P athologist Signature Sodium 142 133 - 144 [place] mmol/L [facility] Potassium 3.9 3.4 - 5.3 [place] mmol/L [facility] Chloride 102 94 - 109 [place] mmol/L [facility] Carbon Dioxide 30 20 - 32 [place] mmol/L [facility] Anion Gap 9.4 6 - 17 [place] mmol/L [facility] Glucose 210 (H) 60 - 110 [place] mg/dL [facility] Urea Nitrogen 14 7 - 30 [place] mg/dL [facility] Creatinine 1.05 0.80 - [place] 1.50 mg/dL [facility] GFR Estimate 77 >60 [place] mL/min/1.[address] LAB GFR Estimate If >90 >60 [facility] mL/min/1.[address] LAB Calcium 8.9 8.5 - 10.4 [place] mg/dL [facility] Specimen Anatomical Collection Method Collection Time Receive d Time (Source) Location / / Volume Laterality 04/19/2006 8:39 AM 6 8:40 CDT AM CDT Provider Abstract LABORATORY Performing Organization Address City/State/ZIP Code Phon e Number M [facility] [address] [place] [address] CENTER [facility] (ABNORMAL) [facility] - CBC WITH PLATELETS, DIFF (04/19/2006 8:39 AM CDT) P athologist Signature WBC 5.2 4.0 - 11.0 [place] 10e9/L [facility] RBC Count 4.89 4.4 - 5.9 [place] 10e12/L [facility] Hemoglobin 16.5 13.3 - 17.7 [place] g/dL [facility] Hematocrit 44.8 40.0 - 53.0 [facility] MCV 92 78 - 100 fl [facility] MCH 33.8 (H) 26.5 - 33.0 [facility] LAB MCHC 36.9 (H) 32.0 - 36.0 [place] g/dL [facility] Comment: Results confirmed by repeat laurie t RDW 11.0 10.0 - 15.0 % [facility] Platelet Count 158 150 - 450 10e9/L [facility] Diff Method Automated Method [facility] % Neutrophils 44 40 - 75 % [facility] % Lymphocytes 43 20 - 48 % [facility] % Monocytes 9 0 - 12 % [facility] % Eosinophils 3 0 - 6 % [facility] % Basophils 1 0 - 2 % [facility] Absolute Neutrophil 2.3 1.6 - 8.3 10e9/L [facility] Absolute Lymphocytes 2.2 0.8 - 5.3 10e9/L [facility] Absolute Monocytes 0.4 0.0 - 1.3 10e9/L [facility] Absolute Eosinophils 0.1 0.0 - 0.7 10e9/L [facility] Absolute Basophils 0.1 0.0 - 0.2 10e9/L [facility] Specimen Anatomical Collection Method Collection Time Receive d Time (Source) Location / / Volume Laterality 04/19/2006 8:39 AM 6 8:40 CDT AM CDT Provider Abstract LABORATORY Performing Organization Address City/State/ZIP Code Phon e Number [place] [id number] [facility] JASMIN Goss [address] CENTER [facility] documented in this encounter Visit Diagnoses Not on filedocumented in this encounter
--- OUTSIDE RECORDS SUMMARY | 2022-07-20 21:45 | XMS_ITS | Encounter Summary ---
:1945 Author Organization [place] Address [address] [facility] [place] [address] Care Team Providers Name Role Phone [facility] Primary Care Provider Encounter Details Date Type Department Care Team Description 07/21/2021 Travel Social History Tobacco Use Types Packs/Day Years Used Date Never Smoker Smokeless Tobacco: Never Used Alcohol Use Standard Drinks/Week Comments No 0 (1 standard drink = 0.6 oz pure alcoho l) Sex Assigned at Date Recorded Not on file COVID-19 Exposure Response Date Recorded In the last month, have you been in contact with No / Unsure 07/21/2021 3:16 PM CDT someone who was confirmed or suspected to have Coronavirus / COVID-19? documented as of this encounter Plan of Treatment Not on filedocumented as of this encounter Visit Diagnoses Not on filedocumented in this encounter Care Teams Master Planner Relationship Specialty Start Date End Date [facility] PCP - General 07/06/21 [place], [place] documented as of this encounter
--- OUTSIDE RECORDS SUMMARY | 2022-07-20 21:45 | XMS_ITS | Encounter Summary ---
:1945 Author Organization [place] Address [address] [place] [address] Care Team Providers Name Role Phone Dk Baird Primary Care Provider Encounter Details Date Type Department Care Team Description 04/29/2019 Travel Social History Tobacco Use Types Packs/Day [...] on filedocumented in this encounter Care Teams Accounting Systems Analyst Relationship Specialty Start Date End Date Dk Baird PCP - General Internal Medicine 03/25/18 07/05/[address] [address] documented as of this encounter
--- OUTSIDE RECORDS SUMMARY | 2022-07-20 21:45 | XMS_ITS | Encounter Summary ---
:1945 Author Organization [place] Address [address] [facility] [place] [address] Care Team Providers Name Role Phone [facility] Primary Care Provider [phone] Reason for Visit Auth/Cert Specialty Diagnoses / Procedures Referred By Contact Refer red To Contact Surgery Diagnoses Spinal stenosis Herniated disc, cervical Radiculopathy, cervical DDD (degenerative disc disease), cervical Weakness Spinal stenosis [M48.00] Herniated disc, cervical [M50.20] Radiculopathy, cervical [M54.12] [facility] DDD (degenerative disc disea se), cervical [M50.30] Weakness [R53.1] [address] Procedures Lumbar 4-5 Posterior Lumbar Instrumented Fusion With or Without Interbody Cage and With Lumbar 3-4 Laminectomy and Lumbar 4-5 [place] [address] Fax: Referral ID Status Reason Start Date Expiration Date Visits Requ ested Visits Authorized [id number] 1 1 Encounter Details Date Type Department Care Team Description 07/31/2021 Lab [facility] Dali Champion MD Encounter for screening [facility] for other viral diseases [address] ORTHOPEDICS [place], [place] [address] [facility] [id number] [address] [place], [place] [address] (Wo rk) Social History Tobacco Use Types Packs/Day Years [...] Name Priority Date/Time Associated Diagnosis Comme nts COVID-19 VIRUS Routine 07/31/2021 3:13 PM Encounter for Result s for this (CORONAVIRUS) BY CDT screening for other proc edure are in PCR viral diseases the results section. documented in this encounter Results Asymptomatic COVID-19 Virus (Coronavirus) [...] using the Aptima SARS-CoV-2 Assay on the [employer] Instrument System. Additional in formation about this [...] COVID-19. This test was validated by the [facility]. This lab oratory is certified under the Clinical Laboratory Improvement Amen dments of 1987 (CLIA-88) as qualified to perform high complexity lab oratory testing. John Champion MD LAB - MICRO GENERAL ORDERABL ES Performing Organization Address City/State/ZIP Code Phon e Number [facility] [place] [place] [address] Diag. Lab [address] [facility], [address] [facility] Infectious [place], [place] [phone] Diseases Diagnostic [phone], [facility] Lab (IDDL) [address] [facility], [address] documented in this encounter Visit Diagnoses Diagnosis Encounter for screening for other viral diseases documented in this encounter Care Teams Senior Manager Mmcoe Relationship Specialty Start Date End Date Clinic, [facility] PCP - General 07/06/21 [place], [place] documented as of this encounter
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
--- OUTSIDE RECORDS SUMMARY | 2022-07-20 21:45 | XMS_ITS | Encounter Summary ---
:1945 Author Organization [place] Address [address] [place] [address] Care Team Providers Name Role Phone Dk Baird Primary Care Provider Encounter Details Date Type Department Care Team Description 04/29/[address] [facility] Fidel Hatfield S/ P total knee arthroplasty (Primary Dx); [facility] MD Yan Knee pain [address] [place], [place] OR[place]EDICS [address] [phone] [place] [address] [place] [address] Social History Tobacco Use Types Packs/Day Years Used Date Never Smoker Smokeless Tobacco: Never Used Alcohol Use Standard Drinks/Week Comments No 0 (1 standard drink = 0.6 oz pure alcoho l) Sex Assigned at Date Recorded Not on file documented as of this encounter Medications at Time of Discharge [...] 5 minutes as needed for chest pain acetaminophen (TYLENOL) Take 3 tablets ([phone] [...] knee replacement documented as of this encounter Plan of Treatment Not on filedocumented as of this encounter Procedures Procedure Name Priority Date/Time Associated Comments Diagnosis ERYTHROCYTE Routine 04/29/2019 9:43 AM S/P total knee Results for this SEDIMENTATION RATE CDT arthroplasty procedure are in AUTO Knee pain the results section. CRP INFLAMMATION Routine 04/29/2019 9:43 AM S/P total knee Res ults for this CDT arthroplasty procedure are in Knee pain the results section. documented in this encounter Results ESR: Erythrocyte sedimentation rate (04/29/2019 9:43 AM CDT) P athologist Signature Sed Rate 8 0 - 20 mm/h 04/29/2019 [facility] 9:54 AM CDT HOSPITAL Specimen Anatomical Collection Method Collection Time Receive d Time (Source) Location / / Volume Laterality Blood specimen 04/29/2019 9:43 AM 019 9:44 (specimen) CDT AM CDT Fidel Hatfield MD LAB - BLOOD ORDERABLES Performing Organization Address City/[facility]/ZIP [facility] Phon e Number M [facility] [address] [place], [place] [address] [facility] [address] [place], [place] [address], [facility] [phone] CRP inflammation (04/29/2019 9:43 AM CDT) P athologist Signature CRP Inflammation 3.8 0.0 - 8.0 04/29/2019 [place] mg/L 10:06 AM CDT [facility] Specimen Anatomical Collection Method Collection Time Receive d Time (Source) Location / / Volume Laterality Blood specimen 04/29/2019 9:43 AM 019 9:44 (specimen) CDT AM CDT Fidel Hatfield MD LAB - BLOOD ORDERABLES Performing Organization Address [facility]/ZIP [facility] Phon e Number M [facility] [address], [place] [address] [facility] [address] [place], [place] [address], [facility] [phone] documented in this encounter Visit Diagnoses Diagnosis S/P total knee arthroplasty - Primary Knee joint replacement by other means Knee pain Pain in joint, lower leg documented in this encounter Care Teams Transmission Line Engineer Relationship Specialty Start Date End Date Dk Baird PCP - General Internal Medicine 03/25/18 07/05/[address] [address] documented as of this encounter
--- OUTSIDE RECORDS SUMMARY | 2022-07-20 21:45 | XMS_ITS | Continuity of Care Document ---
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 It does not include entries that were removed or entered in error. 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 (ICD-9-CM HCS 607.84) Prostate mass Active Condition [facility] Sciatica Active Condition [facility] Type 2 diabetes Active Condition [place] [facility] mellitus (SNOM[place] [facility] HCS 65332893) Diagnosis: ICD-10-CM Active Diagnosis [facility] E11.8 Type 2 diabetes mellitus with unspecified complicationswith Provider Comments: Type 2 diabetes mellitus (SCT 27375779) Diagnosis: ICD-10-CM Active Diagnosis [place] [facility], Z01.01 Encounter for [facility] exam of eyes and vision w abnormal findingswith Provider Comments: Eye/Vision Exam w/ Abnormal Findings Diagnosis: ICD-10-CM Active Diagnosis [facility] Z01.00 Encounter for [facility] exam of eyes and vision w/o abnormal findingswith Provider Comments: Encounter for Examination of Eyes and Vision without Abnormal Findings Diagnosis: ICD-10-CM Active Diagnosis [facility] M54.32 Sciatica, left sidewith Provider Comments: Sciatica (SCT [id number]) Diagnosis: ICD-10-CM Active Diagnosis [facility] Z00.8 Encounter for other general examinationwith Provider Comments: Encounter for other General Examination Diagnosis: ICD-10-CM Active Diagnosis [facility] M54.2 Cervicalgiawith Provider Comments: Cervicalgia Diagnosis: ICD-10-CM Active Diagnosis [facility] Z71.89 Other specified counselingwith Provider Comments: Other specified Counseling Diagnosis: ICD-10-CM Active Diagnosis [facility] H61.23 Impacted HCS cerumen, bilateralwith Provider Comments: Impacted cerumen, bilateral Diagnosis: ICD-10-CM Active Diagnosis [facility] 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 Medications provided include 1) outpatient medications from the last 15 months, and 2) patient-reported medications. Medication Details Route Status Patient Prescription Prescription Last Ordering Order Source Instructions Expires Number Dispense Provider Date Date ACETAMINOPH TAKE ONE ACTIVE JOSETTE, 08/15/ [place] EN 325MG TABLET NICK L 2020 E [facility] TAB EVERY 4 HOURS NEEDED ALLOPURINOL TAKE ONE ORALLY ACTIVE 09/12/2022 [id number] JOSETTE, 09/11/ [place] 300MG TAB TABLET 2 NICK L 2020 E [facility] C BY MOUTH EVERY DAY FOR GOUT PREVENTI ON ALLOPURINOL TAKE ONE ORALLY DISCONT 07/22/2021 [id number] MITHANI,S 08/11/ [place] 300MG TAB TABLET INUE 1 2019 E [facility] BY MOUTH EVERY DAY FOR GOUT PREVENTI ON ASCORBIC TAKE ONE ORALLY ACTIVE JOSETTE, 08/01/ [place] ACID 500MG TABLET NICK L 2017 E [facility] TAB BY MOUTH EVERY DAY ASPIRIN TAB TAKE 81 ORALLY ACTIVE JOSETTE, 08/01/ [place] MG BY NICK L 2017 E [facility] MOUTH EVERY DAY ATORVASTATI TAKE ONE ORALLY ACTIVE 10/25/2022 [id number] JOSETTE, 10/25/ [place] N CA 80MG TABLET 2 NICK L 2020 E [facility] C TAB BY MOUTH EVERY EVENING FOR CHOLESTE ROL ATORVASTATI TAKE ONE ORALLY DISCONT 07/22/2021 [id number] MITHANI,S 09/04/ [place] N CA 80MG TABLET INUE 1 2019 E [facility] TAB BY MOUTH EVERY EVENING FOR CHOLESTE ROL EMPAGLIFLOZ TAKE ORALLY ACTIVE 07/19/2023 [id number] JOSSELIN ELL, 07/28/ [place] IN 25MG TAB ONE-HALF 2 NICK L 2021 E [facility] TABLET BY MOUTH EVERY DAY FOR DIABETES . EMPAGLIFLOZ TAKE ORALLY DISCONT 07/25/2022 [id number] M HENRY, 07/24/ [place] IN 25MG TAB ONE-HALF INUED 2 NICK L 2020 E [facility] TABLET BY MOUTH EVERY DAY FOR DIABETES . GARLIC OIL TAKE 1 ORALLY ACTIVE JOSETTE, 07/27/ [place] CAP,ORAL TAB BY NICK L 2018 E [facility] MOUTH EVERY DAY HYDROXYZINE TAKE ONE ORALLY ACTIVE JOSETTE, 08/15 / [place] HCL 10MG TABLET NICK L 2020 E [facility] TAB BY MOUTH EVERY 6 HOURS NEEDED LISINOPRIL TAKE ORALLY ACTIVE 09/12/2022 [id number] GUERDA LL, 09/11/ [place] 20MG TAB ONE-HALF 2 NICK L 2020 E [facility] TABLET BY MOUTH EVERY DAY FOR BLOOD PRESSURE LISINOPRIL TAKE ORALLY DISCONT 07/22/2021 [id number] MITHA ASHUTOSH,S 08/15/ [place] 20MG TAB ONE-HALF INUE 1 BANDAR A 2019 E [facility] TABLET BY MOUTH EVERY DAY FOR BLOOD PRESSURE METFORMIN TAKE ONE ORALLY ACTIVE 05/10/2023 [id number] ID TCHELL, 05/09/ [place] HCL 1000MG TABLET 2 NICK L 2021 E [facility] TAB BY MOUTH TWICE A DAY TO DECREASE BLOOD SUGAR METFORMIN TAKE ONE ORALLY DISCONT 04/25/2022 [id number] S TINO,ZULLY 04/26/ [place] HCL 1000MG TABLET INUED 2 [place] M 2020 E [facility] TAB BY MOUTH TWICE A DAY TO DECREASE BLOOD SUGAR METOPROLOL TAKE ORALLY ACTIVE 04/19/2023 [id number] MITCHE LL, 04/19/ [place] TARTRATE ONE-HALF 2 NICK L 2021 E [facility] 50MG TAB TABLET BY MOUTH TWICE A DAY FOR BLOOD PRESSURE METOPROLOL TAKE ORALLY DISCONT 03/01/2022 [id number] JOSSELIN ELL, 03/01/ [place] TARTRATE ONE-HALF INUED 2 NICK L 2020 E CB [facility] 50MG TAB TABLET BY MOUTH TWICE A DAY FOR BLOOD PRESSURE MULTIVITAMI TAKE ONE ORALLY ACTIVE JOSETTE, 07/27 / [place] N/MINERALS TABLET NICK L 2018 E [facility] SENIOR BY MOUTH FORMULA TAB EVERY DAY NITROGLYCER DISSOLVE SUBLIN ACTIVE 09/13/2022 [id number] M ITCHELL, 09/14/ [place] IN 0.4MG ONE GUAL 1 NICK L 2020 E [facility] TAB,SUBLING TABLET UAL UNDER THE TONGUE EVERY 5 MINUTES FOR UP TO 3 DOSES IF NEEDED FOR CHEST PAIN OXYCODONE TAKE ONE ORALLY 09/14/2021 [id number] ID TCHELL, 08/15/ [place] HCL 5MG TAB TABLET 1 NICK L 2020 E C [facility]OC BY MOUTH EVERY 6 HOURS NEEDED FOR PAIN OXYCODONE TAKE ONE ACTIVE JOSETTE, [facility] 5MG TAB TABLET NICK L 2020 E C [facility]OC TART [place] TAKE ONE ORALLY ACTIVE JOSETTE, 08/01 / [place] JUICE TABLET NICK L 2017 E [facility] LIQUID,ORAL BY MOUTH EVERY DAY Immunizations Combined list of available immunizations from the Department of Defense and Veterans Affairs facilities. 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 [facility] 2 complet OTTO OPE RECOMBINANT 2020 ed E [facility] INFLUENZA, complet [place] INJECTABLE, 2019 ed E [facility] QUADRIVALENT, PRESERVATIVE FREE [facility] 1 complet [place] OPE RECOMBINANT 2019 ed E [facility] TD (ADULT), 2 complet Mas sBiolo [facility] LF TETANUS 2016 ed gics E C BOC TOXOID, lot:[id number] PRESERVATIVE exp:9-2 7- FREE, 19 ADSORBED INFLUENZA, complet [place] HIGH DOSE 2015 ed CLIN IC SEASONAL INFLUENZA, complet [place] HIGH DOSE 2014 ed E CB [facility] SEASONAL PNEUMOCOCCAL complet wyet h [facility] CONJUGATE PCV 2014 ed pharm E [facility] 13 INFLUENZA, complet [place] [facility] PNEUMOCOCCAL, complet Daria ck; [place] UNSPECIFIED 2012 ed [id number]; [place] [facility] 05/02/20 1 [facility] 4 INFLUENZA, complet [place] U[facility]PECIFIED 2010 ed [facility] PNEUMOCOCCAL, complet [place] U[place]PECIFIED 2006 ed [facility] [place]IVE [place] [facility] [place]AP [place] 2006 ed [place] [facility] Results Combined list of recent chemistry, hematology and other laboratory results from Department of Defense and Veterans Affairs, ranging from 15 months to all on record, depending upon the facility. Order Results Value Reference Date Interpretation Specimen Commen ts Source Name Range HEMOGLOBI HEMOGLOBIN 7.7 4.0 - 6.0 06/11 H Specimen Type: BLOOD [place] N A1C A1C/HEMOGLO /2021 No comment e ntered. CBOC BIN.TOTAL Ordering Prov ider: EFFIE DIAMOND IN BLOOD Report Release d Date/Time: March 14, 2022 10:42 AM Reporting Lab: [facility] [address] [place] [address] Performing Lab: [facility] [address] [place] [address] HEMOGLOBI HEMOGLOBIN 7.8 4.0 - 6.0 03/07 H Specimen Type: BLOOD [place] N A1C A1C/HEMOGLO /2021 No comment e ntered. [facility] BIN.TOTAL Ordering Prov ider: EFFIE DIAMOND IN BLOOD Report Release d Date/Time: Oct 25, 2021 10:48 AM Reporting Lab: [facility] [address] [place] [address] Performing Lab: [facility] [address] [place] [address] TSH THYROTROPIN 1.20 0.35 - 09/20 Specimen Typ e: PLASMA [facility] W/REFLEX [UNITS/VOLU 4.94 No comment entered. CB[facility] TO FREE ME] IN Ordering Provid er: NICK FINCH T4 SERUM OR Report Release d Date/Time: Jul 20, 2021 11:31 AM PLASMA Reporting Lab: [facility] [address] [place] [address] Performing Lab: [facility] [address] [place] [address] LIPID CHOLESTEROL 99 <199 - 199 09/20 Specimen Type: PLASMA [place] PANEL,NON [MASS/VOLUM /2020 No comment entered. [facility] -FASTING E] IN SERUM Ordering P rovider: NICK FINCH L OR PLASMA Report Releas ed Date/Time: Jul 20, 2021 11:31 AM Reporting Lab: [facility] [place] [address] Performing Lab: [facility] [address] [place] [address] LIPID CHOLESTEROL 32 40 11/10 L Specimen Typ e: PLASMA [place] PANEL,NON IN HDL /2020 No comment ent ered. [facility] -FASTING [MASS/VOLUM Ordering P rovider: NICK FINCH E] IN SERUM Report Rele ased Date/Time: Jul 20, 2021 11:31 AM OR PLASMA Reporting Lab : [facility] [place] [address] Performing Lab: [facility] [place] [address] LIPID CHOLESTEROL 33 <99 - 99 09/20 Specimen Ty pe: PLASMA [place] PANEL,NON IN LDL /2020 No comment ent ered. [facility] -FASTING [MASS/VOLUM Ordering P rovider: NICK FINCH E] IN SERUM Report Rele ased Date/Time: Jul 20, 2021 11:31 AM OR PLASMA Reporting Lab : [facility] BY [place] [address] CALCULATION Performing Lab: [facility] [place] [address] LIPID CHOLESTEROL 34 <29 - 29 11/10 H Specimen Ty pe: PLASMA [place] PANEL,NON IN VLDL /2020 No comment ent ered. CB[facility] -FASTING [MASS/VOLUM Ordering P rovider: NICK FINCH E] IN SERUM Report Rele ased Date/Time: Jul 20, 2021 11:31 AM OR PLASMA Reporting Lab : [facility] BY [place] [address] CALCULATION Performing Lab: [facility] [place] [address] LIPID CHOLESTEROL 67 <129 - 129 11 Specimen Type: PLASMA [place] PANEL,NON NON HDL /2020 No comment ent ered. [facility] -FASTING [MASS/VOLUM Ordering P rovider: NICK FINCH E] IN SERUM Report Rele ased Date/Time: Jul 20, 2021 11:31 AM OR PLASMA Reporting Lab : [facility] [address] [place] [place] [address] Performing Lab: [facility] [address] [place] [address] LIPID TRIGLYCERID 170 <149 - 149 11/10 H Specimen Type: PLASMA [place] PANEL,NON E /2020 No comment ent ered. CB[facility] -FASTING [MASS/VOLUM Ordering P rovider: NICK FINCH] IN SERUM Report Rele ased Date/Time: Jul 20, 2021 11:31 AM OR PLASMA Reporting Lab : [facility] [address] [place] [address] Performing Lab: [facility] [address] [place] [address] HEMOGLOBI HEMOGLOBIN 6.9 4.0 - 6.0 11/10 H Specimen Type: BLOOD [place] N A1C A1C/HEMOGLO /2020 No comment e ntered. CB[facility] BIN.TOTAL Ordering Prov ider: EFFIE DIAMOND IN BLOOD Report Release d Date/Time: May 29, 2021 03:15 PM Reporting Lab: [facility] [place] [address] Performing Lab: [facility] [place] [address] MICROALBU CREATININE 50.7 58.0 - 11/10 L Specimen Ty pe: URINE [place] MIN/CREAT [MASS/VOLUM 161.0 /2020 No comment entered. CBOC ININE E] IN URINE Ordering Pr ovider: EFFIE DIAMOND RATIO Report Released Date/Time: May 29, 2021 03:15 PM URINE Reporting Lab: [facility] [place] [address] Performing Lab: [facility] [place] [address] MICROALBU MICROALBUMI 55.6 <29.9 - 11/10 H Specimen T ype: URINE [place] MIN/CREAT N/CREATININ 29.9 No comment entered. CBOC ININE E [MASS Ordering Provid er: EFFIE DIAMOND RATIO RATIO] IN Report Releas ed Date/Time: May 29, 2021 03:15 PM URINE URINE Reporting Lab: [facility] [address] [place] [address] Performing Lab: [facility] [place] [address] MICROALBU MICROALBUMI 28.2 <29.9 - / Specimen T ype: URINE [place] MIN/CREAT N 29.9 No comment ent ered. CBOC ININE [MASS/VOLUM Ordering Pr ovider: EFFIE DIAMOND RATIO E] IN URINE Report Rele ased Date/Time: May 29, 2021 03:15 PM URINE Reporting Lab: [facility] [address] [facility] [address] Performing Lab: [facility] [address] [place] [facility] [address] BASIC CREATININE 0.9 0.7 - 1.2 07/20 Specimen Ty pe: PLASMA [place] METABOLIC [MASS/VOLUM /2020 No comment entered. [facility] PANEL+MG E] IN SERUM Ordering P rovider: NICK FINCH OR PLASMA Report Releas ed Date/Time: Jul 20, 2021 11:18 AM Reporting Lab: [facility] [address] [place] [facility] [address] Performing Lab: [facility] [address] [place] [facility] [address] BASIC UREA 14 8 - 26 07/20 Specimen Type: P LASMA [place] METABOLIC NITROGEN /2020 No comment en tered. CB[facility] PANEL+MG [MASS/VOLUM Ordering P rovider: NICK FINCH E] IN SERUM Report Rele ased Date/Time: Jul 20, 2021 11:18 AM OR PLASMA Reporting Lab : [facility] [address] [place] [facility] [address] Performing Lab: [facility] [address] [place] [facility] [address] BASIC GLUCOSE 154 74 - 100 07/20 H Specimen Type: PLASMA [place] METABOLIC [MASS/VOLUM /2020 No comment entered. [facility] PANEL+MG E] IN SERUM Ordering P rovider: NICK FINCH OR PLASMA Report Releas ed Date/Time: Jul 20, 2021 11:18 AM Reporting Lab: [facility] [place] [address] Performing Lab: [facility] [address] [place] [facility] [address] BASIC SODIUM 142 136 - 145 07/20 Specimen Type: PLASMA [place] METABOLIC [MOLES/VOLU /2020 No comment entered. [facility] PANEL+MG ME] IN Ordering Provi paolo: NICK FINCH SERUM OR Report Release d Date/Time: Jul 20, 2021 11:18 AM PLASMA Reporting Lab: [facility] [place] [address] Performing Lab: [facility] [place] [address] BASIC POTASSIUM 4.3 3.5 - 5.1 07/20 Specimen Typ e: PLASMA [place] METABOLIC [MOLES/VOLU /2020 No comment entered. [facility] PANEL+MG ME] IN Ordering Provi paolo: NICK FINCH SERUM OR Report Release d Date/Time: Jul 20, 2021 11:18 AM PLASMA Reporting Lab: [facility] [place] [address] Performing Lab: [facility] [place] [address] BASIC CHLORIDE 105 98 - 107 07/20 Specimen Type: PLASMA [place] METABOLIC [MOLES/VOLU No comment entered. [facility] PANEL+MG ME] IN Ordering Provi paolo: NICK FINCH SERUM OR Report Release d Date/Time: Jul 20, 2021 11:18 AM PLASMA Reporting Lab: [facility] [place] [address] Performing Lab: [facility] [place] [address] BASIC CARBON 25 22 - 29 07/20 Specimen Type: P LASMA [place] METABOLIC DIOXIDE, /2020 No comment en tered. CBOC PANEL+MG TOTAL Ordering Provi paolo: NICK FINCH [MOLES/VOLU Report Rele ased Date/Time: Jul 20, 2021 11:18 AM ME] IN Reporting Lab: [facility] OR [address] [place] [facility] [address] PLASMA Performing Lab: [facility] [address] [place] [facility] [address] BASIC CALCIUM 9.2 8.4 - 10.2 07/20 Specimen Type : PLASMA [place] METABOLIC [MASS/VOLUM /2020 No comment entered. CB[facility] PANEL+MG E] IN SERUM Ordering P rovider: NICK FINCH OR PLASMA Report Releas ed Date/Time: Jul 20, 2021 11:18 AM Reporting Lab: [facility] [place] [address] Performing Lab: [facility] [address] [place] [address] BASIC MAGNESIUM 2.0 1.6 - 2.6 07/20 Specimen Typ e: PLASMA [place] METABOLIC [MASS/VOLUM /2020 No comment entered. CB[facility] PANEL+MG E] IN SERUM Ordering P rovider: NICK FINCH OR PLASMA Report Releas ed Date/Time: Jul 20, 2021 11:18 AM Reporting Lab: [facility] [place] [address] Performing Lab: [facility] [place] [address] BASIC ANION GAP 12 5 - 15 07/20 Specimen Type: PLASMA [place] METABOLIC IN SERUM OR /2020 No comment entered. [facility] PANEL+MG PLASMA Ordering Provi paolo: NICK FINCH Report Released Date/Time: Jul 20, 2021 11:18 AM Reporting Lab: [facility] [address] [place] [facility] [address] Performing Lab: [facility] [place] [address] BASIC GLOMERULAR 82 60 07/20 Specimen Type : PLASMA [place] METABOLIC FILTRATION /2020 No comment entered. CB[facility] PANEL+MG RATE/1.73 Ordering Pro vider: NICK FINCH SQ Report Released Date/Time: Jul 20, 2021 11:18 AM M.PREDICTED Reporting L ab: [facility] [[address] [place] [address] RATE/AREA] Performing L ab: [facility] HCS IN SERUM, [address] [facility] [address] PLASMA OR BLOOD BY CREATININE- BASED FORMULA (CKD-EPI) CBC & LEUKOCYTES 4.74 4.0 - 11.0 07/20 Specimen T ype: BLOOD [place] DIFF [#/VOLUME] /2020 Comment: Aut omated Differential Performed [facility] IN BLOOD BY Ordering Pr ovider: NIKC FINCH AUTOMATED Report Releas ed Date/Time: Jul 20, 2021 11:18 AM COUNT Reporting Lab: [facility] [place] [address] Performing Lab: [facility] [address] [place] [facility] [address] CBC & ERYTHROCYTE 4.41 4.6 - 6.2 07/20 L Specimen T ype: BLOOD [place] DIFF S /2020 Comment: Automa luc Differential Performed CB[facility] [#/VOLUME] Ordering Pro vider: NICK FINCH IN BLOOD BY Report Rele ased Date/Time: Jul 20, 2021 11:18 AM AUTOMATED Reporting Lab : [facility] COUNT [place] [address] Performing Lab: [facility] [address] [place] [facility] [address] CBC & HEMOGLOBIN 14.4 13.5 - 07/20 Specimen Type : BLOOD [place] DIFF [MASS/VOLUM 17.9 /2020 Comment: Au tomated Differential Performed CB[facility] E] IN BLOOD Ordering Pr ovider: NICK FINCH Report Released Date/Time: Jul 20, 2021 11:18 AM Reporting Lab: [facility] [place] [address] Performing Lab: [facility] [address] [place] [facility] [address] CBC & HEMATOCRIT 43.1 41 - 54 07/20 Specimen Type : BLOOD [place] DIFF [VOLUME /2020 Comment: Automa luc Differential Performed [facility] FRACTION] Ordering Prov ider: NICK FINCH OF BLOOD BY Report Rele ased Date/Time: Jul 20, 2021 11:18 AM AUTOMATED Reporting Lab : [facility] [place] [address] Performing Lab: [facility] [place] [address] CBC & MCV 97.7 80 - 100 07/20 Specimen Type: BLOOD [place] DIFF [ENTITIC /2020 Comment: Autom ated Differential Performed [facility] VOLUME] BY Ordering Pro vider: NICK FINCH AUTOMATED Report Releas ed Date/Time: Jul 20, 2021 11:18 AM COUNT Reporting Lab: [facility] [address] [place] [facility] [address] Performing Lab: [facility] [address] [place] [facility] [address] CBC & MCH 32.7 27 - 33 07/20 Specimen Type: B LOOD [place] DIFF [ENTITIC /2020 Comment: Autom ated Differential Performed [facility] MASS] BY Ordering Provi paolo: NICK FINCH AUTOMATED Report Releas ed Date/Time: Jul 20, 2021 11:18 AM COUNT Reporting Lab: [facility] [address] [place] [facility] [address] Performing Lab: [facility] [address] [place] [facility] [address] CBC & MCHC 33.4 32.0 - 07/20 Specimen Type: B LOOD [place] DIFF [MASS/VOLUM 37.5 /2020 Comment: Au tomated Differential Performed [facility] E] BY Ordering Provid er: NICK FINCH AUTOMATED Report Releas ed Date/Time: Jul 20, 2021 11:18 AM COUNT Reporting Lab: [facility] [address] [place] [facility] [address] Performing Lab: [facility] [address] [place] [facility] [address] CBC & PLATELETS 166 150 - 400 07/20 Specimen Typ e: BLOOD [place] DIFF [#/VOLUME] /2020 Comment: Aut omated Differential Performed [facility] IN BLOOD BY Ordering Pr ovider: NICK FINCH AUTOMATED Report Releas ed Date/Time: Jul 20, 2021 11:18 AM COUNT Reporting Lab: [facility] [address] [place] [facility] [address] Performing Lab: [facility] [address] [place] [facility] [address] CBC & PLATELET 11.5 7.4 - 10.4 07/20 H Specimen Typ e: BLOOD [place] DIFF MEAN VOLUME /2020 Comment: Au tomated Differential Performed [facility]OC [ENTITIC Ordering Provi paolo: NICK FINCH VOLUME] IN Report Relea sed Date/Time: Jul 20, 2021 11:18 AM BLOOD BY Reporting Lab: [facility] AUTOMATED [address] [facility] [address] COUNT Performing Lab: [facility] [address] [place] [facility] [address] CBC & NEUTROPHILS 55.5 07/20 Specimen Typ e: BLOOD [place] DIFF /100 /2020 Comment: Automa luc Differential Performed [facility] LEUKOCYTES Ordering Pro vider: NICK FINCH IN BLOOD BY Report Rele ased Date/Time: Jul 20, 2021 11:18 AM MANUAL Reporting Lab: [facility] [place] [address] Performing Lab: [facility] [address] [place] [facility] [address] CBC & LYMPHOCYTES 30.8 07/20 Specimen Typ e: BLOOD [place] DIFF /100 /2020 Comment: Automa luc Differential Performed [facility] LEUKOCYTES Ordering Pro vider: JOSEFINA FINCHECCA L IN BLOOD BY Report Rele ased Date/Time: Jul 20, 2021 11:18 AM MANUAL Reporting Lab: [facility] [place] [address] Performing Lab: [facility] [address] [place] [facility] [id number] CBC & MONOCYTES/1 8.9 07/20 Specimen Typ e: BLOOD [place] DIFF Comment: Automa luc Differential Performed [facility] LEUKOCYTES Ordering Pro vider: JOSETTENICK L IN BLOOD BY Report Rele ased Date/Time: Jul 20, 2021 11:18 AM AUTOMATED Reporting Lab : [facility] [address] [place] [facility] [address] Performing Lab: [facility] [address] [place] [facility] [address] CBC & EOSINOPHILS 3.6 07/20 Specimen Typ e: BLOOD [place] DIFF / Comment: Automa luc Differential Performed [facility] LEUKOCYTES Ordering Pro vider: JOSEFINA FINCHECCA L IN BLOOD BY Report Rele ased Date/Time: Jul 20, 2021 11:18 AM AUTOMATED Reporting Lab : [facility] [address] [place] [facility] [address] Performing Lab: [facility] [address] [place] [facility] [address] CBC & BASOPHILS/1 0.8 07/20 Specimen Typ e: BLOOD [place] DIFF Comment: Automa luc Differential Performed [facility] LEUKOCYTES Ordering Pro vider: JOSEFINA FINCHECCA L IN BLOOD BY Report Rele ased Date/Time: Jul 20, 2021 11:18 AM MANUAL Reporting Lab: [facility] [address] [place] [facility] [address] Performing Lab: [facility] [address] [place] [facility] [address] CBC & ERYTHROCYTE 12.8 11.5 - 07/20 Specimen Typ e: BLOOD [place] DIFF DISTRIBUTIO 14.5 Comment: Au tomated Differential Performed [facility] N WIDTH Ordering Provid er: NICK FINCH L [RATIO] BY Report Parker sed Date/Time: Jul 20, 2021 11:18 AM AUTOMATED Reporting Lab : [facility] [address] [place] [facility] [address] Performing Lab: [facility] [address] [place] [facility] [address] CBC & LYMPHOCYTES 1.46 1.0 - 4.0 07/20 Specimen T ype: BLOOD [place] DIFF [#/VOLUME] /2020 Comment: Aut omated Differential Performed [facility] IN BLOOD BY Ordering Pr ovider: NICK FINCH AUTOMATED Report Releas ed Date/Time: Jul 20, 2021 11:18 AM COUNT Reporting Lab: [facility] [address] [place] [facility] [address] Performing Lab: [facility] [address] [place] [facility] [address] CBC & MONOCYTES 0.42 0.1 - 1.0 07/20 Specimen Typ e: BLOOD [place] DIFF [#/VOLUME] /2020 Comment: Aut omated Differential Performed [facility] IN BLOOD BY Ordering Pr ovider: NICK FINCH AUTOMATED Report Releas ed Date/Time: Jul 20, 2021 11:18 AM COUNT Reporting Lab: [facility] [address] [place] [facility] [address] Performing Lab: [facility] [address] [place] [facility] [address] CBC & NEUTROPHILS 2.63 2.0 - 7.7 07/20 Specimen T ype: BLOOD [place] DIFF [#/VOLUME] /2020 Comment: Aut omated Differential Performed [facility] IN BLOOD BY Ordering Pr ovider: NICK FINCH AUTOMATED Report Releas ed Date/Time: Jul 20, 2021 11:18 AM COUNT Reporting Lab: [facility] [address] [place] [facility] [address] Performing Lab: [facility] [address] [place] [facility] [address] CBC & EOSINOPHILS 0.17 0 - 0.5 07/20 Specimen Typ e: BLOOD [place] DIFF [#/VOLUME] /2020 Comment: Aut omated Differential Performed [facility] IN BLOOD BY Ordering Pr ovider: NICK FINCH AUTOMATED Report Releas ed Date/Time: Jul 20, 2021 11:18 AM COUNT Reporting Lab: [facility] [address] [place] [facility] [address] Performing Lab: [facility] [address] [place] [facility] [address] CBC & BASOPHILS 0.04 0 - 0.2 07/20 Specimen Type: BLOOD [place] DIFF [#/VOLUME] /2020 Comment: Aut omated Differential Performed [facility] IN BLOOD BY Ordering Pr ovider: NICK FINCH AUTOMATED Report Releas ed Date/Time: Jul 20, 2021 11:18 AM COUNT Reporting Lab: [facility] [place] [address] Performing Lab: [facility] [address] [place] [address] CBC & IG(META,MYE 0.4 07/20 Specimen Typ e: BLOOD [place] DIFF LO,PRO) /2020 Comment: Automa luc Differential Performed [facility] Ordering Provid er: NICK FINCH Report Released Date/Time: Jul 20, 2021 11:18 AM Reporting Lab: [facility] [address] [place] [facility] [address] Performing Lab : [facility] [address] [place] [facility] [address] CBC & IMMATURE 0.02 0 - 0.1 07/20 Specimen Type: BLOOD [place] DIFF GRANULOCYTE /2020 Comment: Au tomated Differential Performed [facility] S Ordering Provid er: NICK FINCH [PRESENCE] Report Relea sed Date/Time: Jul 20, 2021 11:18 AM IN BLOOD BY Reporting L ab: [facility] AUTOMATED [address] [facility] [address] COUNT Performing Lab: [facility] [address] [place] [facility] [address] HEMOGLOBI HEMOGLOBIN 7.3 4.0 - 6.0 07/16 H Specimen Type: BLOOD [place] N A1C A1C/HEMOGLO /2020 No comment e ntered. CBOC BIN.TOTAL Ordering Prov ider: EFFIE DIAMOND IN BLOOD Report Release d Date/Time: April 06, 2021 09:19 AM Reporting Lab: [facility] [address] [place] [facility] [address] Performing Lab: [facility] [address] [place] [facility] [address] POC HGB HEMOGLOBIN 7.7 4.00 - 04/12 H Specimen Type : BLOOD [place] A1C A1C/HEMOGLO 6.00 /2020 No comment e ntered. CBOC BIN.TOTAL Ordering Prov ider: CHARITO SAEED IN BLOOD Report Release d Date/Time: Feb 20, 2021 12:04 PM Reporting Lab: [facility] [address] [place] [address] [place] [address] Performing Lab: [place] [facility] [address] [place] [address] Vital Signs Combined list of inpatient and outpatient Vital Signs from Department of Defense and Veterans Affairs, ranging from 12 months to all on record, depending upon the facility. Vital Sign Value Date Comments Source SYSTOLIC BLOOD PRESSURE 144 08/15/2021 11:19:00 [place] [facility] DIASTOLIC BLOOD PRESSURE 79 08/15/2021 11:19:00 [place] [facility] PULSE OXIMETRY 98% 08/15/2021 11:19:00 [facility] WEIGHT 159.3 08/15/2021 11:19:00 [place] [facility] BMI 24kg/m2 08/15/2021 11:19:00 [place] [facility] PAIN 6 08/15/2021 11:19:00 [place] [facility] HEIGHT 67.8 08/15/2021 11:19:00 [place] [facility] TEMPERATURE 98 08/15/2021 11:19:00 [place] [facility] PULSE 53 08/15/2021 11:19:00 [place] [facility] RESPIRATION 14 08/15/2021 11:19:00 [place] [facility] SYSTOLIC BLOOD PRESSURE 123 07/20/2021 10:42:56 [place] [facility] DIASTOLIC BLOOD PRESSURE 76 07/20/2021 10:42:56 [place] [facility] PULSE OXIMETRY 97% 07/20/2021 10:42:56 [facility] WEIGHT 160.9 07/20/2021 10:42:56 [place] [facility] BMI 25kg/m2 07/20/2021 10:42:56 [facility] [facility] PAIN 0 07/20/2021 10:42:56 [place] [facility] HEIGHT 67.5 07/20/2021 10:42:56 [place] [facility] TEMPERATURE 97.9 07/20/2021 10:42:56 [facility] [facility] PULSE 46 07/20/2021 10:42:56 [facility] [facility] RESPIRATION 14 07/20/2021 10:42:56 [facility] Encounters Combined list of: 1) Encounters from Department of Veterans Affairs facilities going back up to the last 18 months. 2) Encounters from the Department of Defense facilities going back up to 280 months. Location Location Encounter Encounter Reason Attending ADM DC Stat us Disposition Source Details Type Number For Provider Date Date Visit Outpatient 75862-4. Jayy FINCH 01/20 [place] Encounter [id number] [facility] [place] [facility] IMMUNIZATI 29418-6.61 Diagnos DARLIN, 02/20 [place] AD[place] [id number] is: CHARITO VALDO E CBOC 58 ICD-10- CM Z23 Encount er for immuniz ation<b r/>with Provide r Comment s: Encount er for any immuniz ation OFFICE O/P 84628-3.61 Diagnos TAMMYALEX 02/22 [place] NEW MOD [id number] is: CUAUHTEMOC S [facility] V A 45-59 MIN ICD-10- HCS CM E11.39 Type 2 diabete s w oth diabeti c ophthal sommer complic ation<b r/>with Provide r Comment s: Type 2 diabete s w oth diabeti c ophthal sommer complic ation OFFICE O/P 05587-4.61 Diagnos MAYRA HELTON 02/22 [place] EST [id number] is: KEV [facility] [place] MINIMAL ICD-10- HCS PROB CM H61.23 Impacte d esau fox al
with Provide r Comment s: Impacte d esau fox al HC PRO 10749-4.61 Diagnos SHERRY DIAMOND 02/24 [place] PHONE CALL [id number] is: ANTOINETTE E C BOC 21-30 MIN 58 ICD-10- CM E11.8 Type 2 diabete s mellitu s with unspeci fied complic ations< br/>wit h Provide r Comment s: Type 2 diabete s mellitu s (SCT [id number] 6) Outpatient 00902-2.61 03/08 [place] Encounter [id number] /2021 [facility] [place] [facility] HC PRO 37399-4.61 Diagnos SHERRY DIAMOND 04/06 [place] PHONE CALL [id number] is: ANTOINETTE E C BOC 21-30 MIN 63 ICD-10- CM E11.8 Type 2 diabete s mellitu s with unspeci fied complic ations< br/>wit h Provide r Comment s: Type 2 diabete s mellitu s (SCT [id number] 6) Outpatient 53417-4.61 04/07 [place] En[place] [id number] [facility] [place] 28649-6.61 Diagnos JUSTINE ANGELES 04/11 [place] PHONE CALL [id number] is: E E CB OC 11-20 MIN 47 ICD-10- CM 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
with Provide r Comment s: Cervica lgia THERAPEUTI 55744-4.61 Diagnos VALENTE,BURAK 04/21 [place] [id number] is: MONIK E [facility]OC EXERCISES 29 ICD-10- CM M54.2 Cervica lgia
with Provide r Comment s: Cervica lgia THERAPEUTI 73461-8.61 Diagnos VALENTE,BURAK 05/05 [place] [id number] is: MONIK E CBOC EXERCISES 77 ICD-10- CM M54.2 Cervica lgia
with Provide r Comment s: Cervica lgia THERAPEUTI 26048-3.61 Diagnos VALENTE,BURAK 05/26 [place] [id number] is: MONIK E [facility] EXERCISES 07 ICD-10- CM M54.2 Cervica lgia
with Provide r Comment s: Cervica lgia HC PRO 50897-8.61 Diagnos ZULLY DIAMONDI 05/29 [place] PHONE CALL [id number] is: ANTOINETTE E C BOC 11-20 MIN 05 ICD-10- CM E11.8 Type 2 diabete s mellitu s with unspeci fied complic ations< br/>wit h Provide r Comment s: Type 2 diabete s mellitu s (SCT [id number] 6) Outpatient 55755-5.61 05/30 [place] [id number] [facility]P 18376-0.61 Diagnos JOSETTE,R 07/20 [place] EST MOD [id number] is: EBECCA L /2020 E CB OC 30-39 MIN 68 ICD-10- CM Z00.8 Encount er for other general examina tion
with Provide r Comment s: Encount er for other General Examina tion Outpatient 38105-8.61 08/03 [place] Encounter [id number] [facility] OFFICE O/P 09530-4. Diagnos JOSETTE,R 08/15 [place] EST LOW [id number] is: EBECCA L /2020 E CB OC 20-29 MIN 96 ICD-10- CM M54.32 Sciatic a, left side
with Provide r Comment s: Sciatic a (SCT [id number] 5) HC PRO 22349-3.61 Diagnos AVILA, 08/16 [place] PHONE CALL [id number] is: AALIYAH N E C BOC 11-20 MIN 52 ICD-10- CM E11.8 Type 2 diabete s mellitu s with unspeci fied complic ations< br/>wit h Provide r Comment s: Type 2 diabete s mellitu s (SCT [id number] 6) Outpatient 09729-7.61 08/16 [place] Encounter [id number] [facility] Outpatient 35580-7.61 09/11 [place] Encounter [id number] [facility] Outpatient 86527-0.61 09/22 [place] Encounter [id number] /2020 [facility] HC PRO 34742-5.61 Diagnos DARA,WHI 10/25 [place] PHONE CALL [id number] is: ANTOINETTE M E C BOC 5-10 MIN 16 ICD-10- CM E11.8 Type 2 diabete s mellitu s with unspeci fied complic ations< br/>wit h Provide r Comment s: Type 2 diabete s mellitu s ([facility] [id number] 6) IMG RTA 82513-4.61 Diagnos Bo GIMENEZ 03/08 [place] DETCJ/MNTR [id number] is: SHAQ [facility] [place] DS STAFF ICD-10- HCS CM Z01.00 Encount er for exam of eyes and vision w/o abnorma l finding s
w ith Provide r Comment s: Encount er for Examina tion of Eyes and Vision without Abnorma l Finding s Outpatient 50112-1.63 Diagnos CORRIGANDELILAH 03/08 [place] En[place] [id number] is: NDRA NWIH S, 4 ICD-10- [place] CM DIVISIO Z01.01 N Encount er for exam of eyes and vision w abnorma l finding s
w ith Provide r Comment s: Eye/Vis ion Exam w/ Abnorma l Finding s HC PRO 14864-0.61 Diagnos DARA,[facility] 03/14 [place] PHONE CALL [id number] is: ANTOINETTE E C BOC 11-20 MIN 39 ICD-10- CM E11.8 Type 2 diabete s mellitu s with unspeci fied complic ations< br/>wit h Provide r Comment s: Type 2 diabete s mellitu s ([facility] [id number] 6) HC PRO 02592-9.61 Diagnos DARA,[facility] 06/13 [place] PHONE CALL [id number] is: ANTOINETTE E C BOC 11-20 MIN 91 ICD-10- CM E11.8 Type 2 diabete s mellitu s with unspeci fied complic ations< br/>wit h Provide r Comment s: Type 2 diabete s mellitu s ([facility] [id number] 6) Social History Combined list of available smoking, tobacco, and other social history from Department of Defense andVeterans Affairs facilities. Social History Type Response Date Comment Source Tobacco smoking status [facility] [place] [facility] History of tobacco use VA-TOBACCO NEVER USED 07/21/2020 [facility] History of tobacco use VA-TOBACCO NEVER USED 06/29/2019 [facility] History of tobacco use LIFETIME NON-TOBACCO 07/16/2018 [facility] USER History of tobacco use LIFETIME NON-TOBACCO 07/10/2017 [facility] USER History of tobacco use LIFETIME NON-TOBACCO 09/12/2016 [facility] USER History of tobacco use LIFETIME NON-TOBACCO 08/16/2015 [facility] USER History of tobacco use LIFETIME NON-TOBACCO 05/10/2014 [facility] USER History of tobacco use LIFETIME NON-TOBACCO 03/18/2012 [facility] USER Plan of Care List of future care activities from Department of [facility] facilities. Additional future care activities may be listed in the Assessment and Plan section. Date/Time Care Activity Care Activity Detail Facility 09/04/2022 AMBULATORY - NONE AMBULATORY - NONE [facility] Advance Directives List of completed, amended, or rescinded Advance Directives on record at Department of Veterans [facility] facilities. An actual copy of the Directive is not included. Date Advance Directive Provider Source 08/03/2019 ADVANCE DIRECTIVE DISCUSSION CASEY JACOBS 08/03/2019 ADVANCE DIRECTIVE CASEY JACOBS [facility]
--- OUTSIDE RECORDS SUMMARY | 2022-07-20 21:46 | XMS_ITS | Encounter Summary ---
:1945 Author Organization [facility] Address [address] [place] [address] Support Name Relationship Address Phone SHANEKA JOHNSON Unavailable [address] [phone] [place] [address] SHANEKA JOHNSON Unavailable [address] [place] [address] [phone] [place] [address] SHANEKA JOHNSON Unavailable [address] [place] [address] Insurance Providers: All historical and current Section Date Range: From patient's date of to the date document was created.This section includes the names of all active insurance providers for the patient. Insurance Type of Plan Start of End of Group Member Insurance Policy P atient's Provider Coverage Name Policy Policy Number ID Provider's [place]'s Relationship Coverage Coverage Telephone Name to Policy Number [place] M[place] Nov 11, [id number] ALLISON JOHNSON P ATIENT [facility] (WNR) ADVANTAGE (WNR) 2017 [id number] [phone] LE 1 [place] Nov [id number], [id number] [phone] ALLISON JOHNSON PATIENT [facility] (WNR) ADVANTAGE (WNR) 2016 3 [id number] LE 1 Selected Encounter This section includes the information on record at PA for the Encounter. Date/Time Encounter Type Encounter Description Reason Provider Source Sep 11, 2021 04:32 Outpatient Encounter TELEPHONE TRIAGE PM IHE Encounter Template Text not used by PA Plan of Treatment: Future Appointments (+ 6 months) and Future Tests (+/- 45 days) The Plan of Treatment section includes future care activities for the patient from all VA treatmentfacilities. This section includes future appointments and future orders which are active, pending orscheduled.Future Appointments This section includes appointments that were scheduled to occur 6 months from the date of the Encounter, up to a maximum of 20 appointments. The data comes from all PA treatment facilities. Appointment Date/Time Appointment Type Appointment Facili ty Name Sep 20, 2021 01:15 PM AMBULATORY - NONE [facility] Oct 25, 2021 10:30 AM AMBULATORY - NONE [facility] Mar 07, 2022 10:00 AM AMBULATORY - NONE [facility] Mar 08, 2022 01:00 PM AMBULATORY - NONE [facility] Lab Results: +/- 30 days of the encounter This section includes the Chemistry and Hematology Lab Results on record with PA for the patient. Radiology Reports and Pathology Reports are provided separately, in subsequent sections.Lab Results This section contains the Chemistry/Hematology Results that were resulted 30 days before or 30 daysafter the date of the Encounter. Date/Time Source Result Type Result - Unit Interpretation Reference Range Comment Sep 20, 2021 01:14 [facility] TSH W/REFLEX TO FREE Specime n Type: PLASMA PM T4 No comment enter ed. Ordering Provid er: NICK FINCH Report Released Date/Time: Jul 20, 2021 11:31 AM Reporting Lab: [facility] [address] [facility] [address] Performing Lab: [facility] [address] [facility] [address] TSH 1.20 0.35-4.94 Sep 20, 2021 01:14 [facility] LIPID PANEL,NON-FASTING Spec imen Type: PLASMA PM No comment enter ed. Ordering Provid er: NICK FINCH Report Released Date/Time: Jul 20, 2021 11:31 AM Reporting Lab: [facility] [address] [facility] [address] Performing Lab: [facility] [address] [facility] [address] CHOLESTEROL 99 <199 .HDL 32 L >40 LDL CALCULATION 33 <99 VLDL CALCULATION 34 H <29 NON HDL CHOLESTEROL 67 <129 TRIG(NON FASTING) 170 H <149 Sep 20, 2021 01:14 PM [facility] HEMOGLOBIN A1C Specimen Type: BLOOD No comment enter ed. Ordering Provid er: EFFIE DIAMOND Report Released Date/Time: May 29, 2021 03:15 PM Reporting Lab: [facility] [address] [facility] [address] Performing Lab: [facility] [address] [facility] [address] HEMOGLOBIN A1C 6.9 H 4.0-6.0 Sep 20, 2021 [place] MICROALBUMIN/CREATININE RATIO S pecimen Type: URINE 01:14 PM URINE No comment enter ed. Ordering Provid er: EFFIE DIAMOND Report Released Date/Time: May 29, 2021 03:15 PM Reporting Lab: [facility] [address] [facility] [address] Performing Lab: [facility] [address] [facility] [address] CREATININE,UR RANDOM 50.7 L 58.0-161. 0 ALB/CREAT RATIO,UR 55.6 H <29.9 MICROALBUMIN,UR 28.2 <29.9 Social History: Smoking Status (Most current) and Tobacco Use (All prior to encounter date) This section includes the most current, and the historical, smoking and tobacco-related health factors from the PA facility where the Encounter took place.Current Smoking Status This section includes the most current smoking, or tobacco-related health factor, from the PA facility where the Encounter took place. Date/Time Current Smoking Status Comment Facility March 18, 2012 08:35 AM LIFETIME NON-TOBACCO USER [facility] Advance Directives: All historical and current Section Date Range: From patient's date of to the date document was created. This section includes ALL of a patient's completed or amended PA Advance and Rescinded Directives. The entries below indicate that a directive exists for the patient, but an actual copy is not included with this document. The data comes from all PA facilities. Date Advance Directives Provider Source Aug 03, 2019 ADVANCE DIRECTIVE DISCUSSION CASEY JACOBS Aug 03, 2019 ADVANCE DIRECT[address]OBS [facility] Encounter Notes: All associated encounter notes This section contains the clinical notes associated to the Encounter. Date/Time Encounter Note(s) Provider Source Sep 11, 2021 04:32 PM REPORT OF CONTACT: JENNIFER MACIAS [facility] LOCAL TITLE: PATIENT CONTACT NOTE - PHARMACY STANDARD TITLE: REPORT OF CONTACT DATE OF NOTE: SEP 11, 2021@16:32 ENTRY DATE: SEP 11, 2021@16:32:11 AUTHOR: JENNIFER MACIAS EXP COSIGNER: URGENCY: STATUS: COMPLETED PATIENT CONTACT NOTE - PHARMACY Has ADDENDA Patient Contact Date & Time of Contact: Sep@16:32 Type of Contact: Telephone Reason for Contact: Renewal of medication(s) Medications requested:Nitroglycerin sublingual T ab 0.4mg Comments:[place] is requesti ng new Prescription for Rx. if approapriate send the prescription to [facility] to mail the Rx or conta ct the at [phone]. /es/ JENNIFER MACIAS MEDICAL POLICY SPECIALIST Signed: 09/11/2021 16:34 Receipt Acknowledged By: 09/12/2021 08:31 /adi/ NICK FINCH PHYSICIAN 09/12/2021 ADDENDUM STATUS: COMPLETED ordered. /adi/ NICK FINCH PHYSICIAN Signed: 09/12/2021 08:31
--- OUTSIDE RECORDS SUMMARY | 2022-07-20 21:46 | XMS_ITS | Encounter Summary ---
:1945 Author Organization Department [facility] Address [address] [place] [id number] Support Name Relationship Address Phone SHANEKA JOHNSON Unavailable [address] [phone] [place] [address] SHANEKA JOHNSON Unavailable [phone] TRL [phone] [place] [address] SHANEKA JOHNSON Unavailable [address] [place] [address] Insurance Providers: All historical and current Section [...] [place] M[place] Nov 11, [id number] ALLISON JOHNSON P ATIENT [facility] (WNR) ADVANTAGE (WNR) 2017 3 [id number] [phone] LE 1 [place] Nov 11, [id number] [phone] ALLISON JOHNSON PATIENT [facility] (WNR) ADVANTAGE (WNR) 2016 3 [id number] 2 LE 1 Selected Encounter This section includes the information on record at [place] for the Encounter. Date/Time Encounter Type Encounter Reason Provider Source Description Mar 08, 2022 Outpatient OPHTHALMOLOGY ICD-10-CM BAN CORRIGAN 01:59 PM Encounter Z01.01 A C Encounter for exam of eyes and vision w abnormal findings with Provider Comments: Eye/Vision Exam w/ Abnormal Findings IHE Encounter Template Text not used by [facility] Assessments - Encounter Diagnoses This section includes the primary and secondary diagnoses documented for the Encounter. 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[facility], 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 Mar 08, 2022 SECONDARY Hypertensive NATHALIE CORRIGAN [facility], 02:00 PM retinopathy, C FALSE PASS DIVISION bilateral Mar 08, 2022 SECONDARY Preglaucoma, NATHALIE CORRIGAN [place] [facility], 02:00 PM unspecified, C FALSE PASS DIVISION bilateral Mar 08, 2022 SECONDARY Type 2 diab with N[place]ALIE [place]RIGAN [place] [facility], 02:00 PM mild nonp rtnop C FALSE PASS DIVISI ON without mclr edema, l eye Mar 08, 2022 SECONDARY Type 2 diab with NATHALIE CORRIGAN [facility], 02:00 PM mild nonp rtnop C FALSE PASS DIVISI ON without mclr edema, r eye Plan of Treatment: Future Appointments (+ 6 months) and Future Tests (+/- 45 days) The Plan of Treatment section includes future care activities for the patient from all [place] treatmentfacilities. This section includes future appointments and future orders which are active, pending orscheduled.Future Appointments This section includes appointments that were scheduled to occur 6 months from the date of the Encounter, up to a maximum of 20 appointments. The data comes from all [place] treatment facilities. Appointment Date/Time Appointment Type Appointment Facili ty Name March 14, 2022 10:30 AM AMBULATORY - NONE [facility] Jun 11, 2022 10:00 AM AMBULATORY - NONE [facility] Jun 13, 2022 10:30 AM AMBULATORY - NONE [facility] Sep 04, 2022 09:00 AM AMBULATORY - NONE [facility] Sep 05, 2022 10:00 AM AMBULATORY - NONE [facility] Sep 06, 2022 01:40 PM AMBULATORY - SURGERY [facility] Sep 06, 2022 02:00 PM AMBULATORY - SURGERY [facility] Lab Results: +/- 30 days of the encounter This section includes the Chemistry and Hematology Lab Results on record with [place] for the patient. Radiology Reports and Pathology Reports are provided separately, in subsequent sections.Lab Results This section contains the Chemistry/Hematology Results that were resulted 30 days before or 30 daysafter the date of the Encounter. Date/Time Source Result Type Result - Unit Interpretation Reference Range Comment Mar 07, 2022 09:53 AM [facility]RE[facility] CHEEK HEMOGLOBIN A1C Specimen Type: BLOOD No comment enter ed. Ordering Provid er: EFFIE DIAMOND Report Released Date/Time: Oct 25, 2021 10:48 AM Reporting Lab: [facility] [id number] Performing Lab: [facility] [address] [place] [facility] [id number] HEMOGLOBIN A1C 7.8 H 4.0-6.0 Advance Directives: All historical and current Section Date Range: From patient's date of to the date document was created. This section includes ALL of a patient's completed or amended [place] Advance and Rescinded Directives. The entries below indicate that a directive exists for the patient, but an actual copy is not included with this document. The data comes from all [place] facilities. Date Advance Directives Provider Source Aug 03, 2019 ADVANCE DIRECTIVE DISCUSSION CASEY JACOBS Aug 03, 2019 ADVANCE DIRECTIVE CASEY JACOBS [facility] Encounter Notes: All associated encounter notes This section contains the clinical notes associated to the Encounter. Date/Time Encounter Note(s) Provider Source Mar 08, 2022 01:59 PM OPHTHALMOLOGY ATTENDING NOTE: SOLE CORRIGAN RA [facility] FALSE PASS LOCAL TITLE: OPHTHALMOLOGY ATTENDING NOTE DIVISION STANDARD TITLE: OPHTHALMOLOGY ATTENDING NOTE DATE OF NOTE: MAR 08, 2022@13:59 ENTRY DATE: MAR 08, 2022@13:59:36 AUTHOR: NATHALIE CORRIGAN EXP COSIGNER: URGENCY: STATUS: COMPLETED See [place] notes for this date available in [facility]. /es/ NATHALIE CORRIGAN Supervisor Grounds Signed: 03/08/2022 14:00
--- OUTSIDE RECORDS SUMMARY | 2022-07-20 21:46 | XMS_ITS | Encounter Summary ---
:1945 Author Organization Department [facility] Address [address] [place] [address] Support Name Relationship Address Phone SHANEKA JOHNSON Unavailable [phone] [phone] [place] [address] SHANEKA JOHNSON Unavailable [address] TRL [phone] [place] [address] SHANEKA JOHNOSN Unavailable [address] [place] [address] Insurance Providers: All historical and current Section [...] [place] MED[place] M[place] Nov 11, [id number] ALLISON JOHNSON P ATIENT [facility] (WNR) ADVANTAGE (WNR) 2017 3 [id number] [phone] LE 1 [place] Nov 11, [id number] [phone] ALLISON JOHNSON PATIENT [facility] (WNR) ADVANTAGE (WNR) 2016 3 [id number] 2 LE 1 Selected Encounter This section includes the information on record at [place] for the Encounter. Date/Time Encounter Type Encounter Reason Provider Source Description Oct 25, 2021 PRO PHONE TELEPHONE PRIMARY ICD-10-CM E11.8 ZULLY DIAMOND 10:30 AM CALL 5-10 MIN CARE Type 2 diabetes Y M mellitus with unspecified complications with Provider Comments: Type 2 diabetes mellitus ([facility] [id number]) IHE Encounter Template Text not used by [facility] Assessments - Encounter Diagnoses This section includes the primary and secondary diagnoses documented for the Encounter. Date/Time Primary/Secondary Diagnosis Name Provider Source Diagnosis Oct 25, 2021 PRIMARY Type 2 diabetes EFFIE DIAMOND [facility] 10:30 AM mellitus with M unspecified complications Plan of Treatment: Future Appointments (+ 6 months) and Future Tests (+/- 45 days) The Plan of Treatment section includes future care activities for the patient from all [place] treatmentfacilities. This section includes future appointments and future orders which are active, pending orscheduled.Future Appointments This section includes appointments that were scheduled to occur 6 months from the date of the Encounter, up to a maximum of 20 appointments. The data comes from all [place] treatment facilities. Appointment Date/Time Appointment Type Appointment Facili ty Name Mar 07, 2022 10:00 AM AMBULATORY - NONE [facility] Mar 08, 2022 01:00 PM AMB[facility]ATORY - NONE [facility] March 14, 2022 10:30 AM AMBULATORY - NONE [facility] Social History: Smoking Status (Most current) and Tobacco Use (All prior to encounter date) This section includes the most current, and the historical, smoking and tobacco-related health factors from the [place] facility where the Encounter took place.Current Smoking Status This section includes the most current smoking, or tobacco-related health factor, from the [facility] facility where the Encounter took place. Date/Time Current Smoking Status Comment Facility Jul 20, 2021 10:30 AM VA-TOBACCO NEVER USED [facility] Tobacco Use History This section includes a history of the smoking, or tobacco- related health factors, that were collected on or before the date of the Encounter. The data comes from the [place] facility where the Encounter took place. Date/Time Smoking Status/Tobacco Use Comment [facility] Jul 21, 2020 11:00 AM VA-TOBACCO NEVER USED [facility] Jun 29, 2019 09:53 AM VA-TOBACCO NEVER USED [facility] Jul 16, 2018 04:07 PM LIFETIME NON-TOBACCO USER [facility] Jul 10, 2017 01:42 PM LIFETIME NON-TOBACCO USER [facility] Sep 12, 2016 05:13 AM LIFETIME NON-TOBACCO USER [facility] Aug 16, 2015 06:50 AM LIFETIME NON-TOBACCO USER [facility] May 10, 2014 03:19 PM LIFETIME NON-TOBACCO USER [facility] Advance Directives: All historical and current Section Date Range: From patient's date of to the date document was created. This section includes ALL of a patient's completed or amended [place] Advance and Rescinded Directives. The entries below indicate that a directive exists for the patient, but an actual copy is not included with this document. The data comes from all [place] facilities. Date Advance Directives Provider Source Aug 03, 2019 ADVANCE DIRECTIVE DISCUSSION CASEY JACOBS Aug 03, 2019 ADVANCE DIRECTIVE CASEY JACOBS [facility] Encounter Notes: All associated encounter notes This section contains the clinical notes associated to the Encounter. Date/Time Encounter Note(s) Provider Source Oct 25, 2021 09:30 AM PHARMACY NOTE: EFFIE DIAMOND LOCAL TITLE: PHARMACOTHERAPY-CLINICAL PHARMACY NOTE STANDARD TITLE: PHARMACY NOTE DATE OF NOTE: OCT 25, 2021@09:30 ENTRY DATE: OCT 25, 2021@08:29:11 AUTHOR: EFFIE DIAMOND EXP COSIGNER: URGENCY: STATUS: COMPLETED DAVID JOHNSON is a 76 YO MALE followed by MARTHA [facility] for medication management, contacted by phone. 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 PMH significant for HTN and H LD. Last assessed by [facility]PS on 08/16/2021, at which time no medication changes w ere made. SUBJECTIVE: answers the phone wi th no acute complaints. States he is doing well. Has been checking every other day or so and is seein g readings in the 130-140's. Notes he is in [place] until mid- February. Doesn't have his BG meter with him and isn't in the best place to chat for a long time today. ROS: (-) hypoglycemia symptoms (-) hyperglycemia symptoms SMBG Readings: no objective readings to report Adherence to medications: DENIES missed or extra doses Past medication trials: - metformin IR; diarrhea (previously, now naina ating) - metformin SA; constipation OBJECTIVE: ALLERGIES/ADR: Patient has answered NKA MEDICATION RECONCILIATION: Active and Recently Outpatient Medicatio ns (excluding Supplies): Active Outpatient Medications Status 1) ALLOPURINOL 300MG TAB TAKE ONE TABLET BY MOUT H EVERY ACTIVE DAY FOR GOUT PREVENTION * 2) EMPAGLIFLOZIN 25MG TAB TAKE ONE-HALF TABLET BY MOUTH ACTIVE EVERY DAY FOR DIABETES. - confirms dose 3) LISINOPRIL 20MG TAB TAKE ONE-HALF TABLET BY M OUTH ACTIVE EVERY DAY FOR BLOOD PRESSURE * 4) METFORMIN HCL 1000MG TAB TAKE ONE TABLET BY MOUTH ACTIVE TWICE A DAY TO DECREASE BLOOD SUGAR - confirms dose 5) METOPROLOL TARTRATE 50MG TAB TAKE ONE-HALF TA BLET BY ACTIVE MOUTH TWICE A DAY FOR BLOOD PRESSURE 6) NITROGLYCERIN 0.4MG SL TAB DISSOLVE ONE TABLE T UNDER ACTIVE THE TONGUE EVERY 5 MINUTES FOR UP TO 3 DOSES IF NEEDED FOR CHEST PAIN Pending Outpatient Medications Status 1) ATORVASTATIN CALCIUM 80MG TAB TAKE ONE TABLET BY PENDING MOUTH EVERY EVENING FOR CHOLESTEROL Active Non-VA Medications Status 1) Non-VA ACETAMINOPHEN 325MG TAB 325MG EVERY 4 HOURS ACTIVE NEEDED 2) Non-VA ASCORBIC ACID 500MG TAB 500MG MOUTH EV JOO DAY ACTIVE 3) Non-VA ASPIRIN TAB 81 MG MOUTH EVERY DAY ACTI VE 4) Non-VA GARLIC OIL CAP,ORAL 1 TAB MOUTH EVERY DAY ACTIVE 5) Non-VA HYDROXYZINE HCL 10MG TAB 10MG MOUTH EV JOO 6 ACTIVE HOURS NEEDED 6) Non-VA MULTIVITAMIN/MINERALS SENIOR FORMULA T AB 1 ACTIVE TABLET MOUTH EVERY DAY 7) Non-VA OXYCODONE 5MG TAB 5MG ACTIVE 8) Non-VA TART DENTON JUICE LIQUID,ORAL 1 TABLET 1200MG ACTIVE MOUTH EVERY DAY LABS: Basic Metabolic Panel: SODIUM 142 (07/20/21) POTASSIUM 4.3 (07/20/21) CREATININE 0.9 (07/20/21) UREA NITROGEN 14 (07/20/21) GLUCOSE 154 H (07/20/21) CO2 25 (07/20/21) CHLORIDE 105 (07/20/21) ESTIMATED GFR(eGFR) >60 (07/20/21) MAGNESIUM 2.0 (07/20/21) Creatinine & eGFR trends: Collection DT Specimen Test Name Result Units Re f Range 07/20/2021 11:29 PLASMA CREATININE 0.9 mg/dL 0.7 - 1.2 08/17/2020 12:41 PLASMA CREATININE 1.0 mg/dL 0.7 - 1.2 07/21/2020 11:55 PLASMA CREATININE 0.9 mg/dL 0.7 - 1.2 07/20/2021 11:29 PLASMA ESTIMATED GFR(eGF >60 Re f: >=60 08/17/2020 12:41 PLASMA ESTIMATED GFR(eGF >60 Re f: >=60 07/21/2020 11:55 PLASMA ESTIMATED GFR(eGF >60 Re f: >=60 A1c: Collection DT Spec HGBA1C POCA1C 09/20/2021 13:14 BLOOD 6.9 H 05/26/2021 13:08 BLOOD 7.3 H 02/20/2021 12:03 BLOOD 7.7 H Albumin/Creat Ratio: Collection DT Specimen Test Name Result Units Re f Range 09/20/2021 13:14 URINE ALB/CREAT RATIO,U 55.6 H mg/g creat Ref: <=29.9 07/27/2019 11:09 URINE ALB/CREAT RATIO,U 71.6 H mg/g creat Ref: <=29.9 CBC: Collection DT Spec WBC HGB HCT PLT MCV NEUT LYMP HS 07/20/2021 11:29 BLOOD 4.74 14.4 43.1 166 97.7 5 5.5 30.8 ASSESSMENT: # DM (goal A1c <7% (FBG 80-130, PPG <180) given age and mild microvascular complications [nephropathy & retinopathy] per VA /DoD guidelines); most recent A1c has improved and is at goal. Sub jectively SMBGs appear to be at/very near goal. Tolerating current regimen we ll with good adherence and no hypoglycemia. Most recent renal indices are adeq uate to continue optimal metformin dose and empagliflozin without change. No changes warranted at this time. Will assess A1c again to ensure stability prior to referring care back to PCP. PLAN: # DM: - CONTINUE empagliflozin 12.5 mg daily - CONTINUE metformin 1000 mg BID - RENEW test strips # Disease-Specific Med Rec: completed today # Labs: repeat A1c prior to next appt - Educated vet on indication/risks/benefits of n ew/changed medication. - Education provided on therapeutic nonpharmacol ogic management to achieve goals. - verbalized underst anding to all plans discussed today. Questions were answered to vet's satisfaction. Time spent: 10 minutes RTC: - [facility] on 03/07/2022 at 10 am for A1c - EMAK PACT PHONE PHARM 1 on 03/08/2022 at 1030 a m for DM follow-up /adi/ EFFIE DIAMOND CLINICAL LABOR RELATIONS CONSULTANT Signed: 10/25/2021 10:49
--- OUTSIDE RECORDS SUMMARY | 2022-07-20 21:46 | XMS_ITS | Encounter Summary ---
:1945 Author Organization [facility] rs Address [address] [place] [address] Support Name Relationship Address Phone SHANEKA JOHNSON Unavailable [address] [phone] [place] [address] SHANEKA JOHNSON Unavailable [address] [place] T[address] [phone] [place] [address] SHANEKA JOHNSON Unavailable [address] [place] [address] Insurance Providers: All historical and current Section [...] [place] M[place] Nov 11, [id number] ALLISON JOHNSON P ATIENT [facility] (WNR) ADVANTAGE (WNR) 2017 3 [id number] [phone] LE 1 [place] Nov 11, [id number] [phone] ALLISON JOHNSON PATIENT [facility] (WNR) ADVANTAGE (WNR) 2016 3 [id number] 2 LE 1 Selected Encounter This section includes the information on record at [place] for the Encounter. Date/Time Encounter Type Encounter Reason Provider Source Description March 14, 2022 HC PRO PHONE TELEPHONE PRIMARY ICD-10-CM E11.8 ZULLY DIAMOND 10:30 AM CALL 11-20 MIN CARE Type 2 diabetes Y M mellitus with unspecified complications with Provider Comments: Type 2 diabetes mellitus ([facility] [id number]) IHE Encounter Template Text not used by [facility] Assessments - Encounter Diagnoses This section includes the primary and secondary diagnoses documented for the Encounter. Date/Time Primary/Secondary Diagnosis Name Provider Source Diagnosis March 14, 2022 PRIMARY Type 2 diabetes EFFIE DIAMOND [facility] 10:30 AM mellitus with M unspecified complications Plan of Treatment: Future Appointments (+ 6 months) and Future Tests (+/- 45 days) The Plan of Treatment section includes future care activities for the patient [facility] [place] [facility] This section includes future appointments and future orders which are active, pending orscheduled.Future Appointments This section includes appointments that were scheduled to occur 6 months from the date of the Encounter, up to a maximum of 20 appointments. The data comes from all [place] treatment facilities. Appointment Date/Time Appointment Type Appointment Facili ty Name Jun 11, 2022 10:00 AM AMBULATORY - NONE [facility] Jun 13, 2022 10:30 AM AMBULATORY - NONE [facility] Sep 04, 2022 09:00 AM AMBULATORY - NONE [facility] Sep 05, 2022 10:00 AM AMBULATORY - NONE [facility] Sep 06, 2022 01:40 PM AMBULATORY - SURGERY [facility] Sep 06, 2022 02:00 PM AMBULATORY - SURGERY [facility] Lab Results: +/- 30 days of the encounter This section includes the Chemistry and Hematology Lab Results on record with [place] for the patient. Radiology Reports and Pathology Reports are provided separately, in subsequent sections.Lab Results This section contains the Chemistry/Hematology Results that were resulted 30 days before or 30 daysafter the date of the Encounter. Date/Time Source Result Type Result - Unit Interpretation Reference Range Comment Mar 07, 2022 09:53 AM [facility] HEMOGLOBIN A1C Specimen Type: BLOOD No comment enter ed. Ordering Provid er: EFFIE DIAMOND Report Released Date/Time: Oct 25, 2021 10:48 AM Reporting Lab: [facility] [place] [address] [facility] [address] Performing Lab: [facility] [address] [facility] [address] HEMOGLOBIN A1C 7.8 H 4.0-6.0 Social History: Smoking Status (Most current) and Tobacco Use (All prior to encounter date) This section includes the most current, and the historical, smoking and tobacco-related health factors from the [place] facility where the Encounter took place.Current Smoking Status This section includes the most current smoking, or tobacco-related health factor, from the [place] facility where the Encounter took place. Date/Time Current Smoking Status Comment Facility Jul 20, 2021 10:30 AM VA-TOBACCO NEVER USED [facility] Tobacco Use History This section includes a history of the smoking, or tobacco- related health factors, that were collected on or before the date of the Encounter. The data comes from the [place] facility where the Encounter took place. Date/Time Smoking Status/Tobacco Use Comment [facility] Jul 21, 2020 11:00 AM VA-TOBACCO NEVER USED [facility] Jun 29, 2019 09:53 AM VA-TOBACCO NEVER USED [facility] Jul 16, 2018 04:07 PM LIFETIME NON-TOBACCO USER [facility] Jul 10, 2017 01:42 PM LIFETIME NON-TOBACCO USER [facility] Sep 12, 2016 05:13 AM LIFETIME NON-TOBACCO USER [facility] Aug 16, 2015 06:50 AM LIFETIME NON-TOBACCO USER [facility] May 10, 2014 03:19 PM LIFETIME NON-TOBACCO USER [facility] Advance Directives: All historical and current Section Date Range: From patient's date of to the date document was created. This section includes ALL of a patient's completed or amended [facility] Advance and Rescinded Directives. The entries below indicate that a directive exists for the patient, but an actual copy is not included with this document. The data comes from all [place] facilities. Date Advance Directives Provider Source Aug 03, 2019 ADVANCE DIRECTIVE DISCUSSION CASEY JACOBS [facility] Aug 03, 2019 ADVANCE DIRECTIVE CASEY JACOBS [facility] Encounter Notes: All associated encounter notes This section contains the clinical notes associated to the Encounter. Date/Time Encounter Note(s) Provider Source March 14, 2022 10:30 AM PHARMACY NOTE: EFFIE DIAMOND CB LOCAL TITLE: PHARMACOTHERAPY-CLINICAL PHARMACY NOTE STANDARD TITLE: PHARMACY NOTE DATE OF NOTE: MARCH 14, 2022@10:30 ENTRY DATE: MARCH 14, 2022@08:45:42 AUTHOR: EFFIE DIAMOND EXP COSIGNER: URGENCY: STATUS: COMPLETED DAVID JOHNSON is a 76 YO MALE followed by PA CT CPS for medication management, contacted by phone. 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 PMH signi ficant for HTN and HLD. Last assessed by PACT CPS on 10/25/2021, at which time no medication changes were made. SUBJECTIVE: answers the phone wi th no acute complaints. States he is doing well and is enjoying the weather by r aking the yard right now. Was eating out more while in [place] and has had more soft drinks lately. Had a back operation in July and knee replaced 2.5 years ago but both have limite d his exercise capabilities. Patient goals: work on my d iet and exercise before I have to take another med Lifestyle: * updated 03/14/2022 * Diet: * 2 meals a day typically * Breakfast: boiled egg + Dominican muffin today Lunch: crispy chicken salad at [employer] yest erday (once a week) Evening meal: homemade soups or hamburger + mus hrooms/onions w/o bun or steak + 1/2 baked potato Snacks: occ. candy bar Dessert: occ. ice cream Beverages: diet Dr. Goetz, regular soda while out to eat, water, low sugar juice Exercise: biking and walking as able (bad knee) ROS: (-) hypoglycemia symptoms (-) hyperglycemia symptoms SMBG Readings: no objective readings Adherence to medications: DENIES missed or extra doses Past medication trials: - metformin IR; diarrhea (previously, now naina ating) - metformin SA; constipation OBJECTIVE: ALLERGIES/ADR: Patient has answered NKA MEDICATION RECONCILIATION: Active and Recently Outpatient Medicatio ns (excluding Supplies): Active Outpatient Medications Status 1) ACCU-CHEK GUIDE (GLUCOSE) TEST STRIP 1 STRIP FOR ACTIVE TESTING TOPICALLY TWICE WEEKLY TO CHECK BLOOD SUGAR--USE WITHIN 3 MINUTES OF REMOVING FROM CONTAINER TEST AT DIFFERENT TIMES OF THE DAY OR DIRECTED 2) ALLOPURINOL 300MG TAB TAKE ONE TABLET BY MOUT H EVERY ACTIVE DAY FOR GOUT PREVENTION 3) ATORVASTATIN CALCIUM 80MG TAB TAKE ONE TABLET BY ACTIVE MOUTH EVERY EVENING FOR CHOLESTEROL * 4) EMPAGLIFLOZIN 25MG TAB TAKE ONE-HALF TABLET BY MOUTH ACTIVE EVERY DAY FOR DIABETES. - confirms dose 5) LISINOPRIL 20MG TAB TAKE ONE-HALF TABLET BY M OUTH ACTIVE EVERY DAY FOR BLOOD PRESSURE * 6) METFORMIN HCL 1000MG TAB TAKE ONE TABLET BY MOUTH ACTIVE TWICE A DAY TO DECREASE BLOOD SUGAR - confirms dose 7) NITROGLYCERIN 0.4MG SL TAB DISSOLVE ONE TABLE T UNDER ACTIVE THE TONGUE EVERY 5 MINUTES FOR UP TO 3 DOSES IF NEEDED FOR CHEST PAIN Inactive Outpatient Medications Status 1) METOPROLOL TARTRATE 50MG TAB TAKE ONE-HALF TA BLET BY MOUTH TWICE A DAY FOR BLOOD PRESSURE Active Non-VA Medications Status 1) Non-VA ACETAMINOPHEN [...] (07/20/21) CO2 25 (07/20/21) CHLORIDE 105 (07/20/21) EGFR (06/14) 07/20/21 @ 1129 82 CREATININE EGFR (CKD-EPI) - NONE FOUND - 5Y MAGNESIUM 2.0 (07/20/21) Creatinine & eGFR trends: [...] >=60 A1c: Collection DT Spec HGBA1C POCA1C 03/07/2022 09:53 BLOOD 7.8 H 09/20/2021 13:14 BLOOD 6.9 H 05/26/2021 13:08 BLOOD 7.3 H Albumin/Creat Ratio: Collection DT Specimen Test [...] per VA /DoD guidelines); most recent A1c is above goa l. No SMBGs to assess. Anticipate elevations are due to dietary indiscretions and reduced exe rcise. Tolerating current regimen with good adherence and no hypoglycemia. Most recent renal function is adequate to continue optimal metformin d ose and empagliflozin without change. Consideration made to initiate additional therapy though Veter an's preference is to work on lifestyle modifications prior to additional medi cations, at this time; appropriate to do so. PLAN: # DM: - CONTINUE empagliflozin 12.5 mg daily - CONTINUE metformin SA 1000 mg BID # Disease-Specific Med Rec: completed today # Labs: repeat A1c in 3 months - Educated vet on indication/risks/benefits of n ew/changed medication. - Education provided on therapeutic nonpharmacol ogic management to achieve goals. - Vet advised of recent labs. - verbalized underst anding to all plans discussed today. Questions were answered to vet's satisfaction. Time spent: 18 minutes RTC: - [facility] on 06/11/2022 at 10 am for A1c - K PACT PHONE PHARM 1 on 06/13/2022 at 10am fo nick DM follow-up /adi/ EFFIE DIAMOND CLINICAL TUB TENDER Signed: 03/14/2022 10:43
--- OUTSIDE RECORDS SUMMARY | 2022-07-20 21:46 | XMS_ITS | Encounter Summary ---
:1945 Author Organization [facility] Address [address] [place] [address] Support Name Relationship Address Phone SHANEKA JOHNSON Unavailable [address] [phone] [place] [address] SHANEKA JOHNSON Unavailable [phone] [phone] [place] [address] SHANEKA JOHNSON Unavailable [phone] [place] [address] Insurance Providers: All historical and current Section [...] [place] Nov 11, [id number] ALLISON JOHNSON P ATIENT [facility] (WNR) ADVANTAGE (WNR) 2017 3 [id number] [phone] LE 1 [place] Nov 11, [id number] [phone] ALLISON JOHNSON PATIENT [facility] (WNR) ADVANTAGE (WNR) 2016 3 [id number] 2 LE 1 Selected Encounter This section includes the information on record at [place] for the Encounter. Date/Time Encounter Type Encounter Description Reason Provider Source Sep 22, 2021 09:22 Outpatient Encounter PRIMARY CARE/MEDICINE AM IHE Encounter Template Text not used by [place] Plan of Treatment: Future Appointments (+ 6 months) and Future Tests (+/- 45 days) The Plan of Treatment section includes future care activities for the patient from all [place] treatmentfacilities. This section includes future appointments and future orders which are active, pending orscheduled.Future Appointments This section includes appointments that were scheduled to occur 6 months from the date of the Encounter, up to a maximum of 20 appointments. The data comes from all [place] treatment facilities. Appointment Date/Time Appointment Type Appointment Nancy stahl Name Oct 25, 2021 10:30 AM AMBULATORY - NONE [facility] Mar 07, 2022 10:00 AM AMBULATORY - NONE [facility] Mar 08, 2022 01:00 PM AMBULATORY - NONE [facility] March 14, 2022 10:30 AM AMBULATORY - NONE [facility] Lab Results: +/- 30 days of the encounter This section includes the Chemistry and Hematology Lab Results on record with [place] for the patient. Radiology Reports and Pathology Reports are provided separately, in subsequent sections.Lab Results This section contains the Chemistry/Hematology Results that were resulted 30 days before or 30 daysafter the date of the Encounter. Date/Time Source Result Type Result - Unit Interpretation Reference Range Comment Sep 20, 2021 01:14 [facility] TSH W/REFLEX TO FREE Specime n Type: PLASMA PM T4 No comment enter ed. Ordering Provid er: NICK FINCH Report Released Date/Time: Jul 20, 2021 11:31 AM Reporting Lab: [facility] [address] [facility] [address] Performing Lab: [facility] [address] [facility] [address] TSH 1.20 0.35-4.94 Sep 20, 2021 01:14 [facility] LIPID PANEL,NON-FASTING Spec imen Type: PLASMA PM No comment enter ed. Ordering Provid er: NICK FINCH Report Released Date/Time: Jul 20, 2021 11:31 AM Reporting Lab: [facility] [address] [facility] [address] Performing Lab: [facility] [address] [facility] [address] CHOLESTEROL 99 <199 .HDL 32 L >40 LDL CALCULATION 33 <99 VLDL CALCULATION 34 H <29 NON HDL CHOLESTEROL 67 <129 TRIG(NON FASTING) 170 H <149 Sep 20, 2021 01:14 PM [facility] HEMOGLOBIN A1C Specimen Type: BLOOD No comment enter ed. Ordering Provid er: EFFIE DIAMOND Report Released Date/Time: May 29, 2021 03:15 PM Reporting Lab: [facility] [address] [facility] [address] Performing Lab: [facility] [address] [facility] [address] HEMOGLOBIN A1C 6.9 H 4.0-6.0 Sep 20, 2021 NASREEN CHEEK MICROALBUMIN/CREATININE RATIO S pecimen Type: URINE 01:14 PM URINE No comment enter ed. Ordering Provid er: EFFIE DIAMOND Report Released Date/Time: May 29, 2021 03:15 PM Reporting Lab: [facility] [address] [facility] [address] Performing Lab: [facility] [address] [facility] [address] CREATININE,UR RANDOM 50.7 L 58.0-161. 0 ALB/CREAT RATIO,UR 55.6 H <29.9 MICROALBUMIN,UR 28.2 <29.9 Social History: Smoking Status (Most current) and Tobacco Use (All prior to encounter date) This section includes the most current, and the historical, smoking and tobacco-related health factors from the [place] facility where the Encounter took place.Current Smoking Status This section includes the most current smoking, or tobacco-related health factor, from the [place] facility where the Encounter took place. Date/Time Current Smoking Status Comment Facility March 18, 2012 08:35 AM LIFETIME NON-TOBACCO USER [facility] Advance Directives: All historical and current Section Date Range: From patient's date of to the date document was created. This section includes ALL of a patient's completed or amended [place] Advance and Rescinded Directives. The entries below indicate that a directive exists for the patient, but an actual copy is not included with this document. The data comes from all [place] facilities. Date Advance Directives Provider Source Aug 03, 2019 ADVANCE DIRECTIVE DISCUSSION CASEY JACOBS Aug 03, 2019 ADVANCE DIRECTIVE CASEY JACOBS CB Encounter Notes: All associated encounter notes This section contains the clinical notes associated to the Encounter. Date/Time Encounter Note(s) Provider Source Sep 22, 2021 09:22 AM LETTERS: NICK FINCH LOCAL TITLE: FOLLOW UP RESULTS LETTER STANDARD TITLE: LETTERS DATE OF NOTE: SEP 22, 2021@09:22 ENTRY DATE: SEP 22, 2021@09:22:22 AUTHOR: NICK FINCH EXP COSIGNER: URGENCY: STATUS: COMPLETED [facility] [address] [place] [address] Sep DAVID JOHNSON [phone] [facility] [id number] Dear : I am writing to inform you of the results of laurie mclean that you had done recently at the [facility]. - Cholesterol Tests (HDL = good and LDL = bad ) CHOLESTEROL 99 (09/20/21) (prefer less than 200 ) HDL 32 L (09/20/21) (prefer more than 39) LDL CALCULATION 33 (09/20/21) (prefer less than 100) MEASURED LDL____ (prefer less than 100) TRIGLYCERIDE____ (prefer less than 150) - Hemoglobin A1C (normal 4.0-6.0) Collection DT Spec HGBA1C POCA1C 09/20/2021 13:14 BLOOD 6.9 H 05/26/2021 13:08 BLOOD 7.3 H 02/20/2021 12:03 BLOOD 7.7 H - Thyroid Function: TSH 1.20 (09/20/21) (normal 0.3-5.0) Your hgb a1vc has come down. Everything else loo ks good. If you have any further questions or problems, otilia quiroz contact our nursing staff or provider at the following number: . Sincerely, NICK FINCH PHYSICIAN
--- OUTSIDE RECORDS SUMMARY | 2022-07-20 21:46 | XMS_ITS | Encounter Summary ---
:1945 Author Organization Department of [facility] rs Address [address] [place] [address] Support Name Relationship Address Phone SHANEKA JOHNSON Unavailable [phone] [place] [address] SHANEKA JOHNSON Unavailable [address] [place] [address] SHANEKA JOHNSON Unavailable [phone] [facility] [phone] [place] [address] Insurance Providers: All historical and current Section [...] [place] M[place] Nov 11, [id number] ALLISON JOHNSON P ATIENT [facility] (WNR) ADVANTAGE (WNR) 2017 3 [id number] [phone] LE 1 [place] Nov 11, [id number] [phone] ALLISON JOHNSON PATIENT [facility] (WNR) ADVANTAGE (WNR) 2016 3 [id number] LE 1 Selected Encounter This section includes the information on record at MD for the Encounter. Date/Time Encounter Type Encounter Reason Provider Source Description Jul 20, 2021 OFFICE O/P EST PRIMARY ICD-10-CM Z00.8 ALMAS FINCH 10:30 AM MOD 30-39 MIN CARE/MEDICINE Encounter for CA L other general examination with Provider Comments: Encounter for other General Examination IHE Encounter Template Text not used by [facility] Assessments - Encounter Diagnoses This section includes the primary and secondary diagnoses documented for the Encounter. Date/Time Primary/Secondary Diagnosis Name Provider Source Diagnosis Jul 20, 2021 PRIMARY Encounter for other [facility] 11:30 AM general examination CA L Jul 20, 2021 SECONDARY Essential (primary) [facility] 11:30 AM hypertension CA L Jul 20, 2021 SECONDARY Hyperlipidemia, [facility] 11:30 AM unspecified CA L Jul 20, 2021 SECONDARY Sciatica, left side [facility] 11:30 AM CA L Jul 20, 2021 SECONDARY Type 2 diabetes [facility] 11:30 AM mellitus with CA L unspecified complications Plan of Treatment: Future Appointments (+ 6 months) and Future Tests (+/- 45 days) The Plan of Treatment section includes future care activities for the patient from all MD treatmentfacilities. This section includes future appointments and future orders which are active, pending orscheduled.Future Appointments This section includes appointments that were scheduled to occur 6 months from the date of the Encounter, up to a maximum of 20 appointments. The data comes from all MD treatment facilities. Appointment Date/Time Appointment Type Appointment Facili ty Name Aug 15, 2021 11:00 AM AMBULATORY - MEDICINE [facility] Aug 15, 2021 11:30 AM AMBULATORY - NONE [facility] Aug 16, 2021 11:00 AM AMB[facility]ATORY - NONE [facility] Sep 20, 2021 01:15 PM AMB[facility]ATORY - NONE [facility] Oct 25, 2021 10:30 AM AMBULATORY - NONE [facility] Lab Results: +/- 30 days of the encounter This section includes the Chemistry and Hematology Lab Results on record with MD for the patient. Radiology Reports and Pathology Reports are provided separately, in subsequent sections.Lab Results This section contains the Chemistry/Hematology Results that were resulted 30 days before or 30 daysafter the date of the Encounter. Date/Time Source Result Type Result - Unit Interpretation Reference Range Comment Jul 20, 2021 11:29 [facility] BASIC METABOLIC Specimen Typ e: PLASMA AM PANEL+MG No comment enter ed. Ordering Provid er: NICK FINCH Aryan Report Released Date/Time: Jul 20, 2021 11:18 AM Reporting Lab: [facility] [id number] Performing Lab: [facility] [id number] CREATININE 0.9 0.7-1.2 UREA NITROGEN 14 8-26 GLUCOSE 154 H 74-100 SODIUM 142 136-145 POTASSIUM 4.3 3.5-5.1 CHLORIDE 105 98-107 CO2 25 22-29 CALCIUM 9.2 8.4-10.2 MAGNESIUM 2.0 1.6-2.6 ANION GAP 12 5-15 ESTIMATED GFR(eGFR) 82 >60 Jul 20, 2021 11:29 AM [facility] CBC & DIFF Specimen Type: BLOOD Comment: Automa courtney Differential Performed Ordering Provid er: NICK FINCH Report Released Date/Time: Jul 20, 2021 11:18 AM Reporting Lab: [facility] [id number] Performing Lab: [facility] [id number] WBC 4.74 4.0-11.0 RBC 4.41 L 4.6-6.2 HGB 14.4 13.5-17.9 HCT 43.1 41-54 MCV 97.7 80-100 MCH 32.7 27-33 MCHC 33.4 32.0-37.5 PLT 166 150-400 MPV 11.5 H 7.4-10.4 NEUT 55.5 LYMPHS 30.8 MONO 8.9 EOSINO 3.6 BASO 0.8 RDW 12.8 11.5-14.5 ABS LYMPH 1.46 1.0-4.0 ABS MONO 0.42 0.1-1.0 ABS NEUT 2.63 2.0-7.7 ABS EOS 0.17 0-0.5 ABS BASO 0.04 0-0.2 IG(META,MYELO,PRO) 0.4 ABS IMMATURE GRAN 0.02 0-0.1 Vital Signs: All taken on the encounter date This section contains inpatient and outpatient Vital Signs collected on the date of the Encounter. Date/Time Temperature Pulse Blood Respiratory SP02 Pain Height Weight Ed dy Source Pressure Rate Mass Index Jul 20, 97.9 F 46 123/76 14 /min 97 % 0 67.5 in 160.9 25 [place] E 2020 10:42 /min mm[Hg] lb [facility] AM Social History: Smoking Status (Most current) and Tobacco Use (All prior to encounter date) This section includes the most current, and the historical, smoking and tobacco-related health factors from the MD facility where the Encounter took place.Current Smoking Status This section includes the most current smoking, or tobacco-related health factor, from the MD facility where the Encounter took place. Date/Time Current Smoking Status Comment Facility Jul 20, 2021 10:30 AM VA-TOBACCO NEVER USED [facility] Tobacco Use History This section includes a history of the smoking, or tobacco- related health factors, that were collected on or before the date of the Encounter. The data comes from the MD facility where the Encounter took place. Date/Time Smoking Status/Tobacco Use Comment [facility] Jul 21, 2020 11:00 AM VA-TOBACCO NEVER USED [facility] Jun 29, 2019 09:53 AM VA-TOBACCO NEVER USED [facility] Jul 16, 2018 04:07 PM LIFETIME NON-TOBACCO USER [facility] Jul 10, 2017 01:42 PM LIFETIME NON-TOBACCO USER [facility] Sep 12, 2016 05:13 AM LIFETIME NON-TOBACCO USER [facility] Aug 16, 2015 06:50 AM LIFETIME NON-TOBACCO USER [facility] May 10, 2014 03:19 PM LIFETIME NON-TOBACCO USER [facility] Advance Directives: All historical and current Section Date Range: From patient's date of to the date document was created. This section includes ALL of a patient's completed or amended MD Advance and Rescinded Directives. The entries below indicate that a directive exists for the patient, but an actual copy is not included with this document. The data comes from all MD facilities. Date Advance Directives Provider Source Aug 03, 2019 ADVANCE DIRECTIVE DISCUSSION [facility] Aug 03, 2019 ADVANCE DIRECTIVE [facility] Encounter Notes: All associated encounter notes This section contains the clinical notes associated to the Encounter. Date/Time Encounter Note(s) Provider Source Jul 21, 2021 10:32 AM LETTERS: NICK FINCH LOCAL TITLE: FOLLOW UP RESULTS LETTER STANDARD TITLE: LETTERS DATE OF NOTE: JUL 21, 2021@10:32 ENTRY DATE: JUL 21, 2021@10:32:08 AUTHOR: JOSETTE,NICK L EXP COSIGNER: URGENCY: STATUS: COMPLETED [facility] [address] [place] [address] Jul DAVID GRIER ELIZABETH [address] [facility] [address] Dear : I am writing to inform you of the results of the tests you had done at the [facility]. The tests below were performed and are satisfactory unless otherwise noted. - Complete Blood Count (red/white blood cell cou nts and platelets) White count: WBC 4.74 (07/20/21) (normal is 4.0 -11.0) Hemoglobin: HGB 14.4 (07/20/21) (normal Male is 13.5-17.9) (normal Female is 11.5-16) Hematocrit: HCT 43.1 (07/20/21) (normal Male is 41-54) (normal Female is 34.5-48) Platelets: PLT 166 (07/20/21) (normal is 150-40 0) - Electrolytes including sodium and potassium SODIUM 142 (07/20/21) (normal is 137-144) POTASSIUM 4.3 (07/20/21) (normal is 3.5-5.0) CHLORIDE 105 (07/20/21) (normal is 98-107) CO2 25 (07/20/21) (normal is 22-29) UREA NITROGEN 14 (07/20/21) (normal Male is 8-2 6) (normal Female is 8-20) CREATININE 0.9 (07/20/21) (normal Male is 0.7-1 .2) (normal Female is 0.5-1.0) GLUCOSE 154 H (07/20/21) (normal is 70-105) CALCIUM 9.2 (07/20/21) (normal is 8.4-10.2) MAGNESIUM 2.0 (07/20/21) (normal is 1.6-2.6) ESTIMATED GFR(eGFR) >60 (07/20/21)(normal is >/ =60) - Glycosylated Hemoglobin (good diabetic control if less than 7.0) HEMOGLOBIN A1C 7.3 H (05/26/21) (normal range i s 4.0-6.0) POC HGB A1C 7.7 H (02/20/21) No data available Comments: Your hgb a1c has come down some. Keep up the good work. Everything else looks ok. If you have any further questions or problems, otilia quiroz contact our nursing staff or me at the following number: (Nasreen) Sincerely, NICK FINCH PHYSICIAN Jul 20, 2021 11:35 AM MEDICATION MGT NOTE: NICK FINCH [facility] LOCAL TITLE: MEDICATION RECONCILIATION NOTE STANDARD TITLE: MEDICATION MGT NOTE DATE OF NOTE: JUL 20, 2021@11:35 ENTRY DATE: JUL 20, 2021@11:35:37 AUTHOR: NICK FINCH EXP COSIGNER: URGENCY: STATUS: COMPLETED MEDICATION RECONCILIATION Active Outpatient Medications (excluding Supplie s): Outpatient Medications Status 1) ACCU-CHEK GUIDE (GLUCOSE) [...] BY ACTIVE MOUTH EVERY EVENING FOR CHOLESTEROL 4) EMPAGLIFLOZIN 25MG TAB TAKE ONE-HALF TABLET B Y MOUTH ACTIVE EVERY DAY FOR DIABETES. 5) LISINOPRIL 20MG TAB TAKE ONE-HALF TABLET BY M OUTH ACTIVE EVERY DAY FOR BLOOD PRESSURE 6) METFORMIN HCL 1000MG TAB TAKE ONE TABLET BY M OUTH ACTIVE TWICE A DAY TO DECREASE BLOOD SUGAR 7) METOPROLOL TARTRATE 50MG TAB TAKE ONE-HALF TA BLET BY ACTIVE MOUTH TWICE A DAY FOR BLOOD PRESSURE Non-VA Medications Status 1) Non-VA ASCORBIC ACID 500MG TAB 500MG MOUTH EV JOO DAY ACTIVE 2) Non-VA ASPIRIN TAB 81 MG MOUTH EVERY DAY ACTI VE 3) Non-VA GARLIC OIL CAP,ORAL 1 TAB MOUTH EVERY DAY ACTIVE 4) Non-VA MULTIVITAMIN/MINERALS SENIOR FORMULA T AB 1 ACTIVE TABLET MOUTH EVERY DAY 5) Non-VA TART DENTON JUICE LIQUID,ORAL 1 TABLET 1200MG ACTIVE MOUTH EVERY DAY 12 Total Medications Medications listed above are accurate and should continue as ordered. /adi/ NICK FINCH PHYSICIAN Signed: 07/20/2021 11:35 Jul 20, 2021 11:14 AM PRIMARY CARE NOTE: NICK FINCH [facility] LOCAL TITLE: [facility] PROGRESS NOTE - [facility] STANDARD TITLE: PRIMARY CARE NOTE DATE OF NOTE: JUL 20, 2021@11:14 ENTRY DATE: JUL 20, 2021@11:14:42 AUTHOR: NICK FINCH EXP COSIGNER: URGENCY: STATUS: COMPLETED Annual visit Non VA Providers: Chief complaint: Patient is here for a routine p re op visit HPI: Schedulued for lumbat fusion and fusion? Tw in [facility] doing at [facility] on aug 03. He had Covid in [place] in January. And has had his AB tsted which wer ositive. does nothave final time or instructions for date o surgery Assessment/Plan: 1. will hold asprin for 10 days prior 2. NPO after midnight except for metformin, empa guflozin, and metropolol 3. Ride is arranged 4. Will find about COVID testing when ge ts final instructions from [employer] orth[facility] 5. EKG done Labs and medications reviewed with patient. Discussed plan of care, patient verbaliz ed understanding and agrees with plan. FU in 1 year for annual exam, sooner with any co ncerns. Clinical Reminders: Past Medical History: Computerized Problem List is the source for the followin. Benign essential hypertension (SNOMED CT 120 1005) ACTIVE 2. Type 2 diabetes mellitus (SNOMED CT 07632339 ) ACTIVE 3. Hyperlipidemia (SNOMED CT 48555436) ACTIVE 4. 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 Cataract nos ACTIVE 6. Prostate mass ACTIVE 7. 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 NEURO: neg for new motor or sensory complains SKIN: neg for new rash, lesion Physical Exam: Vitals: Blood Pressure: 123/76 (07/20/2021 10:42) Pulse: 46 (07/20/2021 10:42) Pulse Oximetry: 97 (07/20/2021 10:42) Resp: 14 (07/20/2021 10:42) Temp: 97.9 F [36.6 C] (07/20/2021 10:42) Height: 67.5 in [171.5 cm] (07/20/2021 10:42) Weight: 160.9 lb [73.1 kg] (07/20/2021 10:42) BMI:24.9 GENERAL:well developed, well nourished pt in nad . EYES:PERRLA,EOMI, conjuntiva clear, no discharge . EARS:canals clear, TMs intact NECK: supple, no obvious thyromegaly HEART:Regular rate and rhythm , no obvious murmu rs/rubs RESPIRATORY: Lungs clear to auscultation b/l, no rales or wheezes. ABDOMEN:soft, nontender, nondistended, no organo megaly, normal bs. MSK:normal gait, moves all e xtremities, no joints swelling, rom normal, has some mild left fot drop NEURO:alert and oriented, cranial nerves II-XII intact, speech clear, strength equal b/l, normal gait and movement, PSYCH: normal affect, well groomed SKIN:warm adn dry, normal color, no rash or susp icious lesions EXT: no cyanosis, no edema lower ext b/l Allergies: Patient has answered NKA SLT - Lab Tests Selected No data available for: REGIONAL ALLERGY PROFILE Medications: Active Outpatient Medications (excluding Supplie s): Outpatient Medications Status 1) ACCU-CHEK GUIDE (GLUCOSE) [...] BY ACTIVE MOUTH EVERY EVENING FOR CHOLESTEROL 4) EMPAGLIFLOZIN 25MG TAB TAKE ONE-HALF TABLET B Y MOUTH ACTIVE EVERY DAY FOR DIABETES. 5) LISINOPRIL 20MG TAB TAKE ONE-HALF TABLET BY M OUTH ACTIVE EVERY DAY FOR BLOOD PRESSURE 6) METFORMIN HCL 1000MG TAB TAKE ONE TABLET BY M OUTH ACTIVE TWICE A DAY TO DECREASE BLOOD SUGAR 7) METOPROLOL TARTRATE 50MG TAB TAKE ONE-HALF TA BLET BY ACTIVE MOUTH TWICE A DAY FOR BLOOD PRESSURE Non-VA Medications Status 1) Non-VA ASCORBIC ACID 500MG TAB 500MG MOUTH EV JOO DAY ACTIVE 2) Non-VA ASPIRIN TAB 81 MG MOUTH EVERY DAY ACTI VE 3) Non-VA GARLIC OIL CAP,ORAL 1 TAB MOUTH EVERY DAY ACTIVE 4) Non-VA MULTIVITAMIN/MINERALS SENIOR FORMULA T AB 1 ACTIVE TABLET MOUTH EVERY DAY 5) Non-VA TART DENTON JUICE LIQUID,ORAL 1 TABLET 1200MG ACTIVE MOUTH EVERY DAY 12 Total Medications No Active Remote Medications for this patient Vaccinations: IM - Immunizations Immunization Series Date Facility Reaction Info INFLUENZA, HIGH DOSE SEASONAL REAGAN CL INI* 08/16/2015 [facility]* INFLUENZA, INJECTABLE, QUADRIVALE* 07/21/2020 [facility]* INFLUENZA, UNSPECIFIED FORMULATIO* 11/10/2013 [facility] [place]* 08/20/2011 [facility]* PNEUMOCOCCAL CONJUGATE PCV 13 08/16/2015 [facility]* <C> PNEUMOCOCCAL, UNSPECIFIED FORMULA* 05/05/2013 [facility] [place]* <C> Meg Shani* TD (ADULT), 2 LF TETANUS TOXOID,* 07/10/2017 [facility]* <C> TDAP Meg Shani* ZOSTER LIVE Meg Shani* ZOSTER RECOMBINANT 2 02/20/2021 [facility]* 1 07/21/2020 [facility] <C> See the Detailed Immunizations Health Summar y Component[DIM] for Comments Labs: pending /es/ NICK FINCH PHYSICIAN Signed: 07/20/2021 11:34 Jul 20, 2021 10:47 AM PRIMARY CARE NURSING NOTE: [facility] LOCAL TITLE: [facility] NURSING PROGRESS NOTE STANDARD TITLE: PRIMARY CARE NURSING NOTE DATE OF NOTE: JUL 20, 2021@10:47 ENTRY DATE: JUL 20, 2021@10:47:24 AUTHOR: DIAZ OWENS EXP COSIGNER: URGENCY: STATUS: COMPLETED TYPE OF VISIT: Appointment Check In Type of appointment: In-person appointment REASON FOR VISIT: Pre op/Annual ALLERGIES: Patient has answered NKA VITAL SIGNS: Blood Pressure: 123/76 (07/20/2021 10:42) Pulse: 46 (07/20/2021 10:42) Respiration: 14 (07/20/2021 10:42) Temperature: 97.9 F [36.6 C] (07/20/2021 10:42) Weight: 160.9 lb [73.1 kg] (07/20/2021 10:42) Height: 67.5 in [171.5 cm] (07/20/2021 10:42) BMI: 24.9 O2 Sat: 97 (07/20/2021 10:42) Pain: 0 (07/20/2021 10:42) PAIN SCREEN: Patient is not having significant pain that the y wish to discuss with their provider today. MEDICATION Active Outpatient Medications (including Suppli es): ACCU-CHEK GUIDE (GLUCOSE) TEST STRIP 1 STRIP FO R TESTING ACTIVE TOPICALLY TWICE WEEKLY TO CHECK BLOOD SUGAR--US E WITHIN 3 MINUTES OF REMOVING FROM CONTAINER TEST AT DIFFERENT TIMES OF THE DAY OR DIRECTED ALLOPURINOL 300MG TAB TAKE ONE TABLET BY MOUTH EVERY DAY ACTIVE FOR GOUT PREVENTION ATORVASTATIN CALCIUM 80MG TAB TAKE ONE TABLET B Y MOUTH ACTIVE EVERY EVENING FOR CHOLESTEROL EMPAGLIFLOZIN 25MG TAB TAKE ONE-HALF TABLET BY MOUTH EVERY ACTIVE DAY FOR DIABETES. LANCET,SOFTCLIX USE 1 LANCET TOPICALLY DIREC [place] ACTIVE *DISPOSE OF IN A HARD-PLASTIC CONTAINER WITH A SCREW-ON LIDCONTACT GARBAGE HAULER FOR PROPER DISPOSAL LISINOPRIL 20MG TAB TAKE ONE-HALF TABLET BY DOREEN TH EVERY ACTIVE DAY FOR BLOOD PRESSURE METFORMIN HCL 1000MG TAB TAKE ONE TABLET BY DOREEN TH TWICE A ACTIVE DAY TO DECREASE BLOOD SUGAR METOPROLOL TARTRATE 50MG TAB TAKE ONE-HALF TABL ET BY MOUTH ACTIVE TWICE A DAY FOR BLOOD PRESSURE Non-VA ASCORBIC ACID 500MG TAB 500MG MOUTH EVER Y DAY ACTIVE Non-VA ASPIRIN TAB 81 MG MOUTH EVERY DAY ACTIVE Non-VA GARLIC OIL CAP,ORAL 1 TAB MOUTH EVERY DA Y ACTIVE Non-VA MULTIVITAMIN/MINERALS SENIOR FORMULA TAB 1 TABLET ACTIVE MOUTH EVERY DAY Non-VA TART DENTON JUICE LIQUID,ORAL 1 TABLET 1 200MG MOUTH ACTIVE EVERY DAY Over the Counter/Herbal Medications: The patient states that they take some outside medications and/or herbals. ADV DIR Notification and Screening: ADVANCE DIRECTIVE NOTIFICATION: Patient was given written notification of the [facility] rights: 1. Accept or refuse any medical treatment. 2. Complete a durable power of ict support and test engineers for [facility] care. 3. Complete a living will. ADVANCE DIRECTIVE SCREENING: Does patient have an Advance Directive? The patient has an Advance Directive. Does the patient wish to make any changes or re voke their current Advance Directive? No changes requested at this time. EKG performed, tolerated well. Suicide Screen: C-SSRS Screening [place] Suicide Severity Rating Scale (C-SSRS) screener 1. Over the past month, have you wished you wer e or wished you could go to sleep and not wake up? No 2. Over the past month, have you had any actual thoughts of killing yourself? No 3. Over the past month, have you been thinking about how you might do this? Response not required due to responses to other questions. 4. Over the past month, have you had these thou ghts and had some intention of acting on them? Response not required due to responses to other questions. 5. Over the past month, have you started to wor k out or worked out the details of how to kill yourself? Response not required due to responses to other questions. 6. If yes, at any time in the past month did yo u intend to carry out this plan? Response not required due to responses to other questions. 7. In your lifetime, have you ever done anythin g, started to do anything, or prepared to do anything to end you r life (for example, collected pills, obtained a gun, gave away valu tasia, went to the roof but didn't jump)? No 8. If YES, was this within the past 3 months? Response not required due to responses to other questions. Depression Screening: Perform PHQ-2 A PHQ-2 screen was performed. The score was 0 w hich is a negative screen for depression. Over the past two weeks, how often have you bee n bothered by the following problems? 1. Little interest or pleasure in doing things Not at all 2. Feeling down, depressed, or hopeless Not at all Alcohol Use Screen (AUDIT-C): Alcohol Screen: SCREEN FOR ALCOHOL (AUDIT-C) An alcohol screening test (AUDIT-C) was negativ e (score=1). 1. How often did you have a drink containing al cohol in the past year? Monthly or less 2. How many drinks containing alcohol did you h ave on a typical day when you were drinking in the past year? Zero drinks 3. How often did you have six or more drinks on one occasion in the past year? Never Tobacco Use Screening: The patient has never used tobacco. Homelessness/Food Insecurity Screen: In the past 2 months, have you been living in s table housing that you own, rent, or stay in as part of a household? Y es - Living in stable housing. Are you worried or concerned that in the next 2 months you may NOT have stable housing that you own, rent, or stay in a s part of a household? No - Not worried about housing near future The reports the following: Within the past 12 months, you worried whether your food would run out before you got money to buy more. Never true Within the past 12 months, the food you bought just didn't last and you didn't have money to get more. Never true Nursing Annual Screening: Fall History Screen During the past 12 months, have you had any fal ls? Patient does not report any falls in the past 1 2 months. MEDICATIONS: Patient is on one of the following medication c lasses: Antihypertensives, Antidepressants, Antipsychot ics, Diuretics, or Controlled substance medication used for pain. FALL RISK ADVICE: Fall Risk Advice provided. Handout entitled Fa ll Prevention At Home reviewed and given to patient and/or significan t other. Script Talk Screen Are you able to read your prescription bottles with your glasses, magnifiers or other aids? Yes or patient not taking any prescriptions. Skin Screen Patient reports any current pressure ulcers, a history of pressure ulcers, or a wound from a medical claims manager or Patient is bed-confined or a wheelchair-user or Patient requires assistance to transfer/change position No, Skin Screen is Negative Home Abuse/Violence Screen Is your home free of abuse and violence? Yes Outpatient Nutrition Screen Body Mass Index (BMI)= 24.9 [place]: Collection DT Specimen Test Name Result Units R ef Range 05/26/2021 13:08 BLOOD HEMOGLOBIN A1C 7.3 H % 4 .0 - 6.0 [place] Hgb A1C: No data available [place] Hgb A1C: No data available Point of Care Hgb A1C: POC HGB A1C 7.7 H (02/20) Is patient's BMI less than 18.5? No Does patient have swallowing, coughing, or chew ing problems affecting oral intake? No Has patient experienced unplanned weight loss o r gain greater than 10 pounds over the last 2 months? No Is patient's Hgb A1C (Glycosylated Hemoglobin) greater than 9.5? Information not available Is patient receiving Total Parenteral Nutrition (TPN) or Tube Feedings? No Patient Health Education Screen BARRIERS/SPECIAL NEEDS: Visual limitations PREFERRED STYLE OF LEARNING: Listening Client Assistive Service (MOIZ) Screen Does the patient require assistance with outpat ient visit? Iman /adi/ DIAZ OWENS LPN ASSOCIATE PROFESSOR OF COMMUNICATION [facility] Signed: 07/20/2021 13:49
--- OUTSIDE RECORDS SUMMARY | 2022-07-20 21:46 | XMS_ITS | Encounter Summary ---
:1945 Author Organization [facility] rs Address [address] [place] [address] Support Name Relationship Address Phone SHANEKA JOHNSON Unavailable [address] T[address] [phone] [place] [address] SHANEKA JOHNSON Unavailable [address] [place] TRL [phone] [place] [address] SHANEKA JOHNSON Unavailable [address] [place] [address] Insurance Providers: All historical and current Section [...] [place] MCR Nov 11, [id number] ALLISON JOHNSON P ATIENT [employer] (WNR) ADVANTAGE (WNR) 2017 3 [id number] [phone] LE 1 [place] M[place] Nov 11, [id number] [phone] ALLISON JOHNSON PATIENT [employer] (WNR) ADVANTAGE (WNR) 2016 3 [id number] 2 LE 1 Selected Encounter This section includes the information on record at [place] for the Encounter. Date/Time Encounter Type Encounter Reason Provider Source Description Jun 13, 2022 PRO PHONE TELEPHONE PRIMARY ICD-10-CM E11.8 ZULLY DIAMOND 10:30 AM CALL 11-20 MIN CARE Type 2 diabetes Y M mellitus with unspecified complications with Provider Comments: Type 2 diabetes mellitus ([facility] [id number]) IHE Encounter Template Text not used by [facility] Assessments - Encounter Diagnoses This section includes the primary and secondary diagnoses documented for the Encounter. Date/Time Primary/Secondary Diagnosis Name Provider Source Diagnosis Jun 13, 2022 PRIMARY Type 2 diabetes EFFIE DIAMOND 10:30 AM mellitus with M unspecified complications [...] Appointment Type Appointment Facili ty Name Sep 04, 2022 09:00 AM AMBULATORY - NONE [facility] Sep 05, 2022 10:00 AM AMBULATORY - NONE [facility] Sep 06, 2022 01:40 PM AMBULATORY - SURGERY [facility] Sep 06, 2022 02:00 PM AMBULATORY - SURGERY [facility] Lab Results: +/- 30 days [...] Result - Unit Interpretation Reference Range Comment Jun 11, 2022 09:56 AM [facility] HEMOGLOBIN A1C Specimen Type: BLOOD No comment enter ed. Ordering Provid er: EFFIE DIAMOND Report Released Date/Time: March 14, 2022 10:42 AM Reporting Lab: [facility] [id number] Performing Lab: [facility] [id number] HEMOGLOBIN A1C 7.7 H 4.0-6.0 Social History: Smoking Status (Most current) and Tobacco Use (All prior to encounter date) This section includes the most current, and the historical, smoking and tobacco-related health factors from the [place] facility where the Encounter took place.Current Smoking Status This section includes the most current smoking, or tobacco-related health factor, from the [place] facility where the Encounter took place. Date/Time Current Smoking Status Comment Facility Jul 20, 2021 10:30 AM [place]-TOBACCO NEVER USED [facility] Tobacco Use History This section includes a history of the smoking, or tobacco- related health factors, that were collected on or before the date of the Encounter. The data comes from the [place] facility where the Encounter took place. Date/Time Smoking Status/Tobacco Use Comment Facil ity Jul 21, 2020 11:00 AM [place]-TOBACCO NEVER USED [facility] Jun 29, 2019 09:53 AM [place]-TOBACCO NEVER USED [facility] Jul 16, 2018 04:07 PM LIFETIME NON-TOBACCO USER [facility] Jul 10, 2017 01:42 PM LIFETIME NON-TOBACCO USER [facility] Sep 12, 2016 05:13 AM LIFETIME NON-TOBACCO USER [facility] Aug 16, 2015 06:50 AM LIFETIME NON-TOBACCO USER [facility] May 10, 2014 03:19 PM LIFETIME NON-TOBACCO USER [facility] Advance Directives: All historical and current [...] 03, 2019 ADVANCE DIRECTIVE CASEY JACOBS [facility] Encounter Notes: All associated encounter notes This section contains the clinical notes associated to the Encounter. Date/Time Encounter Note(s) Provider Source Jun 13, 2022 10:30 AM PHARMACY NOTE: EFFIE DIAMOND [facility] LOCAL TITLE: PHARMACOTHERAPY-CLINICAL PHARMACY NOTE STANDARD TITLE: PHARMACY NOTE DATE OF NOTE: JUN 13, 2022@10:30 ENTRY DATE: JUN 13, 2022@10:14:05 AUTHOR: EFFIE DIAMOND EXP COSIGNER: URGENCY: STATUS: COMPLETED DAVID JOHNSON is a 77 YO MALE followed by PA CT CPS for medication management, contacted by phone. 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 PMH signi ficant for HTN and HLD. Last assessed by PACT CPS on 03/14/2022, at which time no medication changes we re made per [place]'s preference. SUBJECTIVE: [place] answers the phone wi th no acute complaints. States he is doing well. Is refusing to check his blood sugars noting I have just decided I am not going to do it. refuses medi cation additions or adjustments noting I can change it with my diet. Did discuss dietary intake in depth during today's appointment. [place] leaves for [place] 09/10/20 and would like to have his A1c checked before they leave. Patient goals: I don't want any more medications... can we change that goal to < 8% so I don't have to start another medicatio n? Lifestyle: * updated 06/13/2022 * Diet: Breakfast: rare eggs + mujica; a lot of cereal. .. raisin bran and strawberries/bananas Lunch: not eating Evening meal (4pm): hamburger + scalloped potat oes; protein + starch Snacks: grapes or oranges or cherries (a lot of these d/t gout) Dessert: Sherbet (nightly) & makes a coupl e desserts with Sherbet Beverages: water, diet Coke, warm tea Exercise: limited due to bad knee; rides some Sinae and plays some tennis and does walk some ROS: (-) hypoglycemia symptoms (-) hyperglycemia symptoms [...] DECREASE BLOOD SUGAR - confirms dose 7) METOPROLOL TARTRATE 50MG TAB TAKE ONE-HALF TA BLET BY ACTIVE MOUTH TWICE A DAY FOR BLOOD PRESSURE 8) NITROGLYCERIN 0.4MG SL TAB DISSOLVE ONE TABLE T UNDER ACTIVE THE TONGUE EVERY 5 MINUTES FOR UP TO 3 DOSES IF NEEDED FOR CHEST PAIN Active Non-VA Medications Status 1) Non-VA ACETAMINOPHEN [...] >=60 A1c: Collection DT Spec HGBA1C POCA1C 06/11/2022 09:56 BLOOD 7.7 H 03/07/2022 09:53 BLOOD 7.8 H 09/20/2021 13:14 BLOOD 6.9 H Albumin/Creat Ratio: Collection DT Specimen Test [...] complications [nephropathy & retinopathy] per VA /DoD guidelines; <8% per [place]'s preference); most recent A1c remains abov e goal though is at patient preferred goal. No SMBGs to assess as refuses to check his BGs; a ppropriate given low risk for hypoglycemia with current regimen. Naina ating regimen well with good adherence and no hypoglycemia. Most re cent renal indices are adequate to continue optimal metformin dose and empagliflozin without change. Consideration made to adjust SGLT2i dose though [place] monika davis to continue without change and work on dietary intake. Discussed dietary in take and encouraged lower CHO intake at meals/snacks and to limit desserts. Continued monitoring is w arranted. PLAN: # DM: - CONTINUE empagliflozin 12.5 mg daily - CONTINUE metformin SA 1000 mg BID # Disease-Specific Med Rec: completed today # Labs: A1c due ~09/2022; will obtain prior to n ext appt - Educated vet on indication/risks/benefits of n ew/changed medication. - Education provided on therapeutic nonpharmacol ogic management to achieve goals. - Vet advised of recent labs. - verbalized underst anding to all plans discussed today. Questions were answered to vet's satisfaction. Time spent: 20 minutes RTC: - [facility] on 09/04/2022 at 9 am for A1c - K PACT PHONE PHARM 1 on 09/05/2022 at 10 am for DM follow-up /adi/ EFFIE DIAMOND CLINICAL MANAGER [employer] Signed: 06/13/2022 11:01
--- OUTSIDE RECORDS SUMMARY | 2022-07-20 21:46 | XMS_ITS | Encounter Summary ---
:1945 Author Organization [facility] Address [address] [place] [id number] Support Name Relationship Address Phone SHANEKA JOHNSON Unavailable [address] [phone] [place] [address] SHANEKA JOHNSON Unavailable [address] TRL [phone] [place] [address] SHANEKA JOHNSON Unavailable [address] [place] [address] Insurance Providers: All historical and current Section [...] [place] M[place] Nov 11, [id number] ALLISON JOHNSON P ATIENT [facility] (WNR) ADVANTAGE (WNR) 2017 3 [id number] [phone] LE 1 [place] Nov 11, [id number] [phone] ALLISON JOHNSON PATIENT [facility] (WNR) ADVANTAGE (WNR) 2016 3 [id number] 2 LE 1 Selected Encounter This section includes the information on record at [place] for the Encounter. Date/Time Encounter Type Encounter Reason Provider Source Description Mar 08, 2022 IMG RTA OPHTHALMOLOGY ICD-10-CM Z01.00 JENNYFER GIMENEZ 01:00 PM DETCJ/MNTR DS Encounter for E STAFF exam of eyes and vision w/o abnormal findings with Provider Comments: Encounter for Examination of Eyes and Vision without Abnormal Findings IHE Encounter Template Text not used by VA Assessments - Encounter Diagnoses This section includes the primary and secondary diagnoses documented for the Encounter. Date/Time Primary/Secondary Diagnosis Name Provider Source Diagnosis Mar 08, 2022 PRIMARY Encounter for JENNYFER GIMENEZ V Rony 01:38 PM exam of eyes E HCS and vision w/o abnormal findings Plan of Treatment: Future Appointments (+ 6 months) and Future Tests (+/- 45 days) The Plan of Treatment section includes future care activities for the patient from all [place] treatmentfacilities. This section includes future appointments and future orders which are active, pending orscheduled.Future Appointments This section includes appointments that were scheduled to occur 6 months from the date of the Encounter, up to a maximum of 20 appointments. The data comes from all [place] treatment facilities. Appointment Date/Time Appointment Type Appointment Facili ty Name March 14, 2022 10:30 AM AMBULATORY - NONE [facility] Jun 11, 2022 10:00 AM AMBULATORY - NONE [facility] Jun 13, 2022 10:30 AM AMBULATORY - NONE [facility] Sep 04, 2022 09:00 AM AMBULATORY - NONE [facility] Sep 05, 2022 10:00 AM AMBULATORY - NONE [facility] Sep 06, 2022 01:40 PM AMBULATORY - SURGERY [facility] Sep 06, 2022 02:00 PM AMBULATORY - SURGERY [facility] Lab Results: +/- 30 days of the encounter This section includes the Chemistry and Hematology Lab Results on record with [facility] for the patient. Radiology Reports and Pathology Reports are provided separately, in subsequent sections.Lab Results This section contains the Chemistry/Hematology Results that were resulted 30 days before or 30 daysafter the date of the Encounter. Date/Time Source Result Type Result - Unit Interpretation Reference Range Comment Mar 07, 2022 09:53 AM [facility] HEMOGLOBIN A1C Specimen Type: BLOOD No comment enter ed. Ordering Provid er: EFFEI DIAMOND Report Released Date/Time: Oct 25, 2021 10:48 AM Reporting Lab: [facility] [address] [facility] [id number] Performing Lab: [facility] [id number] HEMOGLOBIN A1C 7.8 H 4.0-6.0 Social History: Smoking Status (Most current) and Tobacco Use (All prior to encounter date) This section includes the most current, and the historical, smoking and tobacco-related health factors from the [place] facility where the Encounter took place.Current Smoking Status This section includes the most current smoking, or tobacco-related health factor, from the [place] facility where the Encounter took place. Date/Time Current Smoking Status Comment Facility March 18, 2012 08:35 AM LIFETIME NON-TOBACCO USER [facility] Advance Directives: All historical and current Section Date Range: From patient's date of to the date document was created. This section includes ALL of a patient's completed or amended [place] Advance and Rescinded Directives. The entries below indicate that a directive exists for the patient, but an actual copy is not included with this document. The data comes from all [place] facilities. Date Advance Directives Provider Source Aug 03, 2019 ADVANCE DIRECTIVE DISCUSSION [facility] JACOBS [facility] Aug 03, 2019 ADVANCE DIRECTIVE CASEY [facility]CO[facility] Encounter Notes: All associated encounter notes This section contains the clinical notes associated to the Encounter. Date/Time Encounter Note(s) Provider Source Mar 08, 2022 01:58 PM [facility] TITLE: EYE TECS LETTERS STANDARD TITLE: LETTERS DATE OF NOTE: MAR 08, 2022@13:58 ENTRY DATE: MAR 08, 2022@13:58:51 AUTHOR: NATHALIE CORRIGAN EXP COSIGNER: URGENCY: STATUS: COMPLETED Feb ELIZABETHDAVID [address], [place] [address] Dear [place], Thank you for your recent visit to the Technolog y-Based Eye Care Services (TECS) Program visit at your local [facility] facility. The main goal of the TECS program is to screen for visually si gnificant eye conditions. Based on the review of your eye informat ion and the photos that were taken, we recommend an in-person follow-up evaluation by a n eye care provider. (Please see TECS exam note for this visit for full exam details. You can access this on [facility] at [email or web address] if you w ould like). You will receive a phone call from one of our st aff members to schedule a follow-up evaluation. However, if you have not b een contacted within 30 days, please contact the clinic to schedule this follo w-up evaluation. If you notice any sudden changes in your vision, please contact the eye clinic immediately for earlier or urgent referral or go to the Emergency Department for urgent evaluation. If you have been seen by a non-VA eye ca re provider, please bring your records to your next VA appointment. Please try to keep your foll ow-up VA eye appointment or notify us if you cannot attend so other Veterans can receive access to e ye care services. Please contact [facility]: [phone] if you have questions or require changes to your appointment date. We appreciate the opportunity to serve you. Mar 08, 2022 01:03 PM TELEHEALTH CONSULT: JENNYFER GIMENEZ [facility] LOCAL TITLE: EYE TECS DIAPER FOLDER CONSULT STANDARD TITLE: TELEHEALTH CONSULT DATE OF NOTE: MAR 08, 2022@13:03 ENTRY DATE: MAR 08, 2022@13:05:39 AUTHOR: JENNYFER GIMENEZ EXP COSIGNER: URGENCY: STATUS: COMPLETED EYE TECS DIAPER FOLDER CONSULT Has ADDENDA Technology-based Eye Care Services (TECS) Techni milan Note PATIENT DEMOGRAPHICS: Patient Name: DAVID JOHNSON SSN: [id number] Age: 76 TECH-UP AND VISION Chief Complaint: [facility]. History of Present Illness: Patient just uses reading glasses. He feels lik e he is having a little more trouble than he used to with the vision . He notes he needs more light to read by. Date of last eye exam: 1-2 years ago Location of last eye exam: [facility] TECS HISTORY AND REVIEW OF SYSTEMS Decrease in vision Gradual- OU for 1 Year DIABETES Last A1c: Collection DT Specimen Test Name Result Units R ef Range 03/07/2022 09:53 BLOOD HEMOGLOBIN A1C 7.8 H % 4 .0 - 6.0 09/20/2021 13:14 BLOOD HEMOGLOBIN A1C 6.9 H % 4 .0 - 6.0 05/26/2021 13:08 BLOOD HEMOGLOBIN A1C 7.3 H % 4 .0 - 6.0 The patient has diabetes The patient is NOT on insulin EYE DISEASE HISTORY Cataracts - OU PROCEDURE HISTORY No history of ocular procedures/surgeries TRAUMA HISTORY No history of ocular trauma FAMILY HISTORY No family history of glaucoma, macular degenera tion, or blindness. MEDICATION HISTORY Active Outpatient Medications (including Supplie s): Active Outpatient Medications Status 1) ACCU-CHEK GUIDE [...] A DAY TO DECREASE BLOOD SUGAR 7) NITROGLYCERIN 0.4MG SL TAB DISSOLVE ONE [...] 1 TABLET 1200MG ACTIVE MOUTH EVERY DAY 15 Total Medications No Current Eye Medications SOCIAL HISTORY No history of tobacco use Never REFRACTION AND VISION scVA: OD: 20/30-1 PH20/25 OS: 20/30 PH20/20-2 Wearing Rx (WRx): OD: +3.25 OTC readers OS: +3.25 Manifest Refraction (MRx): OD: Revere+0.75x12 +2.50 OS: +0.25+1.27t000 +2.50 Pachymetry Past Results: No data available Intraocular Pressure (IOP) Method: Date/Time: Feb@13:22 Rebound Tonometer OD: 11 OS: 11 PUPILS/ANTERIOR CHAMBER (AC) Penlight or slit lamp (if available) exam unrem arkable Pupils are equal, round, and reactive to light No afferent defect Pupils are dilated Dilation and driving precautions reviewed with patient and patient expresses understanding. Medication: 1% Tropicamide, 0.5% Proparacaine Which Eye? OU The patient does NOT desire a cataract surgery e valuation The patient does NOT desire community care if ne eded Per , okay to leave message regarding res ults and plan of care. Cell phone is best Telephone number and address verified. Yes /es/ JENNYFER Mcnally [facility] OPHTHALMOLOGY DEEPALI DIAPER FOLDER Signed: 03/08/2022 13:38 03/08/2022 ADDENDUM STATUS: COMPLETED Are pupils adequately dilated? Yes PHOTOGRAPHS Fundus photographs taken? Yes Are photos adequate for interpretation? Yes NERVE INTERPRETATION Cup-to-Disc ratio: OD: 0.6 OS: 0.6 Findings: Optic nerve shows increased cup-to-disc ratio. OU moderate cupping OU MACULA INTERPRETATION Macula appears to be unremarkable bilaterally. RETINA INTERPRETATION Findings: Retina shows evidence of Non-proliferative reti nopathy. OU MAs OU; Flame heme OS Retina shows pigmented choroidal lesions. OD ~1 DD pigmented choroidal lesion temporal to ma cula OD VESSELS INTERPRETATION Findings: Retinal vessels show changes consistent with sy stemic hypertension. OU mild arteriolar attenuation EXTERNAL PHOTOGRAPH INTERPRETATION Yes Findings: External photo shows presence of lenticular opa city. OU NSC/Vacuoles OU External photo shows Pinguecula. OU External photo shows other pathology: dermatochalasis BUL OCT OCT done? Yes OCT Nerve Abnormal: Quadrantic NFL <5%: Inferior OD Nasal OD Segmental NFL <5% OD 3-5:00 Signal strength adequate? Yes Average RNFL thickness ? OD 80 OS 98 Average RNFL (>10 microns) between the two eyes ? Yes Nonglaucomatous appearance of abnormal OCT? No OCT GCC macula completed? No Previous OCT nerve present? No Significant progression in C:D ratio? No Significant RNFL progression? No OCT Macula Normal mild ERM OS PHYSICIAN ASSESSMENT/PLAN Intraocular Pressure(past entry): No data available TECS Exam Shows: Patient evaluated in Technology-based Eye Care Services (TECS). This assessment is based on an extensive history, di agnostic technology, and imaging. The TECS exam does not replace a face- to-face exam. Greater than 5 minutes but less than 30 minutes of time spent in care of this patient. Previous images and studies reviewed. Cataract: Patient has a cataract but it is not visually s ignificant and a referral for surgical evaluation is not recommended. Diabetes: Mild NPDR OU Blood pressure/sugar/lipids control advised hypertensive retinopathy OS (arteriolar attenua tion OU, Flame heme OS) Retina: Nevus OD small w/ benign characteristics, however is a n ew finding. Recheck in 6M Refractive error: A spectacle prescription was dispensed. Pinguecula Sunglasses outside (UV light avoidance) Other (Physician Assess/Plan): Dermatochalasis BUL - not affecting vision. Mon itor. Moderate cupping with low IOP, cupping stable t o prior documentation. Slight asymmetry on OCT RNFL. Rec baseline HVF & CCT 6M. Follow Up: Follow up for in-person exam. 6m v/t/d/CCT/HVF24-2 Called patient to discuss findings and treatmen t plan. Unable to reach patient. Letter sent. RTC order and /or consult placed a s needed for follow up. Left a message. Appendix (abbreviations): AC (Anterior Chamber); AREDS (Age Related Eye Di sease Study); ARX (Auto Refraction); BID (Two Times Daily); C:D (Cup-to- Disc); CIC (Care In The Community); MINISTER HELPER (Cyclophotocoagulation); CSME (C linically Significant Macular Edema); DFE (Dilated Fundus Exam); Dorz/Timol (D orzolamide/Timolol); DSEK (Descemet's Stripping Endoth elial Keratoplasty); FAF (Fundus Autofluorescence); F/U (Follow up); GCC (Ganglion Cell Comp carola); Gonio (Gonioscopy); H/O (History Of); HTN (Hypertension); HVF (Loo Visual Fi eld); IOL (Intraocular Lens); IOP (Intraocular Pressure); K (Keratometry); LAS IK (Laser-Assisted In Situ Keratomileusis); MD (Mean Deviation when used wi th visual field); dB (decibels); MRx (Manifest Re fraction); NeoPolyDex/Erythro (Neomycin Polymyxin B Dexamethasone/Erythromycin); NFL (Nerve Fiber [place]); NPDR (Nonproliferative Diabetic Retinopathy); OCT (Optical Coherence To mography); OD (Right Eye); OS (Left Eye); OU (Both Eyes); PDR (Proliferative D iabetic Retinopathy); PFATs (Preservative Free Artificial Tears); RK (Radial Keratotomy); RNFL (Retinal Nerve Fiber Layer); RTC (Return To Clinic); scVA (Visual Acuity Without Correction/Glasses); SOM (S wedish Interactive Threshold Algorithm); TID (Three Times Daily); UV (Ultraviolet); VA (Visual Acuit y); WRx (Prescription glasses currently worn); WRx VA (Vis ual Acuity With Prescription Glasses); YAG (Yttrium Aluminum [place]) /adi/ NATHALIE CORRIGAN Detention Attendant Signed: 03/08/2022 13:58 Receipt Acknowledged By: * AWAITING SIGNATURE * KATIE SIMS * AWAITING SIGNATURE * JENNYFER GIMENEZ 03/08/2022 ADDENDUM STATUS: COMPLETED Per tech: acuity with manifest refraction was 20 /20 OD, 20/20-1 OS /adi/ NATHALIE CORRIGAN Detention Attendant Signed: 03/08/2022 14:01
--- OUTSIDE RECORDS SUMMARY | 2022-07-20 21:47 | XMS_ITS | Encounter Summary ---
:1945 Author Organization [facility] Address [address] [place] [id number] Support Name Relationship Address Phone SHANEKA JOHNSON Unavailable [address] [place] [address] SHANEKA JOHNSON Unavailable [address] [place] [address] SHANEKA JOHNSON Unavailable [phone] [facility] [phone] [place] [address] Insurance Providers: All historical and current Section [...] [place] MCR Nov 11, [id number] ALLISON JOHNSON P ATIENT [facility] (WNR) ADVANTAGE (WNR) 2017 3 [id number] [phone] LE [place] MCR Nov 11, [id number] [phone] ALLISON JOHNSON PATIENT [facility] (WNR) ADVANTAGE (WNR) 2016 3 [id number] 2 LE 1 Selected Encounter This section includes the information on record at [place] for the Encounter. Date/Time Encounter Type Encounter Description Reason Provider Source Aug 16, 2021 01:46 Outpatient Encounter PRIMARY CARE/MEDICINE PM IHE Encounter Template Text not used by [place] Plan of Treatment: Future Appointments (+ 6 [...] 20 appointments. The data comes from all [place] treatment facilities. Appointment Date/Time Appointment Type Appointment Chasityi ty Name Sep 20, 2021 01:15 PM AMBULATORY - NONE [facility] Oct 25, 2021 10:30 AM AMBULATORY - NONE [facility] Lab Results: +/- 30 days of the encounter This section includes the Chemistry and Hematology Lab Results on record with [place] for the patient. Radiology Reports and Pathology Reports are provided separately, in subsequent sections.Lab Results This section contains the Chemistry/Hematology Results that were resulted 30 days before or 30 daysafter the date of the Encounter. Date/Time Source Result Type Result - Unit Interpretation Reference Range Comment Jul 20, 2021 11:29 [facility] BASIC METABOLIC Specimen Typ e: PLASMA AM PANEL+MG No comment enter ed. Ordering Provid er: NICK PAIZ Report Released Date/Time: Jul 20, 2021 11:18 AM Reporting [facility] [id number] Performing Lab: [facility] [id number] CREATININE 0.9 0.7-1.2 UREA NITROGEN 14 8-26 GLUCOSE 154 H 74-100 SODIUM 142 136-145 POTASSIUM 4.3 3.5-5.1 CHLORIDE 105 98-107 CO2 25 22-29 CALCIUM 9.2 8.4-10.2 MAGNESIUM 2.0 1.6-2.6 ANION GAP 12 5-15 ESTIMATED GFR(eGFR) 82 >60 Jul 20, 2021 11:29 AM [facility] CBC & DIFF Specimen Type: BLOOD Comment: Automa luc Differential Performed Ordering Provid er: NICK PAIZ Report Released Date/Time: Jul 20, 2021 11:18 AM Reporting Lab: [facility] [id number] Performing Lab: [facility] [id number] WBC 4.74 4.0-11.0 RBC 4.41 L 4.6-6.2 [...] IG(META,MYELO,PRO) 0.4 ABS IMMATURE GRAN 0.02 0-0.1 Social History: Smoking Status (Most current) and Tobacco Use (All prior to encounter date) This section includes the most current, and the historical, smoking and tobacco-related health factors from the [facility] facility where the Encounter took place.Current Smoking Status This section includes the most current smoking, or tobacco-related health factor, from the [place] facility where the Encounter took place. Date/Time Current Smoking Status Comment Facility March 18, 2012 08:35 AM LIFETIME NON-TOBACCO USER [facility] Advance Directives: All historical and current Section Date Range: From patient's date of to the date document was created. This section includes ALL of a patient's completed or amended [place] Advance and Rescinded Directives. The entries below indicate that a directive exists for the patient, but an actual copy is not included with this document. The data comes from all [place] facilities. Date Advance Directives Provider Source Aug 03, 2019 ADVANCE DIRECTIVE DISCUSSION CASEY JACOBS Aug 03, 2019 ADVANCE DIRECTIVE CASEY JACOBS [facility] Encounter Notes: All associated encounter notes This section contains the clinical notes associated to the Encounter. Date/Time Encounter Note(s) Provider Source Aug 16, 2021 01:46 PM ACCOUNTING OF DISCLOSURES NOTE: Jayy PAIZ LOCAL TITLE: STATE PRESCRIPTION DRUG MONITORING PROGRAM STANDARD TITLE: ACCOUNTING OF DISCLOSURES NOTE DATE OF NOTE: AUG 16, 2021@13:46:39 ENTRY DATE: AUG 16, 2021@13:46:39 AUTHOR: NICK PAIZ EXP COSIGNER: URGENCY: STATUS: COMPLETED This PDMP query was submitted by Franklin Paiz MD. The clinical justification for this PDMP query i s to review controlled substances prescribed outside of the [facility], and any additional information that may become available, as an important compo nent of standard clinical care, and in accordance with [facility] policy. Patient information was shared with the PDMP Js Ambature. No prescription(s) for controlled substances out side the [facility] were found in the last 90 days. /adi/ NICK PAIZ PHYSICIAN Signed: 08/16/2021 13:46
--- OUTSIDE RECORDS SUMMARY | 2022-07-20 21:47 | XMS_ITS | Encounter Summary ---
:1945 Author Organization [facility] Address [address] [place] [address] Support Name Relationship Address Phone SHANEKA JOHNSON Unavailable [address] [place] [address] SHANEKA JOHNSON Unavailable [address] [place] [address] SHANEKA JOHNSON Unavailable [address] [facility] [phone] [place] [address] Insurance Providers: All historical and current Section [...] [place] M[place] Nov 11, [id number] ALLISON JOHNSON P ATIENT [facility] (WNR) ADVANTAGE (WNR) 2017 3 [id number] [phone] LE 1 [place] M[place] Nov 11, [id number] [phone] ALLISON JOHNSON PATIENT [facility] (WNR) ADVANTAGE (WNR) 2016 3 [id number] 2 LE 1 Selected Encounter This section includes the information on record at [place] for the Encounter. Date/Time Encounter Type Encounter Reason Provider Source Description Aug 15, 2021 OFFICE O/P EST PRIMARY ICD-10-CM ALMAS FINCH 11:00 AM LOW 20-29 MIN CARE/MEDICINE M54.32 CA L Sciatica, left side with Provider Comments: Sciatica (SCT [id number]) IHE Encounter Template Text not used by [facility] Assessments - Encounter Diagnoses This section includes the primary and secondary diagnoses documented for the Encounter. Date/Time Primary/Secondary Diagnosis Name Provider Source Diagnosis Aug 15, 2021 PRIMARY Sciatica, left ALMAS FINCH [facility] 11:51 AM side CA L Aug 15, 2021 SECONDARY Essential ALMAS FINCH [facility] 11:51 AM (primary) CA L hypertension Plan of Treatment: Future Appointments (+ 6 months) and Future Tests (+/- 45 days) The Plan of Treatment section includes future care activities for the patient from all [place] treatmentfacilities. This section includes future appointments and future orders which are active, pending orscheduled.Future Appointments This section includes appointments that were scheduled to occur 6 months from the date of the Encounter, up to a maximum of 20 appointments. The data comes from all [place] treatment facilities. Appointment Date/Time Appointment Type Appointment Facili ty Name Aug 16, 2021 11:00 AM AMBULATORY - NONE [facility] Sep 20, 2021 01:15 PM AMBULATORY - NONE [facility] Oct 25, 2021 10:30 AM AMBULATORY - NONE [facility] Lab Results: +/- 30 days of the encounter This section includes the Chemistry and Hematology Lab Results on record with [place] for the patient. Radiology Reports and Pathology Reports are provided separately, in subsequent sections.Lab Results This section contains the Chemistry/Hematology Results that were resulted 30 days before or 30 daysafter the date of the Encounter. Date/Time Source Result Type Result - Unit Interpretation Reference Range Comment Jul 20, 2021 11:29 [facility] BASIC METABOLIC Specimen Typ e: PLASMA AM PANEL+MG No comment enter ed. Ordering Provid er: NICK FINCH Report Released Date/Time: Jul 20, 2021 11:18 AM Reporting Lab: [facility] [address] [facility] [id number] Performing Lab: [facility] [address] [facility] [address] CREATININE 0.9 0.7-1.2 UREA NITROGEN 14 8-26 GLUCOSE 154 H 74-100 SODIUM 142 136-145 POTASSIUM 4.3 3.5-5.1 CHLORIDE 105 98-107 CO2 25 22-29 CALCIUM 9.2 8.4-10.2 MAGNESIUM 2.0 1.6-2.6 ANION GAP 12 5-15 ESTIMATED GFR(eGFR) 82 >60 Jul 20, 2021 11:29 AM [facility] CBC & DIFF Specimen Type: BLOOD Comment: Automa luc Differential Performed Ordering Provid er: NICK FINCH Report Released Date/Time: Jul 20, 2021 11:18 AM Reporting Lab: [facility] [address] Performing Lab: [facility] [address] WBC 4.74 4.0-11.0 RBC 4.41 L 4.6-6.2 [...] Ed dy Source Pressure Rate Mass Index Aug 15, 131/80 2020 12:24 mm[Hg] [facility] PM Aug 15, F 53 144/79 14 /min 98 % 6 67.8 in 159.3 24 2020 11:19 /min mm[Hg] lb [facility] AM Social History: Smoking Status (Most current) and Tobacco Use (All prior to encounter date) This section includes the most current, and the historical, smoking and tobacco-related health factors from the [place] facility where the Encounter took place.Current Smoking Status This section includes the most current smoking, or tobacco-related health factor, from the [place] facility where the Encounter took place. Date/Time Current Smoking Status Comment Facility Jul 20, 2021 10:30 AM [place]-TOBACCO NEVER USED [facility] [facility] Tobacco Use History This section includes a history of the smoking, or tobacco- related health factors, that were collected on or before the date of the Encounter. The data comes from the [place] facility where the Encounter took place. Date/Time Smoking Status/Tobacco Use Comment Facil ity Jul 21, 2020 11:00 AM [place]-TOBACCO NEVER USED [place] [facility] Jun 29, 2019 09:53 AM [place]-TOBACCO NEVER USED [place] [facility] Jul 16, 2018 04:07 PM LIFETIME NON-TOBACCO USER [facility] Jul 10, 2017 01:42 PM LIFETIME NON-TOBACCO USER [facility] Sep 12, 2016 05:13 AM LIFETIME NON-TOBACCO USER [facility] Aug 16, 2015 06:50 AM LIFETIME NON-TOBACCO USER [facility] May 10, 2014 03:19 PM LIFETIME NON-TOBACCO USER [facility] Advance Directives: All historical and current Section Date Range: From patient's date of to the date document was created. This section includes ALL of a patient's completed or amended [place] Advance and Rescinded Directives. The entries below indicate that a directive exists for the patient, but an actual copy is not included with this document. The data comes from all [place] facilities. Date Advance Directives Provider Source Aug 03, 2019 ADVANCE DIRECTIVE DISCUSSION CASEY JACOBS [facility] Aug 03, 2019 ADVANCE DIRECTIVE CASEY JACOBS [facility] Encounter Notes: All associated encounter notes This section contains the clinical notes associated to the Encounter. Date/Time Encounter Note(s) Provider Source Aug 15, 2021 11:37 AM PRIMARY CARE NOTE: NICK FINCH [facility] LOCAL TITLE: [facility] PROGRESS NOTE - [facility] STANDARD TITLE: PRIMARY CARE NOTE DATE OF NOTE: AUG 15, 2021@11:37 ENTRY DATE: AUG 15, 2021@11:37:14 AUTHOR: NICK FINCH EXP COSIGNER: URGENCY: STATUS: COMPLETED Follow up visit Non [facility] Providers: Chief complaint: Patient is here for follow up o f spinal surgery HPI: Since his surgery the pain down the left le f is gone. He is up suing a cane and movign about better than he was befoer the surgery. He is sleeping ok and eating ok. He has developed some pain the right groin area which is achy in nature. States it feels like a groin p ull. He is still using the oxycodone for pain but he does state is is lowly dereaseing Assessment/Plan: 1. Ok to continue oxycode for now but suspect h e will not need it as much in the next few weeks and can use tylenol by itself in the next few weeks. 2. continue it increase activity, if groin sympt oms perisist we will have to pursue that and he can call us in a few weeks an d let us know how it is doing 3. May use tyenol in addition to oxy, hydroxyzin e, and heat 4. Follow up with ortho this week as planned Labs and medications reviewed with patient Discussed plan of care, patient verbalized under standing and agrees with plan. FU in Clinical Reminders: Past Medical History: Computerized Problem List is the source for the followin. Benign essential hypertension (SNOMED CT 120 1005) ACTIVE 2. Type 2 diabetes mellitus (SNOMED CT 33083062 ) ACTIVE 3. Hyperlipidemia (SNOMED CT 14658028) ACTIVE 4. 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 Cataract nos ACTIVE 6. Prostate mass ACTIVE 7. 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 Sciatica ACTIVE ROS: CONS: negative for fever HEENT: negative CV: neg for acute chest pain, palpitation, RESPIRATORY: neg for acute dyspnea, cough, wheez e GI: neg for n/v, diarrhea, constipation : neg for dysuria, hematuria, MSK:neg for new difficulty with joint discomfort , myalgias, weakness. NEURO: neg for new motor or sensory complains SKIN: neg for new rash, lesion Physical Exam: Vitals: Blood Pressure: 144/79 (08/15/2021 11:19) Pulse: 53 (08/15/2021:) Pulse Oximetry: 98 (08/15/2021:) Resp: 14 (08/15/2021:) Temp: 98 F [36.7 C] (08/15/2021:19) Height: 67.8 in [172.2 cm] (08/15/2021:) Weight: 159.3 lb [72.4 kg] (08/15/2021:) BMI:24.4 GENERAL:well developed, well nourished pt in nad . MSK: gait uses cane, moves all extremities, no j oints swelling, rom normal. NEURO:alert and oriented, cranial nerves II-XII intact, speech clear, strength equal b/l, normal movement, PSYCH: normal affect, well groomed Allergies: Patient has answered NKA FACILITY ALLERGY/ADR -------- No Remote Allergy/ADR Data available for this [facility] No Known Allergies Medications: Active Outpatient Medications (excluding Supplie s): Outpatient Medications Status 1) EMPAGLIFLOZIN 25MG TAB TAKE ONE-HALF TABLET B Y MOUTH ACTIVE EVERY DAY FOR DIABETES. 2) METFORMIN HCL 1000MG TAB TAKE ONE TABLET BY M OUTH ACTIVE TWICE A DAY TO DECREASE BLOOD SUGAR 3) METOPROLOL TARTRATE 50MG TAB TAKE ONE-HALF TA BLET BY ACTIVE MOUTH TWICE A DAY FOR BLOOD PRESSURE Non-VA Medications Status 1) Non-VA ACETAMINOPHEN 325MG [...] 1 TABLET 1200MG ACTIVE MOUTH EVERY DAY 11 Total Medications No Active Remote Medications for this patient /es/ NICK FINCH PHYSICIAN Signed: 08/15/2021 11:52 Aug 15, 2021 11:21 AM PRIMARY CARE NURSING NOTE: [facility] LOCAL TITLE: [facility] NURSING PROGRESS NOTE STANDARD TITLE: PRIMARY CARE NURSING NOTE DATE OF NOTE: AUG 15, 2021@11:21 ENTRY DATE: AUG 15, 2021@11:21:16 AUTHOR: DIAZ OWENS EXP COSIGNER: URGENCY: STATUS: COMPLETED TYPE OF VISIT: Appointment Check In Type of appointment: In-person appointment REASON FOR VISIT: RTC ALLERGIES: Patient has answered NKA VITAL SIGNS: Blood Pressure: 144/79 (08/15/2021 11:19) Pulse: 53 (08/15/2021 11:19) Respiration: 14 (08/15/2021 11:19) Temperature: 98 F [36.7 C] (08/15/2021 11:19) Weight: 159.3 lb [72.4 kg] (08/15/2021:) Height: 67.8 in [172.2 cm] (08/15/2021:) BMI: 24.4 O2 Sat: 98 (08/15/2021 11:19) Pain: 6 (08/15/2021 11:) PAIN SCREEN: Patient is not having significant pain that the y wish to discuss with their provider today. MEDICATION Active Outpatient Medications (including Suppli es): EMPAGLIFLOZIN 25MG TAB TAKE ONE-HALF TABLET BY MOUTH EVERY ACTIVE DAY FOR DIABETES. METFORMIN HCL 1000MG TAB TAKE ONE TABLET [...] they take some outside medications and/or herbals. Diabetic Foot Exam - Complete: [facility] with the following findings: Visual Inspection: Normal Pedal pulses: Normal/Present -SENSORY EXAM: Normal/Intact to monofilament The following risk level was identified for thi s patient: Risk Score: --LEVEL 0 - (NORMAL RISK) No Level 3 red flag history Normal sensory exam Normal pedal pulse exam or normal vascular stud y No deformity or foot infection FOOT CARE EDUCATION: -Examine feet daily -Bathe feet daily -Use clean non-restrictive socks -Ulcers lead to gangrene and amputation -Do not walk barefoot and wear properly fitted shoes -Seek medical attention immediately for new pricila t injuries or ulcers Influenza Immunization: The patient declines to receive the recommended dose of seasonal influenza vaccine. Comment: will come back for the flu vac cine, recovering from the surgery /es/ DIAZ OWENS LPN [facility] Signed: 08/15/2021 12:23
--- OUTSIDE RECORDS SUMMARY | 2022-07-20 21:47 | XMS_ITS | Encounter Summary ---
:1945 Author Organization [facility] rs Address [address] [place] [address] Support Name Relationship Address Phone SHANEKA JOHNSON Unavailable [phone] [phone] [place] [address] SHANEKA JOHNSON Unavailable [address] TRL [phone] [place] [address] SHANEKA JOHNSON Unavailable [phone] [place] [address] Insurance Providers: All historical and current Section [...] [place] M[place] Nov 11, [id number] ALLISON JOHNSON P ATIENT [facility] (WNR) ADVANTAGE (WNR) 2017 3 [id number] [phone] LE 1 [place] Nov 11, [id number] [phone] ALLISON JOHNSON PATIENT [facility] (WNR) ADVANTAGE (WNR) 2016 3 [id number] 2 LE 1 Selected Encounter This section includes the information on record at DC for the Encounter. Date/Time Encounter Type Encounter Reason Provider Source Description Aug 16, 2021 PRO PHONE TELEPHONE PRIMARY ICD-10-CM E11.8 Rony AVILA 11:00 AM CALL 11-20 MIN CARE Type 2 diabetes Y N mellitus with unspecified complications with Provider Comments: Type 2 diabetes mellitus ([facility] [id number]) IHE Encounter Template Text not used by [facility] Assessments - Encounter Diagnoses This section includes the primary and secondary diagnoses documented for the Encounter. Date/Time Primary/Secondary Diagnosis Name Provider Source Diagnosis Aug 16, 2021 PRIMARY Type 2 diabetes ANABELL AVILA [facility] 11:00 AM mellitus with N unspecified complications Plan of Treatment: Future Appointments (+ 6 months) and Future Tests (+/- 45 days) The Plan of Treatment section includes future care activities for the patient from all DC treatmentfacilities. This section includes future appointments and future orders which are active, pending orscheduled.Future Appointments This section includes appointments that were scheduled to occur 6 months from the date of the Encounter, up to a maximum of 20 appointments. The data comes from all DC treatment facilities. Appointment Date/Time Appointment Type Appointment Facili ty Name Sep 20, 2021 01:15 PM AMBULATORY - NONE [facility] Oct 25, 2021 10:30 AM AMBULATORY - NONE [facility] Lab Results: +/- 30 days of the encounter This section includes the Chemistry and Hematology Lab Results on record with DC for the patient. Radiology Reports and Pathology Reports are provided separately, in subsequent sections.Lab Results This section contains the Chemistry/Hematology Results that were resulted 30 days before or 30 daysafter the date of the Encounter. Date/Time Source Result Type Result - Unit Interpretation Reference Range Comment Jul 20, 2021 11:29 [facility] BASIC METABOLIC Specimen Typ e: PLASMA AM PANEL+MG No comment enter ed. Ordering Provid er: NICK FINCH Report Released Date/Time: Jul 20, 2021 11:18 AM Reporting Lab: [facility] [id number] Performing Lab: [facility] [address] CREATININE 0.9 0.7-1.2 UREA NITROGEN 14 8-26 GLUCOSE 154 H 74-100 SODIUM 142 136-145 POTASSIUM 4.3 3.5-5.1 CHLORIDE 105 98-107 CO2 25 22-29 CALCIUM 9.2 8.4-10.2 MAGNESIUM 2.0 1.6-2.6 ANION GAP 12 5-15 ESTIMATED GFR(eGFR) 82 >60 Jul 20, 2021 11:[address] [facility] CBC & DIFF Specimen Type: BLOOD Comment: Automa luc Differential Performed Ordering Provid er: NICK FINCH Report Released Date/Time: Jul 20, 2021 11:18 AM Reporting Lab: [facility] I [address] [facility] [id number] Performing Lab: [facility] [address] [facility] [id number] WBC 4.74 4.0-11.0 RBC 4.41 L 4.6-6.2 [...] smoking and tobacco-related health factors from the DC facility where the Encounter took place.Current Smoking Status This section includes the most current smoking, or tobacco-related health factor, from the DC facility where the Encounter took place. Date/Time Current Smoking Status Comment Facility Jul 20, 2021 10:30 AM VA-TOBACCO NEVER USED [facility] Tobacco Use History This section includes a history of the smoking, or tobacco- related health factors, that were collected on or before the date of the Encounter. The data comes from the DC facility where the Encounter took place. Date/Time Smoking Status/Tobacco Use Comment [facility] Jul 21, 2020 11:00 AM VA-TOBACCO NEVER USED [facility] Jun 29, 2019 09:53 AM VA-TOBACCO NEVER USED [facility] Jul 16, 2018 04:07 PM LIFETIME NON-TOBACCO USER [facility] Jul 10, 2017 01:42 PM LIFETIME NON-TOBACCO USER [facility] Sep 12, 2016 05:13 AM LIFETIME NON-TOBACCO USER [facility] Aug 16, 2015 06:50 AM LIFETIME NON-TOBACCO USER [facility] May 10, 2014 03:19 PM LIFETIME NON-TOBACCO USER [facility] Advance Directives: All historical and current Section Date Range: From patient's date of to the date document was created. This section includes ALL of a patient's completed or amended VA Advance and Rescinded Directives. The entries below indicate that a directive exists for the patient, but an actual copy is not included with this document. The data comes from all [place] facilities. Date Advance Directives Provider Source Aug 03, 2019 ADVANCE DIRECTIVE DISCUSSION [facility] Aug 03, 2019 ADVANCE DIRECTIVE ALISACASEY TRUONG [facility] Encounter Notes: All associated encounter notes This section contains the clinical notes associated to the Encounter. Date/Time Encounter Note(s) Provider Source Aug 16, 2021 10:53 AM PHARMACY NOTE: ANABELL AVILA LOCAL TITLE: PHARMACOTHERAPY-CLINICAL PHARMACY NOTE STANDARD TITLE: PHARMACY NOTE DATE OF NOTE: AUG 16, 2021@10:53 ENTRY DATE: AUG 16, 2021@10:53:36 AUTHOR: ANABELL AVILA EXP COSIGNER: URGENCY: STATUS: COMPLETED PHARMACOTHERAPY-CLINICAL PHARMACY NOTE Has ADDENDA DAVID JOHNSON is a 75 YO MALE followed by [facility] for medication management, contacted by phone. 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 PMH signi ficant for HTN and HLD. Last assessed by [facility] on 05/29/21 with no changes in medications and plans to review updated A1C today. SUBJECTIVE: [place] answers the phone with no acute complain ts, however does states he is pretty sleepy and drugged up since hav ing spinal surgery recently (currently on oxycodone). Otherwise states he is doing well . Denies any constipation or diarrhea from previous adjustments of metformin formulation. Continues to check his BGs at home about 2x/week and is seeing ~120, which is sometimes before, sometimes after breakfast. Leaves for [place] sometime in September. Patient goals: Keep working on my diet and see if I can bring my A1c down more Lifestyle: * updated 08/16/2021 * Diet: Breakfast (9am): yogurt + strawberries or blueb erries OR cereal (Raisin Bran) + banana or strawberries OR oatmeal + marco antonio f&half + agave syrup + raisins Lunch/midafternoon (3pm): it varies quite a bi t; usually sandwich or hamburger - no fries Evening meal: if hungry he'll eat otherwise ochoa l have yogurt or soup or nuts or berries; salad last night for dinner Snacks: carrots or cucumbers or radish or orang es or bananas or grapes or grapefruit ; peaches, pears and berries Dessert: DENIES Beverages: 4 oz. of OJ or fruit juice with medi cations, water, tea Exercise: biking and walking; tennis 1-2x/week ROS: (-) hypoglycemia symptoms (-) hyperglycemia symptoms SMBG Readings: NO specific readings to review Adherence to medications: DENIES missed or extra doses Past medication trials: - metformin IR; diarrhea (previously, now naina ating) - metformin SA; constipation OBJECTIVE: ALLERGIES/ADR: Patient has answered NKA MEDICATION RECONCILIATION: Active and Recently Outpatient Medicatio ns (excluding Supplies): Active Outpatient Medications Status 1) EMPAGLIFLOZIN 25MG TAB TAKE ONE-HALF TABLET B Y MOUTH ACTIVE EVERY DAY FOR DIABETES. 2) METFORMIN HCL 1000MG TAB TAKE ONE TABLET BY M OUTH ACTIVE TWICE A DAY TO DECREASE BLOOD SUGAR 3) METOPROLOL TARTRATE 50MG TAB TAKE ONE-HALF TA BLET BY ACTIVE MOUTH TWICE A DAY FOR BLOOD PRESSURE 4) OXYCODONE 5MG TAB TAKE ONE TABLET BY MOUTH EV JOO 6 ACTIVE HOURS NEEDED FOR PAIN Inactive Outpatient Medications Status 1) ACCU-CHEK GUIDE (GLUCOSE) TEST STRIP 1 STRIP FOR TESTING TOPICALLY TWICE WEEKLY TO CHECK BLOOD SUGAR--USE WITHIN 3 MINUTES OF REMOVING FROM CONTAINER TEST AT DIFFERENT TIMES OF THE DAY OR DIRECTED 2) ALLOPURINOL 300MG TAB TAKE ONE TABLET BY MOUT H EVERY DAY FOR GOUT PREVENTION 3) ATORVASTATIN CALCIUM 80MG TAB TAKE ONE TABLET BY MOUTH EVERY EVENING FOR CHOLESTEROL 4) LISINOPRIL 20MG TAB TAKE ONE-HALF TABLET BY M OUTH EVERY DAY FOR BLOOD PRESSURE Active Non-VA Medications Status 1) Non-VA ACETAMINOPHEN 325MG TAB 325MG EVERY 4 HOURS ACTIVE NEEDED 2) Non-VA ASCORBIC ACID 500MG TAB 500MG MOUTH EV OJO DAY ACTIVE 3) Non-VA ASPIRIN TAB 81 [...] 1 TABLET 1200MG ACTIVE MOUTH EVERY DAY 16 Total Medications Vitals: Temperature: 98 F [36.7 C] (08/15/2021 11:19) Blood Pressure: 131/80 (08/15/2021 12:24) Pulse: 53 (08/15/2021 11:19) Respiration: 14 (08/15/2021 11:19) Pain: 6 (08/15/2021 11:19) Height: 67.8 in [172.2 cm] (08/15/2021 11:19) Weight: 159.3 lb [72.4 kg] (08/15/2021 11:19) BMI: 24.4 LABS: Basic Metabolic Panel SODIUM 142 (07/20/21) POTASSIUM 4.3 (07/20/21) CREATININE 0.9 (07/20/21) UREA NITROGEN 14 (07/20/21) GLUCOSE 154 H (07/20/21) CO2 25 (07/20/21) CHLORIDE 105 (07/20/21) ESTIMATED GFR(eGFR) >60 (07/20/21) MAGNESIUM 2.0 (07/20/21) Collection DT Specimen Test Name Result Units [...] PLASMA ESTIMATED GFR(eGF >60 Re f: >=60 CHOLESTEROL____ MEASURED LDL____ LDL CALCULATION____ HDL____ TRIGLYCERIDE____ Collection DT Spec HGBA1C POCA1C 05/26/2021 13:08 BLOOD 7.3 H 02/20/2021 12:03 BLOOD 7.7 H 07/21/2020 11:55 BLOOD 9.6 H Collection DT Specimen Test Name Result Units Re f Range 07/27/2019 11:09 URINE ALB/CREAT RATIO,U 71.6 H mg/g creat Ref: <=29.9 SGOT 25 (08/17/20) SGPT 23 (08/17/20) TSH ____ Collection DT Spec WBC HGB HCT PLT MCV NEUT LYMP HS 07/20/2021 11:29 BLOOD 4.74 14.4 43.1 166 97.7 5 5.5 30.8 ASSESSMENT: # DM (goal A1c <7% (FBG 80-130, PPG <180) given age and mild microvascular complications [nephropathy & retinopathy] per VA /DoD guidelines); - did not get labs with updated A 1C, last labs still May 2021, overall SMBG reported as controlled, and tolerat ing medications, will not make changes to medication regimen, however will attempt to s chedule labs prior to him leaving for [place]. PLAN: # DM: - CONTINUE empagliflozin 12.5 mg daily - CONTINUE metformin 1000 mg BID # Disease-Specific Med Rec: completed today # Labs: updated A1c and microalbuminuria screen - Educated vet on indication/risks/benefits of n ew/changed medication. - Education provided on therapeutic nonpharmacol ogic management to achieve goals. - Vet advised of recent labs. - [place] verbalized underst anding to all plans discussed today. Questions were answered to vet's satisfaction. Time spent: 12 minutes RTC: ~1 month lab results /adi/ ANABELL AVILA Pharmacist Signed: 08/18/2021 10:24 09/15/2021 ADDENDUM STATUS: COMPLETED has not gotten updated labs RTC order entered at time of last visit Please schedule [place] for labs, can re-order i f needed, Thanks. Return to [facility] on or around ( Aug 28, 2021 ) for a total of 1 appointment(s) please draw A1C and microalbumin ordered by Dr. Ritchie on or around 08/28 /lee AVILA Pharmacist Signed: 09/15/2021 09:31 Receipt Acknowledged By: * AWAITING SIGNATURE * LETICIA MERRITT
--- OUTSIDE RECORDS SUMMARY | 2022-07-20 21:47 | XMS_ITS | Encounter Summary ---
:1945 Author Organization [facility] rs Address [address] [place] [id number] Support Name Relationship Address Phone SHANEKA JOHNSON Unavailable [address] [phone] [place] [address] SHANEKA JOHNSON Unavailable [address] [phone] [place] [address] SHANEKA JOHNSON Unavailable [address] [place] [address] Insurance Providers: All historical and current Section Date Range: From patient's date of to the date document was created.This section includes the names of all active insurance providers for the patient. Insurance Type of Plan Start of End of Group Member Insurance Policy P rayray's Provider Coverage Name Policy Policy Number ID Provider's Hig[place]botham's Relationship Coverage Coverage Telephone Name to Policy Number [place] Nov 11, [id number] ALLISON JOHNSON P ATIENT [facility] (WNR) ADVANTAGE (WNR) 2017 3 [id number] [phone] LE 1 [place] Nov 11, [id number] [phone] ALLISON JOHNSON PATIENT [facility] (WNR) ADVANTAGE (WNR) 2016 3 [id number] 2 LE 1 Selected Encounter This section includes the information on record at CT for the Encounter. Date/Time Encounter Type Encounter Description Reason Provider Source Aug 03, 2021 12:00 Outpatient Encounter ADMIN VIRAJ NELSON AM (JERRYCT) IHE Encounter Template Text not used by CT Plan of Treatment: Future Appointments (+ 6 [...] 20 appointments. The data comes from all CT treatment facilities. Appointment Date/Time Appointment Type Appointment Nancy stahl Name Aug 15, 2021 11:00 AM AMBULATORY - [facility] Aug 15, 2021 11:30 AM AMBULATORY - NONE [facility] Aug 16, 2021 11:00 AM AMBULATORY - NONE [facility] Sep 20, 2021 01:15 PM AMBULATORY - NONE [facility] Oct 25, 2021 10:30 AM AMBULATORY - NONE [facility] Lab Results: +/- 30 days of the encounter This section includes the Chemistry and Hematology Lab Results on record with CT for the patient. Radiology Reports and Pathology Reports are provided separately, in subsequent sections.Lab Results This section contains the Chemistry/Hematology Results that were resulted 30 days before or 30 daysafter the date of the Encounter. Date/Time Source Result Type Result - Unit Interpretation Reference Range Comment Jul 20, 2021 11:29 [facility] BASIC METABOLIC Specimen Typ e: PLASMA AM PANEL+MG No comment enter ed. Ordering Provid er: NICK FINCH Report Released Date/Time: Jul 20, 2021 11:18 AM Reporting [facility] [id number] Performing Lab: [facility] [address] CREATININE 0.9 0.7-1.2 UREA NITROGEN 14 8-26 GLUCOSE 154 H 74-100 SODIUM 142 136-145 POTASSIUM 4.3 3.5-5.1 CHLORIDE 105 98-107 CO2 25 22-29 CALCIUM 9.2 8.4-10.2 MAGNESIUM 2.0 1.6-2.6 ANION GAP 12 5-15 ESTIMATED GFR(eGFR) 82 >60 Jul 20, 2021 11:29 AM [facility] CBC & DIFF Specimen Type: BLOOD Comment: Automa luc Differential Performed Ordering Provid er: NICK FINCH Report Released Date/Time: Jul 20, 2021 11:18 AM Reporting Lab: [facility] [address] Performing Lab: [facility] [address] WBC 4.74 4.0-11.0 RBC 4.41 L 4.6-6.2 [...] smoking and tobacco-related health factors from the CT facility where the Encounter took place.Current Smoking Status This section includes the most current smoking, or tobacco-related health factor, from the CT facility where the Encounter took place. Date/Time Current Smoking Status Comment Facility March 18, 2012 08:35 AM LIFETIME NON-TOBACCO USER [facility] Advance Directives: All historical and current Section Date Range: From patient's date of to the date document was created. This section includes ALL of a patient's completed or amended CT Advance and Rescinded Directives. The entries below indicate that a directive exists for the patient, but an actual copy is not included with this document. The data comes from all CT facilities. Date Advance Directives Provider Source Aug 03, 2019 ADVANCE DIRECTIVE DISCUSSION [facility] Aug 03, 2019 ADVANCE DIRECTIVE [facility] Encounter Notes: All associated encounter notes This section contains the clinical notes associated to the Encounter. Date/Time Encounter Note(s) Provider Source Aug 03, 2021 12:00 AM NONVA NOTE: [facility] LOCAL TITLE: HOSPITALIZATION PRIVATE NONVA NOTE STANDARD TITLE: NONVA NOTE DATE OF NOTE: AUG 03, 2021 ENTRY DATE: AUG 09 021@09:52:44 AUTHOR: GUS BOLTON EXP COSIGNER: URGENCY: STATUS: COMPLETED [facility] - Scanned Document This note contains attached HOSPITALIZATION PRIV ATE scanned document(s) received from an outside facility. Open [facility] Display to review the documen t(s). /adi/ GUS BOLTON Financial Aid - HIT Signed: 08/09/2021 09:52
[2022-07-20 22:50] LABS: Troponin I* < 0.01 ng/mL (0.01-0.04)
== END 2022-07-20 23:30 | disposition home or self-care (01) ==
PROVIDERS: Emergency Provider Internal Medicine
DX: M54.2 Cervicalgia (principal)
CPT/HCPCS: 36415; 70450; 70496; 70498; 71045; 80048; 84484; 85025; 85379; 93005; 99284; 99285; Q9967

== ENCOUNTER 2023-04-23 08:42 | Outpatient (CLI) | payer MEDICARE, BC, SELFPAY ==
--- NOTE | 2023-04-23 06:30 | P.ANHP_ITS ---
HPI - Pre-Anesthesia History of Present Illness Time Seen by Provider: 09:09 Date Seen: 04/23/23 Date of service: 04/23/23 Reason for visit: colonoscopy Source: patient and old records reviewed Review of Systems Status of ROS Reports: 10 or more systems reviewed and unremarkable except as noted in History and below [facility] Medical History (Updated 04/23/23 @ 09:10 by Roberto Carlos Arguelles MD) Hyperlipidemia ?E78.5 - Hyperlipidemia, unspecified (ICD-10) Hypertension ?I10 - Essential (primary) hypertension (ICD-10) Diabetes ?E11.9 - Type 2 diabetes mellitus without complications (ICD-10) Coronary artery disease ?I25.10 - Atherosclerotic heart disease of [place] coronary artery without angina pectoris (ICD-10) Surgical History (Updated 07/20/22 @ 20:26 by Niels Caceres MD) History of hip surgery ?Z98.890 - Other specified postprocedural states (ICD-10) H/O knee surgery ?Z98.890 - Other specified postprocedural states (ICD-10) Social History Smoking Status: Never smoker How often do you have a drink containing alcohol: monthly or less AUDIT-C Alcohol total score: 1 Non-prescribed substance use: denies use Meds Home Medications and Allergies Home Medications Medication Instructions Recorded Confirmed Type Nitro 07/20/22 History allopurinol 07/20/22 History aspirin 07/20/22 History atorvastatin 07/20/22 History empagliflozin 07/20/22 History lisinopril 07/20/22 History metformin 07/20/22 History metoprolol tartrate 07/20/22 History Allergies Allergy/AdvReac Type Severity Reaction Status Date / Time No Known Drug Allergies Allergy Verified 07/20/22 19:54 Exam Const Documenting provider has reviewed patient's vital signs: yes Common normals: no apparent distress, oriented x3, healthy appearing, alert and well nourished General appearance: cooperative and comfortable Orientation/consciousness: Yes awake HENMT Common normals: normocephalic Head and scalp: normocephalic Neck & C-Spine Common normals: full ROM Chest Chest: symmetrical chest wall rise Resp Common normals: normal respiratory effort, no retractions, no use of accessory muscles and clear to auscultation bilaterally Auscultation: clear to auscultation bilaterally Cardio Common normals: regular rate, regular rhythm, S1 normal heart sound, S2 normal heart sound and no murmurs Rate: regular rate Rhythm: regular rhythm Heart sounds: S1 normal and S2 normal Neuro Common normals: oriented x3 Sensorium/orientation: awake and alert Assessment and Plan Assessment and plan (1) Colonoscopy planned: Status: Acute Plan ok to proceed with sedation
--- NOTE | 2023-04-23 06:30 | W.ANESCHARGE ---
Anesthesia Charges Start Date/Time Anesthesia Start Date: 04/23/23 Anesthesia Start Time: 09:22 Stop Date/Time Anesthesia Stop Date: 04/23/23 Anesthesia Stop Time: 10:02 Summary Extremes of Age - Over 70 or under 1: MDA
--- NOTE | 2023-04-23 10:05 | W.ANESCHARGE ---
Anesthesia Charges Start Date/Time Anesthesia Start Date: 04/23/23 Anesthesia Start Time: 09:22 Stop Date/Time Anesthesia Stop Date: 04/23/23 Anesthesia Stop Time: 10:02
== END 2023-04-23 08:43 | disposition home or self-care (01) ==
LOC: OP CLINIC 08:43
PROVIDERS: Visit Provider Surgery
DX: Z12.11 Encounter for screening for malignant neoplasm of colon (principal); K63.5 Polyp of colon; K64.8 Other hemorrhoids; K57.30 Diverticulosis of large intestine without perforation or abscess without bleeding; Z86.010 Personal history of colon polyps
CPT/HCPCS: 00811; 45380; 88305; 99100; J2704

== ENCOUNTER 2025-04-23 09:53 | Emergency (ER) | payer MEDICARE, BC, SELFPAY ==
--- OUTSIDE RECORDS SUMMARY | 2009-08-29 08:30 | XMS_ITS | Continuity of Care Document ---
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 Name Role Phone Jaylon Casiano MD Unavailable Unavailable Medications Medication Instructions Dosage Effective Dates (start - stop) Status Comments simvastatin 40 mg Tab Take one tablet by mouth daily - Active Zetia 10 mg Tab Take one tablet by mouth daily - Active atenolol 50 mg Tab Take one tablet by mouth daily - Active lisinopril-hydrochlor othiazide 20 mg-25 mg Tab Take one tablet by mouth daily - Active Procedures Procedure Date Colonoscopy Flex; Dx (sep Pro) 09 Advance Directives Directive Yes / No Effective Date File Name No Information Encounters Encounter Description Practice Location Reason(s) For Visit Diagnoses Date Provider Providers Copied on Encounter [facility], [address] [address], [place], [place], [id number], [place] tel:[phone] [facility] Colon Cancer ScreeningColon Cancer Screening [address] [facility], [facility] [address], [place], [place], [id number] , [place]. tel:[phone] Referring Provider: Ernst Ballard MD A, [address] [place] [address], [address]. tel:[phone] Family History Family Member Type Diagnosis Age At Onset No Information Payers Payer name Insurance type Covered green party ID Authoriza tion(s) No Information Social History Type Description Quantity Date Captured Comments Sex Male Smoking Status No Information Chief Complaint And Reason For Visit No Information Reason For Referral Reason For Referral No Information History Of Present Illness Encounter Date Complaint History Of Prese nt Illness No Information Functional Status Date Functional Assessmen t No Information Instructions Date Instruction Additional Infor mation No Information Assessments Type Assessment Date No Information Patient Care Teams Name Effective Dates (start - stop) Status Members No Information
--- OUTSIDE RECORDS SUMMARY | 2024-08-18 05:00 | XMS_ITS | Encounter Summary ---
Author Name [facility] [place] Address [address] [place] [address] Care Team Providers Care Rn Home Care Name Role Phone NICK FINCH Primary Care Provider Unavaila ble Insurance Providers: All historical and current Section Date Range: From patient's date of to the date document was created. This section includes the names of all active insurance providers for the patient. Insurance Provider Type of Coverage Plan Name Start of Policy Coverage End of Policy Coverage Group Number Member ID Insurance Provider's Telephone Number Policy Higginbotham's Name Patient's Relationship to Policy Higginbotham [facility] MEDICARE ADVANTAGE [facility] ([facility]) Nov 11, 2016 [id number] [phone] ALLISON JOHNSON PATIENT [place] [facility] ([facility]) MEDICARE ADVANTAGE [facility] ([facility]) Nov 11, 2016 [id number] ELIZABETHALLISON QUIROZ PATIENT Selected Encounter This section includes the information on record at [place] for the Encounter. Date/Time Encounter Type Encounter Description Reason Provider Source Aug 18, 2024 10:00 AM OFFICE O/P EST MOD 30 MIN PRIMARY CARE/MEDICINE ICD-10-CM Z00.8 Encounter for other general examination ALMAS FINCH IHDali Encounter Template Text not used by VA Assessments - Encounter Diagnoses This section includes the primary and secondary diagnoses documented for the Encounter. Date/Time Primary/Secondary Diagnosis Diagnosis Name Provider Source Aug 18, 2024 11:14 AM PRIMARY Encounter for other general examination [facility] Aug 18, 2024 11:14 AM SECONDARY Encounter for immunization [facility] Aug 18, 2024 11:14 AM SECONDARY Essential (primary) hypertension [facility] Aug 18, 2024 11:14 AM SECONDARY Hyperlipidemia, unspecified [facility] Aug 18, 2024 11:14 AM SECONDARY Other seasonal allergic rhinitis [facility] Aug 18, 2024 11:14 AM SECONDARY Personal history of malignant neoplasm of prostate [facility] Aug 18, 2024 11:14 AM SECONDARY Type 2 diabetes mellitus with unspecified complications [facility] Lab Results: +/- 30 days of the encounter This section includes the Chemistry and Hematology Lab Results on record with [place] for the patient. Radiology Reports and Pathology Reports are provided separately, in subsequent sections. Lab Results This section contains the Chemistry/Hematology Results that were resulted 30 days before or 30 daysafter the date of the Encounter. Date/Time Source Result Type Result - Unit Interpretation Reference Range Specimen Type Comment Aug 18, 2024 11:11 AM [facility] ALBUMIN/CREATININE RATIO URINE URINE Specimen Type: URINE No comment entered. Ordering Provider: NICK FINCH Report Released Date/Time: Aug 18, 2024 11:03 AM Reporting Lab: [facility] [id number] Performing Lab: [facility] [id number] CREATININE,UR RANDOM 81.8 mg/dL 58.0-161 .0 ALB/CREAT RATIO,UR 144.3 mg/g{creat} H <29 .9 ALBUMIN,UR 118.0 mg/L H <29.9 Aug 18, 2024 11:11 AM [facility] CREATININE(INCLUDES EGFR) PLASMA Speci men Type: PLASMA No comment entered. Ordering Provider: NICK FINCH Report Released Date/Time: Aug 18, 2024 11:03 AM Reporting Lab: [facility] [id number] Performing Lab: [facility] [id number] CREATININE 0.9 mg/dL 0.7-1.2 .CREAT EGFR(CKD-EPI) 87 >60 Aug 18, 2024 11:11 AM [facility] HEMOGLOBIN A1C BLOOD Specimen Type: B LOOD Comment: Values obtained from A1C measurements can vary. For typical A1C assays, a reported value of 7.0 could actually be between 6.7 and 7.3 if measured by a reference method. A reported value of 9.0 could actually be between 8.7 and 9.3. Ref: http://www.ngsp.org/CAPdata.asp Ordering Provider: NICK FINCH Report Released Date/Time: Aug 18, 2024 11:03 AM Reporting Lab: [facility] [id number] Performing Lab: [facility] [id number] HEMOGLOBIN A1C 6.9 H 4.0-6.0 Aug 18, 2024 11:11 AM [facility] PSA SERUM Specimen Type: SERUM No comment entered. Ordering Provider: NICK FINCH Report Released Date/Time: Aug 18, 2024 11:03 AM Reporting Lab: [facility] [id number] Performing Lab: [facility] [id number] PSA 0.14 ng/mL <4.00 Aug 18, 2024 11:11 AM [facility] COMPREHENSIVE METABOLIC PANEL+MG PLASMA Specimen Type: PLASMA No comment entered. Ordering Provider: NICK FINCH Report Released Date/Time: Aug 18, 2024 11:03 AM Reporting Lab: [facility] [id number] Performing Lab: [facility] [phone] CREATININE 0.9 mg/dL 0.7-1.2 UREA NITROGEN 14 mg/dL 8-26 GLUCOSE 147 mg/dL H 70-100 SODIUM 139 mmol/L 136-145 POTASSIUM 4.3 mmol/L 3.5-5.1 CHLORIDE 107 mmol/L 98-107 CO2 22 mmol/L 22-29 CALCIUM 9.0 mg/dL 8.4-10.2 PROTEIN,TOTAL 7.3 g/dL 6.4-8.3 ALBUMIN 4.0 g/dL 3.5-5.2 BILIRUBIN, TOTAL 1.2 mg/dL 0.2-1.2 MAGNESIUM 1.9 mg/dL 1.6-2.6 ANION GAP 10 mmol/L 5-15 ALKALINE PHOSPHATASE 78 U/L 40-150 ALT/SGPT 19 U/L <44 AST/SGOT 30 U/L 11-34 .CREAT EGFR(CKD-EPI) 87 >60 Vital Signs: All taken on the encounter date This section contains inpatient and outpatient Vital Signs collected on the date of the Encounter. Date/Time Temperature Pulse Blood Pressure Respiratory Rate SP02 Pain Height Weight Body Mass Index Source Aug 18, 2024 11:24 AM 150/66 [facility] Aug 18, 2024 10:20 AM 97 48 156/80 16 98 0 67 158.7 25 [facility] Immunizations: All administered on the encounter date This section contains immunizations associated to the Encounter. Immunization Series Date Issued Administered By Site Reaction Lot Number CVX Code Drug [place] Cook Comment(s) Source INFLUENZA, HIGH-DOSE, TRIVALENT, PF Aug 18, 2024 GRACIELAAHMET JULIENJANA LEFT DELTO ID [id number] A 135 [facility] PASTEUR ADMINISTERE D AT [place], [facility] Social History: Smoking Status (Most current) and Tobacco Use (All prior to encounter date) This section includes the most current, and the historical, smoking and tobacco- related health factors from the [place] facility where the Encounter took place. Current Smoking Status This section includes the most current smoking, or tobacco-related health factor, from the [place] facility where the Encounter took place. Date/Time Current Smoking Status Comment Chasity ity Aug 18, 2024 10:00 AM VA-TOBACCO NEVER USED [facility] Tobacco Use History This section includes a history of the smoking, or tobacco-related health factors, that were collected on or before the date of the Encounter. The data comes from the [place] facility where the Encounter took place. Date/Time Smoking Status/Tobacco Use Comment F acility Aug 13, 2023 01:00 PM VA-TOBACCO NEVER USED [facility] Sep 04, 2022 09:00 AM VA-TOBACCO NEVER USED [facility] Jul 20, 2021 10:30 AM VA-TOBACCO NEVER USED [facility] Jul 21, 2020 11:00 AM VA-TOBACCO NEVER USED [facility] Jun 29, 2019 09:53 AM VA-TOBACCO NEVER USED [facility] Jul 16, 2018 04:07 PM LIFETIME NON-TOBACCO USER [facility] Jul 10, 2017 01:42 PM LIFETIME NON-TOBACCO USER [facility] Sep 12, 2016 05:13 AM LIFETIME NON-TOBACCO USER [facility] Aug 16, 2015 06:50 AM LIFETIME NON-TOBACCO USER [facility] May 10, 2014 03:19 PM LIFETIME NON-TOBACCO USER [facility] Advance Directives: All historical and current Section Date Range: From patient's date of to the date document was created. This section includes ALL of a patient's completed or amended VA Advance and Rescinded Directives. The entries below indicate that a directive exists for the patient, but an actual copy is not included with this document. The data comes from all [place] facilities. Date Advance Directives Provider Source Aug 03, 2019 ADVANCE DIRECTIVE DISCUSSION EMA JACOBS [facility] Aug 03, 2019 ADVANCE DIRECTIVE CASEY JACOBS [facility] Encounter Notes: All associated encounter notes This section contains the clinical notes associated to the Encounter. Date/Time Encounter Note(s) Provider Source Aug 19, 2024 09:18 AM LETTERS: LOCAL TITLE: FOLLOW UP RESULTS LETTER STANDARD TITLE: LETTERS DATE OF NOTE: AUG 19, 2024@09:18 ENTRY DATE: AUG 19, 2024@09:18:56 AUTHOR: NICK FINCH EXP COSIGNER: URGENCY: STATUS: COMPLETED [facility] [address] [place] [address] Aug DAVID JOHNSON [address] [facility] [id number] Dear : I am writing to inform you of the results of testing that you had done recently at the [facility]. - Electrolytes including sodium and potassium SODIUM 139 (08/18/24) (normal is 136-145) POTASSIUM 4.3 (08/18/24) (normal is 3.5-5.1) - Calcium CALCIUM 9.0 (08/18/24) (normal is 8.5-10.1) - Kidney function CREATININE 0.9 (08/18/24)(normal Male = less than 1.2; normal Female = less than 1.0)) UREA NITROGEN 14 (08/18/24) (normal Male is 8-26; normal Female is 10-20) - Blood Sugar GLUCOSE 147 H (08/18/24) (normal is 70 - 100 if fasting) - Liver function Tests AST/SGOT 30 (08/18/24) (normal 11-34) ALT/SGPT 19 (08/18/24) (normal is </= 44) ALK PHOSPHATASE 78 (08/18/24) (normal 45-117) BILIRUBIN, TOTAL 1.2 (08/18/24) (normal 0.2-1.2) - Hemoglobin A1C (normal 4.0-6.0) Collection DT Spec HGBA1C POCA1C 08/18/2024 11:11 BLOOD 6.9 H 09/04/2022 09:47 BLOOD 7.1 H 06/11/2022 09:56 BLOOD 7.7 H - Prostate Test: PSA 0.14 (08/18/24) (normal 0-4) Additional Comments: Your hgb a1c is improved. Everything else looks good. If you have any further questions or problems, please contact our nursing staff or provider at the following number: [phone]. Sincerely, NICK FINCH PHYSICIAN NICK FINCH [facility] Aug 18, 2024 11:14 AM MEDICATION MGT NOT E: LOCAL TITLE: MEDICATION RECONCILIATION NOTE STANDARD TITLE: MEDICATION MGT NOTE DATE OF NOTE: AUG 18, 2024@11:14 ENTRY DATE: AUG 18, 2024@11:15:04 AUTHOR: NICK FINCH EXP COSIGNER: URGENCY: STATUS: COMPLETED MEDICATION RECONCILIATION Active Outpatient Medications (excluding Supplies): Outpatient Medications Status 1) ALLOPURINOL 300MG TAB TAKE ONE TABLET BY MOUTH EVERY PENDING DAY FOR GOUT PREVENTION 2) ATORVASTATIN CALCIUM 80MG TAB TAKE ONE TABLET BY PENDING MOUTH EVERY EVENING FOR CHOLESTEROL 3) EMPAGLIFLOZIN 25MG TAB TAKE ONE-HALF TABLET BY MOUTH PENDING EVERY DAY FOR DIABETES. 4) FLUTICASONE PROP 50MCG 120D NASAL INHL SPRAY 1 SPRAY PENDING IN EACH NOSTRIL TWICE A DAY 5) LISINOPRIL 20MG TAB TAKE ONE-HALF TABLET BY MOUTH PENDING EVERY DAY FOR BLOOD PRESSURE 6) METFORMIN HCL 1000MG TAB TAKE ONE TABLET BY MOUTH ACTIVE (S) TWICE A DAY TO DECREASE BLOOD SUGAR 7) METOPROLOL TARTRATE 50MG TAB TAKE ONE-HALF TABLET BY ACTIVE (S) MOUTH TWICE A DAY FOR BLOOD PRESSURE Non-VA Medications Status 1) Non-VA ACETAMINOPHEN 325MG TAB 325MG EVERY 4 HOURS ACTIVE NEEDED 2) Non-VA ASCORBIC ACID 500MG TAB 500MG MOUTH EVERY DAY ACTIVE 3) Non-VA ASPIRIN TAB 81 MG MOUTH EVERY DAY ACTIVE 4) Non-VA DENTON EXTRACT CAP/TAB 1 CAPSULE MOUTH ACTIVE 5) Non-VA GARLIC OIL CAP,ORAL 1 TAB MOUTH EVERY DAY ACTIVE 6) Non-VA MULTIVITAMIN/MINERALS SENIOR FORMULA TAB 1 ACTIVE TABLET MOUTH EVERY DAY 13 Total Medications Medications listed above are accurate and should continue as ordered. /adi/ NICK FINCH PHYSICIAN Signed: 08/18/2024 11:15 NICK FINCH [facility] Aug 18, 2024 10:58 AM H & P NOTE: LOCAL TITLE: [facility] ANNUAL VISIT STANDARD TITLE: H & P NOTE DATE OF NOTE: AUG 18, 2024@10:58 ENTRY DATE: AUG 18, 2024@10:58:16 AUTHOR: NICK FINCH EXP COSIGNER: URGENCY: STATUS: COMPLETED Annual visit Non VA Providers: karma donohue Chief complaint: Patient is here for a routine annual visit. HPI: Yessenia is doign ok. Has noticed since jun some mild runny nose and having to clear his throat. Otherwise no new concerns. Assessment/Plan: 1. Routine labs today 2. ophtho due given phoenumber 3. dentist due 4. Audio no changes 5. Medicatiosn reviewed, renewed 6. Will addd flonase for probable alelrgies/nasal symptoms 7. Will monitor BP at home and send in readings. Labs and medications reviewed with patient. Discussed plan of care, patient verbalized understanding and agrees with plan. FU in 1 year for annual exam, sooner with any concerns. Clinical Reminders: Prostate Cancer F/U PSA: PSA ordered at this visit. Diabetes: Kidney Health Evaluation: eGFR and uACR (estimated Glomerular Filtration Rate and Urine Albumin-Creatinine Ratio)* Serum or plasma creatinine, quantitative urine creatinine and quantitative urine albumin lab tests were ordered. Past Medical History: Computerized Problem List is the source for the followin. Benign essential hypertension (SNOMED CT 7288108) ACTIVE 2. Type 2 diabetes mellitus (SNOMED CT 59700234) ACTIVE 3. Hyperlipidemia (SNOMED CT 79354914) ACTIVE 4. 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 Cataract nos ACTIVE 6. Prostate mass ACTIVE 7. Disorder due to type 2 diabetes mellitus ACTIVE 8. 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 NEURO: neg for new motor or sensory complains SKIN: neg for new rash, lesion Physical Exam: Vitals: Blood Pressure: 156/80 (08/18/2024 10:20) Pulse: 48 (08/18/2024 10:20) Pulse Oximetry: 98% (08/18/2024 10:20) Resp: 16 (08/18/2024 10:20) Temp: 97 F [36.1 C] (08/18/2024 10:20) Height: 67 in [170.2 cm] (08/18/2024 10:20) Weight: 158.7 lb [71.99 kg] (08/18/2024:) BMI:24.9 GENERAL:well developed, well nourished pt in nad. EYES:PERRLA,EOMI, conjuntiva clear, no discharge. EARS:canals clear, TMs intact NOSE:Nostrils patent, no discharge, slight drip, no sinus tenderness THROAT:No enlarged tonsils, no inflammation, no exudate or ulcers. NECK: supple, no obvious thyromegaly HEART:Regular rate and rhythm , no obvious murmurs/rubs RESPIRATORY: Lungs clear to auscultation b/l, no rales or wheezes. ABDOMEN:soft, nontender, nondistended, no organomegaly, normal bs. MSK:normal gait, moves all extremities, no joints swelling, rom normal. NEURO:alert and oriented, cranial nerves II-XII intact, speech clear, strength equal b/l, normal gait and movement, PSYCH: normal affect, well groomed SKIN:warm adn dry, normal color, no rash or suspicious lesions EXT: no cyanosis, no edema lower ext b/l Allergies: Patient has answered NKA SLT - Lab Tests Selected No data available for: .REGIONAL ALLERGY SC Vaccinations: IM - Immunizations ADMINISTERED Immunization Series Date Facility Reaction Info DT (PEDIATRIC) 12/05/1989 [facility] [facility] INFLUENZA, ADJUVANTED, QUADRIVAL* 07/19/2023 [facility] [facility] [place]FLU[place], ADJUVANTED, QUADRIVAL* 09/04/2022 [facility] * INFLUENZA, HIGH-DOSE, TRIVALENT,* 08/21/2019 [facility] [facility] [place], HIGH-DOSE, TRIVALENT,* 08/15/2017 [facility] [facility] [place], HIGH-DOSE, TRIVALENT,* 09/05/2016 [facility] [facility] [place], HIGH-DOSE, TRIVALENT,* [facility]* INFLUENZA, HIGH-DOSE, TRIVALENT,* 08/16/2015 [facility] * INFLUENZA, SPLIT VIRUS, QUADRIVA* 07/21/2020 [facility] * INFLUENZA, SPLIT VIRUS, TRIVALEN* 08/28/2012 [facility] [facility] IN[place], SPLIT VIRUS, TRIVALEN* 11/07/2011 [facility] [facility] INFLU[place], UNSPECIFIED FORMULATI* 11/10/2013 [place]* INFLUENZA, UNSPECIFIED FORMULATI* 08/20/2011 [place]* INFLUENZA, UNSPECIFIED FORMULATI* 08/20/2010 [facility] [facility] INFLUEN[place], UNSPECIFIED FORMULATI* 08/01/2009 [facility] [facility] INFLU[place], UNSPECIFIED FORMULATI* 09/17/2007 [facility] [facility] NOVEL [id number], ALL FOR* 10/31/2009 [facility] [facility] PNEUMOCOCCAL CONJUGATE PCV 13 08/16/2015 [facility] * <C> PNEUMOCOCCAL CONJUGATE PCV 13 04/12/2015 [facility] [facility] PNEUMOCOCCAL CONJUGATE PCV 13 05/05/2013 [facility] [facility] PNEUMOCOCCAL CONJUGATE PCV 7 07/12/2007 [facility] [facility] PNEUMOCOCCAL CONJUGATE PCV20, PO* 04/23/2024 [facility] [facility] PNEUMOCOCCAL CONJUGATE PCV20, PO* 04/03/2024 [facility] [facility] PNEUMOCOCCAL POLYSACCHARIDE PPV23 07/30/2007 [facility] [facility] PNEUMOCOCCAL, UNSPECIFIED FORMUL* 05/05/2013 [place]* <C> PNEUMOCOCCAL, UNSPECIFIED FORMUL* [place]* TD (ADULT), 2 LF TETANUS TOXOID,* 07/10/2017 [facility] * <C> TD (ADULT), 2 LF TETANUS TOXOID,* 05/17/2001 [facility] [facility] TDAP 06/04/2019 [facility] [facility] TDAP 05/28/2007 [facility] [facility] TD[place]* ZOSTER LIVE 07/30/2007 [facility] [facility] [place]* ZOSTER RECOMBINANT 2 02/20/2021 [facility] * ZOSTER RECOMBINANT 1 07/21/2020 [facility] * CONTRAINDICATED No data available REFUSED ======= No data available <C> See the Detailed Immunizations Health Summary Component[DIM] for Comments * Value is truncated; see the Detailed Immunizations Health Summary Component[DIM] for complete text Labs: pending /es/ NICK FINCH PHYSICIAN Signed: 08/18/2024 11:14 NICK FINCH [facility] Aug 18, 2024 10:22 AM PRIMARY CARE NURSI NG NOTE: LOCAL TITLE: [facility] NURSING PROGRESS NOTE STANDARD TITLE: PRIMARY CARE NURSING NOTE DATE OF NOTE: AUG 18, 2024@10:22 ENTRY DATE: AUG 18, 2024@10:22:46 AUTHOR: DIAZ OWENS COSIGNER: URGENCY: STATUS: COMPLETED TYPE OF VISIT: Appointment Check In Type of appointment: In-person appointment REASON FOR VISIT: Annual ALLERGIES: Patient has answered NKA VITAL SIGNS: Blood Pressure: 156/80 (08/18/2024 10:20) Pulse: 48 (08/18/2024 10:20) Respiration: 16 (08/18/2024 10:20) Temperature: 97 F [36.1 C] (08/18/2024 10:20) Weight: 158.7 lb [71.99 kg] (08/18/2024 10:20) Height: 67 in [170.2 cm] (08/18/2024 10:20) BMI: 24.9 O2 Sat: 98% (08/18/2024 10:20) Pain: 0 (08/18/2024 10:20) PAIN SCREEN: Patient is not having significant pain that they wish to discuss with their provider today. C/O foot numness tingling on off MEDICATION Active Outpatient Medications (including Supplies): METFORMIN HCL 1000MG TAB TAKE ONE TABLET BY MOUTH TWICE A ACTIVE (S) DAY TO DECREASE BLOOD SUGAR METOPROLOL TARTRATE 50MG TAB TAKE ONE-HALF TABLET BY MOUTH ACTIVE (S) TWICE A DAY FOR BLOOD PRESSURE Non-VA ACETAMINOPHEN 325MG TAB 325MG EVERY 4 HOURS ACTIVE NEEDED Non-VA ASCORBIC ACID 500MG TAB 500MG MOUTH EVERY DAY ACTIVE Non-VA ASPIRIN TAB 81 MG MOUTH EVERY DAY ACTIVE Non-VA DENTON EXTRACT CAP/TAB 1 CAPSULE MOUTH ACTIVE Non-VA GARLIC OIL CAP,ORAL 1 TAB MOUTH EVERY DAY ACTIVE Non-VA MULTIVITAMIN/MINERALS SENIOR FORMULA TAB 1 TABLET ACTIVE MOUTH EVERY DAY Over the Counter/Herbal Medications: The patient states that they take some outside medications and/or herbals. Tobacco Use Screening: The patient has never used tobacco. Alcohol Use Screen (AUDIT-C): Alcohol Screen: SCREEN FOR ALCOHOL (AUDIT-C) An alcohol screening test (AUDIT-C) was negative (score=1). 1. How often did you have a drink containing alcohol in the past year? Consider a drink to be a 12 ounce can or bottle of regular beer, 8 ounces of malt liquor, a 5 ounce glass of table wine, or a 1.5 ounce shot of liquor (like scotch, gin, or vodka). Monthly or less 2. How many drinks containing alcohol did you have on a typical day when you were drinking in the past year? One or two drinks 3. How often did you have six or more drinks on one occasion in the past year? Never Depression Screening: Perform PHQ-2 A PHQ-2 screen was performed. The score was 0 which is a negative screen for depression. Over the past two weeks, how often have you been bothered by the following problems? 1. Little interest or pleasure in doing things Not at all 2. Feeling down, depressed, or hopeless Not at all Suicide Screen: C-SSRS Screening [place] Suicide Severity Rating Scale (C-SSRS) screener 1. Over the past month, have you wished you were or wished you could go to sleep and not wake up? No 2. Over the past month, have you had any actual thoughts of killing yourself? No 3. Over the past month, have you been thinking about how you might do this? Response not required due to responses to other questions. 4. Over the past month, have you had these thoughts and had some intention of acting on them? Response not required due to responses to other questions. 5. Over the past month, have you started to work out or worked out the details of how to kill yourself? Response not required due to responses to other questions. 6. If yes, at any time in the past month did you intend to carry out this plan? Response not required due to responses to other questions. 7. In your lifetime, have you ever done anything, started to do anything, or prepared to do anything to end your life (for example, collected pills, obtained a gun, gave away valuables, went to the roof but didn't jump)? No 8. If YES, was this within the past 3 months? Response not required due to responses to other questions. Nursing Annual Screening: Whole Health Screen is due OR due soon (within 90 days). Fall History Screen During the past 12 months, have you had any falls? Patient does not report any falls in the past 12 months. MEDICATIONS: Patient is on one of the following medication classes: Antihypertensives, Antidepressants, Antipsychotics, Diuretics, or Controlled substance medication used for pain. Script Talk Screen Are you able to read your prescription bottles with your glasses, magnifiers or other aids? Yes or patient not taking any prescriptions. Skin Screen Patient reports any current pressure ulcers, a history of pressure ulcers, or a wound from a medical radiation tech or Patient is bed-confined or a wheelchair-user or Patient requires assistance to transfer/change position No, Skin Screen is Negative Home Abuse/Violence Screen Is your home free of abuse and violence? Yes MOVE! Program Screen Body Mass Index (BMI)= 24.9 [place]: Collection DT Specimen Test Name Result Units Ref Range 09/04/2022 09:47 BLOOD !! HEMOGLOBIN A1C 7.1 H % 4.0 - 6.0 !! Indicates COMMENTS AVAILABLE...Refer to Interim Lab Report. [facility] Hgb A1C: No data available [place] Hgb A1C: No data available Point of Care Hgb A1C: POC HGB A1C____ Outpatient Nutrition Screen Body Mass Index (BMI)= 24.9 [place]: Collection DT Specimen Test Name Result Units Ref Range 09/04/2022 09:47 BLOOD !! HEMOGLOBIN A1C 7.1 H % 4.0 - 6.0 !! Indicates COMMENTS AVAILABLE...Refer to Interim Lab Report. [place] Hgb A1C: No data available [place] Hgb A1C: No data available Point of Care Hgb A1C: POC HGB A1C____ Is patient's BMI less than 18.5? No Does patient have swallowing, coughing, or chewing problems affecting oral intake? No Has patient experienced unplanned weight loss or gain greater than 10 pounds over the last 2 months? No Is patient's Hgb A1C (Glycosylated Hemoglobin) greater than 9.5? No Is patient receiving Total Parenteral Nutrition (TPN) or Tube Feedings? No Patient Health Education Screen BARRIERS/SPECIAL NEEDS: Visual limitations Cognitive limitations Other need or barrier (specify): Forgetfull PREFERRED STYLE OF LEARNING: Watching something Listening Reading Client Assistive Service (MOIZ) Screen Does the patient require assistance with outpatient visit? No Homelessness/Food Insecurity Screen: In the past 2 months, have you been living in stable housing that you own, rent, or stay in as part of a household? Yes - Living in stable housing. Are you worried or concerned that in the next 2 months you may NOT have stable housing that you own, rent, or stay in as part of a household? No - Not worried about housing near future The reports the following: Within the past 12 months, you worried whether your food would run out before you got money to buy more. Never true Within the past 12 months, the food you bought just didn't last and you didn't have money to get more. Never true Food Assistance Programs [facility] Food Assistance Programs [facility] ADV DIR Notification and Screening: ADVANCE DIRECTIVE NOTIFICATION: Patient was given written notification of the following rights: 1. Accept or refuse any medical treatment. 2. Complete a durable power of document review attorney for health care. 3. Complete a living will. ADVANCE DIRECTIVE SCREENING: Does patient have an Advance Directive? The patient has an Advance Directive. Does the patient wish to make any changes or revoke their current Advance Directive? No changes requested at this time. WHOLE HEALTH QUESTIONS: Whole Health Screening Why is addressing your overall health important to you? What do you want your health for (why do you want to be healthy)? .Don't like being sick, Healthy life. Diabetic Eye Screening: Patient declined eye exam at this encounter. [facility]. Last one was done on 2021. will make apt for next exam. PAVE Foot Check: A complete foot check was completed at this encounter. VISUAL INSPECTION: Includes inspection for skin breaks, deformity, erythema, trauma, pallor on elevation, dependent rubor, nail deformities, extensive callus and pitting edema. Visual exam results: Abnormal Observations: Thickened toenails, c/o mild pain at times. tingling, numbness, PEDAL PULSES: Includes palpation of dorsalis and posterior tibial pulses and signs/symptoms of vascular compromise like pain, pallor, parasthesia or paralysis. Present (even if diminished) Comment: Diminished to R SENSORY CHECK: Includes 10 gram Monofilament ([place]) test of sensation. Intact (Greater than or equal to 80% of sites checked) Abnormal (Less than 80% of sites checked): Intact LOW-RISK: LOW RISK INFORMATION PROVIDED: 1. Advised patient not to walk barefoot. 2. Explained the importance of daily foot checks for changes. 3. Stressed the importance of daily foot hygiene, including bathing and complete drying. Influenza Immunization: Influenza, High-Dose, Trivalent, Preservative Free (Fluzone-Syringe) Administered: INFLUENZA, HIGH-DOSE, TRIVALENT, PF Date Administered: Aug 18, 2024 10:00 [place]: [employer] Lot: [id number] Exp Date: May 10, 2025 [facility]: [id number] Admin Route/Site: INTRAMUSCULAR/LEFT DELTOID Dosage: 0.5mL Vaccine Information Statement(s): INFLUENZA(FLU) VACC(INACTIVATED OR RECOMBINANT)VIS Jun 16, 2021 (HEBREW) Order By: Policy Administered By: Diaz Owens The Influenza Vaccine Information Statement (VIS) was reviewed with the patient/caregiver which lists the benefits and risks of the vaccine and the risks of not receiving the Influenza vaccine. The patient/caregiver denied any prior severe reaction to this vaccine or its components or a severe allergic reaction, such as anaphylaxis, to any vaccine or any injectable therapy. The patient/caregiver gave verbal consent to receive the vaccine. COVID-19 Immunization: Refused Pfizer Monovalent COVID-19 vaccine Immunization: COVID-19 (PFIZER), MRNA, LNP-S, PF, JOSEP-SUCROSE, 30 MCG/0.3 ML (AGES 12+ YEARS) Refusal Reason: PATIENT DECISION Patient refuses all immunization(s) in the COVID-19 group Date Documented: 08/18/24 11:16 BP sheet has been provided to check BP at home and bring back when done. New cuff provided. /adi/ DIAZ OWENS LPN LPN [facility] Signed: 08/18/2024 11:27 DIAZ OWENS [facility]
[2025-04-23] VITALS (12 sets, daily range): BP systolic 140–161; BP diastolic 67–76; PULSE 48–55; RESP 12–19; TEMP 36.4; O2SAT 97–100; BMI 25.1
--- OUTSIDE RECORDS SUMMARY | 2025-04-23 04:54 | XMS_ITS | Continuity of Care Document ---
Author Name [facility] Organization [facility] Care Team Providers Care Professor Of Vegetable Science Name Role Phone [facility] Unavailable Unavailable Problems Combined list of problems from Department [facility] and [facility] facilities. It does not include entries that were removed or entered in error. 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 Medication Details Route Status Patient Instructions Prescription Expires Prescription Number Last Dispense Date Ordering Provider Order Date Order Qty Source ACETAMINOPH EN 325MG TAB TAKE ONE TABLET EVERY 4 HOURS NEEDED ACTIVE NICK FINCH 2020 [facility] ALLOPURINOL 300MG TAB TAKE ONE TABLET BY MOUTH EVERY DAY FOR GOUT PREVENTI ON ORAL ACTIVE 08/19/2025 [id number] 4 NICK FINCH 2023 90 [facility] ALLOPURINOL 300MG TAB TAKE ONE TABLET BY MOUTH EVERY DAY FOR GOUT PREVENTI ON ORAL DISCONT INUED 08/13/2024 [id number] 4 NICK FINCH 2022 90 [facility] ASCORBIC ACID 500MG TAB TAKE ONE TABLET BY MOUTH EVERY DAY ORAL ACTIVE NICK FINCH 2017 [facility] ASPIRIN TAB TAKE 81 MG BY MOUTH EVERY DAY ORAL ACTIVE NICK FINCH 2017 [facility] ATORVASTATI N CA 80MG TAB TAKE ONE TABLET BY MOUTH EVERY EVENING FOR CHOLESTE ROL ORAL ACTIVE 08/19/2025 [id number] 4 NICK FINCH 2023 90 [facility] ATORVASTATI N CA 80MG TAB TAKE ONE TABLET BY MOUTH EVERY EVENING FOR CHOLESTE ROL ORAL DISCONT INUED 08/13/2024 [id number] 4 NICK FINCH 2022 90 [facility] DENTON EXTRACT CAP/TAB TAKE 1 CAPSULE BY MOUTH ORAL ACTIVE NICK FINCH 2023 [facility] EMPAGLIFLOZ IN 10MG TAB TAKE ONE TABLET BY MOUTH EVERY DAY FOR DIABETES ORAL HOLD 08/19/2025 [id number] NICK FINCH 2024 90 [facility] EMPAGLIFLOZ IN 25MG TAB TAKE ONE-HALF TABLET BY MOUTH EVERY DAY FOR DIABETES . ORAL DISCONT INUED 08/19/2025 [id number] 4 NICK FINCH 2023 45 [facility] EMPAGLIFLOZ IN 25MG TAB TAKE ONE-HALF TABLET BY MOUTH EVERY DAY FOR DIABETES . ORAL DISCONT INUED 08/13/2024 [id number] 4 NICK FINCH 2022 45 [facility] FLUTICASONE PROPIONATE 50MCG/SPRAY SOLN,NASAL, 16GM SPRAY 1 SPRAY IN EACH NOSTRIL TWICE A DAY FOR CONGESTI ON NASAL ACTIVE 08/19/2025 [id number] 4 NICK FINCH 2023 3 [facility] GARLIC OIL CAP,ORAL TAKE 1 TAB BY MOUTH EVERY DAY ORAL ACTIVE NICK FINCH 2018 [facility] LISINOPRIL 10MG TAB TAKE ONE TABLET BY MOUTH EVERY DAY FOR BLOOD PRESSURE ORAL HOLD 08/19/2025 [id number] 5 NICK FINCH 2024 90 [facility] LISINOPRIL 20MG TAB TAKE ONE-HALF TABLET BY MOUTH EVERY DAY FOR BLOOD PRESSURE ORAL DISCONT INUED 08/19/2025 [id number] 4 ALMAS FINCHCA Aryan 2023 45 [facility] LISINOPRIL 20MG TAB TAKE ONE-HALF TABLET BY MOUTH EVERY DAY FOR BLOOD PRESSURE ORAL DISCONT INUED 08/13/2024 [id number] 4 NICK FINCH 2022 45 [facility] METFORMIN HCL 1000MG TAB TAKE ONE TABLET BY MOUTH TWICE A DAY TO DECREASE BLOOD SUGAR ORAL ACTIVE 05/28/2025 [id number] 5 NICK FINCH 2023 180 [facility] METFORMIN HCL 1000MG TAB TAKE ONE TABLET BY MOUTH TWICE A DAY TO DECREASE BLOOD SUGAR ORAL DISCONT INUED 05/21/2024 [id number] 4 NICK FINCH 2022 180 [facility] METOPROLOL TARTRATE 25MG TAB TAKE ONE TABLET BY MOUTH TWICE A DAY FOR BLOOD PRESSURE ORAL HOLD 05/28/2025 [id number] 5 NICK FINCH 2024 180 [facility] METOPROLOL TARTRATE 50MG TAB TAKE ONE-HALF TABLET BY MOUTH TWICE A DAY FOR BLOOD PRESSURE ORAL DISCONT INUED 05/28/2025 [id number] 4 NICK FINCH 2023 90 [facility] METOPROLOL TARTRATE 50MG TAB TAKE ONE-HALF TABLET BY MOUTH TWICE A DAY FOR BLOOD PRESSURE ORAL DISCONT INUED 05/21/2024 [id number] 4 NICK FINCH 2022 90 [facility] MULTIVITAMI N/MINERALS SENIOR FORMULA TAB TAKE ONE TABLET BY MOUTH EVERY DAY ORAL ACTIVE NICK FINCH 2018 [facility] Immunizations Combined list of available immunizations from the Department of Defense and Veterans Affairs facilities. Immunization Series Date Given Administered By Site Reaction Lot Number CVX Code Drug Winder Helper Status Comments Source INFLUENZA, HIGH-DOSE, TRIVALENT, PF 2023 DIAZ OWENS LEFT DELTO ID [id number] A 135 complet ed ADMINISTE RED AT ME, [facility] PNEUMOCOCCAL CONJUGATE PCV20, POLYSACCHARID E [id number] CONJUGATE, ADJUVANT, PF 2023 216 complet ed HISTORICA L INFORMATI ON - FROM OTHER REGISTRY, [facility] PNEUMOCOCCAL CONJUGATE PCV20, POLYSACCHARID E [id number] CONJUGATE, ADJUVANT, PF 2023 216 complet ed HISTORICA L INFORMATI ON - FROM OTHER REGISTRY, [facility] INFLUENZA VACCINE, QUADRIVALENT, ADJUVANTED 2022 205 complet ed HISTORICA L INFORMATI ON - FROM OTHER REGISTRY, [facility] INFLUENZA VACCINE, QUADRIVALENT, ADJUVANTED 2021 205 complet ed [facility] ZOSTER RECOMBINANT 2 2020 187 complet ed [facility] INFLUENZA, INJECTABLE, QUADRIVALENT, PRESERVATIVE FREE 2019 150 complet ed [facility] ZOSTER RECOMBINANT 1 2019 187 complet ed [facility] INFLUENZA, HIGH DOSE SEASONAL 2018 135 complet ed HISTORICA L INFORMATI ON - FROM OTHER REGISTRY, [facility] TDAP 2018 115 complet ed HISTORICA L INFORMATI ON - FROM OTHER REGISTRY, [facility] INFLUENZA, HIGH DOSE SEASONAL 2016 135 complet ed HISTORICA L INFORMATI ON - FROM OTHER REGISTRY, [facility] TD (ADULT), 2 LF TETANUS TOXOID, PRESERVATIVE FREE, ADSORBED 2016 09 complet ed [employer] lot:[id number] exp:9-27- 19 [facility] INFLUENZA, HIGH DOSE SEASONAL 2015 135 complet ed HISTORICA L INFORMATI ON - FROM OTHER REGISTRY, [facility] INFLUENZA, HIGH DOSE SEASONAL 2015 135 complet ed [facility] INFLUENZA, HIGH DOSE SEASONAL 2014 135 complet ed [facility] PNEUMOCOCCAL CONJUGATE PCV 13 2014 133 complet ed [facility] PNEUMOCOCCAL CONJUGATE PCV 13 2014 133 complet ed HISTORICA L INFORMATI ON - FROM OTHER REGISTRY, [facility] INFLUENZA, UNSPECIFIED FORMULATION 2012 88 complet ed [facility] PNEUMOCOCCAL, UNSPECIFIED FORMULATION 2012 109 complet ed [employer]; [id number]; 4 [facility] PNEUMOCOCCAL CONJUGATE PCV 13 2012 133 complet ed HISTORICA L INFORMATI ON - FROM OTHER REGISTRY, [facility] INFLUENZA, SEASONAL, INJECTABLE 2011 141 complet ed HISTORICA L INFORMATI ON - FROM OTHER REGISTRY, [facility] INFLUENZA, SEASONAL, INJECTABLE 2010 141 complet ed HISTORICA L INFORMATI ON - FROM OTHER REGISTRY, [facility] INFLUENZA, UNSPECIFIED FORMULATION 2010 88 complet ed [facility] INFLUENZA, UNSPECIFIED FORMULATION 2009 88 complet ed HISTORICA L INFORMATI ON - FROM OTHER REGISTRY, [facility] NOVEL INFLUENZA-H1N 1-09, ALL FORMULATIONS 2008 128 complet ed HISTORICA L INFORMATI ON - FROM OTHER REGISTRY, [facility] INFLUENZA, UNSPECIFIED FORMULATION 2008 88 complet ed HISTORICA L INFORMATI ON - FROM OTHER REGISTRY, [facility] INFLUENZA, UNSPECIFIED FORMULATION 2006 88 complet ed HISTORICA L INFORMATI ON - FROM OTHER REGISTRY, [facility] PNEUMOCOCCAL POLYSACCHARID E PPV23 2006 33 complet ed HISTORICA L INFORMATI ON - FROM OTHER REGISTRY, [facility] ZOSTER LIVE 2006 121 complet ed HISTORICA L INFORMATI ON - FROM OTHER REGISTRY, [facility] PNEUMOCOCCAL CONJUGATE PCV 7 2006 100 complet ed HISTORICA L INFORMATI ON - FROM OTHER REGISTRY, [facility] PNEUMOCOCCAL, UNSPECIFIED FORMULATION 2006 109 complet ed [facility] ZOSTER LIVE 2006 121 complet ed [facility] TDAP 2006 115 complet ed HISTORICA L INFORMATI ON - FROM OTHER REGISTRY, [facility] TDAP 2006 115 complet ed [facility] TD (ADULT), 2 LF TETANUS TOXOID, PRESERVATIVE FREE, ADSORBED 2000 09 complet ed HISTORICA L INFORMATI ON - FROM OTHER REGISTRY, [facility] DT (PEDIATRIC) 1989 28 complet ed HISTORICA L INFORMATI ON - FROM OTHER REGISTRY, [facility] Results Combined list of recent chemistry, hematology and other laboratory results from Department of Defense and Veterans Affairs, ranging from 15 months to all on record, depending upon the facility. Order Name Results Value Reference Range Date Interpretation Specimen Comments Source ALBUMIN/C REATININE RATIO URINE CREATININE [MASS/VOLUM E] IN URINE 81.8 mg/dL 58.0 - 161.0 08/18 Specimen Type: URINE No comment entered. Ordering Provider: RY FINCH Report Released Date/Time: Aug 18, 2024 11:03 AM Reporting Lab: [facility] [address] Performing Lab: [facility] [address] [facility] ALBUMIN/C REATININE RATIO URINE MICROALBUMI N/CREATININ E [MASS RATIO] IN URINE 144.3 mg/g{c reat} <29.9 - 29.9 08/18 H Specimen Type: URINE No comment entered. Ordering Provider: RY FINCH Report Released Date/Time: Aug 18, 2024 11:03 AM Reporting Lab: [facility] [address] Performing Lab: [facility] [address] [facility] ALBUMIN/C REATININE RATIO URINE MICROALBUMI N [MASS/VOLUM E] IN URINE 118.0 mg/L <29.9 - 29.9 08/18 H Specimen Type: URINE No comment entered. Ordering Provider: RY FINCH Report Released Date/Time: Aug 18, 2024 11:03 AM Reporting Lab: [facility] [address] Performing Lab: [facility] [address] [facility] COMPREHEN SIVE METABOLIC PANEL+MG CREATININE [MASS/VOLUM E] IN SERUM OR PLASMA 0.9 mg/dL 0.7 - 1.2 08/18 Specimen Type: PLASMA No comment entered. Ordering Provider: RY FINCH Report Released Date/Time: Aug 18, 2024 11:03 AM Reporting Lab: [facility] [address] Performing Lab: [facility] [address] [facility] COMPREHEN SIVE METABOLIC PANEL+MG UREA NITROGEN [MASS/VOLUM E] IN SERUM OR PLASMA 14 mg/dL 8 - 26 08/18 Specimen Type: PLASMA No comment entered. Ordering Provider: RY FINCH Report Released Date/Time: Aug 18, 2024 11:03 AM Reporting Lab: [facility] [address] Performing Lab: [facility] [address] [facility] COMPREHEN SIVE METABOLIC PANEL+MG GLUCOSE [MASS/VOLUM E] IN SERUM OR PLASMA 147 mg/dL 70 - 100 08/18 H Specimen Type: PLASMA No comment entered. Ordering Provider: RY FINCH Report Released Date/Time: Aug 18, 2024 11:03 AM Reporting Lab: [facility] [address] Performing Lab: [facility] [address] [facility] COMPREHEN SIVE METABOLIC PANEL+MG SODIUM [MOLES/VOLU ME] IN SERUM OR PLASMA 139 mmol/L 136 - 145 08/18 Specimen Type: PLASMA No comment entered. Ordering Provider: RY FINCH Report Released Date/Time: Aug 18, 2024 11:03 AM Reporting Lab: [facility] [address] Performing Lab: [facility] [address] [facility] COMPREHEN SIVE METABOLIC PANEL+MG POTASSIUM [MOLES/VOLU ME] IN SERUM OR PLASMA 4.3 mmol/L 3.5 - 5.1 08/18 Specimen Type: PLASMA No comment entered. Ordering Provider: RY FINCH Report Released Date/Time: Aug 18, 2024 11:03 AM Reporting Lab: [facility] [address] Performing Lab: [facility] [address] [facility] COMPREHEN SIVE METABOLIC PANEL+MG CHLORIDE [MOLES/VOLU ME] IN SERUM OR PLASMA 107 mmol/L 98 - 107 08/18 Specimen Type: PLASMA No comment entered. Ordering Provider: RY FINCH Report Released Date/Time: Aug 18, 2024 11:03 AM Reporting Lab: [facility] [address] Performing Lab: [facility] [address] [facility] COMPREHEN SIVE METABOLIC PANEL+MG CARBON DIOXIDE, TOTAL [MOLES/VOLU ME] IN SERUM OR PLASMA 22 mmol/L 22 - 29 08/18 Specimen Type: PLASMA No comment entered. Ordering Provider: RY FINCH Report Released Date/Time: Aug 18, 2024 11:03 AM Reporting Lab: [facility] [address] Performing Lab: [facility] [address] [facility] COMPREHEN SIVE METABOLIC PANEL+MG CALCIUM [MASS/VOLUM E] IN SERUM OR PLASMA 9.0 mg/dL 8.4 - 10.2 08/18 Specimen Type: PLASMA No comment entered. Ordering Provider: RY FINCH Report Released Date/Time: Aug 18, 2024 11:03 AM Reporting Lab: [facility] [address] Performing Lab: [facility] [address] [facility] COMPREHEN SIVE METABOLIC PANEL+MG PROTEIN [MASS/VOLUM E] IN SERUM OR PLASMA 7.3 g/dL 6.4 - 8.3 08/18 Specimen Type: PLASMA No comment entered. Ordering Provider: RY FINCH Report Released Date/Time: Aug 18, 2024 11:03 AM Reporting Lab: [facility] [address] Performing Lab: [facility] [address] [facility] COMPREHEN SIVE METABOLIC PANEL+MG ALBUMIN [MASS/VOLUM E] IN SERUM OR PLASMA 4.0 g/dL 3.5 - 5.2 08/18 Specimen Type: PLASMA No comment entered. Ordering Provider: RY FINCH Report Released Date/Time: Aug 18, 2024 11:03 AM Reporting Lab: [facility] [address] Performing Lab: [facility] [address] [facility] COMPREHEN SIVE METABOLIC PANEL+MG BILIRUBIN.T OTAL [MASS/VOLUM E] IN SERUM OR PLASMA 1.2 mg/dL 0.2 - 1.2 08/18 Specimen Type: PLASMA No comment entered. Ordering Provider: RY FINCH Report Released Date/Time: Aug 18, 2024 11:03 AM Reporting Lab: [facility] [address] Performing Lab: [facility] [address] [facility] COMPREHEN SIVE METABOLIC PANEL+MG MAGNESIUM [MASS/VOLUM E] IN SERUM OR PLASMA 1.9 mg/dL 1.6 - 2.6 08/18 Specimen Type: PLASMA No comment entered. Ordering Provider: YR FINCH Report Released Date/Time: Aug 18, 2024 11:03 AM Reporting Lab: [facility] [address] Performing Lab: [place] [address] [facility] COMPREHEN SIVE METABOLIC PANEL+MG ANION GAP IN SERUM OR PLASMA 10 mmol/L 5 - 15 08/18 Specimen Type: PLASMA No comment entered. Ordering Provider: RY FINCH Report Released Date/Time: Aug 18, 2024 11:03 AM Reporting Lab: [facility] [address] Performing Lab: [facility] [address] [facility] COMPREHEN SIVE METABOLIC PANEL+MG ALKALINE PHOSPHATASE [ENZYMATIC ACTIVITY/VO LUME] IN SERUM OR PLASMA 78 U/L 40 - 150 08/18 Specimen Type: PLASMA No comment entered. Ordering Provider: RY FINCH Report Released Date/Time: Aug 18, 2024 11:03 AM Reporting Lab: [facility] [address] Performing Lab: [facility] [address] [facility] COMPREHEN SIVE METABOLIC PANEL+MG ALANINE AMINOTRANSF ERASE [ENZYMATIC ACTIVITY/VO LUME] IN SERUM OR PLASMA 19 U/L <44 - 44 08/18 Specimen Type: PLASMA No comment entered. Ordering Provider: RY FINCH Report Released Date/Time: Aug 18, 2024 11:03 AM Reporting Lab: [facility] [address] Performing Lab: [facility] [address] [facility] COMPREHEN SIVE METABOLIC PANEL+MG ASPARTATE AMINOTRANSF ERASE [ENZYMATIC ACTIVITY/VO LUME] IN SERUM OR PLASMA 30 U/L 11 - 34 08/18 Specimen Type: PLASMA No comment entered. Ordering Provider: RY FINCH Report Released Date/Time: Aug 18, 2024 11:03 AM Reporting Lab: [facility] [address] Performing Lab: [facility] [address] [facility] COMPREHEN SIVE METABOLIC PANEL+MG GLOMERULAR FILTRATION RATE/1.73 SQ M.PREDICTED [VOLUME RATE/AREA] IN SERUM, PLASMA OR BLOOD BY CREATININE- BASED FORMULA (CKD-EPI 2020) 87 60 08/18 Specimen Type: PLASMA No comment entered. Ordering Provider: RY FINCH Report Released Date/Time: Aug 18, 2024 11:03 AM Reporting Lab: [facility] [address] Performing Lab: [facility] [address] [facility] CREATININ E(INCLUDE S EGFR) CREATININE [MASS/VOLUM E] IN SERUM OR PLASMA 0.9 mg/dL 0.7 - 1.2 08/18 Specimen Type: PLASMA No comment entered. Ordering Provider: RY FINCH Report Released Date/Time: Aug 18, 2024 11:03 AM Reporting Lab: [facility] [address] Performing Lab: [facility] [address] [facility] CREATININ E(INCLUDE S EGFR) GLOMERULAR FILTRATION RATE/1.73 SQ M.PREDICTED [VOLUME RATE/AREA] IN SERUM, PLASMA OR BLOOD BY CREATININE- BASED FORMULA (CKD-EPI 2020) 87 60 08/18 Specimen Type: PLASMA No comment entered. Ordering Provider: RY FINCH Report Released Date/Time: Aug 18, 2024 11:03 AM Reporting Lab: [facility] [address] Performing Lab: [facility] [address] [facility] HEMOGLOBI N A1C HEMOGLOBIN A1C/HEMOGLO BIN.TOTAL IN BLOOD 6.9 4.0 - 6.0 08/18 H Specimen Type: BLOOD Comment: Values obtained from A1C measurement s can vary. For typical A1C assays, a reported value of 7.0 could actually be between 6.7 and 7.3 if measured by a reference method. A reported value of 9.0 could actually be between 8.7 and 9.3. Ref: http://www. ngsp.org/CA Pdata.asp Ordering Provider: RY FINCH Report Released Date/Time: Aug 18, 2024 11:03 AM Reporting Lab: [facility] [address] Performing Lab: [facility] [address] [facility] PSA PROSTATE SPECIFIC AG [MASS/VOLUM E] IN SERUM OR PLASMA 0.14 ng/mL <4.00 - 4.00 08/18 Specimen Type: SERUM No comment entered. Ordering Provider: RY FINCH Report Released Date/Time: Aug 18, 2024 11:03 AM Reporting Lab: [facility] [address] Performing Lab: [facility] [address] [facility] Vital Signs Combined list of inpatient and outpatient Vital Signs from Department of Defense and Veterans Affairs, ranging from 12 months to all on record, depending upon the facility. Vital Sign Value Date Comments Source SYSTOLIC BLOOD PRESSURE 156 08/18/2024 10:20:59 [facility] DIASTOLIC BLOOD PRESSURE 80 08/18/2024 10:20:59 [facility] PULSE OXIMETRY 98 08/18/2024 10:20:59 [facility] WEIGHT 158.7 08/18/2024 10:20:59 [facility] BMI 25 kg/m2 08/18/2024 10:20:59 [facility] PAIN 0 08/18/2024 10:20:59 [facility] HEIGHT 67 08/18/2024 10:20:59 [facility] TEMPERATURE 97 08/18/2024 10:20:59 [facility] PULSE 48 08/18/2024 10:20:59 [facility] RESPIRATION 16 08/18/2024 10:20:59 [facility] Encounters Combined list of: 1) Encounters from Department of Veterans Affairs facilities going backup to the last 18 months, not all [place] inpatient encounters are included; 2) Encounters from the Department of [facility] facilities going backup to 280 months. Location Location Details Encounter Type Encounter Number Reason For Visit Attending Provider ADM Date DC Date Status Disposition Source [place] [facility] Outpatient Encounter [id number] 04/03 [place] [facility] [place] [facility] [place] Encounter [id number] 04/07 [place] [facility] [place] [facility] Outpatient Encounter [id number] 04/14 [place] [facility] [place] [facility] Outpatient Encounter [id number] 04/23 [facility] OFFICE O/P EST MOD 30 MIN [id number] Diagnos is: ICD-10- CM Z00.8 Encount er for other general examina Jayy Stockton L 08/18 [facility] Social History Combined list of available smoking, tobacco, and other social history from Department of Defense and [facility] facilities. Social History Type Response Date Comment Sourc e Tobacco smoking status VTIS VA-TOBACCO NEVER USED 08/18/2024 [facility] History of tobacco use VA-TOBACCO NEVER USED 08/13/2023 [facility] History of tobacco use VA-TOBACCO NEVER USED 09/04/2022 [facility] History of tobacco use VA-TOBACCO NEVER USED 07/20/2021 [facility] History of tobacco use VA-TOBACCO NEVER USED 07/21/2020 [facility] History of tobacco use VA-TOBACCO NEVER USED 06/29/2019 [facility] History of tobacco use LIFETIME NON-TOBA MILLING OPERATOR USER 07/16/2018 [facility] History of tobacco use LIFETIME NON-TOBA MILLING OPERATOR USER 07/10/2017 [facility] History of tobacco use LIFETIME NON-TOBA MILLING OPERATOR USER 09/12/2016 [facility] History of tobacco use LIFETIME NON-TOBA MILLING OPERATOR USER 08/16/2015 [facility] History of tobacco use LIFETIME NON-TOBA MILLING OPERATOR USER 05/10/2014 [facility] History of tobacco use LIFETIME NON-TOBA MILLING OPERATOR USER 03/18/2012 [facility] Advance Directives List of completed, amended, or rescinded Advance Directives on record at Department of [facility] Affairs facilities. An actual copy of the Directive is not included. Date Advance Directive Provider Source 08/03/2019 [facility] DIRECTIVE DISCUSSION [facility] 08/03/2019 ADVANCE DIRECTIVE [facility]
--- OUTSIDE RECORDS SUMMARY | 2025-04-23 04:54 | XMS_ITS | Continuity of Care Document ---
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 It does not include entries that were removed or entered in error. 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 Prostate mass Active Condition [facility] Sciatica Active Condition [facility] Type 2 diabetes mellitus (SNOMED CT 88699801) Active Condition [facility] Diagnosis: ICD-10-CM Z00.8 Encounter for other general examination Active Diagnosis [facility] Medications Combined list of outpatient medications from [facility] and [facility] facilities.Medications provided include 1) outpatient medications from [...] FOR GOUT PREVENTI ON ORAL ACTIVE 08/19/2025 [id number] 4 NICK FINCH 2023 90 [facility] ALLOPURINOL 300MG TAB TAKE ONE TABLET BY MOUTH EVERY DAY FOR GOUT PREVENTI ON ORAL DISCONT INUED 08/13/2024 [id number] 4 NICK FINCH 2022 90 [facility] ASCORBIC ACID 500MG TAB TAKE ONE TABLET BY MOUTH EVERY DAY ORAL ACTIVE NICK FINCH 2017 [facility] ASPIRIN TAB TAKE 81 MG BY MOUTH EVERY DAY ORAL ACTIVE NICK FINCH 2017 [facility] ATORVASTATI N CA 80MG TAB TAKE ONE TABLET BY MOUTH EVERY EVENING FOR CHOLESTE ROL ORAL ACTIVE 08/19/2025 [id number] 4 NICK FINCH 2023 90 [facility] ATORVASTATI N CA 80MG TAB TAKE ONE TABLET BY MOUTH EVERY EVENING FOR CHOLESTE ROL ORAL DISCONT INUED 08/13/2024 [id number] 4 NICK FINCH 2022 90 [facility] DENTON EXTRACT CAP/TAB TAKE 1 CAPSULE BY MOUTH ORAL ACTIVE NICK FINCH 2023 [facility] EMPAGLIFLOZ IN 10MG TAB TAKE ONE TABLET BY MOUTH EVERY DAY FOR DIABETES ORAL HOLD 08/19/2025 [id number] NICK FINCH 2024 90 [facility] EMPAGLIFLOZ IN 25MG TAB TAKE ONE-HALF TABLET BY MOUTH EVERY DAY FOR DIABETES . ORAL DISCONT INUED 08/19/2025 [id number] 4 NICK FINCH 2023 45 [facility] EMPAGLIFLOZ IN 25MG TAB TAKE ONE-HALF TABLET BY MOUTH EVERY DAY FOR DIABETES . ORAL DISCONT INUED 08/13/2024 [id number] 4 NICK FICNH 2022 45 [facility] FLUTICASONE PROPIONATE 50MCG/SPRAY SOLN,NASAL, 16GM SPRAY 1 SPRAY IN EACH NOSTRIL TWICE A DAY FOR CONGESTI ON NASAL ACTIVE 08/19/2025 [id number] 4 NICK FINCH 2023 3 [facility] GARLIC OIL CAP,ORAL TAKE 1 TAB BY MOUTH EVERY DAY ORAL ACTIVE NICK FINCH 2018 [facility] LISINOPRIL 10MG TAB TAKE ONE TABLET BY MOUTH EVERY DAY FOR BLOOD PRESSURE ORAL HOLD 08/19/2025 [id number] 5 NICK FINCH 2024 90 [facility] LISINOPRIL 20MG TAB TAKE ONE-HALF TABLET BY MOUTH EVERY DAY FOR BLOOD PRESSURE ORAL DISCONT INUED 08/19/2025 [id number] 4 ALMAS FINCHCA Aryan 2023 45 [facility] LISINOPRIL 20MG TAB TAKE ONE-HALF TABLET BY MOUTH EVERY DAY FOR BLOOD PRESSURE ORAL DISCONT INUED 08/13/2024 [id number] 4 NICK FINCH 2022 45 [facility] METFORMIN HCL 1000MG TAB TAKE ONE TABLET BY MOUTH TWICE A DAY TO DECREASE BLOOD SUGAR ORAL ACTIVE 05/28/2025 [id number] 5 NICK FINCH 2023 180 [facility] METFORMIN HCL 1000MG TAB TAKE ONE TABLET BY MOUTH TWICE A DAY TO DECREASE BLOOD SUGAR ORAL DISCONT INUED 05/21/2024 [id number] 4 NICK FINCH 2022 180 [facility] METOPROLOL TARTRATE 25MG TAB TAKE ONE TABLET BY MOUTH TWICE A DAY FOR BLOOD PRESSURE ORAL HOLD 05/28/2025 [id number] 5 NICK FINCH 2024 180 [facility] METOPROLOL TARTRATE 50MG TAB TAKE ONE-HALF TABLET BY MOUTH TWICE A DAY FOR BLOOD PRESSURE ORAL DISCONT INUED 05/28/2025 [id number] 4 NICK FINCH 2023 90 [facility] METOPROLOL TARTRATE 50MG TAB TAKE ONE-HALF TABLET BY MOUTH TWICE A DAY FOR BLOOD PRESSURE ORAL DISCONT INUED 05/21/2024 [id number] 4 NICK FINCH 2022 90 [facility] MULTIVITAMI N/MINERALS SENIOR FORMULA TAB TAKE ONE TABLET BY MOUTH EVERY DAY ORAL ACTIVE NICK FINCH 2018 [facility] Immunizations Combined list of available immunizations from the Department of Defense and Veterans Affairs facilities. Immunization Series Date Given Administered By Site Reaction Lot Number CVX Code Drug Child Nurse Status Comments Source INFLUENZA, HIGH-DOSE, TRIVALENT, PF 2023 DIAZ OWENS LEFT DELTO ID [id number] 135 complet ed [facility] [place] [facility] [place], [facility] PNEUMOCOCCAL CONJUGATE PCV20, POLYSACCHARID E [id number] CONJUGATE, ADJUVANT, PF 2023 216 complet ed HISTORICA L INFORMATI ON - FROM OTHER REGISTRY, [facility] PNEUMOCOCCAL CONJUGATE PCV20, POLYSACCHARID E [id number] CONJUGATE, ADJUVANT, PF 2023 216 complet ed HISTORICA L INFORMATI ON - FROM OTHER REGISTRY, [facility] INFLUENZA VACCINE, QUADRIVALENT, ADJUVANTED 2022 205 complet ed HISTORICA L INFORMATI ON - FROM OTHER REGISTRY, [facility] INFLUENZA VACCINE, QUADRIVALENT, ADJUVANTED 2021 205 complet ed [facility] ZOSTER RECOMBINANT 2 2020 187 complet ed [facility] INFLUENZA, INJECTABLE, QUADRIVALENT, PRESERVATIVE FREE 2019 150 complet ed [facility] ZOSTER RECOMBINANT 1 2019 187 complet ed [facility] INFLUENZA, HIGH DOSE SEASONAL 2018 135 complet ed HISTORICA L INFORMATI ON - FROM OTHER REGISTRY, [facility] TDAP 2018 115 complet ed HISTORICA L INFORMATI ON - FROM OTHER REGISTRY, [facility] INFLUENZA, HIGH DOSE SEASONAL 2016 135 complet ed HISTORICA L INFORMATI ON - FROM OTHER REGISTRY, [facility] TD (ADULT), 2 LF TETANUS TOXOID, PRESERVATIVE FREE, ADSORBED 2016 09 complet ed [employer] gics lot:[id number] exp:9-27- 19 [facility] INFLUENZA, HIGH DOSE SEASONAL 2015 135 complet ed HISTORICA L INFORMATI ON - FROM OTHER REGISTRY, [facility] INFLUENZA, HIGH DOSE SEASONAL 2015 135 complet ed [facility] INFLUENZA, HIGH DOSE SEASONAL 2014 135 complet ed [facility] PNEUMOCOCCAL CONJUGATE PCV 13 2014 133 complet ed [facility] PNEUMOCOCCAL CONJUGATE PCV 13 2014 133 complet ed HISTORICA L INFORMATI ON - FROM OTHER REGISTRY, [facility] INFLUENZA, UNSPECIFIED FORMULATION 2012 88 complet ed [facility] PNEUMOCOCCAL, UNSPECIFIED FORMULATION 2012 109 complet ed [employer]; [id number]; 4 [facility] PNEUMOCOCCAL CONJUGATE PCV 13 2012 133 complet ed HISTORICA L INFORMATI ON - FROM OTHER REGISTRY, [facility] INFLUENZA, SEASONAL, INJECTABLE 2011 141 complet ed HISTORICA L INFORMATI ON - FROM OTHER REGISTRY, [facility] INFLUENZA, SEASONAL, INJECTABLE 2010 141 complet ed HISTORICA L INFORMATI ON - FROM OTHER REGISTRY, [facility] INFLUENZA, UNSPECIFIED FORMULATION 2010 88 complet ed [facility] INFLUENZA, UNSPECIFIED FORMULATION 2009 88 complet ed HISTORICA L INFORMATI ON - FROM OTHER REGISTRY, [facility] NOVEL INFLUENZA-H1N 1-09, ALL FORMULATIONS 2008 128 complet ed HISTORICA L INFORMATI ON - FROM OTHER REGISTRY, [facility] INFLUENZA, UNSPECIFIED FORMULATION 2008 88 complet ed HISTORICA L INFORMATI ON - FROM OTHER REGISTRY, [facility] INFLUENZA, UNSPECIFIED FORMULATION 2006 88 complet ed HISTORICA L INFORMATI ON - FROM OTHER REGISTRY, [facility] PNEUMOCOCCAL POLYSACCHARID E PPV23 2006 33 complet ed HISTORICA L INFORMATI ON - FROM OTHER REGISTRY, [facility] ZOSTER LIVE 2006 121 complet ed HISTORICA L INFORMATI ON - FROM OTHER REGISTRY, [facility] PNEUMOCOCCAL CONJUGATE PCV 7 2006 100 complet ed HISTORICA L INFORMATI ON - FROM OTHER REGISTRY, [facility] PNEUMOCOCCAL, UNSPECIFIED FORMULATION 2006 109 complet ed [facility] ZOSTER LIVE 2006 121 complet ed [facility] TDAP 2006 115 complet ed HISTORICA L INFORMATI ON - FROM OTHER REGISTRY, [facility] TDAP 2006 115 complet ed [facility] TD (ADULT), 2 LF TETANUS TOXOID, PRESERVATIVE FREE, ADSORBED 2000 09 complet ed HISTORICA L INFORMATI ON - FROM OTHER REGISTRY, [facility] DT (PEDIATRIC) 1989 28 complet ed HISTORICA L INFORMATI ON - FROM OTHER REGISTRY, [facility] Results Combined list of recent chemistry, [...] Aug 18, 2024 11:03 AM Reporting Lab: [facility] [phone] Performing Lab: [facility] [address] [facility] ALBUMIN/C REATININE RATIO URINE MICROALBUMI N/CREATININ E [MASS RATIO] IN URINE 144.3 mg/g{c reat} <29.9 - 29.9 08/18 H Specimen Type: URINE No comment entered. Ordering Provider: RY FINCH Report Released Date/Time: Aug 18, 2024 11:03 AM Reporting Lab: [facility] [address] Performing Lab: [facility] [address] [facility] ALBUMIN/C REATININE RATIO URINE MICROALBUMI N [MASS/VOLUM E] IN URINE 118.0 mg/L <29.9 - 29.9 08/18 H Specimen Type: URINE No comment entered. Ordering Provider: RY FINCH Report Released Date/Time: Aug 18, 2024 11:03 AM Reporting Lab: [facility] [address] Performing Lab: [facility] [address] [facility] CREATININ E(INCLUDE S EGFR) CREATININE [MASS/VOLUM E] IN SERUM OR PLASMA 0.9 mg/dL 0.7 - 1.2 08/18 Specimen Type: PLASMA No comment entered. Ordering Provider: RY FINCH Report Released Date/Time: Aug 18, 2024 11:03 AM Reporting Lab: [facility] [address] Performing Lab: [facility] [address] [facility] CREATININ E(INCLUDE S EGFR) GLOMERULAR FILTRATION RATE/1.73 SQ M.PREDICTED [VOLUME RATE/AREA] IN SERUM, PLASMA OR BLOOD BY CREATININE- BASED FORMULA (CKD-EPI 2020) 87 60 08/18 Specimen Type: PLASMA No comment entered. Ordering Provider: RY FINCH Report Released Date/Time: Aug 18, 2024 11:03 AM Reporting Lab: [facility] [address] Performing Lab: [facility] [address] [facility] HEMOGLOBI N A1C HEMOGLOBIN A1C/HEMOGLO BIN.TOTAL [...] Aug 18, 2024 11:03 AM Reporting Lab: [facility] [address] Performing Lab: [facility] [address] [facility] PSA PROSTATE SPECIFIC AG [MASS/VOLUM E] IN SERUM OR PLASMA 0.14 ng/mL <4.00 - 4.00 08/18 Specimen Type: SERUM No comment entered. Ordering Provider: RY FINCH Report Released Date/Time: Aug 18, 2024 11:03 AM Reporting Lab: [facility] [address] Performing Lab: [facility] [address] [facility] COMPREHEN SIVE METABOLIC PANEL+MG CREATININE [MASS/VOLUM E] IN SERUM OR PLASMA 0.9 mg/dL 0.7 - 1.2 08/18 Specimen Type: PLASMA No comment entered. Ordering Provider: RY FINCH Report Released Date/Time: Aug 18, 2024 11:03 AM Reporting Lab: [facility] [address] Performing Lab: [facility] [address] [facility] COMPREHEN SIVE METABOLIC PANEL+MG UREA NITROGEN [MASS/VOLUM E] IN SERUM OR PLASMA 14 mg/dL 8 - 26 08/18 Specimen Type: PLASMA No comment entered. Ordering Provider: RY FINCH Report Released Date/Time: Aug 18, 2024 11:03 AM Reporting Lab: [facility] [address] Performing Lab: [facility] [address] [facility] COMPREHEN SIVE METABOLIC PANEL+MG GLUCOSE [MASS/VOLUM E] IN SERUM OR PLASMA 147 mg/dL 70 - 100 08/18 H Specimen Type: PLASMA No comment entered. Ordering Provider: RY FINCH Report Released Date/Time: Aug 18, 2024 11:03 AM Reporting Lab: [facility] [address] Performing Lab: [facility] [address] [facility] COMPREHEN SIVE METABOLIC PANEL+MG SODIUM [MOLES/VOLU ME] IN SERUM OR PLASMA 139 mmol/L 136 - 145 08/18 Specimen Type: PLASMA No comment entered. Ordering Provider: RY FINCH Report Released Date/Time: Aug 18, 2024 11:03 AM Reporting Lab: [facility] [address] Performing Lab: [facility] [address] [facility] COMPREHEN SIVE METABOLIC PANEL+MG POTASSIUM [MOLES/VOLU ME] IN SERUM OR PLASMA 4.3 mmol/L 3.5 - 5.1 08/18 Specimen Type: PLASMA No comment entered. Ordering Provider: RY FINCH Report Released Date/Time: Aug 18, 2024 11:03 AM Reporting Lab: [facility] [address] Performing Lab: [facility] [address] [facility] COMPREHEN SIVE METABOLIC PANEL+MG CHLORIDE [MOLES/VOLU ME] IN SERUM OR PLASMA 107 mmol/L 98 - 107 08/18 Specimen Type: PLASMA No comment entered. Ordering Provider: RY FINCH Report Released Date/Time: Aug 18, 2024 11:03 AM Reporting Lab: [facility] [address] Performing Lab: [facility] [address] [facility] COMPREHEN SIVE METABOLIC PANEL+MG CARBON DIOXIDE, TOTAL [MOLES/VOLU ME] IN SERUM OR PLASMA 22 mmol/L 22 - 29 08/18 Specimen Type: PLASMA No comment entered. Ordering Provider: RY FINCH Report Released Date/Time: Aug 18, 2024 11:03 AM Reporting Lab: [facility] [address] Performing Lab: [facility] [address] [facility] COMPREHEN SIVE METABOLIC PANEL+MG CALCIUM [MASS/VOLUM E] IN SERUM OR PLASMA 9.0 mg/dL 8.4 - 10.2 08/18 Specimen Type: PLASMA No comment entered. Ordering Provider: RY FINCH Report Released Date/Time: Aug 18, 2024 11:03 AM Reporting Lab: [facility] [address] Performing Lab: [facility] [address] [facility] COMPREHEN SIVE METABOLIC PANEL+MG PROTEIN [MASS/VOLUM E] IN SERUM OR PLASMA 7.3 g/dL 6.4 - 8.3 08/18 Specimen Type: PLASMA No comment entered. Ordering Provider: RY FINCH Report Released Date/Time: Aug 18, 2024 11:03 AM Reporting Lab: [facility] [address] Performing Lab: [facility] [address] [facility] COMPREHEN SIVE METABOLIC PANEL+MG ALBUMIN [MASS/VOLUM E] IN SERUM OR PLASMA 4.0 g/dL 3.5 - 5.2 08/18 Specimen Type: PLASMA No comment entered. Ordering Provider: RY FINCH Report Released Date/Time: Aug 18, 2024 11:03 AM Reporting Lab: [facility] [address] Performing Lab: [facility] [address] [facility] COMPREHEN SIVE METABOLIC PANEL+MG BILIRUBIN.T OTAL [MASS/VOLUM E] IN SERUM OR PLASMA 1.2 mg/dL 0.2 - 1.2 08/18 Specimen Type: PLASMA No comment entered. Ordering Provider: RY FINCH Report Released Date/Time: Aug 18, 2024 11:03 AM Reporting Lab: [facility] [address] Performing Lab: [facility] [address] [facility] COMPREHEN SIVE METABOLIC PANEL+MG MAGNESIUM [MASS/VOLUM E] IN SERUM OR PLASMA 1.9 mg/dL 1.6 - 2.6 08/18 Specimen Type: PLASMA No comment entered. Ordering Provider: RY FINCH Report Released Date/Time: Aug 18, 2024 11:03 AM Reporting Lab: [facility] [address] Performing Lab: [facility] [address] [facility] COMPREHEN SIVE METABOLIC PANEL+MG ANION GAP IN SERUM OR PLASMA 10 mmol/L 5 - 15 08/18 Specimen Type: PLASMA No comment entered. Ordering Provider: RY FINCH Report Released Date/Time: Aug 18, 2024 11:03 AM Reporting Lab: [facility] [address] Performing Lab: [facility] [phone] [facility] COMPREHEN SIVE METABOLIC PANEL+MG ALKALINE PHOSPHATASE [ENZYMATIC ACTIVITY/VO LUME] IN SERUM OR PLASMA 78 U/L 40 - 150 08/18 Specimen Type: PLASMA No comment entered. Ordering Provider: RY FINCH Report Released Date/Time: Aug 18, 2024 11:03 AM Reporting Lab: [facility] [address] Performing Lab: [facility] [address] [facility] COMPREHEN SIVE METABOLIC PANEL+MG ALANINE AMINOTRANSF ERASE [ENZYMATIC ACTIVITY/VO LUME] IN SERUM OR PLASMA 19 U/L <44 - 44 08/18 Specimen Type: PLASMA No comment entered. Ordering Provider: RY FINCH Report Released Date/Time: Aug 18, 2024 11:03 AM Reporting Lab: [facility] [address] Performing Lab: [facility] [address] [facility] COMPREHEN SIVE METABOLIC PANEL+MG ASPARTATE AMINOTRANSF ERASE [ENZYMATIC ACTIVITY/VO LUME] IN SERUM OR PLASMA 30 U/L 11 - 34 08/18 Specimen Type: PLASMA No comment entered. Ordering Provider: RY FINCH Report Released Date/Time: Aug 18, 2024 11:03 AM Reporting Lab: [facility] [address] Performing Lab: [facility] [address] [facility] COMPREHEN SIVE METABOLIC PANEL+MG GLOMERULAR FILTRATION RATE/1.73 SQ M.PREDICTED [VOLUME RATE/AREA] IN SERUM, PLASMA OR BLOOD BY CREATININE- BASED FORMULA (CKD-EPI 2020) 87 60 08/18 Specimen Type: PLASMA No comment entered. Ordering Provider: RY FINCH Report Released Date/Time: Aug 18, 2024 11:03 AM Reporting Lab: [facility] [address] Performing Lab: [facility] [address] [facility] Vital Signs Combined list of inpatient and outpatient Vital Signs from Department of Defense and Veterans Affairs, ranging from 12 months to all on record, depending upon the facility. Vital Sign Value Date Comments Source SYSTOLIC BLOOD PRESSURE 156 08/18/2024 10:20:59 [facility] DIASTOLIC BLOOD PRESSURE 80 08/18/2024 10:20:59 [facility] PULSE OXIMETRY 98 08/18/2024 10:20:59 S [...] to the last 18 months, not all [place] inpatient encounters are included; 2) Encounters from the Department of [facility] facilities going backup to 280 months. Location Location Details Encounter Type Encounter Number Reason For Visit Attending Provider ADM Date DC Date Status Disposition Source [place] [facility] Outpatient Encounter [id number] 04/03 [place] [facility] [place] [facility] Outpatient Encounter [id number] 04/07 [place] [facility] [place] [facility] Outpatient Encounter [id number] 04/14 [place] [facility] [place] [facility] Outpatient Encounter [id number] 04/23 [facility] OFFICE O/P EST MOD 30 MIN [id number] Diagnos is: ICD-10- CM Z00.8 Encount er for other general examina Jayy Stockton L 08/18 [facility] Social History Combined list of available smoking, tobacco, and other social history from Department of Defense and [facility] facilities. Social History Type Response Date Comment Sourc e Tobacco smoking status KSIS VA-TOBACCO NEVER USED 08/18/2024 [facility] History of tobacco use VA-TOBACCO NEVER USED 08/13/2023 [facility] History of tobacco use VA-TOBACCO NEVER USED 09/04/2022 [facility] History of tobacco use VA-TOBACCO NEVER USED 07/20/2021 [facility] History of tobacco use VA-TOBACCO NEVER USED 07/21/2020 [facility] History of tobacco use VA-TOBACCO NEVER USED 06/29/2019 [facility] History of tobacco use LIFETIME NON-TOBA SENSOR OPERATOR USER 07/16/2018 [facility] History of tobacco use LIFETIME NON-TOBA SENSOR OPERATOR USER 07/10/2017 [facility] History of tobacco use LIFETIME NON-TOBA SENSOR OPERATOR USER 09/12/2016 [facility] History of tobacco use LIFETIME NON-TOBA SENSOR OPERATOR USER 08/16/2015 [facility] History of tobacco use LIFETIME NON-TOBA SENSOR OPERATOR USER 05/10/2014 [facility] History of tobacco use LIFETIME NON-TOBA SENSOR OPERATOR USER 03/18/2012 [facility] Advance Directives List of completed, amended, or rescinded Advance Directives on record at Department of [facility] Affairs facilities. An actual copy of the Directive is not included. Date Advance Directive Provider Source 08/03/2019 [facility] DIS[facility] 08/03/2019 [facility]IVE [facility]
--- OUTSIDE RECORDS SUMMARY | 2025-04-23 09:55 | XMS_ITS | Clinical Summary ---
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 Active ascorbic acid, vitamin C, (VITAMIN C) 500 mg tablet Take 500 mg by mouth once daily. Active multivitamin chew Chew 1 Tablet by mouth once daily. Active SOUR DENTON EXTRACT ORAL Take 1,200 mg by mouth once daily. Active lancets 1 Each by Continuous Infusion route once daily. 7 Active Garlic 1,000 mg cap Take 1 Capsule by mouth once daily. Active nitroglycerin (NITROSTAT) 0.4 mg sublingual tabletIndicati ons:Atheroscle rosis of [place] coronary artery of [place] heart without angina pectoris Place 1 Tablet (0.4 mg) under the tongue every 5 minutes if needed for Chest Pain. 10 Tablet 5 Active donepeziL 5 mg tablet TAKE 1 TABLET BY MOUTH DAILY FOR 30 DAYS THEN TAKE 2 TABLETS BY MOUTH DAILY THEREAFTER 5 Active allopurinoL 300 mg tabletIndicati ons:History of gout Take 1 Tablet (300 mg) by mouth once daily. 90 Tablet 3 5 Active atorvastatin 80 mg tabletIndicati ons:Atheroscle rosis of [place] coronary artery of [place] heart without angina pectoris Take 1 Tablet (80 mg) by mouth once daily. 90 Tablet 3 5 Active lisinopriL 10 mg tabletIndicati ons:Hypertensi on Take 1 Tablet (10 mg) by mouth once daily. 90 Tablet 3 5 Active metoprolol tartrate 25 mg tabletIndicati ons:Hypertensi on Take 1 Tablet (25 mg) by mouth two times daily. 180 Tablet 3 5 Active metFORMIN 500 mg Extended-Relea se tabletIndicati ons:Type 2 diabetes mellitus without complication, without long-term current use of insulin (HC) Take 2 Tablets (1,000 mg) by mouth two times daily with meals. 360 Tablet 1 5 Active FreeStyle Haley 3 Plus Sensor for continuous blood glucose monitor (CGM)Indicatio ns:Type 2 diabetes mellitus without complication, without long-term current use of insulin (HC) To be used to read blood sugars, change sensor every 15 days. 6 Each 3 5 Active yard caller (FreeStyle Haley 3 [place]) for continuous blood glucose monitor (CGM)Indicatio ns:Type 2 diabetes mellitus without complication, without long-term current use of insulin (HC) To be used to read blood sugars follow lifestyle consultant directions. 1 Each 5 Active fluticasone (50 mcg per actuation) nasal solution (FLONASE) Inhale into affected nostril(s). 4 025 Discontin ued(*Med complete/ Regimen complete/ Level of care change) metFORMIN (FORTAMET) 1,000 mg Controlled-Rel ease tabletIndicati ons:Type 2 diabetes mellitus without complication, without long-term current use of insulin (HC) Take 1 Tablet (1,000 mg) by mouth once daily with a meal. 90 Tablet 1 5 025 Discontin ued(Reord er (E-cancel not sent)) atorvastatin (LIPITOR) 80 mg tabletIndicati ons:Atheroscle rosis of [place] coronary artery of [place] heart without angina pectoris Take 1 Tablet (80 mg) by mouth once daily. 90 Tablet 1 5 025 Discontin ued(Reord er (E-cancel not sent)) lisinopriL (PRINIVIL; ZESTRIL) 10 mg tabletIndicati ons:Hypertensi on Take 1 Tablet (10 mg) by mouth once daily. 90 Tablet 1 5 025 Discontin ued(Reord er (E-cancel not sent)) metoprolol tartrate (LOPRESSOR) 25 mg tabletIndicati ons:Hypertensi on Take 1 Tablet (25 mg) by mouth two times daily. 180 Tablet 1 5 025 Discontin ued(Reord er (E-cancel not sent)) allopurinoL (ZYLOPRIM) 300 mg tabletIndicati ons:History of gout Take 1 Tablet (300 mg) by mouth once daily. 90 Tablet 5 025 Discontin ued(Reord er (E-cancel not sent)) metFORMIN 1,000 mg Controlled-Rel ease tabletIndicati ons:Type 2 diabetes mellitus without complication, without long-term current use of insulin (HC) Take 1 Tablet (1,000 mg) by mouth once daily with a meal. 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 04/03/2024 Type 2 diabetes mellitus wit hout complication, without long-term current use of insulin 04/03/2024 Hypertension 04/03/2024 History of gout 04/03/2024 History of prostate cancer 04/03/2024 Tubular adenoma of colon 04/03/2024 Resolved Problems Problem Noted Date Diagnosed Date Resolved Date Disorder associated with typ e 2 diabetes mellitus 07/24/2023 04/03/2024 Primary malignant neoplasm of prostate 07/24/2023 04/03/2024 Encounters Date Type Department Care Team Description 04/23/2025 Nurse Triage [facility] [address] [place] [address] Karen Lechuga PA Chest Pain 04/14/2025 Telephone [facility] [address] [place] [id number] Karen Lechuga PA Results 04/13/2025 Orders Only [facility] [address] [facility] [address] Karen Lechuga PA <No scans attached> 04/13/2025 Telephone [facility] [address] [address] [facility] Cancer 04/12/2025 3:30 PM CDT Office Visit [facility] [address] [facility] [place] [address] Cynthia Daniels MD Follow Up (MDS) 04/12/2025 2:26 PM CDT - 04/12/2025 11:59 PM CDT Hospital Encounter [facility] [address] [facility] [place] [address] MDS (myelodysplastic syndrome) (HC); Type 2 diabetes mellitus without complication, without long-term current use of insulin (HC) 04/12/2025 1:10 PM CDT Office Visit [facility] [address] [facility] [address] Karen Lechuga PA Medicare ANNUAL (subsequent) Visit (Non-Fasting) 04/12/2025 Telephone [facility] [address] [facility] [address] Karen Lechuga PA 04/12/2025 Travel 03/23/2025 12:45 PM CDT Office Visit [facility] [address] [place] [address] Araceli Macias NP Follow Up (Macrocytic anemia) 03/23/2025 Travel 03/22/2025 3:08 PM CDT - 03/22/2025 11:59 PM CDT Hospital Encounter [facility] [address] [place] [address] 03/16/2025 11:30 AM CDT - 03/16/2025 12:05 PM CDT Surgery [facility] [address] [place] [address] No Leon PA BIOPSY BONE MARROW 03/16/2025 11:26 AM CDT Anesthesia Event [facility] [address] [place] [address] Zachery Martines, Neida Bermudez CRNA Student 03/16/2025 10:21 AM CDT - 03/16/2025 1:30 PM CDT Hospital Encounter [facility] [address] [place] [address] No Leon PA Macrocytic anemia; Leukopenia, unspecified type Discharge Disposition: Home Self Care 03/16/2025 Travel 03/12/2025 3:00 PM CDT Ancillary Procedure [facility] [address] [place] [address] 03/12/2025 2:00 PM CDT Office Visit [facility] [address] [place] [address] Karen Lechuga PA Preoperative Exam (Bone marrow Biopsy, [facility], Ligia Leon) 03/12/2025 Travel 03/08/2025 Telephone [facility] [address] [facility] [place] [address] [facility] Appointment 03/02/2025 11:19 AM CDT - 03/02/2025 11:59 PM CDT Hospital Encounter [facility] [address] [place] [address] Elevated bilirubin; Macrocytic anemia; Leukopenia, unspecified type 03/02/2025 10:45 AM CDT Office Visit [facility] [address] [place] [address] Araceli Macias, JACOB Follow Up (Macrocytic anemia) 03/02/2025 Travel 02/23/2025 11:15 AM CDT Orders Only [facility] [address] [place] [address] Lab, [facility] 02/23/2025 Travel 02/17/2025 8:30 AM CDT Office Visit [facility] [address] [facility] [address] [place] [address] [place], PhD, LP Neuropsychological Assessment 02/17/2025 Travel 01/21/2025 Refill [facility] [address] [place] [address] Karen Lechuga PA Refill Request (Allopurinol, nitroglycerin ) from Last 3 Months Immunizations Immunization Administration Dates Next Due DT (Age < 7 years) 12/05/1989 Influenza A (H1N1), Inactivated 10/31/2009 Influenza Virus, Unspecified 08/15/2017, 09/05/2016,11/10/2013,2010,08/20/2010,08/01/2009,09/17/2007 Influenza, High-dose Inactivated 08/21/2019,03/2017,09/05/2016 Influenza, IIV3 (Age >=3 years) 08/28/2012,11/07 Influenza, Inactivated AIIV4 (Age 65+ Years) Preserv Free 07/19/2023,09/04/2022 Influenza, Inactivated IIV3 (Age 65+ Years) Preserv Free 08/11/2016,08/16/2015 Pneumococcal Conj 20-valent (Prevnar 20) 04/03/2024 Pneumococcal Poly,23-Valent (Pneumovax) 07/30/2007 Pneumococcal conj 13-Valent (Prevnar 13) 08/16/2015,04/12/2015,05/05/2013 Pneumococcal conj 7-Valent ( Prevnar 7) 07/12/2007 Pneumococcal, Unspecified 05/05/2013,07/12/2007 Td (Age >=7 Years) 07/10/2017,05/17/2001 Tdap 06/04/2019,05/28/2007,05/11/2007 Zoster (Shingrix-RZV, recombinant) 02/20/2021, Zoster (Zostavax-ZVL, live) 07/30/2007, 7 Social History Tobacco Use Types Packs/Day Years Used Date Smoking Tobacco: Never Smokeless Tobacco: Never Tobacco Cessation:Counseling Given: Yes Alcohol Use Standard Drinks/Week Comments Not Currently 0 (1 standard drink = 0.6 oz pur e alcohol) twice a month PHQ-2 Answer Date Recorded PHQ-2 TOTAL SCORE 0 04/12/2025 Social Connections Answer Date Recorded Do you often feel lonely or isolated from those around you? 0 04/12/2025 Financial Resource Strain Answer Date R ecorded Difficulty of Paying Living Expenses 3 04/12/2025 Difficulty of Paying Living Expenses Not on file 04/12/2025 Food Insecurity Answer Date Recorded Do you worry your food will run out before you are able to buy more? 1 04/12/2025 Transportation Needs Answer Date Record ed Does lack of transportation keep you from medica l appointments? 1 04/12/2025 Does lack of transportation keep you from work, meetings or getting things that you need? 1 04/12/2025 Housing Stability Answer Date Recorded What is your housing situation today? 1 04/12/2025 Utilities Answer Date Recorded Do you have trouble paying f or utilities (for example, heat, electricity, water, phone)? 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 Not on file Not on file Obstetrics History Last Filed Vital Signs Vital Sign Reading Time Taken Comments Blood Pressure 166/72 04/12/2025 3:18 PM CDT Pulse 53 04/12/2025 3:18 PM CDT Temperature 36.6 C (97.9 F) 04/12/2025 3:18 PM CDT Respiratory Rate 16 04/12/2025 3:18 PM CDT Oxygen Saturation 96% 04/12/2025 3:18 PM CDT Inhaled Oxygen Concentration - - Weight 74.9 kg (165 lb 1.6 oz) 04/12/2025 3:18 P M CDT Height 170.2 cm (5' 7) 04/12/2025 1:03 PM CDT Body Mass Index 25.86 04/12/2025 1:03 PM CDT Plan of Treatment Upcoming Encounters Date Type Department Care Team (Late st Contact Info) Description 05/10/2025 10:15 AM CDT Appointment [facility] [address] [facility] [place] [address] 05/10/2025 11:15 AM CDT Office Visit [facility] 200 [facility] [address] [phone] Araceli Macias, MICROBIOLOGY DIRECTOR [address] [place], [place] [phone] 05/10/2025 1:00 PM CDT Patient Outreach [facility] [address] [place] [address] Bekah Fuller, RN [address] [place] [address] Health Maintenance Due Date Last Done Comments RSV vaccine for adults or (1 - 1-dose 75+ series) 2021 COVID-19 vaccine series ( - 2023- season) 2024 Influenza Vaccine (Season Ended) 2025 07/19/2023, 09/04/2022, 08/21/2019, Additional history exists BMI (ht and wt on same day) for age 18+ 04/12/2026 04/12/2025, 03/12/2025, 04/03/2024, Additional history exists Depression screening for age 12+ 04/12/2026 04/12/2025, 04/12/2025, 04/03/2024, Additional history exists Medicare Wellness for age 65+ 04/13/2026 04/12/2025, 04/03/2024 Tetanus booster 06/04/2029 06/04/2019, 06/13, 05/28/2007, Additional history exists Tdap Completed 06/04/2019, 05/11, 05/11/2007 Zoster (shingles) series for age 50+ Completed 02/20/2021, 07/21/2020, 07/30/2007, Additional history exists Hepatitis C screening for age 18-79 Completed 07/19/2023 Pneumococcal series for age 50+ Completed 04/03/2024, 08/16/2015, 04/12/2015, Additional history exists Hepatitis B series for 19+ Aged Out N o longer eligible based on patient's age to complete this topic Procedures Procedure Name Priority Date/Time Associated Diagnosis Comments URINE ALBUMIN TO CREATININE RATIO, RANDOM Today 04/12/2025 2:40 PM CDT Type 2 diabetes mellitus without complication, without long-term current use of insulin (HC) BILIRUBIN DIRECT Today 04/12/2025 2:35 PM CDT MDS (myelodysplastic syndrome) (HC) HEMOGLOBIN A1C MONITORING (POCT) Today 04/12/2025 2:35 PM CDT Type 2 diabetes mellitus without complication, without long-term current use of insulin (HC) CBC WITH AUTO DIFFERENTIAL Timed 04/12/2025 2:35 PM CDT MDS (myelodysplastic syndrome) (HC) ERYTHROPOIETIN (EPO), SERUM Today 04/12/2025 2:35 PM CDT MDS (myelodysplastic syndrome) (HC) COMP METABOLIC PANEL Today 04/12/2025 2:35 PM CDT MDS (myelodysplastic syndrome) (HC) CBC WITH AUTO DIFFERENTIAL Today 04/12/2025 2:35 PM CDT MDS (myelodysplastic syndrome) (HC) CHROM TECH 2 Timed 03/16/2025 11:35 AM CDT Macrocytic anemia Leukopenia, unspecified type CHROM TECH 1 Timed 03/16/2025 11:35 AM CDT Macrocytic anemia Leukopenia, unspecified type OC Routine 03/16/2025 11:35 AM CDT Macrocytic anemia Leukopenia, unspecified type OB Routine 03/16/2025 11:35 AM CDT Macrocytic anemia Leukopenia, unspecified type BM WETLAB Routine 03/16/2025 11:35 AM CDT Macrocytic anemia Leukopenia, unspecified type BM/LB CHROM Routine 03/16/2025 11:35 AM CDT Macrocytic anemia Leukopenia, unspecified type MYELOID NGS (LAB ONLY) Timed 11:35 AM CDT Macrocytic anemia Leukopenia, unspecified type CYTOGENETICS BONE MARROW Routine 03/16/2025 11:35 AM CDT Macrocytic anemia Leukopenia, unspecified type BONE MARROW DIFFERENTIAL Timed 03/16/2025 11:35 AM CDT Macrocytic anemia Leukopenia, unspecified type BIOPSY BONE MARROW 03/16/2025 11 :21 AM CDT Macrocytic anemia Leukopenia, unspecified type BONE MARROW STUDY Today 03/16/2025 11: 01 AM CDT Macrocytic anemia Leukopenia, unspecified type CBC WITH AUTO DIFFERENTIAL Today 03/16/2025 11:01 AM CDT Macrocytic anemia Leukopenia, unspecified type RETICULOCYTES Today 03/16/2025 11:01 AM CDT Macrocytic anemia Leukopenia, unspecified type CBC WITH AUTO DIFFERENTIAL Today 03/16/2025 11:01 AM CDT Macrocytic anemia Leukopenia, unspecified type XR WRIST 3 VIEWS RIGHT Routine 2:55 PM CDT Pain and swelling of right wrist IRON PLUS IRON BINDING CAP Today 03/02/2025 11:34 AM CDT Macrocytic anemia Leukopenia, unspecified type FERRITIN Today 03/02/2025 11:34 AM CDT Macrocytic anemia Leukopenia, unspecified type HEPATIC FUNCTION PANEL Today 11:34 AM CDT Elevated bilirubin Macrocytic anemia Leukopenia, unspecified type HEPATIC FUNCTION PANEL Routine 11:26 AM CDT Leukopenia, unspecified type Macrocytic anemia BASIC METABOLIC PANEL Routine 02/23/2025 11:26 AM CDT Leukopenia, unspecified type Macrocytic anemia PERIPHERAL BLD MORPHOLOGY Routine 02/23/2025 11:23 AM CDT Leukopenia, unspecified type Macrocytic anemia CBC WITH AUTO DIFFERENTIAL Routine 02/23/2025 11:23 AM CDT Leukopenia, unspecified type Macrocytic anemia RETICULOCYTES Routine 02/23/2025 11:23 AM CDT Leukopenia, unspecified type Macrocytic anemia CBC WITH AUTO DIFFERENTIAL Routine 02/23/2025 11:23 AM CDT Leukopenia, unspecified type Macrocytic anemia ANTI HCV Routine 07/19/2023 2:29 PM CDT Encounter for hepatitis C screening test for low risk patient from Last 3 Months or Most Recently Relevant to Health Maintenance Results * (ABNORMAL) URINE ALBUMIN TO CREATININE RATIO, RANDOM (04/12/2025 2:40 PM CDT) ALB RAND URINE 1,363.0 mg/L 04/13/2025 7:08 PM CDT [facility] CREATININE,URIN E 2.17 g/L 04/13/2025 7:08 PM CDT [facility] ALBUMIN TO CREATININE RATIO,RAND UR 628.1(H) <30.0 mg/g creat 04/13/2025 7:08 PM CDT [facility] Urine URINE SPECIMEN / Unknown Non-Blood / Unknown 04/12/2025 2:40 PM CDT 04/12/2025 2:47 PM [facility]T [facility] 04/13/2025 7:08 PM CDT If Albumin to Creatinine Ratio is elevated, consider the following: Elevations seen with incipient nephropathy associated with diabetes mellitus or hypertension. Stress, exercise,hematuria, and urinary tract infection may also produce elevated results. If clinically indicated, confirm with 24 Hour Albumin to Creatinine Ratio. us Karen THOMAS URINE Final Res ult [facility] [address] [place] [address], [place] * (ABNORMAL) LC ERYTHROPOIETIN (EPO), SERUM (04/12/2025 2:35 PM CDT) [facility] Erythropoietin 421.8(H) 2.6 - 18.5 mIU/mL 04/15/2025 6:08 AM CDT [facility] ([facility]) Comment: [employer] Biosystem[employer] DxI 800 Immunoassay System Values obtained with different assay methods or kits cannot be used interchangeably. Results cannot be interpreted as absolute evidence of the presence or absence of malignant disease. Blood BLOOD SPECIMEN / Unknown Venipuncture / Unknown 04/12/2025 2:35 PM CDT 04/12/2025 2:35 PM CDT Narrative [facility] ([facility]) - 04/15/2025 6:08 AM CDT Performed at: [address] [place] [id number] [employer] Livestock: Tani Lezama MD, Phone: [phone] us Araceli Macias NP LABORATORY Final Result [facility] ([facility]) [address] [place] [address], * (ABNORMAL) CBC WITH AUTO DIFFERENTIAL (04/12/2025 2:35 PM CDT) Only the most recent of3 resultswithin the time period is included. [facility] WHITE BLOOD COUNT 2.2(L) 4.5 - 11.0 thou/cu mm 04/12/2025 2:52 PM CDT [facility] RED BLOOD COUNT 2.55(L) 4.30 - 5.90 mil/cu mm 04/12/2025 2:52 PM CDT [facility] HEMOGLOBIN 9.3(L) 13.5 - 17.5 g/dL 04/12/2025 2:52 PM T [facility] HEMATOCRIT 27.9(L) 37.0 - 53.0 % 04/12/2025 2:52 PM T [facility] MCV 109(H) 80 - 100 fL 04/12/2025 2:52 PM [facility] MCH 36.5(H) 26.0 - 34.0 pg 04/12/2025 2:52 PM [facility] MCHC 33.3 32.0 - 36.0 g/dL 04/12/2025 2:52 PM [facility] RDW 15.8(H) 11.5 - 15.5 % 04/12/2025 2:52 PM [facility] PLATELET COUNT 182 140 - 440 thou/cu mm 04/12/2025 2:52 PM [facility] MPV 12.6(H) 6.5 - 11.0 fL 04/12/2025 2:52 PM [facility] % NEUT 57.1 % 04/12/2025 2:52 PM [facility] % LYMPH 29.5 % 04/12/2025 2:52 PM [facility] % MONO 5.8 % 04/12/2025 2:52 PM [facility] % EOS 3.1 % 04/12/2025 2:52 PM [facility] % BASO 4.5 % 04/12/2025 2:52 PM [facility] ABSOLUTE NEUTROPHILS 1.3(L) 1.7 - 7.0 thou/cu mm 04/12/2025 2:52 PM [facility] ABSOLUTE LYMPHOCYTES 0.7(L) 0.9 - 2.9 thou/cu mm 04/12/2025 2:52 PM [facility] ABSOLUTE MONOCYTES 0.1 <0.9 thou/cu mm 04/12/2025 2:52 PM [facility] ABSOLUTE EOSINOPHILS 0.1 <0.5 thou/cu mm 04/12/2025 2:52 PM [facility] ABSOLUTE BASOPHILS 0.1 <0.3 thou/cu mm 04/12/2025 2:52 PM [facility] Blood BLOOD SPECIMEN / Unknown Venipuncture / Unknown 04/12/2025 2:35 PM CDT 04/12/2025 2:35 PM CDT Araceli Macias MICROBIOLOGY DIRECTOR HEMATOLOGY Final Result Performing Organization Address [facility]/ZIP Co de Phone Number [facility] [address] [place] [address] * (ABNORMAL) POCT Hemoglobin A1C Monitoring (04/12/2025 2:35 PM CDT) [facility] HEMOGLOBIN A1C MONITORING (POCT) 9.2(H) <=6.4 % 04/12/2025 2:58 PM CDT [facility] Blood BLOOD SPECIMEN / Unknown Venipuncture / Unknown 04/12/2025 2:35 PM CDT 04/12/2025 2:35 PM CDT Narrative [facility] - 04/12/2025 2:58 PM CDT (<=6.9%) Indicates good control (7.0% to 7.9%) Indicates fair control (>=8.0%) Indicates poor control NOTE: These thresholds are guidelines and individual targets may vary. Falsely low levels may be seen with: Recent Transfusion, Recent Significant Blood Loss, Hemolytic Diseases, or Falsely elevated levels may be seen with: Untreated Anemias, Splenectomy us Karen THOMAS CHEMISTRY Final Res ult Performing Organization Address [facility] Co de Phone Number [facility] [address] [place] [address] * (ABNORMAL) BILIRUBIN DIRECT (04/12/2025 2:35 PM CDT) BILIRUBIN,DIRE CT 0.7(H) 0.0 - 0.2 mg/dL 04/12/2025 4:30 PM CDT [facility] Blood BLOOD SPECIMEN / Unknown Venipuncture / Unknown 04/12/2025 2:35 PM CDT 04/12/2025 2:35 PM CDT Cynthia Daniels MD CHEMISTRY Final Resu lt [facility] [address] [facility] [place] [address] * (ABNORMAL) COMP METABOLIC PANEL (04/12/2025 2:35 PM CDT) SODIUM 137 136 - 145 mmol/L 04/12/2025 2:56 PM T [facility] POTASSIUM 4.4 3.5 - 5.1 mmol/L 04/12/2025 2:56 PM [facility] CHLORIDE 101 98 - 107 mmol/L 04/12/2025 2:56 PM [facility] CO2,TOTAL 27 22 - 29 mmol/L 04/12/2025 2:56 PM [facility] ANION GAP 9 5 - 18 04/12/2025 2:56 PM [facility] GLUCOSE 290(H) 70 - 99 mg/dL 04/12/2025 2:56 PM [facility] CALCIUM 8.9 8.8 - 10.4 mg/dL 04/12/2025 2:56 PM [facility] Comment: Reference ranges for this test were updated on 09/15/2024 to reflect our healthy population more accurately. Reference range changes are not retroactively applied to results, but previous results using the same methodology can be interpreted in the context of the new reference range. BUN 13 8 - 23 mg/dL 04/12/2025 2:56 PM [facility] CREATININE 0.93 0.70 - 1.20 mg/dL 04/12/2025 2:56 PM [facility] BUN/CREAT RATIO 14 10 - 20 2:56 PM [facility] eGFR 84(L) >90 mL/min/1. 73m2 04/12/2025 2:56 PM [facility] Comment:As of 2022, eG FR is calculated by the CKD-EPI creatinine equation without race adjustment. eGFR can be influenced by muscle mass, exercise, and diet. The reported eGFR is an estimation only and is only applicable if the renal function is stable. ALBUMIN 4.6 4.0 - 4.9 g/dL 04/12/2025 2:56 PM CDT [facility] PROTEIN,TOTAL 6.7 6.0 - 8.0 g/dL 04/12/2025 2:56 PM CDT [facility] BILIRUBIN,TOTAL 1.5(H) 0.0 - 1.2 mg/dL 04/12/2025 2:56 PM CDT [facility] ALK PHOSPHATASE 80 40 - 129 IU/L 04/12/2025 2:56 PM CDT [facility] ALT (SGPT) 21 10 - 50 IU/L 04/12/2025 2:56 PM CDT [facility] AST (SGOT) 25 10 - 50 IU/L 04/12/2025 2:56 PM CDT [facility] Blood BLOOD SPECIMEN / Unknown Venipuncture / Unknown 04/12/2025 2:35 PM CDT 04/12/2025 2:35 PM CDT us Araceli Macias NP CHEMISTRY Final Result [facility] [address] [place] [address] * MYELOID NGS (LAB ONLY) (03/16/2025 11:35 AM CDT) Bone Marrow BONE MARROW SPECIMEN / Unknown Non-Blood / Unknown 03/16/2025 11:35 AM CDT 03/18/2025 2:19 PM CDT us Araceli Macias NP PATHOLOGY/CYTOLOGY Final Result [facility] [address] [place] [address], [place] * BM/LB CHROM (03/16/2025 11:35 AM CDT) Bone Marrow BONE MARROW SPECIMEN / Unknown Non-Blood / Unknown 03/16/2025 11:35 AM CDT 03/18/2025 2:12 PM CDT us Araceli L Selly MICROBIOLOGY DIRECTOR LABORATORY Final Result Performing Organization Address City/[facility]/ZIP Co de Phone Number [facility] [address] [place] [address], [place] * BM WETLAB (03/16/2025 11:35 AM CDT) Bone Marrow BONE MARROW SPECIMEN / Unknown Non-Blood / Unknown 03/16/2025 11:35 AM CDT 03/18/2025 2:12 PM CDT us Araceli Rickettsy MICROBIOLOGY DIRECTOR LABORATORY Final Result Performing Organization Address City/[facility] Co de Phone Number [facility]-CENTRAL LABORATORY [address] [place] [address], [place] * OC (03/16/2025 11:35 AM CDT) Bone Marrow BONE MARROW SPECIMEN / Unknown Non-Blood / Unknown 03/16/2025 11:35 AM CDT 03/18/2025 2:12 PM CDT us Araceli Rickettsy MICROBIOLOGY DIRECTOR LABORATORY Final Result Performing Organization Address [facility] Co de Phone Number [facility]me[facility]ENTRAL LABORATORY [address] [place] [phone], [place] * OB (03/16/2025 11:35 AM CDT) Bone Marrow BONE MARROW SPECIMEN / Unknown Non-Blood / Unknown 03/16/2025 11:35 AM CDT 03/18/2025 2:12 PM CDT us Araceli Macias MICROBIOLOGY DIRECTOR LABORATORY Final Result Performing Organization Address [facility] Co de Phone Number [facility]ENTRAL LABORATORY [address] [place] [address], [place] * CHROM TECH 2 (03/16/2025 11:35 AM CDT) Bone Marrow BONE MARROW SPECIMEN / Unknown Non-Blood / Unknown 03/16/2025 11:35 AM CDT 03/18/2025 2:12 PM CDT us Araceli Rickettsy MICROBIOLOGY DIRECTOR LABORATORY Final Result Performing Organization Address City/[facility] Co de Phone Number [facility] [address] [place] [address], [place] * CHROM TECH 1 (03/16/2025 11:35 AM CDT) Bone Marrow BONE MARROW SPECIMEN / Unknown Non-Blood / Unknown 03/16/2025 11:35 AM CDT 03/18/2025 2:12 PM CDT Araceli Macias NP LABORATORY Final Result Performing Organization Address [facility] Co de Phone Number [facility] [address] [place] [address], [place] * BONE MARROW DIFFERENTIAL (03/16/2025 11:35 AM CDT) Bone Marrow BONE MARROW SPECIMEN / Unknown Non-Blood / Unknown 03/16/2025 11:35 AM CDT 03/16/2025 10:44 AM CDT Araceli Macias NP LABORATORY Final Result Performing Organization Address [facility] Co de Phone Number [facility] 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 See comments. 03/26/2025 2:16 PM CDT [facility] [place] [facility] ENTRAL LABORATORY _ 03/26/2025 2:16 PM CDT [facility] [place] [facility] ENTRAL LABORATORY ISCN 46,XY,add(5)(q13)[ 16]/46,XY[4] 03/26/2025 2:16 PM CDT [facility] [place] [facility] ENTRAL LABORATORY INTERPRETATION Chromosome analysis revealed an abnormal clone with an an abnormal chromosome 5 resulting in loss of most of 5q in 16 metaphases, with the remaining 4 metaphases being cytogenetically normal. An isolated deletion 5q defines the pathologic classification of MDS with low blasts and 5q deletion (WHO,2024). In MDS, a deletion 5q as a sole abnormality is classified as a good cytogenetics prognostic indicator (NCCN, 2025). Clinicopathologic correlation of these results is recommended. 03/26/2025 2:16 PM CDT [facility] ENTRAL LABORATORY COMMENTS A preliminary chromosome result was provided to Jamil Yu MD on 03/19/25. 03/26/2025 2:16 PM CDT [facility] ENTRAL LABORATORY LAB TEST DETAILS Fully Analyzed Metaphases: 20 Partially Analyzed Metaphases: 0 Full Karyotypes: 3 03/26/2025 2:16 PM CDT [facility] ENTRAL LABORATORY SOURCE Bone Marrow ([facility]) [id number] 03/26/2025 2:16 PM CDT [facility] ENTRAL LABORATORY METHODS Cultures used in chromosome analysis were non-stimulated. Chromosome analysis is performed on consecutive analyzable G-banded metaphases. 03/26/2025 2:16 PM CDT [facility] ENTRAL LABORATORY REFERENCES WHO Classification of Tumors Editorial Board. Haematolymphoid tumours. Garcia (Ingrid): International Agency for Research on Cancer; 202. (WHO classification of tumours series, 5th ed.; vol. 11). https://publicatio ns.iarc.who.int/63 7. National Comprehensive Cancer Network. (2024). Myelodysplastic Syndromes (version 2.2024). Retrieved from https://www.nccn.o rg/professionals/p hysicierika_gls/pdf/M DS.pdf. 03/26/2025 2:16 PM CDT [facility] [place] [facility] DISCLAIMER This test was developed and its performance characteristics determined by the [employer] [facility]. It has not been cleared or approved by the U.S. Food and Drug Administration. The FDA does not require these tests to go through premarket FDA review. These tests are used for clinical purposes. They should not be regarded as investigational or for research. This laboratory is certified under the Clinical Laboratory Improvement Amendments (CLIA) as qualified to perform high complexity clinical laboratory testing. 03/26/2025 2:16 PM CDT [facility] Bone Marrow BONE MARROW SPECIMEN / Unknown Non-Blood / Unknown 03/16/2025 11:35 AM CDT 03/18/2025 2:12 PM CDT Araceli Macias NP LABORATORY Final Result [facility] LAB[facility]ATORY [address] [place] [address], * BONE MARROW STUDY (03/16/2025 11:01 AM CDT) Case Report Bone Marrow Pathology Report Case: [id number] Authorizing Provider: Araceli Macias NP Collected: 03/16/2025 1135 Ordering Location: [facility] Received: 03/16/2025 1153 [facility] Pathologist: Jamil Yu MD Specimens: A) - Bone Marrow, right B) - Bone Marrow Aspirate (Heparinized), right C) - Bone Marrow Core Biopsy, right D) - Peripheral Blood 03/22/2025 1:56 PM CDT [facility] [place] LABORATORY-C ENTRAL LABORATORY Final Diagnosis BONE MARROW AND PERIPHERAL BLOOD: 1. 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 Bone marrow blasts: 4% b. Bone marrow cellularity: 20% c. Peripheral blood: - Blasts: 0% - Macrocytic anemia - Absolute neutropenia - Moderate lymphocytopenia 2. Ancillary studies: a. Cytogenetics: - Preliminary cytogenetics show del(5q) in 9/10 metaphases - Final cytogenetic analysis is pending, and will be appended to this report b. Molecular: - [facility] Myeloid NGS comprehensive DNA gene panel: Positive for ASXL1, EZH2, and U2AF1 mutations; see attached report 03/22/2025 1:56 PM CDT [facility]-C ENTRAL LABORATORY at 1356 CDT Preliminary result electronically signed by Jamil Yu MD on 03/22/2025 at 1231 CDT Clinical Information Mr. Summers is a 79 y.o. with recent peripheral blood morphology showing moderate macrocytic anemia with mild poikilocytosis, and rare schistocytes. There is a low-normal neutrophil count with subtle dysmorphic features and borderline low platelet count with rare giant platelets. There are no circulating blasts or overt dysplastic features ([id number], 02/23/2025). He undergoes a bone marrow biopsy for further evaluation. 03/22/2025 1:56 PM CDT [facility]-C ENTRAL LABORATORY PROCEDURE A RIGHT lateral bone marrow biopsy and unilateral aspiration procedure is performed at [facility] on 03/16/25. Teresa Herrera NP performed the procedure using an 8 gauge manual needle. The ordering physician is Araceli Macias NP. The specimen is inked yellow. EVM 03/17/2025 03/22/2025 1:56 PM CDT [facility] LAB[facility]AT[facility]-C ENTRAL LABORATORY CBC and Differential HEMATOLOGY PARAMETERS Tested at: [facility] RESULTS EXPECTED VALUES WBC: 2.1 4.5-22z9557/cumm DECREASED RBC: 2.73 4.30-5.90 mil/cumm DECREASED HGB: 9.8 13.5-17.5 gm/di DECREASED HCT: 29.3 37-53% DECREASED MCV: 107.0 80-100 fl MACROCYTIC MCH: 35.9 26-34 pg ELEVATED MCHC: 33.4 32-36 gm/dl NORMOCHROMIC RDW: 14.8 11.5-15.5% PLT: 189 140-481q7547/uL MPV: 12.3 6.5-11 fl ELEVATED Retic: 2.3 0.5-1.5% ELEVATED Differential Tested at: Central Absolute (%) Expected (%) (x10*9/L) (x10*9/L) Neutrophils: 1.2 (57.1) 1.7-7.0 (42-72%) DECREASED Lymphocytes: 0.6 (28.6) 0.9-2.9 (20-44%) DECREASED Monocytes: 0.2 (9.5) <0.9 (0-11%) Eosinophils: 0.1 (4.8) <0.5 (0-2%) Basophils: 0.1 (4.8) <0.3 (<3.0%) Imm Grans: 0.0 (0) <0.3 (0-3%) (Metas, Myelos,Pros) 03/22/2025 1:56 PM CDT [facility] Bone Marrow Differential Blasts: 3.8 0.2-1.5% ELEVATED Neutrophils & precursors: 64.2 58.0-65.0% Eosinophils & precursors: 3.0 0.2-5.3% Basophils & precursors: 0.0 0.0-1.0% Erythroid precursors: 19.0 18.0-24.0% Lymphocytes: 7.8 3.0-24.0% Monocytes: 0.4 0.7-2.8% DECREASED Plasma cells: 1.8 0.1-1.5% ELEVATED M:E Ratio: 64 : 19 03/22/2025 1:56 PM CDT [facility] Microscopic Description SPECIMENS EXAMINED: Peripheral blood Aspirate direct and concentrate smears: Adequate Particle crush smears Touch imprints Clot section Bone core trephine sample (decalcified): Adequate, two cores, 2.2 cm Bone core and clot section color: Yellow PERIPHERAL BLOOD: The peripheral smear features support the diagnosis. BONE MARROW ASPIRATE: Hematopoiesis: Trilineage hematopoiesis. Myeloids show complete maturation, with hypolobation in mature myeloids. Erythroids show progressive maturation. Megakaryocytes show frequent small monolobated forms. Blasts: Slightly increased, medium sized with minimal cytoplasm, and fine chromatin. Lymphocytes: Unremarkable Plasma cells: Unremarkable BONE MARROW CORE AND CLOT SECTION: Hematopoiesis: Normocellular for age. Trilineage hematopoiesis. Lymphocytes: Scattered lymphoid aggregates are present Plasma cells: Unremarkable IRON STAINS (performed on clot sections, particle crush smears, concentrate smears, and F-PV slides): Storage iron: Adequate Sideroblastic iron: Slightly decreased Ringed sideroblasts: Absent 03/22/2025 1:56 PM T [facility] Flow Cytometry Summary Qualitative Myeloblast Analysis panel: Interpretation: Indeterminate for phenotypically abnormal myeloblasts. Flow cytometric analysis of CD34 gated myeloblasts shows immunophenotypic aberrancies including decreased CD33, and increased CD15. Clinical indication for flow cytometry: Anemia. Gated CD34 positive myeloblasts comprise 2.38% of total viable nucleated events as defined by light scatter criteria and exhibit phenotypic alterations including overexpressed HLA-DR, CD13, and CD15 and underexpressed CD33 and CD71 relative to normal myeloblasts. A monocytic population is detected, comprising approximately 5.4% of total viable nucleated events as defined by light scatter criteria. Phenotypic summary of the monocytic population Brightly positive markers: CD45/HLA-DR/CD64/C D11b Moderately positive markers: VQ562e/CD14/CD56 Dimly positive markers: CD117/CD16 Trace positive markers: Negative markers: CD34 Stem cells comprise 2.20% of gated CD34 positive myeloid progenitors. B lineage hematogones gated using [id number] and CD19 comprise 0.09% of total viable nucleated events. The following monoclonal antibodies were used in this analysis: CD2, CD5, CD7, CD10, CD11b, CD13, CD14, CD15, CD16, CD19, CD33, CD34, CD36, CD38, CD45, CD45RA, CD56, CD64, CD65, CD71, CD117, CD123, NJ852l, VA878l, CD371, and HLA-DR. Quality Assessment Viability (7-AAD): 68% Gated CD34 positive events: 3584 Gated CD34 positive, CD38 negative (stem cell) events: 79 Gated CD45 dim x SSC lo, CD19 positive (hematogone) events: 144 Total nucleated cells: [id number] These results and cytograms have been verified by Dr. Yu. Assay sensitivity ranges from 0.01%-0.03% depending on sample quality, frequency and degree of phenotypic aberrancies on blasts, and frequency of normal background progenitors, provided a minimum of 100 CD34 positive cells and 200,000 total cells are acquired per tube. This test was developed, and performance verified by [facility]. It has not been cleared or approved by the [place] Food and Drug Administration. This test is used for clinical purposes and should not be regarded as investigational or for research. Immunostains may have been used on this case in conjunction with flow cytometry in order to address ambiguous or inconclusive findings and/or to provide prognostic information. In the event immunostains were performed, results of both modalities were coordinated with H&E findings during diagnostic evaluation. Analytic Flow Tech: Mahsa Mccurdy, 03/22/2025 10:48 AM Verifying Flow Tech: Davide Sanchez, 03/22/2025 12:36 PM 03/22/2025 1:56 PM CDT [employer] LABORATORY-C [facility] Cytogenetics Summary Cytogenetic testing has been ordered and will be reported separately. 03/22/2025 1:56 PM CDT [facility] Other Testing Immunostains were performed on the bone core biopsy. CD34 (blast marker) (manual morphometry): 3-4% CD3 (T cell marker): appropriate in number and distribution CD20 (B cell marker) (by manual morphometry): <5% CD138 (plasma cell marker) (by manual morphometry): <5% CD61 (megakaryocyte marker): Highlights frequent small megakaryocytes 03/22/2025 1:56 PM CDT [facility] Additional Information Interpreted at [facility] - [address] [place] [address] S. [facility] [address], [place] [address] Immunohistochemist ry controls were reviewed and approved as appropriate by the pathologist during this examination. 03/22/2025 1:56 PM CDT [facility] Bone Marrow BONE MARROW SPECIMEN / Unknown Non-Blood / Unknown 03/16/2025 11:35 AM CDT 03/16/2025 11:53 AM CDT Bone marrow specimen (specimen) (Bone Marrow Aspirate (Heparinized)) Non-Blood / Unknown 03/16/2025 11:35 AM CDT 03/17/2025 6:41 AM CDT Bone marrow specimen (specimen) (Bone Marrow Core Biopsy) 03/16/2025 11:35 AM CDT 03/17/2025 6:41 AM CDT Bone marrow specimen (specimen) (Peripheral Blood) 03/16/2025 11:01 AM CDT 03/17/2025 6:41 AM CDT us Araceli Macias NP LABORATORY Final Result [facility] [address] [place] [address], [place] * (ABNORMAL) RETICULOCYTES (03/16/2025 11:01 AM CDT) Only the most recent of2 resultswithin the time period is included. RETIC% 2.3(H) 0.5 - 1.5 % 03/16/2025 11:14 PM CDT [facility] RETIC (ABSOLUTE) 0.06 0.03 - 0.08 mil/cu mm 03/16/2025 11:14 PM CDT [facility] Blood BLOOD SPECIMEN / Unknown Venipuncture / Unknown 03/16/2025 11:01 AM CDT 03/16/2025 11:09 AM CDT Araceli Macias NP HEMATOLOGY Final Result [facility] [address] [place] [address], [place] * XR WRIST 3 OR MORE VIEWS RIGHT (03/12/2025 2:55 PM CDT) Anatomical Region Laterality Modality WRISTS, WRIST R Computed Radiogr aphy 03/15/2025 1:41 PM CDT Narrative 03/15/2025 1:41 PM CDT For Patients: As a result of the Cures Act, medical imaging exams and procedure reports are released immediately into your electronic medical record. You may view this report before your referring provider. If you have questions, please contact your health care provider. INDICATION: Pain swelling TECHNIQUE: Three views right hand FINDINGS/IMPRESSION: Normal alignment. No acute fracture or acute osseous abnormalities are visualized. Possible chondrocalcinosis. Vascular calcifications. Degenerative change at the thumb CMC joint. Dictated by Adrianne Haley MD @ 03/15/2025 1:41:15 PM (Electronically Signed) Procedure Note Adrianne Haley MD - 03/15/2025 For Patients: As a result of the Cures Act, medical imagingexams and procedure reports are released immediately into your electronicmedical record. You may view this report before your referring provider.If you have questions, please contact your health care provider. INDICATION: Pain swelling TECHNIQUE: Three views right hand FINDINGS/IMPRESSION: Normal alignment. No acute fracture or acute osseous abnormalities arevisualized. Possible chondrocalcinosis. Vascular calcifications. Degenerative changeat the thumb CMC joint. Dictated by Adrianne Haley MD @ 03/15/2025 1:41:15 PM (Electronically Signed) [facility] Final Res ult * (ABNORMAL) IRON PLUS IRON BINDING CAP (03/02/2025 11:34 AM CDT) [facility] IRON 122 61 - 157 ug/dL 03/02/2025 11:18 PM CDT [facility] TRAL LABORATORY UIBC (UNSATURATED) 123 112 - 347 ug/dL 03/02/2025 11:18 PM CDT [facility] TRAL LABORATORY IRON BINDING CAPACITY 245(L) 250 - 400 ug/dL 03/02/2025 11:18 PM CDT [facility] IRON,% SATURATION 50 14 - 50 % 03/02/2025 11:18 PM CDT [facility] Blood BLOOD SPECIMEN / Unknown Venipuncture / Unknown 03/02/2025 11:34 AM CDT 03/02/2025 11:34 AM CDT Araceli Macias MICROBIOLOGY DIRECTOR CHEMISTRY Final Result [facility] [address] [place] [address], [place] * FERRITIN (03/02/2025 11:34 AM CDT) [facility] FERRITIN 153.0 30.0 - 400.0 ng/mL 03/02/2025 11:18 PM CDT [facility] Blood BLOOD SPECIMEN / Unknown Venipuncture / Unknown 03/02/2025 11:34 AM CDT 03/02/2025 11:34 AM CDT us Araceli Baeza Colleen MICROBIOLOGY DIRECTOR CHEMISTRY Final Result [facility] [address] [place] [address], [place] * (ABNORMAL) HEPATIC FUNCTION PANEL (03/02/2025 11:34 AM CDT) Only the most recent of2 resultswithin the time period is included. Pathologist [facility] [place] ALBUMIN 4.5 4.0 - 4.9 g/dL 03/02/2025 11:55 AM T [facility] PROTEIN,TOTAL 6.9 6.0 - 8.0 g/dL 03/02/2025 11:55 AM [facility] BILIRUBIN,TOTAL 1.3(H) 0.0 - 1.2 mg/dL 03/02/2025 11:55 AM [facility] BILIRUBIN,DIRECT 0.6(H) 0.0 - 0.2 mg/dL 03/02/2025 11:55 AM T [facility] BILIRUBIN,INDIRE CT 0.7 0.2 - 0.8 mg/dL 03/02/2025 11:55 AM [facility] ALK PHOSPHATASE 81 40 - 129 IU/L 03/02/2025 11:55 AM [facility] ALT (SGPT) 26 10 - 50 IU/L 03/02/2025 11:55 AM [facility] AST (SGOT) 26 10 - 50 IU/L 03/02/2025 11:55 AM [facility] Blood BLOOD SPECIMEN / Unknown Venipuncture / Unknown 03/02/2025 11:34 AM CDT 03/02/2025 11:34 AM CDT us Araceli Macias NP CHEMISTRY Final Result [facility] [address] [place] [id number] * (ABNORMAL) BASIC METABOLIC PANEL (02/23/2025 11:26 AM CDT) Pathologist [facility] [place] GLUCOSE 263(H) 65 - 99 mg/dL [employer] Comment: Fasting reference interval For someone without known diabetes, a glucose value >125 mg/dL indicates that they may have diabetes and this should be confirmed with a follow-up test. UREA NITROGEN (BUN) 13 7 - 25 mg/dL [facility] CREATININE 0.97 0.70 - 1.28 mg/dL [facility] ojennifer Rios EGFR 80 > OR = 60 mL/min/1. 73m2 [facility] BUN/CREATININE RATIO SEE NOTE: 6 - 22 (calc) [facility] Comment: Not Reported: BUN and Creatinine are within reference range. SODIUM 139 135 - 146 mmol/L [facility] POTASSIUM 4.5 3.5 - 5.3 mmol/L [facility] CHLORIDE 103 98 - 110 mmol/L [facility] CARBON DIOXIDE 29 20 - 32 mmol/L [facility] ELECTROLYTE BALANCE 7 7 - 17 mmol/L (calc) [facility] CALCIUM 9.4 8.6 - 10.3 mg/dL [facility] Blood BLOOD SPECIMEN / Unknown 02/23/2025 11:26 AM CDT 02/23/2025 11:27 AM CDT us Araceli Macias NP CHEMISTRY Final Result Performing Organization Address City/State/[facility] Co de Phone Number [employer] [facility] [address] [place] [address], [facility] [address] [place] [address] * PERIPHERAL BLD MORPHOLOGY (02/23/2025 11:23 AM CDT) Case Report Special Hematology Report Case: [id number] Authorizing Provider: Araceli Macias NP Collected: 02/23/2025 1123 Ordering Location: [facility] Received: 02/23/[address] [place] [address] Pathologist: Shawn Olea MD Specimen: Blood 02/24/2025 9:16 AM CDT [employer] ENTRAL LABORATORY Final Diagnosis PERIPHERAL BLOOD: Borderline pancytopenia: 1. Moderate macrocytic anemia with mild poikilocytosis, including rare schistocytes (~1 per 100X hpf) 2. Low-normal neutrophil count with subtle dysmorphic features; see comment 3. Borderline low platelet count with rare giant platelets 4. No circulating blasts or overt dysplastic features 5. See comment 02/24/2025 9:16 AM CDT [employer] ENTRAL LABORATORY at 0916 CDT Comment Careful exclusion of the usual causes of macrocytic anemia are suggested; however, if no clinical explanation emerges for the patient's persistent macrocytic anemia and near-pancytopeni a (anemia with borderline low neutrophils and platelets), bone marrow examination might be helpful in this patient. Macrocytic anemia may be associated with a variety of conditions, including Vitamin B12/folate deficiency, liver disease, hypothyroidism, alcohol use, sideroblastic anemia and certain medications. This case was also reviewed by Jovita Henderson MT, MS ([facility]). 02/24/2025 9:16 AM CDT [employer] Clinical Information The patient is a 79-year-old male. Pertinent clinical information: Anemia and leukopenia. Per EPIC: Additional history includes atherosclerosis, hypertension, diabetes, and prostate cancer. His most recent peripheral blood morphology June 2024 ([id number]) showed a mild macrocytic anemia and leukopenia with normal differential counts. 02/24/2025 9:16 AM CDT [facility] CBC and Differential HEMATOLOGY PARAMETERS [facility]ed at[facility] RESULTS EXPECTED VALUES WBC: 2.9 4.5-40g6962/cumm DECREASED RBC: 2.68 4.30-5.90 mil/cumm DECREASED HGB: 9.7 13.5-17.5 gm/di DECREASED HCT: 28.9 37-53% DECREASED MCV: 108.0 80-100 fl MACROCYTIC MCH: 36.2 26-34 pg ELEVATED MCHC: 33.6 32-36 gm/dl NORMOCHROMIC RDW: 15.9 11.5-15.5% ELEVATED PLT: 141 140-530z2159/uL MPV: 12.9 6.5-11 fl ELEVATED Retic: 2.2 0.5-1.5% ELEVATED Differential Absolute (%) Expected (%) (x10*9/L) (x10*9/L) Neutrophils: 1.8 (62.1) 1.7-7.0 (42-72%) Lymphocytes: 0.8 (27.6) 0.9-2.9 (20-44%) DECREASED Monocytes: 0.2 (6.9) <0.9 (0-11%) Eosinophils: 0.1 (3.4) <0.5 (0-2%) 02/24/2025 9:16 AM CDT [facility] ENTRAL LABORATORY Microscopic Description The final diagnosis is based on microscopic examination of an appropriately stained blood smear. 02/24/2025 9:16 AM CDT [facility] ENTRAL LABORATORY Additional Information Interpreted at [facility], Central Laboratory - [address] [place] [address] [address], [place] [address] 02/24/2025 9:16 AM CDT [facility]-C ENTRAL LABORATORY Blood BLOOD SPECIMEN / Unknown [facility] / Unknown 02/23/2025 11:23 AM CDT 02/23/2025 11:23 AM CDT Comment:CURRENT MEDICATIONSC urrent Outpatient Medications: acetaminophen/diphenhydramine (TYLENOL PM ORAL), Take by mouth., Disp: , Rfl: allopurinol (ZYLOPRIM) 300 mg tablet, Take 300 mg by mouth once daily., Disp: , Rfl: ascorbic acid, vitamin C, (VITAMIN C) 500 mg tablet, Take 500 mg by mouth once daily., Disp: , Rfl: aspirin (ECOTRIN) 81 mg enteric coated tablet, Take 81 mg by mouth once daily with a meal., Disp: , Rfl: atorvastatin (LIPITOR) 80 mg tablet, Take 80 mg by mouth once daily., Disp: , Rfl: cholecalciferol, Vitamin D3, 2,000 unit tablet, Take 1 Tablet by mouth once daily., Disp: , Rfl: CINNAMON BARK ORAL, Take 250 mg by mouth once daily., Disp: , Rfl: empagliflozin (JARDIANCE) 25 mg tablet, Take 25 mg by mouth once daily. Half tablet once daily, Disp: , Rfl: Garlic 1,000 mg cap, Take 1 Capsule by mouth once daily., Disp: , Rfl: lancets, 1 Each by Continuous Infusion route once daily., Disp: , Rfl: lisinopriL (PRINIVIL; ZESTRIL) 10 mg tablet, Take 10 mg by mouth once daily., Disp: , Rfl: metFORMIN (FORTAMET) 1,000 mg Controlled-Release tablet, Take 1,000 mg by mouth 2 times daily., Disp: , Rfl: metoprolol tartrate 12.5 mg as half tablet, Take 50 mg by mouth two times daily. 25mg in AM, 25mg in PM, Disp: , Rfl: multivitamin chew, Chew 1 Tablet by mouth once daily., Disp: , Rfl: nitroglycerin (NITROSTAT) 0.4 mg sublingual tablet, Place 0.4 mg under the tongue every 5 minutes if needed for Chest Pain., Disp: , Rfl: quercetin 500 mg cap, Take 2 Tablets by mouth once daily., Disp: , Rfl: SOUR [place]ENTON EXTRACT ORAL, Take 1,200 mg by mouth once daily., Disp: , Rfl: Araceli Macias NP HEMATOLOGY Final Result Performing Organization Address [facility]/ZIP Co de Phone Number [facility] [address] [place] [address], * ANTI HCV (07/19/2023 2:29 PM CDT) HEPATITIS C ANTIBODY Non-Reacti ve Non-React anupam 07/20/2023 6:48 AM CDT [facility] Comment:Please note, per www .CDC.gov: If a patient is known to be at high risk of HCV infection, or is symptomatic, and the physician's suspicion of HCV infection is high, HCV RNA testing is often employed and is of diagnostic value, even after an initial negative anti-HCV test result. Blood BLOOD SPECIMEN / Unknown Venipuncture / Unknown 07/19/2023 2:29 PM CDT 07/19/2023 2:29 PM CDT us Karen THOMAS SEND OUTS Final Res ult [facility] [address] [place] [address], from Last 3 Months or Most Recently Relevant to Health Maintenance Insurance MEDICARE PART B HB ONLY MEDICARE PART A HB ONLY [place] HB ONLY [place] MR PB ONLY Care Teams Squirt Machine Operator Relationship Specialty Start Date End Date Karen Lechuga PA [address] [place] [address] PCP - General Physician Manager Program 04/09/25 Theresa Emerson RN [address] [place] [address], [place] [address] Nurse Navigator - Oncology Registered Nurse 04/14/25
--- OUTSIDE RECORDS SUMMARY | 2025-04-23 09:55 | XMS_ITS | Clinical Summary ---
Author Organization [place] Address Critical access hospital0 [facility] [place] [address] Care Team Providers Care Residential Sales Consultant Name Role Phone [facility] Primary Care Provider Allergies No known active allergies Medications ATORVASTATIN CALCIUM PO Take 80 mg by mouth every evening Active METOPROLOL TARTRATE PO Take 25 mg by mouth 2 times daily Active ALLOPURINOL PO Take 300 mg by mouth every evening Active METFORMIN HCL PO Take 1,000 mg by mouth 2 times daily (with meals) Active Nitroglycerin (NITROSTAT SL) Place 0.4 mg under the tongue every 5 minutes as needed for chest pain Active Ascorbic Acid (VITAMIN C PO) Take 500 mg by mouth every evening Active empagliflozin (JARDIANCE) 25 MG TABS tablet Take 12.5 mg by mouth daily Active lisinopril (ZESTRIL) 10 MG tablet Take 10 mg by mouth daily Active Garlic 1000 MG CAPS Take 1 capsule by mouth daily Active CINNAMON PO Take 1,000 mg by mouth daily Active [place]-Gluco samine-Vit D (OSTEO BI-FLEX ONE PER DAY) TABS Take 1 tablet by mouth daily Active vitamin D3 (CHOLECALCIFERO L) 50 mcg (2000 units) tablet Take 1 tablet by mouth daily Active Quercetin 250 MG TABS Take 2 tablets by mouth daily Active calcium carbonate-vitam in D (OSCAL W/D) 500-200 MG-UNIT tabletIndicatio ns:S/P lumbar fusion Take 1 tablet by mouth 3 times daily (with meals) 270 tablet 1 Active senna-docusate (SENOKOT-S/ISABEL COLACE) 8.6-50 MG tabletIndicatio ns:S/P lumbar fusion Take 1-2 tablets by mouth 2 times daily Take while on oral narcotics to prevent or treat constipation. 30 tablet 1 Active acetaminophen (TYLENOL) 325 MG tabletIndicatio ns:S/P lumbar fusion Take 2 tablets (650 mg) by mouth every 4 hours as needed for other (mild pain) 100 tablet 1 Active hydrOXYzine (ATARAX) 10 MG tabletIndicatio ns:S/P lumbar fusion Take 1 tablet (10 mg) by mouth every 6 hours as needed for itching or anxiety (with pain, moderate pain) 30 tablet 1 Active oxyCODONE (ROXICODONE) 5 MG tabletIndicatio ns:S/P lumbar fusion Take 1-2 tablets (5-10 mg) by mouth every 4 hours as needed for moderate to severe pain (Moderate to Severe) 30 tablet 1 Active Active Problems Problem Noted Date Diagnosed Date S/P lumbar fusion 08/03/2021 S/P total knee arthroplasty 03/31/2018 Social History Tobacco Use Types Packs/Day Years Used Date Smoking Tobacco: Never Smokeless Tobacco: Never Alcohol Use Standard Drinks/Week Comments No 0 (1 standard drink = 0.6 oz pur e alcohol) Adolescent Education Answer Date Record ed Getting School Help Needed Not on file 08/17 Sex and Gender Information Value Date Recorded Sex Assigned at Not on file 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 Gender Identity Not on file Sexual Orientation Not on file Last Filed Vital Signs Vital Sign Reading Time Taken Comments Blood Pressure 159/73 08/05/2021 7:27 AM CDT Pulse 62 08/05/2021 7:27 AM CDT Temperature 36.2 C (97.1 F) 08/05/2021 7:27 AM CDT Respiratory Rate 16 08/04/2021 4:07 PM CDT Oxygen Saturation 92% 08/05/2021 7:27 AM CDT Inhaled Oxygen Concentration - - Weight 77.1 kg (170 lb) 08/03/2021 9:57 AM CDT Height 170.2 cm (5' 7) 08/03/2021 9:57 AM CDT Body Mass Index 26.63 08/03/2021 9:57 AM CDT Plan of Treatment Not on file Medical Devices Implanted Type Area Auto Design Detailer Device Identifier Shelf Expiration Date Model / Serial / Lot Graft Bone Magnifuse [id number] - [id number] Implanted:Qty : 1 on 08/03/2021 by John Champion MD at [facility] Bone/Tissue/ Biologic N/A: Spine Lumbar [employer] 06/08/2023 [id number] / [id number] / Bone Cement Simplex Full Dose [id number] Implanted:Qty : 1 on 03/31/2018 by Fidel Hatfield MD at [facility] Cement, Bone Left: Knee [employer] 06/10/2020 6191-1-001 / / [id number] Imp Plate Tibial Zim Nexgen Size 5 Implanted:Qty : 1 on 03/31/2018 by Fidel Hatfield MD at [facility] Metallic Hardware/Anc hor Left: Knee [employer] 11/10/2027-5980-04 7- / / [id number] Imp Comp Fem Zim Nexgen Lps Ef 7-10 17mm [id number] Implanted:Qty : 1 on 03/31/2018 by Fidel Hatfield MD at [facility] Total Joint Component/In sert Left: Knee [employer] 06/10/2027-5996-17 -51 / / [id number] Imp Art Surface Zim Nexgen Lps Gh 5-6 10mm [id number] Implanted:Qty : 1 on 03/31/2018 by Fidel Hatfield MD at [facility] Total Joint Component/In sert Left: Knee [employer] 03/10/2025-5964-04 2-10 / / [id number] Imp Comp Patella Zim Nexgen 9.0x35mm Implanted:Qty : 1 on 03/31/2018 by Fidel Hatfield MD at [facility] Total Joint Component/In sert Left: Knee [employer] 02/08/2026-5972-06 5-35 / / [id number] Creo Locking Cap Implanted:Qty : 4 on 08/03/2021 by John Champion MD at [facility] N/A: Spine Lumbar [employer] 1119.0000 / / [id number] 5.5mm Curved Brenden 45mm Implanted:Qty : 2 on 08/03/2021 by John Champion MD at [facility] N/A: Spine Lumbar [employer] 1119.7045 / / [id number] 5.5mm Cross Connector 48-60 Implanted:Qty : 1 on 08/03/2021 by John Champion MD at [facility] N/A: Spine Lumbar [employer] 1119.0046 / / [id number] Rise Spacer [id number], 7-14 Implanted:Qty : 1 on 08/03/2021 by John Champion MD at [facility] N/A: Spine Lumbar [employer] 193.103 / / [id number] Creo Screw 6.5x45mm Implanted:Qty : 2 on 08/03/2021 by John Champion MD at [facility] N/A: Spine Lumbar [employer] 5119.1645 / / [id number] Creo Screw 7.5x40mm Implanted:Qty : 1 on 08/03/2021 by John Champion MD at [facility] N/A: Spine Lumbar [employer] 5119.1740 / / 8007 [id number] Creo Screw 6.5x40mm Implanted:Qty : 1 on 08/03/2021 by John Champion MD at [facility] N/A: Spine Lumbar [employer] 5119.1640 / / [id number] Insurance MEDICARE [place] [employer] [employer] Advance Directives For more information, please contact: [phone] Documents on File Type Date Recorded Patient Rechecker Expl anation Advance Directives and Living Will 04/02/2018 9:44 AM Health Care Directiv e 07/27/2016 * Full Code (Latest Code Status on File) Date Activated Date Inactivated Comments 08/03/2021 4:44 PM 08/05/2021 7:52 PM All basic an d advanced life-sustaining interventions are performed as appropriate Question Answer Comments Code status determined by: Other (please hoda t) * Full Code Date Activated Date Inactivated Comments 03/31/2018 10:43 AM 04/02/2018 4:35 PM Care Teams Residential Sales Consultant Relationship Specialty Start Date End Date Clinic, [place], [place] PCP - General 07/06/21
--- OUTSIDE RECORDS SUMMARY | 2025-04-23 09:55 | XMS_ITS | Patient Health Record ---
Author Organization [place] [employer] [facility] Address [address] [facility] [address] [place] [address] Care Team Providers Care Dispute Coordinator Name Role Phone Mark Tomas [phone] Allergies No Known Allergies Reason For Referral No Information Medications Medication SIG (Take, Route, Frequency, Duration) Notes Start Date End Date Status Metoprolol Tartrate 25 MG Take 1/2 tab P O BID Oral as directed 01/17/2018 Active Doxycycline Hyclate 100 MG twice a day O ral twice a day 01/26/2020 Active Jardiance 25 MG Oral once a day 12/26/2020 Active Gabapentin 300 MG Take 2 tabs PO TID p rn Oral as directed 01/17/2018 Active Lisinopril 10 MG Oral once a day 12/26/2020 Active Nitrostat 0.4 MG Sublingual as directed 01/17/2018 Active Allopurinol 300 MG Oral once a day 01/17/2018 Active metFORMIN HCl 1000 MG Oral twice a day 01/17/2018 Active Aspirin Adult Low Dose 81 MG Oral once a day 01/17/2018 Active Atorvastatin Calcium 80 MG Oral once a day 018 Active predniSONE 20 MG as directed Take 2 t abs PO for 3 days, then 1 tab PO for 3 days, then 1/2 tab PO for 4 days Oral as directed 01/26/2020 Active cefTRIAXone Sodium 1 GM Injection 01/26/2020 Active Problems Problem Type SNOMED Code ICD Code Onset Dates Problem Status W/U Status Risk Notes Problem Type II diabetes mellitus without complication (967761607) Type 2 diabetes mellitus without complications (E11.9) 018 Active confirmed Problem Hereditary disorder of nervous system (377235014) Hereditary and idiopathic neuropathy, unspecified (G60.9) 018 Active confirmed Problem Hypertensive heart disease without congestive heart failure (30861249) Hypertensive heart disease without heart failure (I11.9) 018 Active confirmed Problem Old myocardial infarction (4384827) Old myocardial infarction (I25.2) 018 Active confirmed 2016 Problem History of malignant neoplasm of prostate (467711494) Personal history of malignant neoplasm of prostate (Z85.46) 018 Active confirmed Followed by [facility]. Radiation Aug-Oct 2014 Problem History of urinary stone (354854525) Personal history of urinary calculi (Z87.442) 018 Active confirmed 5092-2834, 2005 Problem Cervical radiculopathy (98982642) Cervical disc disorder w radiculopathy, unsp cervical region (M50.10) 018 Active confirmed Plan Of Treatment No Information Insurance Providers Payer Name Payer Address Payer Phone Subscriber Number Group Number Insured Name Patient Relationship to Insured Coverage Start Date Coverage End Date MEDICARE [address] [place] [address] [id number] Michael Summers Self - patient is the insured 0 BCBS [address] [place] [address] [id number] Michael Summers Self - patient is the insured 8 MEDICARE [address] [place] [address] [id number] Michael Summers Self - patient is the insured 1 8
--- NOTE | 2025-04-23 10:12 | CRLHL7_ITS ---
For Patients: As a result of the Century Cures Act, medical imaging exams and procedure reports are released immediately into your electronic medical record. You may view this report before your referring provider. If you have questions, please contact your health care provider. INDICATION: Chest pain. TECHNIQUE: Chest 1 view. COMPARISON: Chest radiograph dated 08/19/2022. FINDINGS: Unremarkable cardiomediastinal contours. No lung consolidation. No sign of pleural effusion. No pneumothorax. No acute osseous or soft tissue findings. IMPRESSION: No acute findings. Dictated by Patric Phan MD @ 04/23/2025 10:59:58 AM (Electronically Signed)
--- NOTE | 2025-04-23 10:21 | ED.CHESTPAIN ---
HPI - Chest Pain General Chief Complaint: Chest Pain Stated Complaint: was having chest pain- no pain at the moment Time Seen by Provider: 04/23/25 09:57 History of Present Illness HPI narrative: Patient is a 79-year-old gentleman who had approximately 3 seconds of left-sided chest pain approximately 11 hours ago. He does have a history of stenting in 2016 and did take 1 nitroglycerin last night. Patient is on aspirin and a beta blockade as well as Justin inhibitor. He is now feeling fine but is coming in to ensure they did not have a heart attack. EKG upon arrival shows sinus bradycardia. No acute ST or T-wave changes. Patient otherwise is been in his usual state of health. He has no symptoms with activity and had last night symptoms at rest. He has had no palpitations no fevers no chills no changes bowel or bladder no nausea no vomiting. Related Data Home Medications ?Medication ?Instructions ?Recorded ?Confirmed allopurinol 07/20/22 aspirin 07/20/22 allopurinol 300 mg tablet 300 mg PO DAILY 04/23/25 04/23/25 atorvastatin 80 mg tablet 80 mg PO DAILY 04/23/25 04/23/25 lisinopril 10 mg tablet 10 mg PO DAILY 04/23/25 04/23/25 metformin 500 mg tablet,extended 1,000 mg PO BID 04/23/25 04/23/25 release 24 hr metoprolol tartrate 25 mg tablet 25 mg PO BID 04/23/25 04/23/25 nitroglycerin 0.4 mg sublingual mg sublingual 04/23/25 tablet Allergies Allergy/AdvReac Type Severity Reaction Status Date / Time No Known Drug Allergies Allergy Verified 07/20/22 19:54 Review of Systems Status of ROS Reports: 10 or more systems reviewed and unremarkable except as noted in History and below [facility] Medical History Hyperlipidemia ?E78.5 - Hyperlipidemia, unspecified (ICD-10) Hypertension ?I10 - Essential (primary) hypertension (ICD-10) Diabetes ?E11.9 - Type 2 diabetes mellitus without complications (ICD-10) Coronary artery disease ?I25.10 - Atherosclerotic heart disease of [place] coronary artery without angina pectoris (ICD-10) Surgical History History of hip surgery ?Z98.890 - Other specified postprocedural states (ICD-10) H/O knee surgery ?Z98.890 - Other specified postprocedural states (ICD-10) Social History Smoking Status: Never smoker How often do you have a drink containing alcohol: monthly or less AUDIT-C Alcohol total score: 1 Non-prescribed substance use: denies use Exam Narrative Exam Narrative: EXAM GENERAL: Patient appears comfortable and well. EYES: No scleral icterus. LYMPH: No supraclavicular or cervical lymphadenopathy. SKIN: Visible skin seen during exam normal or with benign process only. EXT: No dependent lower extremity pedal edema. HEART: Regular rate and rhythm with no murmurs, rubs, or gallops. LUNGS: Clear to auscultation bilaterally with no crackles or wheezes. ABD: Soft, non tender, non distended. PSYCH: Good eye contact, speech is not pressured. Const Vital Signs, click to edit/add: Vital Signs - 24 hr 04/23/25 09:59 04/23/25 10:04 04/23/25 10:05 Temperature 97.5 F L Pulse Rate 50 L 48 L Pulse Rate [Pulse Oximeter] 49 L Respiratory Rate 18 19 Blood Pressure 140/67 H Blood Pressure [Left Upper Arm] 140/67 H Pulse Oximetry 99 98 98 Oxygen Delivery Method Room Air 04/23/25 10:15 04/23/25 10:30 04/23/25 10:32 Temperature Pulse Rate 52 L 54 L 53 L Pulse Rate [Pulse Oximeter] Respiratory Rate 14 12 Blood Pressure 151/68 H Blood Pressure [Left Upper Arm] Pulse Oximetry 98 98 98 Oxygen Delivery Method Course Course ED Course: Patient seen examined. EKG reviewed. Troponin D-dimer CBC basic metabolic panel chest x-ray pending. Vital Signs Vital signs: Initial Vital Signs Temperature 97.5 F L 04/23/25 09:59 Temperature Source Temporal Artery Scan 04/23/25 09:59 Pulse Rate 49 L 04/23/25 09:59 Respiratory Rate 18 04/23/25 09:59 Blood Pressure 140/67 H 04/23/25 09:59 Blood Pressure Mean 91 04/23/25 09:59 Blood Pressure Position Supine 04/23/25 09:59 Pulse Oximetry 99 04/23/25 09:59 Oxygen Delivery Method Room Air 04/23/25 09:59 Vital Signs Temperature 97.5 F L 04/23/25 09:59 Pulse Rate 49 L 04/23/25 09:59 Respiratory Rate 18 04/23/25 09:59 Blood Pressure 140/67 H 04/23/25 09:59 Pulse Oximetry 99 04/23/25 09:59 Oxygen Delivery Method Room Air 04/23/25 09:59 Temperature 97.5 F L 04/23/25 09:59 Pulse Rate 53 L 04/23/25 10:32 Respiratory Rate 12 04/23/25 10:30 Blood Pressure 151/68 H 04/23/25 10:32 Pulse Oximetry 98 04/23/25 10:32 Oxygen Delivery Method Room Air 04/23/25 09:59 MDM - Chest Pain MDM Narrative Medical decision making narrative: Patient is a 79-year-old gentleman who comes in today 11 hours after a brief 2-3 second episode of left sternal chest pain. He is no other significant symptoms. EKG upon arrival shows normal sinus rhythm. Troponin D-dimer normal. Does have hyperglycemia has a known history of diabetes. He also has myelodysplastic syndrome and has a hemoglobin of 10. At this point I do not believe any further cardiac testing need to be done. Chest x-ray is also unremarkable. I did offer reassurance asked him to continue his current management. Differential diagnosis includes but not limited to unstable angina acute myocardial infarction costochondritis reflux muscle strain. Lab Data Labs: Lab Results 04/23/25 Range/Units 10:47 WBC 2.22 L (4.50-11.00) K/uL RBC 2.71 L (4.30-5.90) m/uL Hgb 10.0 L (13.5-17.5) gm/dL Hct 31.6 L (37.0-53.0) % MCV 117 H (80-100) fL MCH 37 H (26-34) pg MCHC 32 (32-36) gm/dL RDW Coeff of [place] 15.7 H (11.5-15.5) % Plt Count 166 (140-440) K/uL Neut % (Auto) 47.6 (42.0-72.0) % Lymph % (Auto) 38.3 (20-44) % [place] % (Auto) 8.6 (0.0-11.0) % Eos % (Auto) 3.2 (0.0-7.0) % Baso % (Auto) 1.4 (0.0-3.0) % Neut # (Auto) 1.10 L (1.7-7.0) K/uL Lymph # (Auto) 0.90 (0.90-2.90) K/uL [place] # (Auto) 0.20 (0.00-0.90) K/UL Eos # (Auto) 0.10 (0.00-0.50) K/uL Baso # (Auto) 0.00 (0.00-0.30) K/uL Abs Immat Gran (auto) 0.00 (0.00-0.30) K/uL Imm/Tot Granulo (auto) 0.9 % D-Dimer Quant (PE/DVT) 0.27 (0.00-0.50) ug/ml Sodium 136 (135-149) mmol/L Potassium 4.6 (3.6-5.1) mmol/L Chloride 101 (96-114) mmol/L Carbon Dioxide 26 (20-32) mmol/L Anion Gap 9 (7-15) mEq/L BUN 19 (7-30) mg/dL Creatinine 0.8 (0.5-1.5) mg/dL Estimated Creat Clear 56.92 Estimated GFR 91 ml/min Glucose 267 H (60-115) mg/dL Calcium 9.0 (8.4-10.6) mg/dL Troponin I < 0.01 (0.01-0.04) ng/mL Discharge Plan Discharge Clinical Impression: Chest pain Patient Disposition: Home, Self-Care Condition: Stable Instructions: Chest Pain (ED) Additional Instructions: Continue current care Follow-up with your doctor as needed. Activity Level: No Restrictions Discharge Diet: Regular Prescriptions: No Action allopurinol aspirin atorvastatin 80 mg tablet 80 mg PO DAILY lisinopril 10 mg tablet 10 mg PO DAILY nitroglycerin 0.4 mg tablet, sublingual sublingual allopurinol 300 mg tablet 300 mg PO DAILY metformin 500 mg tablet extended release 24 hr 1,000 mg PO BID metoprolol tartrate 25 mg tablet 25 mg PO BID Follow Up/Referrals: Provider,Not a Local [Non-Staff, Family Practice] Stand Alone Forms: MyHealth Info Instructions
[2025-04-23 10:53] LABS: Basophils Percent Auto 1.4 % (0.0-3.0); Eosinophils Percent Auto 3.2 % (0.0-7.0); Hematocrit 31.6 % (37.0-53.0); Immature Granulocytes Pct Auto 0.9 %; Lymphocytes Percent Auto 38.3 % (20-44); Mean Corpuscular HGB Conc 32 gm/dL (32-36); Mean Corpuscular Hemoglobin 37 pg (26-34); Mean Corpuscular Volume 117 fL (80-100); Monocytes Percent Auto 8.6 % (0.0-11.0); Neutrophils Percent Auto 47.6 % (42.0-72.0); Platelet Count* 166 K/uL (140-440); RDW Coefficient of Variation % 15.7 % (11.5-15.5); Red Blood Count 2.71 m/uL (4.30-5.90); White Blood Count* 2.22 K/uL (4.50-11.00)
[2025-04-23 10:55] LABS: Slide Review Reflex No
--- OUTSIDE RECORDS SUMMARY | 2025-04-23 10:55 | XMS_ITS | Patient Health Record ---
Author Organization [facility] Address [address] [place] [address] [address], [place] [address] Care Team Providers Care Enrollment Representative Name Role Phone Mark Tomas [phone] Allergies No Known Allergies Reason For Referral [...] Problem Type II diabetes mellitus without complication (715998661) Type 2 diabetes mellitus without complications (E11.9) 018 Active confirmed Problem Hereditary disorder of nervous system (326642630) Hereditary and idiopathic neuropathy, unspecified (G60.9) 018 Active confirmed Problem Hypertensive heart disease without congestive heart failure (18950319) Hypertensive heart disease without heart failure (I11.9) 018 Active confirmed Problem Old myocardial infarction (4305509) Old myocardial infarction (I25.2) 018 Active confirmed 2016 Problem History of malignant neoplasm of prostate (167766998) Personal history of malignant neoplasm of prostate (Z85.46) 018 Active confirmed Followed by [facility]. Radiation Aug-Oct 2014 Problem History of urinary stone (047798853) Personal history of urinary calculi (Z87.442) 018 Active confirmed 9203-4421, 2005 Problem Cervical radiculopathy (19285303) Cervical disc disorder w radiculopathy, unsp cervical region (M50.10) 018 Active confirmed Plan Of Treatment No Information Insurance Providers Payer Name Payer Address Payer Phone Subscriber Number Group Number Insured Name Patient Relationship to Insured Coverage Start Date Coverage End Date MEDICARE [address] [place] [address] [id number] Michael Summers Self - patient is the insured 0 [employer]BS [address] [place] [address] [id number] Michael Summers Self - patient is the insured 8 MEDICARE [address] [place] [address] [phone] [id number] Michael Summers Self - patient is the insured 1 8
[2025-04-23 11:08] LABS: Chloride* 101 mmol/L (96-114); Potassium* 4.6 mmol/L (3.6-5.1); Sodium* 136 mmol/L (135-149)
[2025-04-23 11:11] LABS: Anion Gap 9 mEq/L (7-15); Blood Urea Nitrogen* 19 mg/dL (7-30); Carbon Dioxide* 26 mmol/L (20-32); Creatinine* 0.8 mg/dL (0.5-1.5); Est. Creatinine Clearance* 56.92; Estimated Glomerular Filt Rate 91 ml/min; Glucose* 267 mg/dL (60-115)
[2025-04-23 11:12] LABS: D Dimer Quantitative* 0.27 ug/ml (0.00-0.50)
[2025-04-23 11:26] LABS: Troponin I* < 0.01 ng/mL (0.01-0.04)
== END 2025-04-23 11:53 | disposition home or self-care (01) ==
PROVIDERS: Emergency Provider Internal Medicine; PCP Student in an Organized Health Care Education/Training Program
DX: R07.9 Chest pain, unspecified (principal)
CPT/HCPCS: 36415; 71045; 80048; 84484; 85025; 85379; 93005; 99283; 99284; 99285

== ENCOUNTER 2025-05-21 14:39 | Outpatient (RCR) | payer MEDICARE, BC, SELFPAY | END 2025-09-18 23:59 | disposition home or self-care (01) | PROVIDERS: PCP Student in an Organized Health Care Education/Training Program; Visit Provider Psychiatry & Neurology Neurology | DX: G30.0 Alzheimer's disease with early onset (principal); F02.80 Dementia in other diseases classified elsewhere, unspecified severity, without behavioral disturbance, psychotic disturbance, mood disturbance, and anxiety; Z51.89 Encounter for other specified aftercare | CPT/HCPCS: 97165; 97535 ==

== ENCOUNTER 2025-08-23 19:35 | Inpatient (IN) | payer MEDICARE, BC, SELFPAY ==
--- OUTSIDE RECORDS SUMMARY | 2025-08-23 19:38 | XMS_ITS | Clinical Summary ---
Author Organization [facility] Address [address] [place] [id number] Care Team Providers Care Business Performance Analyst Name Role Phone Karen Lechuga Primary Care Provider [phone] Theresa Emerson RN Unavailable Araceli Macias NP Unavailable Cynthia Daniels MD Unavailable [phone] Allergies No known active allergies Medications aspirin [...] Each by Continuous Infusion route once daily. 09/17/20 17 Active Garlic 1,000 mg cap Take 1 Capsule by mouth once daily. Active nitroglycerin (NITROSTAT) 0.4 mg sublingual tabletIndications: Atherosclerosis of [place] coronary artery of [place] heart without angina pectoris Place 1 Tablet (0.4 mg) under the tongue every 5 minutes if needed for Chest Pain. 10 Tablet 01/23/20 25 Active donepeziL 5 mg tablet TAKE 1 TABLET BY MOUTH DAILY FOR 30 DAYS THEN TAKE 2 TABLETS BY MOUTH DAILY THEREAFTER 03/09/20 25 Active allopurinoL 300 mg tabletIndications: History of gout Take 1 Tablet (300 mg) by mouth once daily. 90 Tablet 3 04/12/20 25 Active atorvastatin 80 mg tabletIndications: Atherosclerosis of [place] coronary artery of [place] heart without angina pectoris Take 1 Tablet (80 mg) by mouth once daily. 90 Tablet 3 04/12/20 25 Active lisinopriL 10 mg tabletIndications: Hypertension Take 1 Tablet (10 mg) by mouth once daily. 90 Tablet 3 04/12/20 25 Active metoprolol tartrate 25 mg tabletIndications: Hypertension Take 1 Tablet (25 mg) by mouth two times daily. 180 Tablet 3 04/12/20 25 Active metFORMIN 500 mg Extended-Release tabletIndications: Type 2 diabetes mellitus without complication, without long-term current use of insulin (HC) Take 2 Tablets (1,000 mg) by mouth two times daily with meals. 360 Tablet 1 04/13/20 25 Active FreeStyle Haley 3 Plus Sensor for continuous blood glucose monitor (CGM)Indications:T ype 2 diabetes mellitus without complication, without long-term current use of insulin (HC) To be used to read blood sugars, change sensor every 15 days. 6 Each 3 04/20/20 25 Active scaffolder (FreeStyle Haley 3 Morley) for continuous blood glucose monitor (CGM)Indications:T ype 2 diabetes mellitus without complication, without long-term current use of insulin (HC) To be used to read blood sugars follow pulpit operator directions. 1 Each 04/20/20 25 Active chlorthalidone 25 mg tabletIndications: Hypertension Take 0.5 Tablets (12.5 mg) by mouth once daily in the morning. 45 Tablet 3 05/17/20 25 Active glipiZIDE extended-release (GLUCOTROL XL) 2.5 mg Extended-Release tabletIndications: Type 2 diabetes mellitus without complication, without long-term current use of insulin (HC) Take 2 tablets daily (5mg) 90 Tablet 1 06/15/20 25 Active Additional Information Patient taking differently: Take 2 tablets daily (5mg)taking 1 tablet daily, Reported on 08/18/2025 ondansetron (ZOFRAN) 8 mg tabletIndications: MDS (myelodysplastic syndrome) (HC) Take 1 Tablet (8 mg) by mouth every 8 hours if needed for Nausea/Vomiting . 30 Tablet 2 06/18/20 25 Active prochlorperazine (COMPAZINE) 5 mg tabletIndications: MDS (myelodysplastic syndrome) (HC) Take 1 Tablet (5 mg) by mouth every 6 hours if needed for Nausea/Vomiting . 30 Tablet 2 06/18/20 25 Active polyethylene glycoL (Miralax) 17 gram/scoop powder Mix 1 scoop in liquid then take by mouth. 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 Take on days 1-28 of a 28 day cycle 28 Capsule 08/20/20 25 Active metroNIDAZOLE (METROCREAM) 0.75 % cream 08/11/20 25 Active lenalidomide (REVLIMID) 5 mg capsuleIndications :MDS (myelodysplastic syndrome) (HC),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, initial encounter,Need for hepatitis B screening test Take 1 Capsule (5 mg) by mouth once daily. Take on days 1-28 of a 28 day cycle 28 Capsule 07/23/20 25 025 Discontin ued(Reord er (E-cancel not sent)) cephalexin 500 mg capsuleIndications :Cellulitis of external nose Take 1 Capsule (500 mg) by mouth three times daily for 7 days. 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, initial encounter 05/17/2025 Need for hepatitis B screening test 05/17/2025 Dementia in Alzheimer's disease 04/12/2025 MDS (myelodysplastic syndrome) 04/12/2025 Atherosclerosis of [place] co ronary artery of [place] heart without angina pectoris 04/03/2024 Type 2 [...] Encounters Date Type Department Care Team Description 08/23/2025 Telephone [facility] [address] [facility] [place] [address] Karen Lechuga PA Follow Up 08/18/2025 1:15 PM CDT Office Visit [facility] [address] [place] [phone] Araceli Macias NP Follow Up (MDS) 08/18/2025 Telephone [facility] [address] [facility] [place] [address] Cynthia Daniels MD 08/18/2025 Orders Only [facility] Scanner 1 scan: (1-Ord) INCOMING RECORDS-PATHOLOGY, [facility], 08/18/2025 08/18/2025 Travel 08/16/2025 1:00 PM CDT Orders Only [facility] [address] [place] [address] Lab, [place] [facility] 08/16/2025 Travel 08/11/2025 Orders Only [facility] Scanner 1 scan: (1-Ord) TAREEN DERMATOLOGY, SHAVE BIOPSY, FOREHEAD, 08/11/2025 08/04/2025 1:00 PM CDT Orders Only [facility] [address] [facility] [address] [place] [address] <No scans attached> 08/04/2025 Travel 07/21/2025 1:30 PM CDT Office Visit [facility] [address] [facility] [address] [place] [address] Cynthia Daniels MD Follow Up (MDS) 07/20/2025 3:25 PM CDT Office Visit [facility] [address] [place] [address] Frances Lake PA Nose Problem (Red, swollen, had a pimple that has popped; x 5 days) 07/20/2025 2:30 PM CDT Orders Only [facility] [address] [facility] [address] [facility] [place] [facility] 07/20/2025 Travel 07/16/2025 Nurse Triage [facility] [address] [place] [address] Karen Lechuga PA Low Blood Sugar 07/14/2025 Refill [facility] [address] [place] [address] Araceli Macias, WASTEWATER PROJECT ENGINEER Refill Request (Revlimid) 07/08/2025 12:45 PM CDT Office Visit [facility] [address] [facility] [place] [phone] Araceli Macias, WASTEWATER PROJECT ENGINEER Follow Up (MDS) 07/08/2025 11:45 AM CDT - 07/08/2025 11:59 PM CDT Hospital Encounter [facility] [address] [facility] [place] [address] MDS (myelodysplastic syndrome) (HC) 07/08/2025 Travel 07/08/2025 Telephone [facility] [address] [place] [phone] Araceli Macias, WASTEWATER PROJECT ENGINEER Follow Up 07/08/2025 Telephone [facility] [address] [place] [address] Cynthia Daniels MD [facility] 06/21/2025 11:15 AM CDT Orders Only [facility] [address] [facility] [place] [address] Lab, [place] [facility] 06/21/2025 Telephone [facility] [address] [facility] [place] [phone] Araceli Macias, WASTEWATER PROJECT ENGINEER Medication Management 06/21/2025 Travel 06/15/2025 10:20 AM CDT Office Visit [facility] [address] [place] [place] [address] Karen Lechuga PA Follow Up (Discuss Driving) 06/14/2025 11:15 AM CDT Office Visit [facility] [address] [facility] [place] [phone] Araceli Macias, WASTEWATER PROJECT ENGINEER Follow Up (MDS) 06/14/2025 10:30 AM CDT - 06/14/2025 11:59 PM CDT Hospital Encounter [facility] [address] [place] [address] MDS (myelodysplastic syndrome) (HC) 06/14/2025 Travel 06/08/2025 Telephone [facility] [address] [place] [address] Karen Lechuga PA Follow Up 06/04/2025 Telephone [facility] [address] [place] [address] Bekah Fuller RN Diabetes (CGM report review) 05/27/2025 Telephone [facility] [address] [place] [address] Bekah Fuller RN Diabetes (Discuss glucose results via Haley CGM report) 05/24/2025 Telephone [facility] [address] [place] [address] Karen Lechuga PA Referral from Last 3 Months Immunizations Immunization Administration [...] on file Legal 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 Gender Identity Not on file Sexual Orientation Not on file 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 Not on file Not on file Not on file Obstetrics History Last Filed Vital Signs Vital Sign Reading Time Taken Comments Blood Pressure 132/60 08/18/2025 1:14 PM CDT Pulse 42 08/18/2025 1:14 PM CDT Temperature 36.3 C (97.3 F) 08/18/2025 1:08 PM CDT Respiratory Rate 16 08/18/2025 1:08 PM CDT Oxygen Saturation 100% 08/18/2025 1:08 PM CDT Inhaled Oxygen Concentration - - Weight 73.8 kg (162 lb 9.6 oz) 08/18/2025 1:08 P M CDT Height 170.2 cm (5' 7) 04/12/2025 1:03 PM CDT Body Mass Index 25.47 04/12/2025 1:03 PM CDT Plan of Treatment Upcoming Encounters Date Type Department Care Team (Late st Contact Info) Description 08/25/2025 1:00 PM CDT Orders Only [facility] [address] [address] 09/01/2025 1:00 PM CDT Orders Only [facility] [address] [address] 09/08/2025 11:00 AM CDT Orders Only [facility] [address] [address] 09/14/2025 2:30 PM LIFTS AND CRANES INSPECTOR Office Visit [facility] [address] [place] [address] Cynthia Daniels MD [address] [place] [address] Health Maintenance Due Date Last Done Comments COVID-19 vaccine series (#1) 1950 RSV vaccine for adults or (1 - 1-dose 75+ series) 2021 Influenza Vaccine (#1) 2025 , 09/04/2022, 08/21/2019, Additional history exists BMI (ht and wt on same day) for age 18+ 04/12/2026 04/12/2025, 03/12/2025, 04/03/2024, Additional history exists Depression screening for age 12+ 04/12/2026 04/12/2025, 04/12/2025, 04/03/2024, Additional history exists Medicare Wellness for age 65+ 04/13/2026 04/12/2025, 04/03/2024 Tetanus booster 06/04/2029 06/04/2019, 08/, 05/28/2007, Additional history exists Zoster (shingles) series for age 50+ Completed 02/20/2021, 07/21/2020, 07/30/2007, Additional history exists Hepatitis C screening for age 18-79 Completed 07/19/2023 Pneumococcal series for age 50+ Completed 04/03/2024, 08/16/2015, 04/12/2015, Additional history exists Hepatitis B series for 19+ Aged Out N o longer eligible based on patient's age to complete this topic Procedures Procedure Name Priority Date/Time Associated Diagnosis Comments SCAN CORRESP-LABORATORY RESULTS 08/18/2025 12:00 AM CDT CWS PATH REVIEW HEMATOLOGY STAT 08/16/2025 1:01 PM CDT MDS (myelodysplastic syndrome) (HC) 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, initial encounter Need for hepatitis B screening test RED CELL MORPHOLOGY STAT 08/16/2025 1 :01 PM CDT MDS (myelodysplastic syndrome) (HC) 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, initial encounter Need for hepatitis B screening test PLATELET ESTIMATE STAT 08/16/2025 1:0 1 PM CDT MDS (myelodysplastic syndrome) (HC) 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, initial encounter Need for hepatitis B screening test COMP METABOLIC PANEL STAT 08/16/2025 1:01 PM CDT MDS (myelodysplastic syndrome) (HC) 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, initial encounter Need for hepatitis B screening test ONCOLOGY ABSOLUTE NEUTROPHIL COUNT STAT 08/16/2025 1:01 PM CDT MDS (myelodysplastic syndrome) (HC) 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, initial encounter Need for hepatitis B screening test SCAN-OPERATIVE/PROCE DURE REPORT 08/11/2025 12:00 AM CDT CBC WITH AUTO DIFFERENTIAL Routine 08/04/2025 12:56 PM CDT MDS (myelodysplastic syndrome) (HC) CBC WITH AUTO DIFFERENTIAL Routine 08/04/2025 12:56 PM CDT MDS (myelodysplastic syndrome) (HC) CWS PATH REVIEW HEMATOLOGY STAT 07/20/2025 2:34 PM CDT MDS (myelodysplastic syndrome) (HC) 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, initial encounter Need for hepatitis B screening test RED CELL MORPHOLOGY STAT 07/20/2025 2 :34 PM CDT MDS (myelodysplastic syndrome) (HC) 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, initial encounter Need for hepatitis B screening test PLATELET ESTIMATE STAT 07/20/2025 2:3 4 PM CDT MDS (myelodysplastic syndrome) (HC) 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, initial encounter Need for hepatitis B screening test MANUAL DIFFERENTIAL STAT 07/20/2025 2 :34 PM CDT MDS (myelodysplastic syndrome) (HC) 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, initial encounter Need for hepatitis B screening test COMP METABOLIC PANEL STAT 07/20/2025 2:34 PM CDT MDS (myelodysplastic syndrome) (HC) 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, initial encounter Need for hepatitis B screening test ONCOLOGY ABSOLUTE NEUTROPHIL COUNT STAT 07/20/2025 2:34 PM CDT MDS (myelodysplastic syndrome) (HC) 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, initial encounter Need for hepatitis B screening test CBC WITH AUTO DIFFERENTIAL Timed 07/08/2025 12:04 PM CDT MDS (myelodysplastic syndrome) (HC) COMP METABOLIC PANEL Today 07/08/2025 12:04 PM CDT MDS (myelodysplastic syndrome) (HC) CBC WITH AUTO DIFFERENTIAL Today 07/08/2025 12:04 PM CDT MDS (myelodysplastic syndrome) (HC) COMP METABOLIC PANEL STAT 06/21/2025 11:13 AM CDT MDS (myelodysplastic syndrome) (HC) 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, initial encounter Need for hepatitis B screening test ONCOLOGY ABSOLUTE NEUTROPHIL COUNT STAT 06/21/2025 11:13 AM CDT MDS (myelodysplastic syndrome) (HC) 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, initial encounter Need for hepatitis B screening test TSH WITH REFLEX Routine 06/21/2025 11:13 AM CDT MDS (myelodysplastic syndrome) (HC) 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, initial encounter Need for hepatitis B screening test ANTI HBC Routine 06/21/2025 11:13 AM CDT MDS (myelodysplastic syndrome) (HC) 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, initial encounter Need for hepatitis B screening test HBSAG (HBS) Routine 06/21/2025 11:13 AM CDT MDS (myelodysplastic syndrome) (HC) 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, initial encounter Need for hepatitis B screening test CBC WITH AUTO DIFFERENTIAL Timed 06/14/2025 10:42 AM CDT MDS (myelodysplastic syndrome) (HC) COMP METABOLIC PANEL Today 06/14/2025 10:42 AM CDT MDS (myelodysplastic syndrome) (HC) CBC WITH AUTO DIFFERENTIAL Today 06/14/2025 10:42 AM CDT MDS (myelodysplastic syndrome) (HC) SCAN CORRESP-EKG RESULTS 06/02/2025 1:15 PM CDT SCAN CORRESP-LABORATORY RESULTS 06/02/2025 1:15 PM CDT ANTI HCV Routine 07/19/2023 2:29 PM CDT Encounter for hepatitis C screening test for low risk patient from Last 3 Months or Most Recently Relevant to Health Maintenance Results * SCAN CORRESP-LABORATORY RESULTS (08/18/2025 12:00 AM CDT) Only the most recent of2 resultswithin the time period is included. us Scanner OTHER Final Result * (ABNORMAL) ONCOLOGY ABSOLUTE NEUTROPHIL COUNT (08/16/2025 1:01 PM CDT) Only the most recent of3 resultswithin the time period is included. WHITE BLOOD COUNT 1.8(L) 4.5 - 11.0 thou/cu mm 08/16/2025 2:51 PM [facility] RED BLOOD COUNT 3.05(L) 4.30 - 5.90 mil/cu mm 08/16/2025 2:51 PM [facility] HEMOGLOBIN 10.3(L) 13.5 - 17.5 g/dL 08/16/2025 2:51 PM [facility] HEMATOCRIT 31.2(L) 37.0 - 53.0 % 08/16/2025 2:51 PM [facility] MCV 102(H) 80 - 100 fL 08/16/2025 2:51 PM [facility] MCH 33.8 26.0 - 34.0 pg 08/16/2025 2:51 PM [facility] MCHC 33.0 32.0 - 36.0 g/dL 08/16/2025 2:51 PM [facility] RDW 14.1 11.5 - 15.5 % 08/16/2025 2:51 PM [facility] PLATELET COUNT 59(L) 140 - 440 thou/cu mm 08/16/2025 2:51 PM [facility] MPV 12.1(H) 6.5 - 11.0 fL 08/16/2025 2:51 PM [facility] % NEUT 35.3 % 08/16/2025 2:51 PM [facility] % LYMPH 50.5 % 08/16/2025 2:51 PM [facility] % MONO 8.2 % 08/16/2025 2:51 PM [facility] % EOS 4.9 % 08/16/2025 2:51 PM [facility] % BASO 1.1 % 08/16/2025 2:51 PM T [facility] ONCOLOGY ABSOLUTE NEUTROPHILS 0.6(L) 1.7 - 7.0 thou/cu mm 08/16/2025 2:51 PM [facility] ABSOLUTE LYMPHOCYTES 0.9 0.9 - 2.9 thou/cu mm 08/16/2025 2:51 PM [facility] ABSOLUTE MONOCYTES 0.2 <0.9 thou/cu mm 08/16/2025 2:51 PM [facility] ABSOLUTE EOSINOPHILS 0.1 <0.5 thou/cu mm 08/16/2025 2:51 PM [facility] ABSOLUTE BASOPHILS 0.0 <0.3 thou/cu mm 08/16/2025 2:51 PM [facility] NRBC 08/16/2025 2:51 PM [facility] ABS NRBC 08/16/2025 2:51 PM [facility] Blood BLOOD SPECIMEN / Unknown [facility] / Unknown 08/16/2025 1:01 PM CDT 08/16/2025 1:02 PM CDT [facility] - 08/16/2025 2:51 PM CDT Includes CBC and differential. us Cynthia Daniels MD HEMATOLOGY Final Resu lt [facility] [address] [place] [address] * CWS PATH REVIEW HEMATOLOGY (08/16/2025 1:01 PM CDT) Only the most recent of2 resultswithin the time period is included. PATH COMMENT Reviewed by Jovita Henderson MT, MS (ASCP) on 08/18/2025. 08/19/2025 9:27 AM CDT [facility] Blood BLOOD SPECIMEN / Unknown [facility] / Unknown 08/16/2025 1:01 PM CDT 08/16/2025 1:02 PM CDT Cynthia Daniels MD LABORATORY Final Resu lt [facility] [address] [place] [address], [place] * (ABNORMAL) RED CELL MORPHOLOGY (08/16/2025 1:01 PM CDT) Only the most recent of2 resultswithin the time period is included. Pathologist [facility] ACANTHOCYTES Few 08/16/2025 2:51 PM CDT [facility] ELLIPTOCYTES Moderate 08/16/2025 2:51 PM CDT [facility] RBC COMMENT Present(A) RBC morphology appears normal, RBC morphology within normal limits for newborns. 08/16/2025 2:51 PM CDT [facility] Blood BLOOD SPECIMEN / Unknown [facility] / Unknown 08/16/2025 1:01 PM CDT 08/16/2025 1:02 PM CDT Narrative [facility] - 08/16/2025 2:51 PM CDT Includes CBC and differential. Cynthia Daniels MD HEMATOLOGY Final Resu lt [facility] [address] [place] [address] * (ABNORMAL) PLATELET ESTIMATE (08/16/2025 1:01 PM CDT) Only the most recent of2 resultswithin the time period is included. PLATELET ESTIMATE Decreased (A) Adequate, No estimate 08/16/2025 2:51 PM CDT [facility] Blood BLOOD SPECIMEN / Unknown [facility] Collect / Unknown 08/16/2025 1:01 PM CDT 08/16/2025 1:02 PM CDT [facility] LABORATORY - 08/16/2025 2:51 PM CDT Includes CBC and differential. us Cynthia Daniels MD HEMATOLOGY Final Resu lt [facility] [address] [place] [address] * (ABNORMAL) COMP METABOLIC PANEL (08/16/2025 1:01 PM CDT) Only the most recent of5 resultswithin the time period is included. SODIUM 139 136 - 145 mmol/L 08/16/2025 2:49 PM [facility] POTASSIUM 3.8 3.5 - 5.1 mmol/L 08/16/2025 2:49 PM [facility] CHLORIDE 102 98 - 107 mmol/L 08/16/2025 2:49 PM [facility] CO2,TOTAL 28 22 - 29 mmol/L 08/16/2025 2:49 PM [facility] ANION GAP 9 5 - 18 08/16/2025 2:49 PM [facility] GLUCOSE 188(H) 70 - 99 mg/dL 08/16/2025 2:49 PM [facility] CALCIUM 9.4 8.8 - 10.4 mg/dL 08/16/2025 2:49 PM [facility] Comment: Reference ranges for this test were updated on 09/15/2024 to reflect our healthy population more accurately. Reference range changes are not retroactively applied to results, but previous results using the same methodology can be interpreted in the context of the new reference range. BUN 19 8 - 23 mg/dL 08/16/2025 2:49 PM [facility] CREATININE 1.10 0.70 - 1.20 mg/dL 08/16/2025 2:49 PM [facility] BUN/CREAT RATIO 17 10 - 20 2:49 PM CDT [facility] eGFR 68(L) >90 mL/min/1. 73m2 08/16/2025 2:49 PM [facility] Comment:As of 2022, eG FR is calculated by the CKD-EPI creatinine equation without race adjustment. eGFR can be influenced by muscle mass, exercise, and diet. The reported eGFR is an estimation only and is only applicable if the renal function is stable. ALBUMIN 4.4 4.0 - 4.9 g/dL 08/16/2025 2:49 PM T [facility] PROTEIN,TOTAL 7.4 6.0 - 8.0 g/dL 08/16/2025 2:49 PM [facility] BILIRUBIN,TOTAL 1.8(H) 0.0 - 1.2 mg/dL 08/16/2025 2:49 PM [facility] ALK PHOSPHATASE 91 40 - 129 IU/L 08/16/2025 2:49 PM [facility] ALT (SGPT) 25 10 - 50 IU/L 08/16/2025 2:49 PM [facility] AST (SGOT) 29 10 - 50 IU/L 08/16/2025 2:49 PM [facility] Blood BLOOD SPECIMEN / Unknown [facility] Collect / Unknown 08/16/2025 1:01 PM CDT 08/16/2025 1:02 PM CDT us Cynthia Daniels MD CHEMISTRY Final Resu lt [facility] [address] [place] [address] * SCAN-OPERATIVE/PROCEDURE REPORT (08/11/2025 12:00 AM CDT) us Scanner OTHER Final Result * (ABNORMAL) CBC WITH AUTO DIFFERENTIAL (08/04/2025 12:56 PM CDT) Only the most recent of3 resultswithin the time period is included. WHITE BLOOD CELL COUNT 1.7(L) 3.8 - 10.8 Thousand/ uL 08/05/2025 6:10 AM CDT [facility] RED BLOOD CELL COUNT 2.66(L) 4.20 - 5.80 Million/u L 08/05/2025 6:10 AM CDT [facility] HEMOGLOBIN 9.2(L) 13.2 - 17.1 g/dL 08/05/2025 6:10 AM CDT [facility] HEMATOCRIT 28.0(L) 38.5 - 50.0 % 08/05/2025 6:10 AM CDT [facility] MCV 105.3(H) 80.0 - 100.0 fL 08/05/2025 6:10 AM CDT [facility] MCH 34.6(H) 27.0 - 33.0 pg 08/05/2025 6:10 AM CDT [facility] MCHC 32.9 32.0 - 36.0 g/dL 08/05/2025 6:10 AM CDT [facility] Comment: For adults, a slight decrease in the calculated MCHC value (in the range of 30 to 32 g/dL) is most likely not clinically significant; however, it should be interpreted with caution in correlation with other red cell parameters and the patient's clinical condition. RDW 15.0 11.0 - 15.0 % 08/05/2025 6:10 AM CDT [facility] PLATELET COUNT 66(L) 140 - 400 Thousand/ uL 08/05/2025 6:10 AM CDT [facility] MPV 13.2(H) 7.5 - 12.5 fL 08/05/2025 6:10 AM CDT [facility] NEUTROPHILS 36.8 % 08/05/2025 6:10 AM CDT [facility] [facility] LYMPHOCYTES 48.2 % 08/05/2025 6:10 AM CDT [facility] MONOCYTES 7.8 % 08/05/2025 6:10 AM CDT [facility] EOSINOPHILS 6.6 % 08/05/2025 6:10 AM CDT [facility] BASOPHILS 0.6 % 08/05/2025 6:10 AM CDT [facility] ABSOLUTE NEUTROPHILS 626(L) 1500 - 7800 cells/uL 08/05/2025 6:10 AM CDT [facility] ABSOLUTE LYMPHOCYTES 819(L) 850 - 3900 cells/uL 08/05/2025 6:10 AM CDT [facility] ABSOLUTE MONOCYTES 133(L) 200 - 950 cells/uL 08/05/2025 6:10 AM CDT [facility] ABSOLUTE EOSINOPHILS 112 15 - 500 cells/uL 08/05/2025 6:10 AM CDT [facility] ABSOLUTE BASOPHILS 10 0 - 200 cells/uL 08/05/2025 6:10 AM CDT [facility] CBC (INCLUDES DIFF/PLT) COMMENTS SEE NOTE 08/05/2025 6:10 AM CDT [facility] Comment: Review of the peripheral smear reveals decreased numbers of platelets. PERFORMED BY [facility] [address] [place] [phone] [address] JESSY SALGADO M.D. CLIA: [id number] Blood BLOOD SPECIMEN / Unknown [facility] / Unknown 08/04/2025 12:56 PM CDT 08/04/2025 12:56 PM CDT us Cynthia Daniels MD HEMATOLOGY Final Resu lt [facility] [address] [place] [address], [place] [phone] [facility] [address] [place] [address], [place] * (ABNORMAL) MANUAL DIFFERENTIAL (07/20/2025 2:34 PM CDT) % NEUTROPHILS 41.0 % 07/20/2025 8:02 PM CDT [facility] % LYMPHOCYTES 43.0 % 07/20/2025 8:02 PM [facility] % MONOCYTES 10.0 % 07/20/2025 8:02 PM [facility] % EOSINOPHILS 5.0 % 07/20/2025 8:02 PM [facility] % BASOPHILS 0.0 % 07/20/2025 8:02 PM [facility] % MYELOCYTES 1.0(H) <0.1 % 07/20/2025 8:02 PM [facility] NEUTROPHILS ABSOLUTE 0.9(L) 1.7 - 7.0 thou/cu mm 07/20/2025 8:02 PM [facility] LYMPHOCYTES ABSOLUTE 0.9 0.9 - 2.9 thou/cu mm 07/20/2025 8:02 PM [facility] MONOCYTES ABSOLUTE 0.2 <0.9 thou/cu mm 07/20/2025 8:02 PM [facility] EOSINOPHILS ABSOLUTE 0.1 <0.5 thou/cu mm 07/20/2025 8:02 PM [facility] BASOPHILS ABSOLUTE 0.0 <0.3 thou/cu mm 07/20/2025 8:02 PM [facility] ABSOLUTE MYELOCYTES 0.0 <=0.0 thou/cu mm 07/20/2025 8:02 PM [facility] Blood BLOOD SPECIMEN / Unknown [facility] / Unknown 07/20/2025 2:34 PM CDT 07/20/2025 2:34 PM CDT Narrative [facility] - 07/20/2025 8:02 PM CDT Includes CBC and differential. us Araceli Macias NP HEMATOLOGY Final Result [facility] [address] [place] [address] * TSH WITH REFLEX (06/21/2025 11:13 AM CDT) TSH W/REFLEX TO FT4 1.93 0.40 - 4.50 mIU/L [facility] Blood BLOOD SPECIMEN / Unknown 06/21/2025 11:13 AM CDT 06/21/2025 11:14 AM CDT us Araceli Baeza Colleen JAMES CHEMISTRY Final Result Performing Organization Address [facility] Co de Phone Number [facility] [address] [place] [phone], [facility] [address] [place] [address] * HBSAG (HBS) (06/21/2025 11:13 AM CDT) HEPATITIS B SURFACE ANTIGEN NON-REACTI VE NON-REACTI VE [facility] Comment: For additional information, please refer to http://[employer]/faq/DFX152 (This link is being provided for informational/ educational purposes only.) Blood BLOOD SPECIMEN / Unknown 06/21/2025 11:13 AM CDT 06/21/2025 11:14 AM CDT us Araceli Macias NP SEND OUTS Final Result Performing Organization Address [facility] Co de Phone Number [facility] [address] [phone], [facility] [address] [place] [address] * ANTI HBC (06/21/2025 11:13 AM CDT) HEPATITIS B CORE AB TOTAL NON-REACTI VE NON-REACTI VE [facility] Comment: For additional information, please refer to http://[employer]/faq/CRF037 (This link is being provided for informational/ educational purposes only.) Blood BLOOD SPECIMEN / Unknown 06/21/2025 11:13 AM CDT 06/21/2025 11:14 AM CDT us Araceli Macias NP SEND OUTS Final Result [facility] [employer] [facility] [address] [place] [address], [place] [phone] [facility] [address] [place] [address] * SCAN CORRESP-EKG RESULTS (06/02/2025 1:15 PM CDT) Narrative 06/02/2025 1:15 PM CDT Ordered by an unspecified provider. Other Clinical Staff OTHER Final Resul t * ANTI HCV (07/19/2023 2:29 PM CDT) HEPATITIS C ANTIBODY Non-Reacti ve Non-React naupam 07/20/2023 6:48 AM CDT [facility] Comment:Please note, per www .CDC.gov: [...] 2:29 PM CDT 07/19/2023 2:29 PM CDT Karen THOMAS SEND OUTS Final Res ult [facility] [address] [address], from Last 3 Months or Most Recently Relevant to Health Maintenance Insurance MEDICARE PART B HB ONLY MEDICARE PART A HB ONLY [place] HB ONLY [place] MR PB ONLY Care Teams Business Performance Analyst Relationship Specialty Start Date End Date Karen Lechuga PA [address] [place] [address] PCP - General Physician Stock Holder 04/09/25 Theresa Emerson, RN [address] [facility] [place] [address] Nurse Navigator - Oncology Registered Nurse 04/14/25 Araceli Macias, WASTEWATER PROJECT ENGINEER [address] [facility] [place] [address] Oncology 05/04/25 Cynthia Daniels MD [address] [facility] [place] [address] Oncology 05/04/25
--- OUTSIDE RECORDS SUMMARY | 2025-08-23 19:38 | XMS_ITS | Clinical Summary ---
Author Organization [place] Address [facility]ly [facility] 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 Gender Identity Not on file Sexual Orientation [...] on file Medical Devices Implanted Type Area Handbag Designer Device Identifier Shelf Expiration Date Model / Serial / Lot Graft Bone Magnifuse [id number] - [id number] Implanted:Qty : 1 on 08/03/2021 by John Champion MD at [facility] Bone/Tissue/ Biologic N/A: Spine Lumbar [employer] 06/08/2023 [id number] / [id number] / Bone Cement Simplex Full Dose [id number] Implanted:Qty : 1 on 03/31/2018 by Fidel Hatfield MD at [facility] Cement, Bone Left: Knee [employer] 06/10/2020 [id number] / / [id number] Imp Plate Tibial Zim Nexgen Size 5 Implanted:Qty : 1 on 03/31/2018 by Fidel Hatfield MD at [facility] Metallic Hardware/Anc hor Left: Knee [employer] 11/10/2027-5980-04 7- / / [id number] Imp Comp Fem Zim Nexgen Lps Ef 7-10 17mm [id number] Implanted:Qty : 1 on 03/31/2018 by Fidel Hatfield MD at [facility] Total Joint Component/In sert Left: Knee [employer] 06/10/2027-5996-17 -51 / / [id number] Imp Art Surface Zim Nexgen Lps Gh 5-6 10mm [id number] Implanted:Qty : 1 on 03/31/2018 by Fidel Hatfield MD at [facility] Total Joint Component/In sert Left: Knee [employer] 03/10/2025-5964-04 2-10 / / [id number] Imp Comp Patella Zim Nexgen 9.0x35mm Implanted:Qty : 1 on 03/31/2018 by Fidel Hatfield MD at [facility] Total Joint Component/In sert Left: Knee [employer] 02/08/2026-5972-06 5-35 / / [id number] Creo Locking Cap Implanted:Qty : 4 on 08/03/2021 by John Champion MD at [facility] N/A: Spine Lumbar [employer] 1119.0000 / / [id number] 5.5mm Curved Brenden 45mm Implanted:Qty : 2 on 08/03/2021 by John Champion MD at [facility] N/A: Spine Lumbar [employer] 1119.7045 / / 8007 [id number] 5.5mm Cross Connector 48-60 Implanted:Qty : 1 on 08/03/2021 by John Champion MD at [facility] N/A: Spine Lumbar [employer] 1119.0046 / / 8007 [id number] Rise Spacer [id number], 7-14 Implanted:Qty : 1 on 08/03/2021 by John Champion MD at [facility] N/A: Spine Lumbar [employer] 193.103 / / 8008 [id number] Creo Screw 6.5x45mm Implanted:Qty : 2 on 08/03/2021 by John Champion MD at [facility] N/A: Spine Lumbar [employer] 5119.1645 / / 8007 [id number] Creo Screw 7.5x40mm Implanted:Qty : 1 on 08/03/2021 by John Champion MD at [facility] N/A: Spine Lumbar [employer] 5119.1740 / / 8007 [id number] Creo Screw 6.5x40mm Implanted:Qty : 1 on 08/03/2021 by John Champion MD at [facility] N/A: Spine Lumbar [employer] 5119.1640 / / 8007 [id number] Insurance MEDICARE [place] [employer] Advance Directives For more information, please contact: [phone] Documents on File Type Date Recorded Patient Medical Investigator Expl anation Advance Directives and Living Will [...] 10:43 AM 04/02/2018 4:35 PM Care Teams Analytical Scientist Relationship Specialty Start Date End Date Clinic, Home, [place] PCP - General 07/06/21
--- OUTSIDE RECORDS SUMMARY | 2025-08-23 19:38 | XMS_ITS | Patient Health Record ---
Author Organization [facility] Address [address] [place] [address] DR FERRERA, MOLINA [address] Care Team Providers Care Reflexologist Name Role Phone Mark Tomas [phone] Allergies No Known Allergies Reason For Referral [...] Problem Type II diabetes mellitus without complication (467633523) Type 2 diabetes mellitus without complications (E11.9) 018 Active confirmed Problem Hereditary disorder of nervous system (945115501) Hereditary and idiopathic neuropathy, unspecified (G60.9) 018 Active confirmed Problem Hypertensive heart disease without congestive heart failure (03487470) Hypertensive heart disease without heart failure (I11.9) 018 Active confirmed Problem Old myocardial infarction (1563019) Old myocardial infarction (I25.2) 018 Active confirmed 2016 Problem History of malignant neoplasm of prostate (704005580) Personal history of malignant neoplasm of prostate (Z85.46) 018 Active confirmed Followed by [facility]. Radiation Aug-Oct 2014 Problem History of urinary stone (686587928) Personal history of urinary calculi (Z87.442) 018 Active confirmed 8029-2468, 2005 Problem Cervical radiculopathy (08531517) Cervical disc disorder w radiculopathy, unsp cervical region (M50.10) 018 Active confirmed Plan Of Treatment No Information Insurance Providers Payer Name Payer Address Payer Phone Subscriber Number Group Number Insured Name Patient Relationship to Insured Coverage Start Date Coverage End Date MEDICARE [address] [place] [address] [id number] Michael Summers Self - patient is the insured 0 BCBS [address] [place] [address] [id number] Michael Summers Self - patient is the insured 8 MEDICARE [address] [place] [address] [id number] Michael Summers Self - patient is the insured 1 8
--- OUTSIDE RECORDS SUMMARY | 2025-08-23 19:38 | XMS_ITS | Patient Health Record ---
Author Organization [place] [employer] [facility] Address [address] [facility] 1 [facility] [place] [place] [address] Care Team Providers Care Plant Supervisor Name Role Phone Mark Tomas [phone] Allergies No Known Allergies Reason For Referral [...] Problem Type II diabetes mellitus without complication (193428475) Type 2 diabetes mellitus without complications (E11.9) 018 Active confirmed Problem Hereditary disorder of nervous system (087421145) Hereditary and idiopathic neuropathy, unspecified (G60.9) 018 Active confirmed Problem Hypertensive heart disease without congestive heart failure (80591266) Hypertensive heart disease without heart failure (I11.9) 018 Active confirmed Problem Old myocardial infarction (1734981) Old myocardial infarction (I25.2) 018 Active confirmed 2016 Problem History of malignant neoplasm of prostate (042552186) Personal history of malignant neoplasm of prostate (Z85.46) 018 Active confirmed Followed by [facility]. Radiation Aug-Oct 2014 Problem History of urinary stone (765338570) Personal history of urinary calculi (Z87.442) 018 Active confirmed 7280-0080, 2005 Problem Cervical radiculopathy (41924365) Cervical disc disorder w radiculopathy, unsp cervical region (M50.10) 018 Active confirmed Plan Of Treatment No Information Insurance Providers Payer Name Payer Address Payer Phone Subscriber Number Group Number Insured Name Patient Relationship to Insured Coverage Start Date Coverage End Date MEDICARE [address] [place] [address] [phone] [id number] Michael Summers Self - patient is the insured 0 BCBS [address] [place] [address] [id number] Michael Summers Self - patient is the insured 8 MEDICARE [address] [place] [address] [phone] [id number] Michael Summers Self - patient is the insured 1 8
[2025-08-23 19:44] VITALS: BP 154/80; PULSE 54; RESP 16; TEMP 36.8; O2SAT 98; BMI 25.1
--- NOTE | 2025-08-23 20:04 | ED.GENADULT ---
HPI - General Adult General Time Seen by Provider: 20:04 Date Seen: 08/23/25 Chief complaint: Post Op Complication Stated complaint: swollen face post surgery Time Seen by Provider: 08/23/25 20:04 Source: patient, RN notes reviewed and old records reviewed Mode of arrival: ambulatory Limitations: no limitations History of Present Illness HPI narrative: Michael is a very pleasant 80-year-old gentleman, [place] with a history of myelodysplastic syndrome, diabetes, low platelets, recent surgery to remove a skin cancer on the frontal scalp who comes to the emergency room with his yazmin for evaluation regarding puffy eyes low-grade fever and spreading redness. 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 No complications at that time. This afternoon he noticed that his eyelids were more swollen and his forehead was read. They did not note any drainage from this area. Unfortunately he also had a low-grade fever at home at 99.4. He has discomfort more on the left side of his forehead. He thinks perhaps his throat is slightly sore. No runny nose and no cough. While notes no history of MRSA. On SaturdayAugust 18 lateral was taken off of his Revlimid because of low platelets. Related Data Home Medications ?Medication ?Instructions ?Recorded ?Confirmed aspirin 07/20/22 06/16/25 allopurinol 300 mg tablet 300 mg PO DAILY 04/23/25 06/16/25 atorvastatin 80 mg tablet 80 mg PO DAILY 04/23/25 06/16/25 lisinopril 10 mg tablet 10 mg PO DAILY 04/23/25 06/16/25 metformin 500 mg tablet,extended 1,000 mg PO BID 04/23/25 06/16/25 release 24 hr metoprolol tartrate 25 mg tablet 25 mg PO BID 04/23/25 06/16/25 nitroglycerin 0.4 mg sublingual mg sublingual 04/23/25 06/16/25 tablet chlorthalidone 25 mg tablet 12.5 mg PO QAM 06/16/25 06/16/25 glipizide 2.5 mg tablet, extended mg PO 06/16/25 06/16/25 release 24 hr Allergies Allergy/AdvReac Type Severity Reaction Status Date / Time No Known Drug Allergies Allergy Verified 08/23/25 22:02 Review of Systems Status of ROS: Reports: 10 or more systems reviewed and unremarkable except as noted in History and below Const: Reports: fever and fatigue; Denies: chills Eyes: Denies: change in vision ENMT: Reports: throat pain; Denies: neck pain, throat swelling, difficulty swallowing, hoarseness or nasal congestion Cardio: Denies: chest pain or shortness of breath with exertion Resp: Denies: shortness of breath or cough GI: Denies: abdominal pain, nausea, vomiting or difficulty swallowing Musculo: Denies: neck pain Integ/Breast: Reports: redness, skin pain, skin tenderness and skin swelling Neuro: Denies: headache Endo: Reports: fatigue Allergy/Immuno: Denies: throat swelling [facility] Medical History Hyperlipidemia ?E78.5 - Hyperlipidemia, unspecified (ICD-10) Hypertension ?I10 - Essential (primary) hypertension (ICD-10) Diabetes ?E11.9 - Type 2 diabetes mellitus without complications (ICD-10) Coronary artery disease ?I25.10 - Atherosclerotic heart disease of pala coronary artery without angina pectoris (ICD-10) Surgical History History of hip surgery ?Z98.890 - Other specified postprocedural states (ICD-10) H/O knee surgery ?Z98.890 - Other specified postprocedural states (ICD-10) Social History Smoking Status: Never smoker Do you use any of these nicotine containing products: None How often do you have a drink containing alcohol: monthly or less AUDIT-C Alcohol total score: 1 Non-prescribed substance use: denies use service: No Exam Narrative: Exam Narrative: Alert and oriented-no acute distress. Significant boggy edema on the upper inner eyelids. Erythema starts just above the eyebrows on the forehead bilaterally and extends up to the frontal scalp. Surgical wound noted measuring approximately 4 cm. [address]utures are in place. Minimal surrounding edema and there is no drainage. The area of erythema on the forehead is warm to the touch. I did attempt wound culture by milking the area of wound but was unsuccessful. Neck is supple. Voice is normal. No lymphadenopathy. Heart with regular rate and rhythm and lungs are clear. Const: Vital Signs, click to edit/add: Vital Signs - 24 hr 08/23/25 19:44 08/23/25 21:57 Temperature 98.2 F Pulse Rate [Pulse Oximeter] 54 L 84 Respiratory Rate 16 18 Blood Pressure [Ri ght Upper Arm] 154/80 H 148/75 H Pulse Oximetry 98 99 Oxygen Delivery Me thod Room Air Room Air Documenting provider has reviewed patient's vital signs: yes Course Course ED Course: Differential diagnosis includes but is not limited to cellulitis, allergic reaction. This time I suspect cellulitis given location, recent surgical procedure. No reported fever here but at home patient feeling feverish and had 99.4. No history of MRSA. At this time will obtain CBC, basic panel, CRP and blood cultures. Will place IV and give Zosyn 3.375 g, 1 L of normal saline. Plan on vancomycin as well. I did attempt wound culture but there is no drainage at this time. Tried a of the wound around it. Unsuccessful at obtaining fluid. Reevaluation(s) Reevaluation #1: Discussed with patient's are white count of 3.06 with elevated CRP of 3.7, hemoglobin [place] [address]. Is actually an improvement of platelets with previous value on SaturdayAugust 18 51,000. Consultations Consultation #1: I had the pleasure of consulting with Dr. Mccallum our hospitalist this evening. Given the location, however rapid the symptoms came on today, immune status compromise with history of MDS, diabetes, pancytopenia, he is at higher risk for infection. Patient had been given Zosyn 3.375 g but feel we also must cover for MRSA tonight. Will give 1 g of IV vancomycin as well. Vital Signs Vital signs: Initial Vital Signs Temperature 98.2 F 08/23/25 19:44 Temperature Source Temporal Artery Scan 08/23/25 19:44 Pulse Rate 54 L 08/23/25 19:44 Respiratory Rate 16 08/23/25 19:44 Blood Pressure 154/80 H 08/23/25 19:44 Blood Pressure Mean 104 08/23/25 19:44 Blood Pressure Position Supine 08/23/25 19:44 Pulse Oximetry 98 08/23/25 19:44 Oxygen Delivery Method Room Air 08/23/25 19:44 Vital Signs Temperature 98.2 F 08/23/25 19:44 Pulse Rate 54 L 08/23/25 19:44 Respiratory Rate 16 08/23/25 19:44 Blood Pressure 154/80 H 08/23/25 19:44 Pulse Oximetry 98 08/23/25 19:44 Oxygen Delivery Method Room Air 08/23/25 19:44 Temperature 98.2 F 08/23/25 19:44 Pulse Rate 84 08/23/25 21:57 Respiratory Rate 18 08/23/25 21:57 Blood Pressure 148/75 H 08/23/25 21:57 Pulse Oximetry 99 08/23/25 21:57 Oxygen Delivery Method Room Air 08/23/25 21:57 Medications Administered Medications: Discontinued Medications Generic Name Dose Route Start Last Admin Trade Name Freq PRN Reason Stop Dose Admin Sodium Chloride 1,000 mls @ 1,000 mls/hr 08/23/25 20:28 08/23/25 21:08 0.9 % Sodium Chloride 1000 Ml IV 08/23/25 21:27 1,000 mls/hr .Q1H MERY Administration Piperacillin Sod/Tazobactam 100 mls @ 200 mls/hr 08/23/25 20:32 08/23/25 21:10 Sod 3.375 gm/ Sodium Chloride IVPB 08/23/25 20:33 200 mls/hr ONCE ONE Administration Medical Decision Making MDM Narrative Medical decision making narrative: 1. Facial cellulitis-patient noted to have recent surgical excision on the frontal scalp now with erythema around this area extending on to the forehead. Patient also has some boggy edema of the upper eyelids medial aspects that I think is more from a lymph drainage and I do not think he is experiencing any periorbital or preseptal cellulitis at this time. I do not think we have an abscess but if not improving will require CT. Nevertheless, this gentleman is immune compromised from his diabetes, mild dysplastic syndrome, recent oral chemotherapy, and pancytopenia and requires IV antibiotics until we see improvement of his symptoms. Patient has received Zosyn and will now receive vancomycin. 2. Pancytopenia-chronic secondary to MDS. Improved from 08/18. 2. Disposition-patient will be observation admission under the care of Dr. Mccallum for ongoing antibiotics and observation. Medical Records Medical records reviewed: Yes I reviewed the patient's medical records Lab Data Lab results reviewed: Yes I reviewed the patient's lab results Labs: Lab Results 08/23/25 Range/Units 20:45 WBC 3.06 L (4.50-11.00) K/uL RBC 3.02 L (4.30-5.90) m/uL Hgb 10.1 L (13.5-17.5) gm/dL Hct 30.6 L (37.0-53.0) % MCV 101 H (80-100) fL MCH 33 (26-34) pg MCHC 33 (32-36) gm/dL RDW Coeff of [place] 14.0 (11.5-15.5) % Plt Count 81 L (140-440) K/uL Neut % (Auto) 57.6 (42.0-72.0) % Lymph % (Auto) 28.4 (20-44) % [place] % (Auto) 13.1 H (0.0-11.0) % Eos % (Auto) 0.3 (0.0-7.0) % Baso % (Auto) 0.3 (0.0-3.0) % Neut # (Auto) 1.80 (1.7-7.0) K/uL Lymph # (Auto) 0.90 (0.90-2.90) K/uL [place] # (Auto) 0.40 (0.00-0.90) K/UL Eos # (Auto) 0.00 (0.00-0.50) K/uL Baso # (Auto) 0.00 (0.00-0.30) K/uL Abs Immat Gran (auto) 0.00 (0.00-0.30) K/uL Imm/Tot Granulo (auto) 0.3 % Sodium 135 (135-149) mmol/L Potassium 3.6 (3.6-5.1) mmol/L Chloride 100 (96-114) mmol/L Carbon Dioxide 27 (20-32) mmol/L Anion Gap 8 (7-15) mEq/L BUN 20 (7-30) mg/dL Creatinine 1.0 (0.5-1.5) mg/dL Estimated Creat Clear 56.00 Estimated GFR 77 ml/min Glucose 91 (60-115) mg/dL Calcium 9.1 (8.4-10.6) mg/dL C-Reactive Protein 3.7 H (0.5-1.0) mg/dL Discharge Plan Discharge Clinical Impression: Cellulitis of face Patient Disposition: Admitted As Observation Condition: Unchanged
[2025-08-23] MEDS: PIPERACILLIN/TAZOBACTAM 3.375 GM in 0.9 % SODIUM CHLORIDE Mini-bag 100 ML IVPB (21:10)
[2025-08-23 21:12] LABS: Chloride* 100 mmol/L (96-114); Potassium* 3.6 mmol/L (3.6-5.1); Sodium* 135 mmol/L (135-149)
[2025-08-23 21:16] LABS: Anion Gap 8 mEq/L (7-15); Blood Urea Nitrogen* 20 mg/dL (7-30); Calcium* 9.1 mg/dL (8.4-10.6); Carbon Dioxide* 27 mmol/L (20-32); Creatinine* 1.0 mg/dL (0.5-1.5); Est. Creatinine Clearance* 56.00; Estimated Glomerular Filt Rate 77 ml/min; Glucose* 91 mg/dL (60-115)
[2025-08-23 21:19] LABS: Hematocrit* 30.6 % (37.0-53.0); Hemoglobin* 10.1 gm/dL (13.5-17.5); Immature Granulocytes Pct Auto 0.3 %; Mean Corpuscular HGB Conc 33 gm/dL (32-36); Mean Corpuscular Hemoglobin 33 pg (26-34); Mean Corpuscular Volume 101 fL (80-100); RDW Coefficient of Variation % 14.0 % (11.5-15.5); Red Blood Count* 3.02 m/uL (4.30-5.90); White Blood Count* 3.06 K/uL (4.50-11.00)
[2025-08-23 21:28] LABS: Immature Granulocytes Abs Auto 0.00 K/uL (0.00-0.30); Lymphocytes Absolute Auto 0.90 K/uL (0.90-2.90); Slide Review Reflex No
[2025-08-23 21:57] VITALS: BP 148/75; PULSE 84; RESP 18; O2SAT 99
[2025-08-23 22:10] VITALS: BP 146/68; PULSE 55; RESP 20; TEMP 36.9; O2SAT 100
[2025-08-23 22:33] VITALS: BMI 25.3
[2025-08-23] MEDS: VANCOMYCIN 1 GM/200 ML 1 GM/200 ML PIGGYBACK IVPB (22:36)
--- NOTE | 2025-08-23 22:58 | PM.IMHP1 ---
Assessment and Plan Assessment and plan (1) Cellulitis of face: Problem comment: - Concerning given immunocompromised status (MDS, DM2, and recent Revlimid) - MRSA swab pending, BC pending - Continue zosyn and vanco started in ER - Although edema extends down to upper eyelids, those areas appear to be free of induration or infection at this time. I do not think he currently has preseptal or periorbital cellulitis Status: Acute (2) Pancytopenia: Problem comment: 07/20/25 WBC 2.2, Hgb 8.7, plts 134 08/16/25 WBC 1.8, Hgb 10.3, plts 59, Revlimid put on hold, still taking daily baby aspirin - due to Revlimid, improving. Continue to hold Revlimid. Status: Acute (3) MDS (myelodysplastic syndrome): Problem comment: - Takes Revlimid, which is currently on hold due to low platelets Status: Chronic (4) History of immune checkpoint inhibitor therapy: Status: Acute (5) Diabetes: Problem comment: - type 2 - 04/12/25 HgbA1c 9.2% - Continue metformin and glipizide. Start ISS ACHS for while he is in the hospital. Status: Chronic (6) Hypertension: Problem comment: - BP not hypotensive, currently elevated. Continue home chlorthalidone, lisinopril, metformin Status: Chronic (7) Hyperlipidemia: Problem comment: - continue atorvastatin Status: Chronic (8) Bradycardia: Problem comment: Longstanding h/o bradycardia, according to [facility] oncology note 08/16/25, pulse was 42 at that time. - Monitor on telemetry Status: Chronic (9) Coronary artery disease: Problem comment: - asymptomatic. Monitor on telemetry due to bradycardia Status: Chronic Plan 80 y/o male with cognitive impairment, immunocompromise, MDS, now with cellulitis around a recent surgical site on his forehead. I am concerned at how rapidly this developed and with him being immunocompromised, I think he is going to need at least 2 midnight of treatment with IV antibiotics. Think he may not be able to manifest a reaction befitting the severity of his infection due to his immunocompromised status and should be monitored closely during this time, therefore I have changed him to inpatient. Total Time Spent Total Time Spent: Time spent: Today I spent 75 minutes seeing the patient, discussing the patient with ER staff, reviewing Expanse and EPIC notes/diagnostics, discussing the care plan with our care team that includes fci and documenting my impressions and plan in the medical record. Hospitalist- H&P: HPI History of Present Illness Time Seen by Provider: 23:00 Date Seen: 08/23/25 Chief complaint: swollen face post surgery Narrative: Michael Summers is a 80 year old male Review of Systems Status of ROS: Reports: 10 or more systems reviewed and unremarkable except as noted in History and below Medical Decision Making Medical Decision Making Code Status: Full code Has patient completed a Health Care Directive: Yes During This Stay, Who Would You Like To Make Decisions For You In The Event You Are Unable To Make Them For Yourself?: , [facility] Medical History Bradycardia ?R00.1 - Bradycardia, unspecified (ICD-10) History of immune checkpoint inhibitor therapy ?Z92.26 - Personal history of immune checkpoint inhibitor therapy (ICD-10) Tubular adenoma ?D36.9 - Benign neoplasm, unspecified site (ICD-10) MDS (myelodysplastic syndrome) ?D46.9 - Myelodysplastic syndrome, unspecified (ICD-10) Alzheimer dementia ?G30.9 - Alzheimer's disease, unspecified (ICD-10) ?F02.80 - Dementia in other diseases classified elsewhere, unspecified severity, without behavioral disturbance, psychotic disturbance, mood disturbance, and anxiety (ICD-10) Prostate cancer ?C61 - Malignant neoplasm of prostate (ICD-10) Gout ?M10.9 - Gout, unspecified (ICD-10) 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 (ICD-10) Hyperlipidemia ?E78.5 - Hyperlipidemia, unspecified (ICD-10) Hypertension ?I10 - Essential (primary) hypertension (ICD-10) Diabetes ?E11.9 - Type 2 diabetes mellitus without complications (ICD-10) Coronary artery disease ?I25.10 - Atherosclerotic heart disease of [place] coronary artery without angina pectoris (ICD-10) Surgical History Total knee replacement status ?Z96.659 - Presence of unspecified artificial knee joint (ICD-10) S/P total right hip arthroplasty ?Z96.641 - Presence of right artificial hip joint (ICD-10) History of PTCA ?Z98.61 - Coronary angioplasty status (ICD-10) Social History (Updated 08/24/25 @ 01:14 by Yaneth Mccallum MD) Narrative: Lives with . They live here in the summer, [place] in the winter. Denies tob or alcohol use. 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 What is your current living situation?: I presently have a place to live Problems where you live: no known problems Problems where you live details: n/a In the past 12 months, utilities in danger of being shut off: no In past 12 months, lack of transportation kept you from medical appts, meetings, work, or getting things needed for daily living: no In the past 12 mos, have been you worried that your food would run out before you had money to buy more?: never true In the past 12 mos, the food you bought just didn't last and you didn't have money to buy more?: never true Smoking Status: Never smoker Do you use any of these nicotine containing products: None How often do you have a drink containing alcohol: monthly or less How often do you have six or more drinks on one occasion: Never AUDIT-C Alcohol total score: 1 Non-prescribed substance use: denies use How often does anyone, including family, friends and others, physically hurt you: never How often does anyone, including family, friends and others, insult or talk down to you: never How often does anyone, including family, friends and others, threaten you with harm: never How often does anyone, including family, friends and others, scream or curse at you: never service: No Meds Home Medications and Allergies Home Medications ?Medication ?Instructions ?Recorded ?Confirmed ?Type aspirin 81 mg PO HS 07/20/22 08/23/25 History allopurinol 300 mg tablet 300 mg PO HS 04/23/25 08/23/25 History atorvastatin 80 mg tablet 80 mg PO HS 04/23/25 08/23/25 History lisinopril 10 mg tablet 10 mg PO HS 04/23/25 08/23/25 History metformin 500 mg tablet,extended 1,000 mg PO BID 04/23/25 08/23/25 History release 24 hr metoprolol tartrate 25 mg tablet 25 mg PO BID 04/23/25 08/23/25 History nitroglycerin 0.4 mg sublingual 0.4 mg sublingual Q5M PRN 04/23/25 08/23/25 History tablet chlorthalidone 25 mg tablet 12.5 mg PO QAM 06/16/25 08/23/25 History glipizide 2.5 mg tablet, extended 2.5 mg PO DAILY@13 06/16/25 08/23/25 History release 24 hr donepezil 5 mg tablet 5 mg PO HS 08/23/25 08/23/25 History Allergies Allergy/AdvReac Type Severity Reaction Status Date / Time No Known Drug Allergies Allergy Verified 08/23/25 22:02 Exam Narrative: Exam Narrative: General: No acute distress. Awake alert oriented x3. HEENT: Surgical wound over left anterior scalp with sutures in place with no drainage or fluctuance. There is mild erythema with edema surrounding the surgical wound extends out several cm in all directions and down through the top half of the face, especially over the bridge of the nose. He has no pre aurical lymphadenopathy. Pupils equally round and reactive to light and accommodation. Oropharynx clear. Mucous membranes are moist. No cervical lymphadenopathy, thyromegaly or carotid bruits. No JVD. Cardiovascular: Regular rate and rhythm. No murmurs, gallops, or rubs. Chest: No increased work of breathing. Clear to auscultation bilaterally. No crackles or wheezes. Abdomen: Bowel sounds present. Soft, nondistended, nontender. No hepatosplenomegaly or masses. Extremities: No edema, no cyanosis or clubbing. Skin: No jaundice, no pallor, no rashes. Neuro: Grossly intact. No focal deficits. Const: Vital Signs, click to edit/add: Vital Signs - 24 hr 08/23/25 19:44 08/23/25 21:57 08/23/25 22:10 Temperature 98.2 F 98.4 F Pulse Rate [Pulse Oximeter] 54 L 84 55 L Respiratory Rate 16 18 20 Blood Pressure [Ri ght Arm] 146/68 H Blood Pressure [Ri ght Upper Arm] 154/80 H 148/75 H Pulse Oximetry 98 99 100 Oxygen Delivery Me thod Room Air Room Air Room Air Hospitalist - H&P: Result Labs Labs: Short CBC 08/23/25 Range/Units 20:45 WBC 3.06 L (4.50-11.00) K/uL Hgb 10.1 L (13.5-17.5) gm/dL Hct 30.6 L (37.0-53.0) % Plt Count 81 L (140-440) K/uL BMP 08/23/25 20:45 Sodium 135 Potassium 3.6 Chloride 100 Carbon Dioxide 27 BUN 20 Creatinine 1.0 Glucose 91 Calcium 9.1
[2025-08-24] VITALS (10 sets, daily range): BP systolic 139–165; BP diastolic 69–81; PULSE 50–97; RESP 16–19; TEMP 36.5–38; O2SAT 95–100
[2025-08-24] MEDS: METOPROLOL TARTRATE 25 MG TABLET PO ×3 (00:04→22:40)
[2025-08-24] MEDS: ATORVASTATIN CALCIUM 40 MG TABLET 80 MG PO ×2 (00:04→22:38)
[2025-08-24] MEDS: DONEPEZIL 5 MG TABLET PO ×2 (00:05→22:42)
[2025-08-24] MEDS: PIPERACILLIN/TAZOBACTAM 3.375 GM in 0.9 % SODIUM CHLORIDE Mini-bag 100 ML IVPB ×4 (04:56→22:32)
--- NOTE | 2025-08-24 07:50 | PC.NURSE ---
Shift note (): Patient admitted at 2210. Accompanied by Rohit. Pt pleasant and alert. Was not oriented to year upon admission. Ambulated with stand by assist.?Tolerating regular diet.?Denied pain.?Facial redness outlined early this AM. BS 183 at HS. ?
[2025-08-24 07:59] LABS: Hematocrit* 27.2 % (37.0-53.0); Hemoglobin* 9.1 gm/dL (13.5-17.5); Mean Corpuscular HGB Conc 34 gm/dL (32-36); Mean Corpuscular Hemoglobin 34 pg (26-34); Mean Corpuscular Volume 100 fL (80-100); Red Blood Count* 2.71 m/uL (4.30-5.90); White Blood Count* 3.07 K/uL (4.50-11.00)
[2025-08-24 08:20] LABS: Chloride* 101 mmol/L (96-114); Potassium* 3.5 mmol/L (3.6-5.1); Sodium* 134 mmol/L (135-149)
[2025-08-24 08:22] LABS: Blood Urea Nitrogen* 15 mg/dL (7-30); Creatinine* 0.9 mg/dL (0.5-1.5); Est. Creatinine Clearance* 56.00; Estimated Glomerular Filt Rate 87 ml/min
[2025-08-24 08:23] LABS: Anion Gap 6 mEq/L (7-15); Calcium* 8.9 mg/dL (8.4-10.6); Carbon Dioxide* 27 mmol/L (20-32); Glucose* 114 mg/dL (60-115)
[2025-08-24 08:35] LABS: Slide Review Reflex Yes
[2025-08-24 08:37] LABS: Slide Review Acceptable Review (Acceptable)
[2025-08-24] MEDS: METFORMIN ER 500 MG 1000 MG PO ×2 (08:54→17:50)
[2025-08-24] MEDS: CHLORTHALIDONE 25 MG TABLET 12.5 MG PO (08:54)
--- NOTE | 2025-08-24 09:24 | PC.PHA ---
Vancomycin consult note: Indication for vancomycin: [FACIAL CELLULITIS] Age: [80] Height: [170 CM] Weight: [74.5 KG] Most recent SCr: [1] Estimated CrCL: [56 ML/MIN] Recommended dose and frequency: [1500 IV Q24 HR] to obtain an estimated AUC/ARIANA of 400-600 mcg*hr/m (472) Additional comment: [ALSO ON PIP/TAZO, CX PENDING]
[2025-08-24] MEDS: SODIUM CHLORIDE 0.9 % (FLUSH) 10 ML SYRINGE 5 ML IVF ×2 (10:09→22:42)
--- NOTE | 2025-08-24 10:39 | PC.SOCIAL ---
Initial Psychosocial Assessment: 1.??? Assessment completed with: Patient, Spouse, Child, Friend, Other: Patient and patient's spouse. 2.??? Pt lives at address and phone number on face sheet? Address and numbers in chart are correct. 3.?Insurance information? on face sheet is correct? Yes 4.?Contacts? on face sheet are correct? Yes 5.??? Does pt have a Healthcare Directive, POLST or Guardian? Did not ask at this time 6.??? Who is the pt?s main source/sources of emotional/physical support? and family. 7.??? Prior to admission did pt need assistance? Yes/No No 8.??? Who provided and what was the assistance needed? N/A 9.??? Was Home Health being provided, by what agency? N/A 10. Does pt use/have medical equipment at home already? What? N/A 11. Will there be a need for additional assistance at discharge and is this available in previous setting? No 12. If pt needs to go to a higher level of care, are they open to this and do they have facilities they are interested in? N/A 13. How would pt plan to transport at discharge? 14. Is there anyone pt would like social sciences lecturer to contact to discuss discharge plans? No Other information:
--- NOTE | 2025-08-24 12:28 | P.IMPN_ITS ---
Assessment and Plan Assessment and plan (1) Cellulitis of face: Problem comment: - Concerning given immunocompromised status (MDS, DM2, and recent Revlimid) - MRSA swab pending, BC pending - Continue zosyn and vanco started in ER - no current imaging at this time, will consider if new or worsening symptoms - Although edema extends down to upper eyelids, those areas appear to be free of induration or infection at this time. I do not think he currently has preseptal or periorbital cellulitis Status: Acute (2) Pancytopenia: Problem comment: 07/20/25 WBC 2.2, Hgb 8.7, plts 134 08/16/25 WBC 1.8, Hgb 10.3, plts 59, Revlimid put on hold, still taking daily baby aspirin - due to Revlimid, improving. Continue to hold Revlimid. Status: Acute (3) MDS (myelodysplastic syndrome): Problem comment: - Takes Revlimid, which is currently on hold due to low platelets Status: Chronic (4) History of immune checkpoint inhibitor therapy: Problem comment: Chronic Status: Acute (5) Diabetes: Problem comment: - type 2 - 04/12/25 HgbA1c 9.2% - Continue metformin and glipizide. Start ISS ACHS for while he is in the hospital. Status: Chronic (6) Hypertension: Problem comment: - BP not hypotensive, currently elevated. Continue home chlorthalidone, lisinopril, metformin Status: Chronic (7) Hyperlipidemia: Problem comment: - continue atorvastatin Status: Chronic (8) Bradycardia: Problem comment: Longstanding h/o bradycardia, according to [facility] oncology note 08/16/25, pulse was 42 at that time. - Monitor on telemetry Status: Chronic (9) Coronary artery disease: Problem comment: - asymptomatic. Monitor on telemetry due to bradycardia Status: Chronic Plan Continue IV antibiotics, await cultures, possible discharge 1-2 days pending ongoing clinical improvement Total Time Spent Total Time Spent: Today I spent 55 minutes seeing the patient, reviewing Expanse and EPIC notes/diagnostics, discussing the care plan with our care time that includes social work, PT/OT, pharmacy, RT, prison and documenting my impressions and plan in the medical record. Subjective Date Seen: 08/24/25 Interval history: Patient is seen sitting up in bed. Reports feeling a little better than yesterday. Continues to have a headache. Frontal region of scalp is also painful with ongoing swelling. No dizziness. Remains afebrile. Tolerating orals without nausea vomiting. Exam Narrative: Exam Narrative: PHYSICAL EXAM General: Pleasant, conversant, NAD HEENT: Periorbital swelling extending upwards to scalp persists. Mild erythema persists, appears to have receded some from pen outline Cardiovascular: RRR, S1S2. No pitting edema Pulmonary: CTA bilaterally without rhonchi, rales, expiratory wheezes. No dyspnea Abdominal: Soft, nondistended, NTTP Neurological: Alert, answering questions appropriately, cranial nerves intact, no focal findings Extremities: No gross joint deformity or swelling. AROMI. Neurovascularly intact Skin: Warm, dry. Const: Vital Signs, click to edit/add: Vital Signs - 24 hr 08/23/25 19:44 08/23/25 21:57 08/23/25 22:10 Temperature 98.2 F 98.4 F Pulse Rate Pulse Rate [Pulse Oximeter] 54 L 84 55 L Respiratory Rate 16 18 20 Blood Pressure [Ri ght Arm] 146/68 H Blood Pressure [Ri ght Upper Arm] 154/80 H 148/75 H Pulse Oximetry 98 99 100 Oxygen Delivery Me thod Room Air Room Air Room Air 08/23/25 22:10 08/24/25 01:15 08/24/25 02:49 Temperature 98.2 F Pulse Rate 54 L Pulse Rate [Pulse Oximeter] 52 L Respiratory Rate 20 19 Blood Pressure [Ri ght Arm] 139/81 Blood Pressure [Ri ght Upper Arm] Pulse Oximetry 100 96 Oxygen Delivery [place]s thod Room Air Room Air 08/24/25 07:25 08/24/25 07:50 08/24/25 07:50 Temperature 98.9 F Pulse Rate 50 L Pulse Rate [Pulse Oximeter] 52 L Respiratory Rate 16 16 Blood Pressure [Ri ght Arm] 147/70 H Blood Pressure [Ri ght Upper Arm] Pulse Oximetry 95 95 Oxygen Delivery Me thod Room Air Room Air 08/24/25 11:36 Temperature 98.2 F Pulse Rate Pulse Rate [Pulse Oximeter] 51 L Respiratory Rate 16 Blood Pressure [Ri ght Arm] 143/69 H Blood Pressure [Ri ght Upper Arm] Pulse Oximetry 97 Oxygen Delivery Ks thod Room Air Labs Labs: Laboratory Results - last 24 hr 08/23/25 08/24/25 20:45 07:53 WBC 3.06 L 3.07 L RBC 3.02 L 2.71 L Hgb 10.1 L 9.1 L Hct 30.6 L 27.2 L MCV 101 H 100 MCH 33 34 MCHC 33 34 RDW Coeff of [place] 14.0 Plt Count 81 L 105 L Neut % (Auto) 57.6 Lymph % (Auto) 28.4 [place] % (Auto) 13.1 H Eos % (Auto) 0.3 Baso % (Auto) 0.3 Neut # (Auto) 1.80 Lymph # (Auto) 0.90 [place] # (Auto) 0.40 Eos # (Auto) 0.00 Baso # (Auto) 0.00 Abs Immat Gran (auto) 0.00 Imm/Tot Granulo (auto) 0.3 Diff Slide Review Acceptable Review Sodium 135 134 L Potassium 3.6 3.5 L Chloride 100 101 Carbon Dioxide 27 27 Anion Gap 8 6 L BUN 20 15 Creatinine 1.0 0.9 Estimated Creat Clear 56.00 56.00 Estimated GFR 77 87 Glucose 91 114 Calcium 9.1 8.9 C-Reactive Protein 3.7 H
[2025-08-24] MEDS: glipiZIDE 2.5 MG ER TAB PO (13:33)
[2025-08-24] MEDS: INSULIN ASPART 100 UNIT/ML SUBCUT ×2 (17:50→22:50)
--- NOTE | 2025-08-24 19:50 | PC.NURSE ---
End of shift [id number] - RN took over pt care at approximately 1530. Pt alert, oriented but forgetful and pleasant. Pt up independently in room and tolerating RA and regular diet/fluids. Reported pain in forehead as 8/10 , given medication per MAR with pt reporting improvement. Pt requested cool washcloth for improved comfort. Pt appears to be resting comfortably at end of shift with call light within reach.
[2025-08-24] MEDS: VANCOMYCIN 1.5 GM/300 ML 1.5 GM/300 ML PIGGYBACK IVPB (20:31)
[2025-08-24] MEDS: ASPIRIN 81 MG TABLET EC PO (22:38)
[2025-08-24] MEDS: ACETAMINOPHEN 325 MG TABLET 650 MG PO (22:41)
[2025-08-25] VITALS (13 sets, daily range): BP systolic 118–155; BP diastolic 58–71; PULSE 53–65; RESP 16–18; TEMP 36.8–37.3; O2SAT 95–99
[2025-08-25] MEDS: PIPERACILLIN/TAZOBACTAM 3.375 GM in 0.9 % SODIUM CHLORIDE Mini-bag 100 ML IVPB ×4 (05:44→22:26)
[2025-08-25 06:10] LABS: Hematocrit* 28.8 % (37.0-53.0); Hemoglobin* 9.5 gm/dL (13.5-17.5); Mean Corpuscular HGB Conc 33 gm/dL (32-36); Mean Corpuscular Hemoglobin 33 pg (26-34); Mean Corpuscular Volume 99 fL (80-100); Red Blood Count* 2.90 m/uL (4.30-5.90); White Blood Count* 3.26 K/uL (4.50-11.00)
[2025-08-25 06:14] LABS: Slide Review Reflex No
[2025-08-25 06:23] LABS: Chloride* 101 mmol/L (96-114); Potassium* 3.4 mmol/L (3.6-5.1); Sodium* 134 mmol/L (135-149)
[2025-08-25 06:25] LABS: Blood Urea Nitrogen* 11 mg/dL (7-30); Creatinine* 0.9 mg/dL (0.5-1.5); Est. Creatinine Clearance* 56.00; Estimated Glomerular Filt Rate 87 ml/min
[2025-08-25 06:26] LABS: Anion Gap 6 mEq/L (7-15); Calcium* 8.8 mg/dL (8.4-10.6); Carbon Dioxide* 27 mmol/L (20-32); Glucose* 118 mg/dL (60-115)
--- NOTE | 2025-08-25 08:03 | PC.NURSE ---
Shift note ([id number]): Patient pleasant and alert. Oriented to person and place. Has?forgetfulness. Ambulates with stand by assist. Given PRN Tylenol at 2240 for fever of 100.4. Recheck temp was 98.3. Temperatures have?been WNL since that time. PRN Oxycodone given for c/o forehead and left neck pain. Ice packs also effective for left neck pain.?
[2025-08-25] MEDS: POTASSIUM CHLORIDE 10 MEQ CAPSULE ER 40 MEQ PO (09:15)
[2025-08-25] MEDS: METFORMIN ER 500 MG 1000 MG PO ×2 (09:16→17:25)
[2025-08-25] MEDS: CHLORTHALIDONE 25 MG TABLET 12.5 MG PO (09:16)
[2025-08-25] MEDS: METOPROLOL TARTRATE 25 MG TABLET PO ×2 (09:16→21:04)
[2025-08-25] MEDS: SODIUM CHLORIDE 0.9 % (FLUSH) 10 ML SYRINGE 5 ML IVF ×2 (09:19→21:05)
[2025-08-25] MEDS: ACETAMINOPHEN 325 MG TABLET 650 MG PO ×2 (09:29→23:08)
--- NOTE | 2025-08-25 11:18 | PM.IMPN1 ---
Assessment and Plan Assessment and plan (1) Cellulitis of face: Problem comment: - Concerning given immunocompromised status (MDS, DM2, and recent Revlimid) - MRSA negative, BC NGTD - Continue zosyn. Stop vanco 08/25 - no current imaging at this time, will consider if new or worsening symptoms - Although edema extends down to upper eyelids, those areas appear to be free of induration or infection at this time. I do not think he currently has preseptal or periorbital cellulitis 08/25 continue IV Zosyn, likely able to transition to oral antibiotics tomorrow for discharge to home Status: Acute (2) Pancytopenia: Problem comment: 07/20/25 WBC 2.2, Hgb 8.7, plts 134 08/16/25 WBC 1.8, Hgb 10.3, plts 59, Revlimid put on hold, still taking daily baby aspirin - due to Revlimid, improving. Continue to hold Revlimid Monitoring, fluctuating. Outpatient follow-up with PCP Status: Acute (3) MDS (myelodysplastic syndrome): Problem comment: - Takes Revlimid, which is currently on hold due to low platelets Status: Chronic (4) History of immune checkpoint inhibitor therapy: Problem comment: Chronic Status: Acute (5) Diabetes: Problem comment: - type 2 - 04/12/25 HgbA1c 9.2% - Continue metformin and glipizide. Start ISS ACHS for while he is in the hospital Status: Chronic (6) Hypertension: Problem comment: - BP not hypotensive, currently elevated. Continue home chlorthalidone, lisinopril, metformin Status: Chronic (7) Hyperlipidemia: Problem comment: - continue atorvastatin Status: Chronic (8) Bradycardia: Problem comment: Longstanding h/o bradycardia, according to [facility] oncology note 08/16/25, pulse was 42 at that time. - Monitor on telemetry Status: Chronic (9) Coronary artery disease: Problem comment: - asymptomatic. Monitor on telemetry due to bradycardia Status: Chronic (10) Hypokalemia: Problem comment: mild, 3.5->3.4. Ordered one dose 40meq Status: Acute Plan Continue IV antibiotics, possible d/c 08/26 Total Time Spent Total Time Spent: Today I spent 55 minutes seeing the patient, reviewing Expanse and EPIC notes/diagnostics, discussing the care plan with our care time that includes social work, PT/OT, pharmacy, RT, fdc and documenting my impressions and plan in the medical record. Subjective Date Seen: 08/25/25 Interval history: Patient is seen today sitting up in a chair, and friend at bedside. Reports feeling much better. Looks brighter. Continues to have a mild headache which improves with will compress and Tylenol. Frontal swelling and discomfort also improving. Swelling under his eyes has significantly improved. Remains afebrile. Tolerating orals without nausea vomiting. Exam Narrative: Exam Narrative: PHYSICAL EXAM General: Pleasant, conversant, NAD HEENT: Periorbital swelling extending upwards to scalp persists but improved. Mild erythema continues to improve, appears to have receded some from pen outline Cardiovascular: RRR, S1S2. No pitting edema Pulmonary: CTA bilaterally without rhonchi, rales, expiratory wheezes. No dyspnea Abdominal: Soft, nondistended, NTTP Neurological: Alert, answering questions appropriately, cranial nerves intact, no focal findings Extremities: No gross joint deformity or swelling. AROMI. Neurovascularly intact Skin: Warm, dry. Const: Vital Signs, click to edit/add: Vital Signs - 24 hr 08/24/25 11:36 08/24/25 15:00 08/24/25 15:00 Temperature 98.2 F 97.7 F Pulse Rate Pulse Rate [Pulse Oximeter] 51 L 56 L Respiratory Rate 16 18 18 Blood Pressure [Ri ght Arm] 143/69 H 156/71 H Pulse Oximetry 97 98 98 Oxygen Delivery Me thod Room Air Room Air Room Air 08/24/25 15:57 08/24/25 20:30 08/24/25 22:12 Temperature 98.4 F Pulse Rate 64 Pulse Rate [Pulse Oximeter] 60 Respiratory Rate 17 17 Blood Pressure [Ri ght Arm] 165/74 H Pulse Oximetry 100 97 Oxygen Delivery Me thod Room Air Room Air 08/24/25 22:12 08/24/25 22:41 08/25/25 00:28 Temperature 100.4 F H 100.4 F H 98.3 F Pulse Rate Pulse Rate [Pulse Oximeter] 97 Respiratory Rate 17 Blood Pressure [Ri ght Arm] 160/72 H Pulse Oximetry 97 Oxygen Delivery Me thod Room Air 08/25/25 00:29 08/25/25 01:08/25/25 02:56 Temperature 98.3 F 98.3 F Pulse Rate 54 L Pulse Rate [Pulse Oximeter] 53 L Respiratory Rate 17 Blood Pressure [Ri ght Arm] 130/60 Pulse Oximetry 97 Oxygen Delivery Me thod Room Air 08/25/25 07:00 08/25/25 07:00 08/25/25 07:00 Temperature 98.2 F Pulse Rate 54 L Pulse Rate [Pulse Oximeter] 54 L Respiratory Rate 16 16 Blood Pressure [Ri ght Arm] 138/65 Pulse Oximetry 99 99 Oxygen Delivery Ri thod Room Air Room Air 08/25/25 09:26 08/25/25 09:29 08/25/25 10:33 Temperature 99.0 F 99.0 F 98.4 F Pulse Rate Pulse Rate [Pulse Oximeter] Respiratory Rate Blood Pressure [Ri ght Arm] Pulse Oximetry Oxygen Delivery Ri thod Labs Labs: Laboratory Results - last 24 hr 08/25/25 05:57 WBC 3.26 L RBC 2.90 L Hgb 9.5 L Hct 28.8 L MCV 99 MCH 33 MCHC 33 Plt Count 58 L Sodium 134 L Potassium 3.4 L Chloride 101 Carbon Dioxide 27 Anion Gap 6 L BUN 11 Creatinine 0.9 Estimated Creat Clear 56.00 Estimated GFR 87 Glucose 118 H Calcium 8.8
[2025-08-25] MEDS: INSULIN ASPART 100 UNIT/ML SUBCUT ×2 (12:30→21:11)
[2025-08-25] MEDS: glipiZIDE 2.5 MG ER TAB PO (12:30)
--- NOTE | 2025-08-25 18:13 | PC.NURSE ---
Pt is very pleasant to care for. A&Ox4, intermittently forgetful. VSS. Pain is localized to chronic neck pain. Pt reports forehead pressure has subsided. Facial swelling and redness has improved, pt continues to have slight, occasional clear liquid draining from right eye. Eye discomfort is relieved with cold compress. Pt has had a great appetite this shift, tolerating oral intake. Ambulating well with SBA, pt showered this evening. Surgical site on head remains open to air, scabbed over at this time. Pt's is very involved and often at bedside. Pt is resting well at this time.
[2025-08-25] MEDS: ATORVASTATIN CALCIUM 40 MG TABLET 80 MG PO (21:04)
[2025-08-25] MEDS: ASPIRIN 81 MG TABLET EC PO (21:04)
[2025-08-25] MEDS: DONEPEZIL 5 MG TABLET PO (21:05)
[2025-08-26 04:21] VITALS: BP 140/67; PULSE 56; RESP 16; TEMP 36.7; O2SAT 96
[2025-08-26] MEDS: PIPERACILLIN/TAZOBACTAM 3.375 GM in 0.9 % SODIUM CHLORIDE Mini-bag 100 ML IVPB (04:25)
[2025-08-26 06:35] LABS: Hematocrit* 27.5 % (37.0-53.0); Hemoglobin* 9.0 gm/dL (13.5-17.5); Mean Corpuscular HGB Conc 33 gm/dL (32-36); Mean Corpuscular Hemoglobin 33 pg (26-34); Mean Corpuscular Volume 100 fL (80-100); Red Blood Count* 2.76 m/uL (4.30-5.90); White Blood Count* 2.90 K/uL (4.50-11.00)
[2025-08-26 06:42] LABS: Slide Review Reflex No
[2025-08-26 06:46] LABS: Chloride* 101 mmol/L (96-114); Potassium* 3.5 mmol/L (3.6-5.1); Sodium* 134 mmol/L (135-149)
[2025-08-26 06:49] LABS: Anion Gap 7 mEq/L (7-15); Blood Urea Nitrogen* 15 mg/dL (7-30); Calcium* 8.5 mg/dL (8.4-10.6); Carbon Dioxide* 26 mmol/L (20-32); Creatinine* 0.9 mg/dL (0.5-1.5); Est. Creatinine Clearance* 56.00; Estimated Glomerular Filt Rate 87 ml/min; Glucose* 130 mg/dL (60-115)
[2025-08-26 07:00] VITALS: BP 145/90; PULSE 52; PULSE 67; RESP 16; TEMP 37.2; O2SAT 96
--- NOTE | 2025-08-26 07:29 | PC.NURSE ---
Shift note ([id number]): Patient pleasant and alert. Oriented to person and place. Forgetful at times. Stand by assist to bathroom. Given PRN Tylenol at 2300?for forehead discomfort and temperature of?99.0. Has been afebrile since that time. ?
[2025-08-26] MEDS: CHLORTHALIDONE 25 MG TABLET 12.5 MG PO (09:01)
[2025-08-26] MEDS: METOPROLOL TARTRATE 25 MG TABLET PO (09:01)
[2025-08-26] MEDS: METFORMIN ER 500 MG 1000 MG PO (09:01)
[2025-08-26] MEDS: SODIUM CHLORIDE 0.9 % (FLUSH) 10 ML SYRINGE 5 ML IVF (09:02)
--- NOTE | 2025-08-26 10:39 | PC.SOCIAL ---
Discharge planning: Met with pt and at 's request. business services analyst assessment was completed at admission. states that she does not need any services to assist at home at this time but she is interested in receiving information on home care and home health aides teacher care and programs to assist in keeping pt at home. is main caregiver. Pt is also receiving cancer care services through [facility] where and pt have met with a 7th grade social studies teacher. Provided with written information on the [employer] Line, comfort station attendant care options and home delivered meals. Also provided with information of how to contact hospital social workers in the future if any additional services are needed. was appreciative of information provided.
--- NOTE | 2025-08-26 10:51 | PC.NURSE ---
Discharge: Patient VSS, A/O x4. Afebrile this shift. Redness to face outlined and redness has receded. Ambulating to BR and chair tolerating a reg. diet. Patient denies N/V/SOB. Discharged to home today at 1040 accompanied by spouse. IV removed intact. Discharge instructions given and signed, patient verbalized understanding of instructions. Belongings sheet signed.
--- NOTE | 2025-08-26 13:42 | P.DS_ITS ---
DS: Providers Provider Date Seen: 08/26/25 Date of admission: 08/23/25 23:51 Primary care physician: Karen Lechuga PA-C Admitting Clinician: Yaneth Mccallum MD Attending Physician on discharge: Atif Dickey MD Date of Discharge: 08/26/25 DS: Diagnosis Discharge Diagnosis (1) Cellulitis of face: Status: Acute Problem details: - Concerning given immunocompromised status (MDS, DM2, and recent Revlimid) - MRSA negative, BC NGTD - Continue zosyn. Stop vanco 08/25 - no current imaging at this time, will consider if new or worsening symptoms - Although edema extends down to upper eyelids, those areas appear to be free of induration or infection at this time. I do not think he currently has preseptal or periorbital cellulitis 08/25 continue IV Zosyn, likely able to transition to oral antibiotics tomorrow for discharge to home (2) Pancytopenia: Status: Acute Problem details: 07/20/25 WBC 2.2, Hgb 8.7, plts 134 08/16/25 WBC 1.8, Hgb 10.3, plts 59, Revlimid put on hold, still taking daily baby aspirin - due to Revlimid, improving. Continue to hold Revlimid Monitoring, fluctuating. Outpatient follow-up with PCP (3) MDS (myelodysplastic syndrome): Status: Chronic Problem details: - Takes Revlimid, which is currently on hold due to low platelets (4) Coronary artery disease: Status: Chronic Problem details: - asymptomatic. Monitor on telemetry due to bradycardia (5) Diabetes: Status: Chronic Problem details: - type 2 - 04/12/25 HgbA1c 9.2% - Continue metformin and glipizide. Start ISS ACHS for while he is in the hospital (6) Hypertension: Status: Chronic Problem details: - BP not hypotensive, currently elevated. Continue home chlorthalidone, lisinopril, metformin (7) History of immune checkpoint inhibitor therapy: Status: Acute Problem details: Chronic (8) Hyperlipidemia: Status: Chronic Problem details: - continue atorvastatin (9) Bradycardia: Status: Chronic Problem details: Longstanding h/o bradycardia, according to [facility] oncology note 08/16/25, pulse was 42 at that time. - Monitor on telemetry (10) Hypokalemia: Status: Acute Problem details: mild, 3.5->3.4. Ordered one dose 40meq (11) Alzheimer dementia: Status: Acute DS: Summary Hospital Course Hospital Course: History of present illness on assessment in the emergency department on date of admission to the hospital: ?80-year-old gentleman, [place] with a history of myelodysplastic syndrome, diabetes, low platelets, recent surgery to remove a skin cancer on the frontal scalp who comes to the emergency room with his yazmin for evaluation regarding puffy eyes low-grade fever and spreading redness. 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 No complications at that time. This afternoon he noticed that his eyelids were more swollen and his forehead was read. They did not note any drainage from this area. Unfortunately he also had a low-grade fever at home at 99.4. He has discomfort more on the left side of his forehead. He thinks perhaps his throat is slightly sore. No runny nose and no cough. While notes no history of MRSA.? Responded well to IV vancomycin and piperacillin with tazobactam. We stop the IV vancomycin and he continued to do well on the piperacillin with tazobactam. Cellulitis decreased substantially such that we are able to discharge him home on oral antibiotics, cephalexin 500 mg 3 times daily for 1 more week. Follow up with primary care physician and financial aids officer and oncologist. Continue to have follow-up with surgeon as planned status post recent surgical resection of squam ous cell carcinoma from the front of the scalp. Status at Discharge Overall status at discharge: patient is progressing back to baseline Time Spent with Patient Time attestation: Total time spent providing and/or coordinating discharge services: Time spent: Greater than 30 minutes Specific discharge activities: Reviewed with patient and were agreeable Exam Narrative: Exam Narrative: General: Pleasant, conversant, NAD HEENT: Periorbital swelling extending upwards to scalp nearly resolved. Mild erythema continues resolve. Denies discomfort to palpation over area. Cardiovascular: RRR, S1S2. No pitting edema Pulmonary: CTA bilaterally without rhonchi, rales, expiratory wheezes. No dyspnea Abdominal: Soft, nondistended, NTTP Neurological: Alert, answering questions appropriately, cranial nerves intact, no focal findings Extremities: No gross joint deformity or swelling. AROMI. Neurovascularly intact Skin: Warm, dry. Const: Vital Signs, click to edit/add: Vital Signs - 24 hr 08/25/25 15:00 08/25/25 15:00 08/25/25 15:00 Temperature 98.9 F Pulse Rate 53 L Pulse Rate [Pulse Oximeter] 56 L Respiratory Rate 16 16 Blood Pressure [Ri ght Arm] 124/62 Pulse Oximetry 98 98 Oxygen Delivery Me thod Room Air Room Air 08/25/25 19:56 08/25/25 21:35 08/25/25 22:21 Temperature 98.7 F Pulse Rate 64 Pulse Rate [Pulse Oximeter] 65 Respiratory Rate 17 18 Blood Pressure [Ri ght Arm] 146/66 H Pulse Oximetry 98 98 Oxygen Delivery Me thod Room Air Room Air 08/25/25 22:21 08/26/25 04:21 08/26/25 07:00 Temperature 99.2 F 98.0 F Pulse Rate 52 L Pulse Rate [Pulse Oximeter] 65 56 L Respiratory Rate 18 16 Blood Pressure [Ri ght Arm] 155/71 H 140/67 H Pulse Oximetry 97 96 Oxygen Delivery Me thod Room Air Room Air 08/26/25 07:00 08/26/25 07:00 08/26/25 07:00 Temperature 99.0 F Pulse Rate Pulse Rate [Pulse Oximeter] 67 67 Respiratory Rate 16 16 16 Blood Pressure [Ri ght Arm] 145/90 H Pulse Oximetry 96 96 Oxygen Delivery Me thod Room Air Room Air DS: Data Data Completed and Pending Labs on day of discharge: Labs from last 24 hours 08/26/25 06:02 WBC 2.90 L RBC 2.76 L Hgb 9.0 L Hct 27.5 L MCV 100 MCH 33 MCHC 33 Plt Count 63 L Sodium 134 L Potassium 3.5 L Chloride 101 Carbon Dioxide 26 Anion Gap 7 BUN 15 Creatinine 0.9 Estimated Creat Clear 56.00 Estimated GFR 87 Glucose 130 H Calcium 8.5 Preliminary micro results at discharge 08/23/25 20:45 Blood Culture - Preliminary Blood NO GROWTH AFTER 48 HOURS 08/23/25 20:45 Blood Culture - Preliminary Blood NO GROWTH AFTER 48 HOURS Discharge Plan Discharge Disposition: Home, Self-Care Date of Admission: 08/23/25 23:51 Attending Provider on Discharge: Atif Dickey Primary Care Provider: Karen Lechuga Condition: Unchanged Anticipated Discharge Date/Time: 08/26/25 11:00 Discharge Medications: New cephalexin 500 mg Capsule 500 mg PO TID 7 Days Qty: 21 0RF Continued chlorthalidone 25 mg tablet 12.5 mg PO QAM glipizide 2.5 mg tablet extended release 24hr 2.5 mg PO DAILY@13 atorvastatin 80 mg tablet 80 mg PO HS lisinopril 10 mg tablet 10 mg PO HS nitroglycerin 0.4 mg tablet, sublingual 0.4 mg sublingual Q5M PRN allopurinol 300 mg tablet 300 mg PO HS metformin 500 mg tablet extended release 24 hr 1,000 mg PO BID metoprolol tartrate 25 mg tablet 25 mg PO BID donepezil 5 mg tablet 5 mg PO HS aspirin [[facility]ierra Aspirin] 81 mg tablet,delayed release (DR/EC) 81 mg PO DAILY Discharge Orders: Discharge Order (Routine); Ordered 08/26/25 Ordered By: Atif Dickey Patient Education: Cephalexin (By mouth), Cellulitis (GEN) Additional Instructions: 1. [id number] with primary critical care specialist in 5-7 days with pre-visit CBC 2. Keep follow-up appointment with financial aids officer/oncologist 3. Keep follow-up with surgeon and adhere to wound care orders 4. Return to clinic or hospital sooner if needed Activity Level: Activity as Tolerated Discharge Diet: Regular Follow Up Appointments: Karen Lechuga PA-C [Primary Care Provider, Family Practice] - 08/31/25 11:35 am Referral Note: [facility] for [facility] follow[facility]. [facility] Instructions
== END 2025-08-26 10:40 | disposition home or self-care (01) | DRG 863 ==
LOC: ED 22:03 → MEDSURG 22:21
PROVIDERS: Physician Assistant; Admitting Provider Family Medicine; Emergency Provider Family Medicine; PCP Student in an Organized Health Care Education/Training Program; Visit Provider Family Medicine
DX: T81.49XA Infection following a procedure, other surgical site, initial encounter (principal); L03.211 Cellulitis of face; D84.81 Immunodeficiency due to conditions classified elsewhere; D61.818 Other pancytopenia; D46.9 Myelodysplastic syndrome, unspecified; Z79.61 Long term (current) use of immunomodulator; E11.9 Type 2 diabetes mellitus without complications; E87.6 Hypokalemia; R00.1 Bradycardia, unspecified; G30.9 Alzheimer's disease, unspecified; F02.80 Dementia in other diseases classified elsewhere, unspecified severity, without behavioral disturbance, psychotic disturbance, mood disturbance, and anxiety; Z92.26 Personal history of immune checkpoint inhibitor therapy; C44.42 Squamous cell carcinoma of skin of scalp and neck; I10 Essential (primary) hypertension; Z79.84 Long term (current) use of oral hypoglycemic drugs; I25.10 Atherosclerotic heart disease of native coronary artery without angina pectoris; E78.5 Hyperlipidemia, unspecified
CPT/HCPCS: 36415; 80048; 82962; 85025; 85027; 86140; 87040; 87081; 99284; 99285; A9270; J2543; J3375; J7030; J7050